=== PATIENT | male | born 1945 | race Caucasian/White ===

== ENCOUNTER 2016-09-29 10:54 | Emergency (ER) | payer MEDICARE, OTHER ==
[~2016-09-29 10:54] MED LIST: /TAMS4CA OR; ACET65TA OR; ALPR0.25 PO; AMBI10TA OR; ASPI1TAB PO; COLA100C2 OR; HYDR-3713 PO; IBUPOTC PO; KLOR1TAB73 PO; LACT10SO8 OR; LASI40TA OR; LASI40TA PO; LIPI10TA PO; LOPR50TA OR; MAGN500T5 PO; MULTIVIT PO; PERC5TAB8 OR; POTA20TA2 OR; PROC; PROP80CA OR; RAMI1.25 PO; SERT25TA PO; TAMS0.4C2 PO; XANA0.25 OR; XOPE1.252 IN; ZOLO50TA OR; proctosol TOP
[2016-09-29] MEDS ORDERED: [UNRECOGNIZED DRUG - OTHER] (11:08)
[2016-09-29] MEDS ORDERED: ASPI1TAB PO (11:08)
[2016-09-29] MEDS ORDERED: FERR325T PO (11:18)
[2016-09-29] MEDS ORDERED: NEUR300C PO (11:18)
[2016-09-29] MEDS ORDERED: FOLI1TAB2 PO (11:18)
[2016-09-29] MEDS ORDERED: LEVO25TA5 PO (11:18)
[2016-09-29] MEDS ORDERED: TYLE325C PO (11:18)
[2016-09-29] MEDS ORDERED: VITA500C24 PO (11:18)
[2016-09-29] MEDS ORDERED: K-TA10TA2 PO (11:18)
[2016-09-29] MEDS ORDERED: REQU3TAB PO (11:18)
[2016-09-29] MEDS ORDERED: DAILTAB51 PO (11:18)
[2016-09-29] MEDS ORDERED: SPIR25TA2 PO (11:18)
[2016-09-29] MEDS ORDERED: IPRASOL4 IN (11:30)
[2016-09-29] MEDS ORDERED: PHENYLEPHRINE 1% NASAL DROP 30 ML ONE (12:30)
[2016-09-29] MEDS ORDERED: LIDOCAINE 4% TOPICAL SOLN 50 ML BTL TOP ONE (12:30)
[2016-09-29] MEDS ORDERED: GABAPENTIN 300 MG CAP PO ONE (15:00)
[2016-09-29] MEDS ORDERED: IPRATROPIUM 0.5MG/ALBUTEROL 2.5MG INH SOL UD 3ML (DUONEB)(J7620) NEB ONE (15:00)
[2016-09-29 15:17] VITALS: BP 121/58
== END 2016-09-29 16:59 | disposition home or self-care (01) ==
LOC: EDBD 10:54 → M ED 12:56
DX: R04.0 Epistaxis (principal); I10 Essential (primary) hypertension; I51.9 Heart disease, unspecified; Z79.899 Other long term (current) drug therapy; Z88.6 Allergy status to analgesic agent

== ENCOUNTER 2016-09-30 11:43 | Emergency (ER) | payer MEDICARE, OTHER ==
[~2016-09-30] VITALS: Ht 175.3 cm; Wt 81.2 kg
[~2016-09-30 11:43] MED LIST changes: +DAILTAB51 PO; +FERR325T PO; +FOLI1TAB2 PO; +IPRASOL4 IN; +K-TA10TA2 PO; +LEVO25TA5 PO; +NEUR300C PO; +REQU3TAB PO; +SPIR25TA2 PO; +TYLE325C PO; +VITA500C24 PO; +[UNRECOGNIZED DRUG - OTHER]
[2016-09-30 14:49] LABS: MEAN CORPUSCULAR HEMOGLOBIN 30.3 pg (27.0-33.0); MEAN CORPUSCULAR HGB CONC 31.9 g/dl (32.0-36.5); MEAN CORPUSCULAR VOLUME 94.8 fl (80.0-96.0); RED CELL DISTRIBUTION WIDTH 14.6 % (11.5-14.5); WHITE BLOOD COUNT 5.7 K/mm3 (4.0-10.0)
[2016-09-30] MEDS ORDERED: GABAPENTIN 300 MG CAP PO ONE (15:00)
[2016-09-30 15:52] VITALS: BP 121/56
== END 2016-09-30 15:54 | disposition home or self-care (01) ==
LOC: M ED 13:58
DX: R04.0 Epistaxis (principal); D64.9 Anemia, unspecified; I25.10 Atherosclerotic heart disease of native coronary artery without angina pectoris; G25.81 Restless legs syndrome; Z95.5 Presence of coronary angioplasty implant and graft; Z79.82 Long term (current) use of aspirin; Z79.899 Other long term (current) drug therapy; Z88.8 Allergy status to other drugs, medicaments and biological substances

== ENCOUNTER 2016-10-07 09:41 | Inpatient (IN) | payer MEDICARE, OTHER ==
[~2016-10-07] VITALS: Ht 175.3 cm; Wt 88.1 kg
[2016-10-07 10:34] LABS: BASO % 0.2 % (0.0-1.0); EOS # 0.2 K/mm3 (0.0-0.50); LARGE UNSTAINED CELL # 0.1 K/mm3 (0.0-0.4); LARGE UNSTAINED CELL % 1.3 % (0.0-4.0); LYMPH # 0.5 K/mm3 (1.5-4.5); LYMPH % 5.6 % (24.0-44.0); MEAN CORPUSCULAR HEMOGLOBIN 29.6 pg (27.0-33.0); MEAN CORPUSCULAR VOLUME 95.6 fl (80.0-96.0); MONO # 0.6 K/mm3 (0.0-0.8); MONO % 7.8 % (0.0-5.0); NEUTROPHILS # 6.3 K/mm3 (1.8-7.7); NEUTROPHILS % 83.1 % (36.0-66.0); PLATELET COUNT, AUTOMATED 240 k/mm3 (150-450); RED CELL DISTRIBUTION WIDTH 14.8 % (11.5-14.5); WHITE BLOOD COUNT 7.6 K/mm3 (4.0-10.0)
[2016-10-07 10:51] LABS: CREATININE FOR GFR 1.31 MG/DL (0.70-1.30); GLOMERULAR FILTRATION RATE 57.1 (>42); POTASSIUM SERUM 4.2 MEQ/L (3.5-5.1)
--- NOTE | 2016-10-07 11:26 | REP ---
CHEST, PORTABLE: AP portable view of the chest is performed. Most recent exam for comparison 04/30/2015. Diffuse right pleural thickening is unchanged. There appear to be stable interstitial opacities in the right lung base. Small metallic clips are seen in the right lung base. Left lung demonstrates some retrocardiac opacity likely representing an area of atelectasis or infiltrate. There also appears to be a small left pleural effusion. Heart is mildly enlarged. Mediastinal silhouette is unchanged. Left pacemaker is again noted. There are multiple sternal wires present. IMPRESSION: Chronic pleural and parenchymal opacities right lung. Mild left basilar atelectasis/infiltrate and small left effusion. Cardiomegaly. Mild vascular congestion. Signed by Preet Donaldson MD 10/07/2016 04:59 P
[2016-10-07] MEDS ORDERED: FLOM5CAP PO (11:37)
[2016-10-07] MEDS ORDERED: MICO2CRE33 TOP (11:39)
[2016-10-07] MEDS ORDERED: GABA300C3 PO (11:39)
[2016-10-07] MEDS ORDERED: IPRASOL4 INH (11:39)
[2016-10-07] MEDS ORDERED: NU-M1TAB PO (11:42)
[2016-10-07] MEDS ORDERED: FURO20TA2 PO (11:42)
[2016-10-07] MEDS ORDERED: POTA20TA PO (11:42)
[2016-10-07] MEDS ORDERED: VITMTA PO (11:42)
[2016-10-07 11:51] LABS: ALBUMIN 3.3 GM/DL (3.2-5.2)
[2016-10-07 11:57] LABS: ALBUMIN/GLOBULIN RATIO 0.77 (1.00-1.93); BILIRUBIN,DIRECT 0.1 MG/DL (0.0-0.2); BILIRUBIN,TOTAL 0.3 MG/DL (0.2-1.0); THYROXINE (T4) 9.4 UG/DL (4.5-12.0); TOTAL PROTEIN 7.6 GM/DL (6.4-8.2)
[2016-10-07 11:57] LABS: INR 1.21
--- NOTE | 2016-10-07 12:28 | REP ---
Bilateral lower extremity Duplex Doppler venous ultrasound: Real time compression and duplex Doppler interrogation of the bilateral lower extremity deep venous system is performed. Bilaterally, the common femoral, superficial femoral and popliteal veins are fully compressible with transducer pressure and demonstrate normal spontaneous and phasic flow, without evidence of deep venous thrombosis. A right inguinal fluid collection measures 8.0 x 3.8 x 8.4 cm, superior and medial to the right common femoral artery and vein. Mild scattered internal echoes are seen. This may represent a seroma or old hematoma. Abscess is unlikely. Impression: No evidence of deep venous thrombosis of the bilateral lower extremity femoral popliteal venous system. A right inguinal fluid collection measures 8.0 x 3.8 x 8.4 cm, superior and medial to the right common femoral artery and vein. Mild scattered internal echoes are seen. This may represent a seroma or old hematoma. Abscess is unlikely. Signed by Preet Donaldson MD 10/07/2016 12:19 P
[2016-10-07] MEDS ORDERED: IMIPENEM/CILASTATIN 500 MG in D5W MINI-BAG PLUS 100 ML IV ONE (12:30)
--- NOTE | 2016-10-07 14:02 | HPEPDOC ---
Medical History and Physical Date of Admission 10/07/16 History and Physical ATTENDING: Dr. Dr Horowitz PCP: Dr Gillis Business Trainer Dr Foster CC: SOB HPI: 71yoM with a past medical history significant for MV repair and tricuspid repair at [facility] d/c 09/08/16 complicated by C diff, persistent SOB postoperatively complicated by decompensated CHF. Pt weight has decreased from 210-183 and pt states his edema has dramatically improved. Pt states he has had SOB/ MEDRANO, orthopnea and PND since d/c, he was given nebulizer treatments as per PCP for persistent SOB and has been on O2 at home 2LNC. Pt states SOB worsened Mon with chills, yellow/green sputum, and fatigue. Denies any fevers, YUSUF, CP, palpitations, abdominal pain, N/V/D or changes in bowel or bladder habits. Upon presentation to the hospital the patient was found to have HCAP, thus the hospitalist team was consulted. PMHx: VHD CHF/CMP TTE 05/14 EF 60% Pacemaker S/P MVR/Tricuspid Repair [facility] d/c 09/08/16 C diff postoperatively 09/16 epistaxis s/p cauterization, Dr Rodriguez 10/14 H/O Stage 4 Lung Ca s/p Chemo/Radiation 1998 depression anxiety Fe deficiency anemia hypothyroid RLS BPH PSHX: Tonsillectomy as child umbilical hernia pacemaker implant Rt knee arthroplasty Rt knee replacement pericardial window 2000 thoracentesis (pericardial effusion) pacemaker implant MVR/Tricuspid repair [facility] d/ 09/08/16 SOCHX: Resides in: [place] Marital Status: Kids: none Employment: retired [employer] Tobacco use: denies ETOH: 1 per week Illicit Drugs: Denies Recent travel: denies Advanced directives: denies FAMHX: Mother: Colon CA Father: Bladder Ca Siblings: 2 sisters, Breast Ca Children: none Unexpected deaths due to medical reasons: None. ROS: As noted in HPI, otherwise 11pt ROS of systems reviewed and remarkable only for large lump right groin since surgery. Some tenderness. no redness. PE: GEN: 71yoM, appears stated age. Thin, pale appearing. No acute distress. Alert and oriented x 3. Pleasant, interactive. HEENT: Normocephalic, atraumatic. Pupils are equal, round, and reactive to light. Extraocular movements are intact. No nystagmus appreciated. Sclera are nonicteric. Conjunctiva without injection. Nose midline. Nasal turbinates without bogginess. EACs both patent BL. TMs both visualized and dukes with good cone of light, no bulging or erythema. No facial asymmetry. Moist mucous membranes. Dentition fair. Pharynx pink and moist, no cobblestoning. Neck supple , trachea midline. No lymphadenopathy or thyromegaly appreciated. CHEST: Regular rate and rhythm, +S1, +S2 LUNGS: Decreased BS B/L with scattered wheeze and rhonchi, rales at bases R>L. Patient is speaking in full sentences. No accessory muscle use. ABD: Round, soft, non-tender, non-distended. +Bowel sounds throughout. No rebound or guarding. No costovertebral angle tenderness. EXT: Pulses 2+ bilaterally dorsalis pedis and radial. trace to 1 mm lower extremity edema appreciated at ankle and distal pretibial area. There is a 4- 5cm diameter nodule under what appears to be a surgical vascular acces site Rt groin, mild TTP. No erythema, drainage. No pulsation. SKIN: Marty, dry, warm. Capillary refill <2sec. No rashes. NEURO: Alert and oriented x 3. Cranial nerves III-XII are intact. No focal deficits appreciated. CXR: Chronic pleural and parenchymal opacities right lung. Mild left basilar atelectasis/infiltrate and small left effusion. Cardiomegaly. Mild vascular congestion EKG: Ventricular paced LE u/S No evidence of deep venous thrombosis of the bilateral lower extremity femoral popliteal venous system. A right inguinal fluid collection measures 8.0 x 3.8 x 8.4 cm, superior and medial to the right common femoral artery and vein. Mild scattered internal echoes are seen. This may represent a seroma or old hematoma. Abscess is unlikely BLOOD CULTURES: x 2 pending Respiratory panel pending LA 0.8 A&P: 71yoM with a past medical history significant for MV repair and tricuspid repair at [facility] d/c 09/08/16 complicated by C diff, persistent SOB postoperatively complicated by decompensated CHF. Pt weight has decreased from 210-183 and pt states his edema has dramatically improved. Pt states he has had SOB/ MEDRANO, orthopnea and PND since d/c, he was given nebulizer treatments as per PCP for persistent SOB and has been on O2 at home 2LNC. Pt states SOB worsened Mon with chills, yellow/green sputum, and fatigue. The patient will be admitted to PCU for at least [address] Horowitz's service. Pt is discussed with Dr Laughlin. HCAP. O2/Nebs, IV Primaxin. Check MRSA screen. Sputum Cx/BCx 2 pending. Respiratory panel pending. Recent MV repair/Tricuspid repair. Follows with Dr Foster. H/O C diff postoperatively. Hematoma Rt Groin. Per u/s appears to be a seroma vs hematoma. Monitor. CMP/CHF. Fluid status appears compensated. Cont outpt regimen of po Lasix 40mg AM/20mg PM, Aldactone 25mg daily, KCL 20meg BID. SCr baseline 1.1-1.2. 1.31 currently. Monitor labs. I/O/ daily wt. Pacemaker. PCU/TM. Anxiety/depression. Cont oupt meds. Anemia. Continue Folate/Fe supplement. Update Fe studies/B12/folate. Hgb 8.9 on ED visit 09/30. Monitor. RLS. Cont outpt regimen Requip/Gabapentin. BPH. Flomax. Epistaxis. Recent cauterization procedure as per Dr Rodriguez ENT. Hypothyroid. Continue supplement. DVT prophylaxis. SCD/TEDS The patient is a DNR per pt- Request copy. Vital Signs 96.7 60 111/61 22 96% Laboratory Data Labs 24H Laboratory Tests 2 10/07/16 10:17: B-Type Natriuretic Peptide 405H, Prothromb Time International Ratio 1.21, Prothrombin Time 15.4H 10/07/16 10:18: Aspartate Amino Transf (AST/SGOT) 21, Alanine Aminotransferase (ALT/SGPT) 20, Alkaline Phosphatase 78, Total Bilirubin 0.3, Direct Bilirubin 0.1, Albumin 3.3 , Albumin/Globulin Ratio 0.77L, Anion Gap 8, White Blood Count 7.6, Red Blood Count 3.06L, Hemoglobin 9.1L, Hematocrit 29.3L, Mean Corpuscular Volume 95.6, Mean Corpuscular Hemoglobin 29.6, Mean Corpuscular Hemoglobin Concent 31.0L, Red Cell Distribution Width 14.8H, Platelet Count 240, Neutrophils (%) (Auto) 83.1H, Lymphocytes (%) (Auto) 5.6L, Monocytes (%) (Auto) 7.8H, Eosinophils (%) ( Auto) 2.0, Basophils (%) (Auto) 0.2, Neutrophils # (Auto) 6.3, Lymphocytes # ( Auto) 0.5L, Monocytes # (Auto) 0.6, Eosinophils # (Auto) 0.2, Basophils # (Auto ) 0.0, Calcium Level 9.0, Creatine Kinase MB 2.5, Creatine Kinase MB Relative Index 3.78, Free Thyroxine Index 3.7, Glomerular Filtration Rate 57.1, Large Unclassified Cells # 0.1, Large Unclassified Cells % 1.3, Thyroid Stimulating Hormone (TSH) 5.620H, Thyroxine (T4) 9.4, Total Creatine Kinase 66, Total Protein 7.6, Triiodothyronine (T3) Uptake 39, Troponin I 0.03 10/07/16 12:37: Lactic Acid (Sepsis) 0.8 CBC/BMP Laboratory Tests 10/07/16 10:18 Red Blood Count 3.06 L, Mean Corpuscular Volume 95.6, Mean Corpuscular Hemoglobin 29.6, Mean Corpuscular Hemoglobin Concent 31.0 L, Red Cell Distribution Width 14.8 H, Neutrophils (%) (Auto) 83.1 H, Lymphocytes (%) (Auto ) 5.6 L, Monocytes (%) (Auto) 7.8 H, Eosinophils (%) (Auto) 2.0, Basophils (%) ( Auto) 0.2, Neutrophils # (Auto) 6.3, Lymphocytes # (Auto) 0.5 L, Monocytes # ( Auto) 0.6, Eosinophils # (Auto) 0.2, Basophils # (Auto) 0.0 Microbiology Microbiology 10/07/16 Blood Culture, Received Pending 10/07/16 Blood Culture, Received Pending 10/07/16 Respiratory Virus Panel (PCR) (OSMAR), Received Pending Home Medications Scheduled (Nu-Mag 71.5-119 mg) 1 Tab Tab 1 TAB PO DAILY Ascorbic Acid (Vitamin C) 500 Mg Cap 500 MG PO DAILY Ferrous Sulfate (Ferrous Sulfate) 325 Mg Tab 325 MG PO BID Folic Acid (Folic Acid) 1 Mg Tab 1 MG PO DAILY Furosemide (Lasix) 40 Mg Tab 40 MG PO QAM Furosemide (Furosemide) 20 Mg Tab 20 MG PO DAILY TAKES IN THE AFTERNOON Gabapentin (Gabapentin) 300 Mg Cap 300 MG PO TID Levothyroxine Sodium (Synthroid) 25 Mcg Tab 25 MCG PO DAILY Miconazole Nitrate (Miconazole) 2 % Cre 1 DOSE TOP BID APPLIES TO GROIN AREA Multivitamins *[facility] STOCKED* (Thera M Plus *[facility] STOCKED*) 1 Tab Tab 1 TAB PO BID Potassium Chloride (Klor-Con M20) 20 Meq Tabcr 20 MEQ PO BID Ropinirole Hydrochloride (Requip) 3 Mg Tab 3 MG PO QHS Sertraline Hcl (Sertraline HCl) 25 Mg Tab 25 MG PO DAILY Spironolactone (Spironolactone) 25 Mg Tab 25 MG PO DAILY Tamsulosin Hydrochloride (Flomax) 0.4 Mg Cap 1 CAP PO DAILY Scheduled PRN Albuterol/Ipratropium (Ipratropium Tasley/Albut 0.5-2.5 (3) mg/3Ml) 1 Jah Jah 1 JAH INH QID PRN PRN SHORTNESS OF BREATH Alprazolam (Alprazolam) 0.25 Mg Tab 0.25 MG PO PRN ANXIETY Allergies Coded Allergies: NSAIDs (Verified Adverse Reaction, Intermediate, acute kidney injury, 05/14) Lesia Alexis Oct 07, 2016 14:02
[2016-10-07] MEDS: FUROSEMIDE 20 MG TAB PO SCH (17:22)
[2016-10-07] MEDS: GABAPENTIN 300 MG CAP PO SCH ×2 (17:25→20:26)
[2016-10-07 18:45] VITALS: BP 116/65
[2016-10-07 20:00] VITALS: BP 110/61
[2016-10-07] MEDS: IPRATROPIUM 0.5MG/ALBUTEROL 2.5MG INH SOL UD 3ML (DUONEB)(J7620) NEB SCH ×2 (20:00→23:44)
[2016-10-07] MEDS: FERROUS SULFATE 325MG TAB PO SCH (20:26)
[2016-10-07] MEDS: TAMSULOSIN 0.4 MG CAP PO SCH (20:27)
[2016-10-07] MEDS: POTASSIUM CHLORIDE 10 MEQ SR TABLET PO SCH (20:27)
[2016-10-07] MEDS: MULTIVITAMINS/MINERALS THERAP 1 TAB PO SCH (20:27)
[2016-10-07] MEDS: ACETAMINOPHEN TAB 650MG DOSE (2X325MG) PO PRN (20:29)
[2016-10-07] MEDS: IMIPENEM/CILASTATIN 500 MG in D5W MINI-BAG PLUS 100 ML IV SCH ×2 (20:29→23:52)
[2016-10-07] MEDS ORDERED: rOPINIRole 1MG TAB PO SCH (21:00)
[2016-10-07] MEDS: ONDANSETRON 4MG/2ML VIAL (J2405) IV PRN (23:51)
[2016-10-08] VITALS: BP 132/69; PULSE 59
[2016-10-08 04:00] VITALS: BP 127/69; PULSE 60
[2016-10-08 05:14] LABS: BASO % 0.3 % (0.0-1.0); EOS # 0.1 K/mm3 (0.0-0.50); EOS % 1.5 % (0.0-3.0); LARGE UNSTAINED CELL # 0.2 K/mm3 (0.0-0.4); LARGE UNSTAINED CELL % 2.2 % (0.0-4.0); LYMPH # 0.4 K/mm3 (1.5-4.5); LYMPH % 6.2 % (24.0-44.0); MEAN CORPUSCULAR HEMOGLOBIN 29.7 pg (27.0-33.0); MEAN CORPUSCULAR VOLUME 95.6 fl (80.0-96.0); MONO # 0.6 K/mm3 (0.0-0.8); MONO % 8.9 % (0.0-5.0); NEUTROPHILS # 5.6 K/mm3 (1.8-7.7); NEUTROPHILS % 80.9 % (36.0-66.0); PLATELET COUNT, AUTOMATED 226 k/mm3 (150-450); RED CELL DISTRIBUTION WIDTH 14.8 % (11.5-14.5)
[2016-10-08] MEDS: LEVOTHYROXINE 0.025 MG TAB (25 MCG) PO SCH (05:30)
[2016-10-08] MEDS: IMIPENEM/CILASTATIN 500 MG in D5W MINI-BAG PLUS 100 ML IV SCH ×4 (05:30→23:08)
[2016-10-08] MEDS: ACETAMINOPHEN TAB 650MG DOSE (2X325MG) PO PRN ×3 (05:31→23:08)
[2016-10-08 05:46] LABS: ALBUMIN 2.9 GM/DL (3.2-5.2); ALBUMIN/GLOBULIN RATIO 0.69 (1.00-1.93); ALKALINE PHOSPHATASE 78 U/L (45-117); ALT/SGPT 17 U/L (12-78); ANION GAP 9 MEQ/L (8-16); AST/SGOT 21 U/L (15-37); BILIRUBIN,TOTAL 0.4 MG/DL (0.2-1.0); BLOOD UREA NITROGEN 21 MG/DL (7-18); CALCIUM LEVEL 8.1 MG/DL (8.8-10.2); CARBON DIOXIDE LEVEL 27 MEQ/L (21-32); CHLORIDE LEVEL 101 MEQ/L (98-107); CREATININE FOR GFR 1.21 MG/DL (0.70-1.30); FERRITIN 150 NG/ML (26-388); GLOMERULAR FILTRATION RATE > 60.0 (>42); GLUCOSE, FASTING 93 MG/DL (83-110); PERCENT SATURATION 16.4 % (19.7-37.4); POTASSIUM SERUM 4.2 MEQ/L (3.5-5.1); SODIUM LEVEL 137 MEQ/L (136-145); TOTAL IRON BINDING CAPACITY 281 UG/DL (250-450); TOTAL PROTEIN 7.1 GM/DL (6.4-8.2)
[2016-10-08] MEDS: IPRATROPIUM 0.5MG/ALBUTEROL 2.5MG INH SOL UD 3ML (DUONEB)(J7620) NEB SCH ×3 (07:06→19:15)
[2016-10-08 08:00] VITALS: BP 125/66
--- NOTE | 2016-10-08 09:00 | ECGEPIP ---
Stationary ECG Study [facility] - ED Test Date: 2016-10-07 Pat Name: KELLEY TRIANA Department: Room: - Gender: M Hone Operator: ct : 1945 Requested By: Ivy Dugan Order Number: [id number] Reading MD: Ivy Dugan Measurements Intervals [place] Rate: 60 P: NC: 0 QRS: 248 QRSD: 138 T: 93 QT: 446 QTc: 446 Interpretive Statements ELECTRONIC VENTRICULAR PACEMAKER ABNORMAL RHYTHM ECG DECREASED RATE 04/30/15 Electronically Signed On 10-08-2016 9:00:20 EST by Ivy Dugan
[2016-10-08] MEDS: MULTIVITAMINS/MINERALS THERAP 1 TAB PO SCH ×2 (09:20→20:13)
[2016-10-08] MEDS: SERTRALINE HCL 25 MG TABLET PO SCH (09:21)
[2016-10-08] MEDS: ASCORBIC ACID 500 MG TAB PO SCH (09:21)
[2016-10-08] MEDS: FUROSEMIDE 40 MG TAB PO SCH (09:21)
[2016-10-08] MEDS: FOLIC ACID 1 MG TAB PO SCH (09:21)
[2016-10-08] MEDS: POTASSIUM CHLORIDE 10 MEQ SR TABLET PO SCH ×2 (09:21→20:13)
[2016-10-08] MEDS: SPIRONOLACTONE 25 MG TAB PO SCH (09:21)
[2016-10-08] MEDS: FERROUS SULFATE 325MG TAB PO SCH ×2 (09:21→20:12)
[2016-10-08 12:00] VITALS: BP 145/52
[2016-10-08] MEDS ORDERED: BISACODYL 5 MG TAB PO PRN (12:30)
[2016-10-08] MEDS ORDERED: FLEET ENEMA PR PRN (12:30)
[2016-10-08] MEDS ORDERED: MOM 30ML SUSPENSION UDC PO PRN (12:30)
[2016-10-08] MEDS: SENNA 8.6 MG TAB (SENOKOT) PO PRN ×2 (12:58→20:12)
--- NOTE | 2016-10-08 14:00 | IPNPDOC ---
Subjective Date Seen The patient was seen on 10/08/16. Subjective Chief Complaint/HPI The patient is a 71-year-old male admitted with a reason for visit of Pneumonia. General: Denies: Chills, Night Sweats Constitutional: Denies: Chills, Fever Eyes: Denies: Pain, Vision change ENT: Denies: Ear Pain, Head Aches Skin: Denies: Lesions, Rash Pulmonary: Reports: Cough, Dyspnea Cardiovascular: Denies: Chest Pain, Palpitations Gastrointestinal: Denies: Nausea, Vomiting Genitourinary: Denies: Dysuria, Frequency Hematologic: Denies: Bleeding Excessively, Bruising Objective Physical Examination General Exam: Positive: Alert, Cooperative, No Acute Distress ENT Exam: Positive: Atraumatic, Mucous membr. moist/pink Neck Exam: Negative: JVD Chest Exam: Positive: Diminished (Decreased breath sounds diffusely, more decreased R > L), Normal air movement Heart Exam: Positive: Normal S1, Normal S2, Rate Normal Abdomen Exam: Positive: Soft, Negative: Tenderness Extremity Exam: Negative: Swelling, Tenderness Assessment /Plan Plan/VTE VTE Prophylaxis Ordered?: Yes Plan Acute on Chronic Hypoxic Respiratory Failure 2/2 [id number] PNA. CXR noted with parenchymal opacities in the right lung, atelectasis vs infiltrate in the left lung base Blood cultures unrevealing thus far Sputum Culture pending, MRSA Screen We will continue on Primaxin for Empiric Coverage. Check MRSA screen Cont Nebs We will continue to monitor the patient's respiratory status History of Systolic CHF with Valvular Disease, s/p recent MV/Tricuspid repair at [facility]. Follows with Dr Foster. Patient appears volume compensated at this time. Cont Lasix 40mg AM/20mg PM, Aldactone 25mg daily, KCL 20meg BID. Monitor I/O's Daily weights We will place an order to obtain records of recent hospitalization at [facility] Follows with Dr. Foster as an outpatient Hematoma of the Right Groin following Cardiac Cath at [facility] during last admission. U/S of the extremity noted--> Seroma vs Old Hematoma, less likely an abscess Dr. Phillip of Sx contacted in the ER-->Has recommended observation for now We will continue to monitor the site Chronic Kidney Disease Serum Cr at baseline (1.1-1.2) Recent Hospital stay complicated by C diff postoperatively Denies any diarrhea at this time History of Pacemaker Anxiety/depression Cont Zoloft Anemia Continue Folate/Fe supplement Restless Leg Syndrome Cont Requip/Gabapentin. BPH Cont Flomax Epistaxis s/p recent cauterization procedure by Dr Rodriguez of ENT. Hypothyroid Continue Levothyroxine DVT Prophylaxis Cont TEDs/SCDs given RLE Hematoma VS, I&O, 24H, Fishbone Vital Signs/I&O Vital Signs Date Time Temp Pulse Resp B/P Pulse Ox O2 Delivery O2 Flow Rate FiO2 10/08/16 12:30 Nasal Cannula 2.0 10/08/16 08:00 96.8 60 22 125/66 94 I&O- Last 24 Hours up to 6 AM 10/08/16 05:59 Intake Total 420 ml Output Total 150 ml Balance 270 ml Laboratory Data 24H LABS Laboratory Tests 2 10/08/16 04:52: Blood Urea Nitrogen 21H, Creatinine 1.21, Sodium Level 137, Potassium Level 4.2 , Chloride Level 101, Carbon Dioxide Level 27, Calcium Level 8.1L, Aspartate Amino Transf (AST/SGOT) 21, Alanine Aminotransferase (ALT/SGPT) 17, Alkaline Phosphatase 78, Total Bilirubin 0.4, Total Protein 7.1, Albumin 2.9L, Albumin/ Globulin Ratio 0.69L, Anion Gap 9, White Blood Count 7.0, Red Blood Count 3.03L , Hemoglobin 9.0L, Hematocrit 28.9L, Mean Corpuscular Volume 95.6, Mean Corpuscular Hemoglobin 29.7, Mean Corpuscular Hemoglobin Concent 31.0L, Red Cell Distribution Width 14.8H, Platelet Count 226, Neutrophils (%) (Auto) 80.9H , Lymphocytes (%) (Auto) 6.2L, Monocytes (%) (Auto) 8.9H, Eosinophils (%) (Auto ) 1.5, Basophils (%) (Auto) 0.3, Neutrophils # (Auto) 5.6, Lymphocytes # (Auto) 0.4L, Monocytes # (Auto) 0.6, Eosinophils # (Auto) 0.1, Basophils # (Auto) 0.0, Ferritin 150, Glomerular Filtration Rate > 60.0, Iron Level 46L, Large Unclassified Cells # 0.2, Large Unclassified Cells % 2.2, Total Iron Binding Capacity 281, Transferrin % Saturation 16.4L CBC/BMP Laboratory Tests 10/08/16 04:52 Calcium Level 8.1 L, Aspartate Amino Transf (AST/SGOT) 21, Alanine Aminotransferase (ALT/SGPT) 17, Alkaline Phosphatase 78, Total Bilirubin 0.4, Total Protein 7.1, Albumin 2.9 L, Red Blood Count 3.03 L, Mean Corpuscular Volume 95.6, Mean Corpuscular Hemoglobin 29.7, Mean Corpuscular Hemoglobin Concent 31.0 L, Red Cell Distribution Width 14.8 H, Neutrophils (%) (Auto) 80.9 H, Lymphocytes (%) (Auto) 6.2 L, Monocytes (%) (Auto) 8.9 H, Eosinophils (%) ( Auto) 1.5, Basophils (%) (Auto) 0.3, Neutrophils # (Auto) 5.6, Lymphocytes # ( Auto) 0.4 L, Monocytes # (Auto) 0.6, Eosinophils # (Auto) 0.1, Basophils # (Auto ) 0.0 Microbiology Microbiology 10/07/16 Blood Culture - Preliminary, Resulted No growth after 24 hours . All specim... 10/07/16 Blood Culture - Preliminary, Resulted No growth after 24 hours . All specim... 10/07/16 Respiratory Virus Panel (PCR) (OSMAR) - Final, Complete DANIEL NUNEZ MD Oct 08, 2016 14:00
[2016-10-08] MEDS: GABAPENTIN 300 MG CAP PO SCH ×3 (15:35→23:08)
[2016-10-08] MEDS: TAMSULOSIN 0.4 MG CAP PO SCH (15:35)
[2016-10-08 16:00] VITALS: BP 137/64
[2016-10-08] MEDS: FUROSEMIDE 20 MG TAB PO SCH (17:18)
[2016-10-08 20:00] VITALS: BP 128/69
[2016-10-08] MEDS: rOPINIRole 1MG TAB PO SCH (23:08)
[2016-10-09] VITALS: BP 138/66
[2016-10-09] MEDS: IPRATROPIUM 0.5MG/ALBUTEROL 2.5MG INH SOL UD 3ML (DUONEB)(J7620) NEB SCH ×4 (01:25→19:48)
[2016-10-09 04:00] VITALS: BP 120/57
[2016-10-09 05:49] LABS: ALBUMIN/GLOBULIN RATIO 0.67 (1.00-1.93); BILIRUBIN,TOTAL 0.4 MG/DL (0.2-1.0); CALCIUM LEVEL 8.4 MG/DL (8.8-10.2); CREATININE FOR GFR 1.33 MG/DL (0.70-1.30); GLOMERULAR FILTRATION RATE 56.1 (>42); POTASSIUM SERUM 3.8 MEQ/L (3.5-5.1); TOTAL PROTEIN 7.5 GM/DL (6.4-8.2)
[2016-10-09 05:57] LABS: BASO % 0.3 % (0.0-1.0); EOS # 0.2 K/mm3 (0.0-0.50); EOS % 1.9 % (0.0-3.0); LARGE UNSTAINED CELL # 0.1 K/mm3 (0.0-0.4); LARGE UNSTAINED CELL % 1.6 % (0.0-4.0); LYMPH # 0.7 K/mm3 (1.5-4.5); LYMPH % 6.3 % (24.0-44.0); MEAN CORPUSCULAR HEMOGLOBIN 30.4 pg (27.0-33.0); MONO # 0.8 K/mm3 (0.0-0.8); MONO % 9.3 % (0.0-5.0); NEUTROPHILS # 6.8 K/mm3 (1.8-7.7); NEUTROPHILS % 80.6 % (36.0-66.0); PLATELET COUNT, AUTOMATED 224 k/mm3 (150-450); RED CELL DISTRIBUTION WIDTH 14.9 % (11.5-14.5); WHITE BLOOD COUNT 8.4 K/mm3 (4.0-10.0)
[2016-10-09] MEDS: LEVOTHYROXINE 0.025 MG TAB (25 MCG) PO SCH (06:36)
[2016-10-09] MEDS: IMIPENEM/CILASTATIN 500 MG in D5W MINI-BAG PLUS 100 ML IV SCH ×4 (06:36→23:04)
[2016-10-09] MEDS: ACETAMINOPHEN TAB 650MG DOSE (2X325MG) PO PRN ×2 (06:42→20:35)
[2016-10-09 08:00] VITALS: BP 114/58
[2016-10-09] MEDS: FERROUS SULFATE 325MG TAB PO SCH ×2 (09:38→20:32)
[2016-10-09] MEDS: FUROSEMIDE 40 MG TAB PO SCH (09:38)
[2016-10-09] MEDS: SPIRONOLACTONE 25 MG TAB PO SCH (09:38)
[2016-10-09] MEDS: FOLIC ACID 1 MG TAB PO SCH (09:38)
[2016-10-09] MEDS: ASCORBIC ACID 500 MG TAB PO SCH (09:38)
[2016-10-09] MEDS: POTASSIUM CHLORIDE 10 MEQ SR TABLET PO SCH ×2 (09:38→20:32)
[2016-10-09] MEDS: SERTRALINE HCL 25 MG TABLET PO SCH (09:38)
[2016-10-09] MEDS: MULTIVITAMINS/MINERALS THERAP 1 TAB PO SCH ×2 (09:38→20:32)
--- NOTE | 2016-10-09 11:53 | IPNPDOC ---
Subjective Date Seen The patient was seen on 10/09/16. Subjective Chief Complaint/HPI The patient is a 71-year-old male admitted with a reason for visit of Pneumonia. General: Denies: Chills, Night Sweats Constitutional: Denies: Chills, Fever Eyes: Denies: Pain, Vision change ENT: Denies: Ear Pain, Head Aches Skin: Denies: Lesions, Rash Pulmonary: Reports: Cough, Dyspnea Cardiovascular: Denies: Chest Pain, Palpitations Gastrointestinal: Denies: Nausea, Vomiting Genitourinary: Denies: Dysuria, Frequency Hematologic: Denies: Bleeding Excessively, Bruising Objective Physical Examination General Exam: Positive: Alert, Cooperative, No Acute Distress ENT Exam: Positive: Atraumatic, Mucous membr. moist/pink Neck Exam: Negative: JVD Chest Exam: Positive: Diminished (Decreased breath sounds diffusely, more decreased R > L), Normal air movement Heart Exam: Positive: Normal S1, Normal S2, Rate Normal Abdomen Exam: Positive: Soft, Negative: Tenderness Extremity Exam: Negative: Swelling, Tenderness Assessment /Plan Plan/VTE VTE Prophylaxis Ordered?: Yes Plan Acute on Chronic Hypoxic Respiratory Failure 2/2 [id number] PNA. CXR noted with parenchymal opacities in the right lung, atelectasis vs infiltrate in the left lung base Blood cultures unrevealing thus far Sputum Culture pending, MRSA Screen We will continue on Primaxin for Empiric Coverage. Check MRSA screen Cont Nebs We will continue to monitor the patient's respiratory status History of Systolic CHF with Valvular Disease, s/p recent MV/Tricuspid repair at [facility]. Follows with Dr Foster. Patient appears volume compensated at this time. Cont Lasix 40mg AM/20mg PM, Aldactone 25mg daily, KCL 20meg BID. Monitor I/O's Daily weights We will place an order to obtain records of recent hospitalization at [facility] Follows with Dr. Foster as an outpatient Hematoma of the Right Groin following Cardiac Cath at [facility] during last admission. U/S of the extremity noted--> Seroma vs Old Hematoma, less likely an abscess Dr. Phillip of Sx contacted in the ER-->Has recommended observation for now We will continue to monitor the site Chronic Kidney Disease Serum Cr at baseline (1.1-1.2) Recent Hospital stay complicated by C diff postoperatively Denies any diarrhea at this time History of Pacemaker Anxiety/depression Cont Zoloft Anemia Continue Folate/Fe supplement Restless Leg Syndrome Cont Requip/Gabapentin. BPH Cont Flomax Epistaxis s/p recent cauterization procedure by Dr Rodriguez of ENT. Hypothyroid Continue Levothyroxine DVT Prophylaxis Cont TEDs/SCDs given RLE Hematoma VS, I&O, 24H, Fishbone Vital Signs/I&O Vital Signs Date Time Temp Pulse Resp B/P Pulse Ox O2 Delivery O2 Flow Rate FiO2 10/09/16 08:00 96.6 60 20 114/58 96 Nasal Cannula 2.0 I&O- Last 24 Hours up to 6 AM 10/09/16 06:00 Intake Total 1520 ml Output Total 1025 ml Balance 495 ml Laboratory Data 24H LABS Laboratory Tests 2 10/09/16 04:45: Blood Urea Nitrogen 21H, Creatinine 1.33H, Sodium Level 138, Potassium Level 3.8 , Chloride Level 102, Carbon Dioxide Level 27, Calcium Level 8.4L, Aspartate Amino Transf (AST/SGOT) 22, Alanine Aminotransferase (ALT/SGPT) 20, Alkaline Phosphatase 75, Total Bilirubin 0.4, Total Protein 7.5, Albumin 3.0L, Albumin/ Globulin Ratio 0.67L, Anion Gap 9, White Blood Count 8.4, Red Blood Count 3.12L , Hemoglobin 9.5L, Hematocrit 30.5L, Mean Corpuscular Volume 98.0H, Mean Corpuscular Hemoglobin 30.4, Mean Corpuscular Hemoglobin Concent 31.0L, Red Cell Distribution Width 14.9H, Platelet Count 224, Neutrophils (%) (Auto) 80.6H , Lymphocytes (%) (Auto) 6.3L, Monocytes (%) (Auto) 9.3H, Eosinophils (%) (Auto ) 1.9, Basophils (%) (Auto) 0.3, Neutrophils # (Auto) 6.8, Lymphocytes # (Auto) 0.7L, Monocytes # (Auto) 0.8, Eosinophils # (Auto) 0.2, Basophils # (Auto) 0.0, Glomerular Filtration Rate 56.1, Large Unclassified Cells # 0.1, Large Unclassified Cells % 1.6 CBC/BMP Laboratory Tests 10/09/16 04:45 Calcium Level 8.4 L, Aspartate Amino Transf (AST/SGOT) 22, Alanine Aminotransferase (ALT/SGPT) 20, Alkaline Phosphatase 75, Total Bilirubin 0.4, Total Protein 7.5, Albumin 3.0 L, Red Blood Count 3.12 L, Mean Corpuscular Volume 98.0 H, Mean Corpuscular Hemoglobin 30.4, Mean Corpuscular Hemoglobin Concent 31.0 L, Red Cell Distribution Width 14.9 H, Neutrophils (%) (Auto) 80.6 H, Lymphocytes (%) (Auto) 6.3 L, Monocytes (%) (Auto) 9.3 H, Eosinophils (%) ( Auto) 1.9, Basophils (%) (Auto) 0.3, Neutrophils # (Auto) 6.8, Lymphocytes # ( Auto) 0.7 L, Monocytes # (Auto) 0.8, Eosinophils # (Auto) 0.2, Basophils # (Auto ) 0.0 Microbiology Microbiology 10/07/16 Blood Culture - Preliminary, Resulted No Growth after 48 hours. All Specime... 10/07/16 Blood Culture - Preliminary, Resulted No Growth after 48 hours. All Specime... 10/07/16 Respiratory Virus Panel (PCR) (OSMAR) - Final, Complete DANIEL NUNEZ MD Oct 09, 2016 11:53
[2016-10-09 12:00] VITALS: BP 126/61
[2016-10-09] MEDS: guaiFENesin ER 600 MG TAB PO SCH ×2 (12:09→20:32)
[2016-10-09] MEDS: GABAPENTIN 300 MG CAP PO SCH ×3 (14:14→23:05)
[2016-10-09] MEDS: TAMSULOSIN 0.4 MG CAP PO SCH (14:14)
[2016-10-09 16:00] VITALS: BP 133/64
[2016-10-09] MEDS: FUROSEMIDE 20 MG TAB PO SCH (17:34)
[2016-10-09 20:00] VITALS: BP 113/60
[2016-10-09] MEDS: rOPINIRole 1MG TAB PO SCH (23:05)
[2016-10-10] VITALS: BP 119/68
[2016-10-10] MEDS: IPRATROPIUM 0.5MG/ALBUTEROL 2.5MG INH SOL UD 3ML (DUONEB)(J7620) NEB SCH ×4 (01:18→20:03)
[2016-10-10] MEDS ORDERED: SLF 3 ML SYR IV PRN (03:45)
[2016-10-10 04:00] VITALS: BP 110/56
[2016-10-10] MEDS: LEVOTHYROXINE 0.025 MG TAB (25 MCG) PO SCH (05:29)
[2016-10-10] MEDS: IMIPENEM/CILASTATIN 500 MG in D5W MINI-BAG PLUS 100 ML IV SCH (05:29)
[2016-10-10] MEDS: SLF 3 ML SYR IV SCH ×3 (05:30→20:44)
[2016-10-10 05:41] LABS: BASO % 0.2 % (0.0-1.0); EOS # 0.2 K/mm3 (0.0-0.50); EOS % 2.8 % (0.0-3.0); LARGE UNSTAINED CELL # 0.1 K/mm3 (0.0-0.4); LARGE UNSTAINED CELL % 1.2 % (0.0-4.0); LYMPH # 0.5 K/mm3 (1.5-4.5); LYMPH % 6.1 % (24.0-44.0); MEAN CORPUSCULAR HGB CONC 31.2 g/dl (32.0-36.5); MEAN CORPUSCULAR VOLUME 96.2 fl (80.0-96.0); MONO # 0.5 K/mm3 (0.0-0.8); MONO % 7.7 % (0.0-5.0); NEUTROPHILS # 5.8 K/mm3 (1.8-7.7); NEUTROPHILS % 82.1 % (36.0-66.0); PLATELET COUNT, AUTOMATED 231 k/mm3 (150-450); RED CELL DISTRIBUTION WIDTH 15.4 % (11.5-14.5)
[2016-10-10 05:51] LABS: ALBUMIN 2.9 GM/DL (3.2-5.2); ALBUMIN/GLOBULIN RATIO 0.66 (1.00-1.93); BILIRUBIN,TOTAL 0.5 MG/DL (0.2-1.0); CALCIUM LEVEL 8.5 MG/DL (8.8-10.2); CREATININE FOR GFR 1.33 MG/DL (0.70-1.30); GLOMERULAR FILTRATION RATE 56.1 (>42); POTASSIUM SERUM 3.8 MEQ/L (3.5-5.1); TOTAL PROTEIN 7.3 GM/DL (6.4-8.2)
[2016-10-10 08:00] VITALS: BP 119/62
[2016-10-10] MEDS: ACETAMINOPHEN TAB 650MG DOSE (2X325MG) PO PRN ×2 (08:35→21:53)
[2016-10-10] MEDS: FUROSEMIDE 40 MG TAB PO SCH (08:36)
[2016-10-10] MEDS: guaiFENesin ER 600 MG TAB PO SCH ×2 (08:36→20:44)
[2016-10-10] MEDS: POTASSIUM CHLORIDE 10 MEQ SR TABLET PO SCH ×2 (08:36→20:43)
[2016-10-10] MEDS: MULTIVITAMINS/MINERALS THERAP 1 TAB PO SCH ×2 (08:37→20:44)
[2016-10-10] MEDS: ASCORBIC ACID 500 MG TAB PO SCH (08:37)
[2016-10-10] MEDS: FOLIC ACID 1 MG TAB PO SCH (08:37)
[2016-10-10] MEDS: FERROUS SULFATE 325MG TAB PO SCH ×2 (08:37→20:44)
[2016-10-10] MEDS: SPIRONOLACTONE 25 MG TAB PO SCH (08:37)
[2016-10-10] MEDS: PIPERACILLIN/TAZOBACTAM SOD 3.375 GM in D5W MINI-BAG PLUS 50 ML IV SCH ×3 (08:38→20:43)
--- NOTE | 2016-10-10 08:40 | PHACANCOPD ---
PHARMACY VANCOMYCIN DOSING Pt Demographics Demographics Patient Age:71 , Weight:82.500 , Gender: male Adjusted Body Weight Date: 10/10/16, Adjusted Body Weight: [82.5] Kg Events Past 24 Hours Events Past 24 Hours: NO: Change in CrCl, Dialysis, Diuretic Therapy, Elevation in WBC, Fever, Other, Pending Diagnostics, Pending Procedures Vancomycin Vancomycin indication: HCAP Vancomycin Target Ranges: 15-20 mcg/ml Vancomycin Load Y/N: Yes Load Dose Date Time Vancomycin Load Dose: 2G Date: 10/10/16 Time: 09 Vancomycin Dose Date: 10/10/16. Current Vancomycin Dose: [1G Q24H] Intermittent Dosing?: No Labs Labs Item Value Date Time Creatinine 1.21 MG/DL 10/08/16 045 Creatinine 1.33 MG/DL H 10/09/16 0445 Creatinine 1.33 MG/DL H 10/10/16 0450 Item Value Date Time White Blood Count 7.0 K/mm3 10/08/16 0452 White Blood Count 8.4 K/mm3 10/09/16 0445 White Blood Count 7.0 K/mm3 10/10/16 0450 Vital Signs Label Value Date Time Patient Temperature 96.9 degrees F 10/09/16 1600 Temperature Source Tympanic 10/09/16 1600 Patient Temperature 97.4 degrees F 10/09/16 2000 Temperature Source Tympanic 10/09/16 2000 Patient Temperature 97.3 degrees F 10/10/16 0000 Temperature Source Tympanic 10/10/16 0000 Patient Temperature 96.4 degrees F 10/10/16 0400 Temperature Source Tympanic 10/10/16 0400 Micro Microbiology 10/07/16 Blood Culture - Preliminary, Resulted No Growth after 48 hours. All Specime... 10/07/16 Blood Culture - Preliminary, Resulted No Growth after 48 hours. All Specime... 10/07/16 Respiratory Virus Panel (PCR) (OSMAR) - Final, Complete Creatinine Clearance Date:10/10/16. Creatinine Clearance: [49.5ML/MIN]. Assessment and Plan Maintaining Current Dose?: Yes Reason for dose change: No Dose Change Pharmacist Note Pharmacist Note Date: 10/10/16. Pharmacist note: PT is a 71 y/o male being treated for hcap goal trough 15-20mcg/ml. Pt does not have a history of treatment with vancomycin at [facility]. To achieve goal a 2g loading dose was gave at 0900. Maintenance will consist of 1g q24h starting 10/11 at 09. We will continue to monitor and adjust dose as needed. CHRISTOPHER JALLOH PHARMACY Oct 10, 2016 08:40
[2016-10-10] MEDS: SERTRALINE HCL 25 MG TABLET PO SCH (09:00)
[2016-10-10] MEDS: VANCOMYCIN HCL 1,000 MG, VIAL MATE ADAPTER 1 EACH in D5W 250 ML IV SCH (09:55)
[2016-10-10] MEDS ORDERED: VANCOMYCIN HCL 1,000 MG, VIAL MATE ADAPTER 1 EACH in D5W 250 ML IV ONE (10:00)
[2016-10-10 10:49] LABS: VITAMIN B12 LEVEL 440 PG/ML (247-911)
[2016-10-10 10:50] LABS: FOLATE > 24.0 NG/ML (>5.4)
[2016-10-10 11:40] VITALS: BP 126/52
--- NOTE | 2016-10-10 11:51 | IPNPDOC ---
Subjective Date Seen The patient was seen on 10/10/16. Subjective Chief Complaint/HPI The patient is a 71-year-old male admitted with a reason for visit of Pneumonia. General: Denies: Chills, Night Sweats Constitutional: Denies: Chills, Fever Eyes: Denies: Pain, Vision change ENT: Denies: Ear Pain, Head Aches Skin: Denies: Lesions, Rash Pulmonary: Reports: Cough, Dyspnea Cardiovascular: Denies: Chest Pain, Palpitations Gastrointestinal: Denies: Nausea, Vomiting Genitourinary: Denies: Dysuria, Frequency Hematologic: Denies: Bleeding Excessively, Bruising Musculoskeletal: Denies: Back Pain, Neck Pain Objective Physical Examination General Exam: Positive: Alert, Cooperative, No Acute Distress ENT Exam: Positive: Atraumatic, Mucous membr. moist/pink Neck Exam: Negative: JVD Chest Exam: Positive: Diminished (Decreased breath sounds diffusely, more decreased R > L), Normal air movement Heart Exam: Positive: Normal S1, Normal S2, Rate Normal Abdomen Exam: Positive: Soft, Negative: Tenderness Extremity Exam: Negative: Swelling, Tenderness Assessment /Plan Plan/VTE VTE Prophylaxis Ordered?: Yes Plan Acute on Chronic Hypoxic Respiratory Failure 2/2 [id number]-Oglsayvncg PNA. CXR noted with parenchymal opacities in the right lung, atelectasis vs infiltrate in the left lung base Blood cultures unrevealing thus far Sputum Culture pending, MRSA Screen Vanco/Zosyn for Empiric Coverage Cont Nebs We will continue to monitor the patient's respiratory status-->continues to improve daily We will have PT continue to work with him as well, and monitor for desaturations History of Systolic CHF with Valvular Disease, s/p recent MV/Tricuspid repair at [facility]. Follows with Dr Foster. Patient appears volume compensated at this time. Cont Lasix 40mg AM/20mg PM, Aldactone 25mg daily, KCL 20meg BID. Monitor I/O's Daily weights We will place an order to obtain records of recent hospitalization at [facility] Follows with Dr. Foster as an outpatient Hematoma of the Right Groin following Cardiac Cath at [facility] during last admission. U/S of the extremity noted--> Seroma vs Old Hematoma, less likely an abscess Dr. Phillip of S contacted in the ER-->Has recommended observation for now We will continue to monitor the site Chronic Kidney Disease Serum Cr at baseline (1.1-1.3) Recent Hospital stay complicated by C diff postoperatively Denies any diarrhea at this time History of Pacemaker Anxiety/depression Cont Zoloft Anemia Continue Folate/Fe supplement Restless Leg Syndrome Cont Requip/Gabapentin. BPH Cont Flomax Epistaxis s/p recent cauterization procedure by Dr Rodriguez of ENT. Hypothyroid Continue Levothyroxine DVT Prophylaxis Cont TEDs/SCDs given RLE Hematoma VS, I&O, 24H, Fishbone Vital Signs/I&O Vital Signs Date Time Temp Pulse Resp B/P Pulse Ox O2 Delivery O2 Flow Rate FiO2 10/10/16 11:40 98.0 65 20 126/52 97 Nasal Cannula 2.0 I&O- Last 24 Hours up to 6 AM 10/10/16 06:00 Intake Total 1880 ml Output Total 1400 ml Balance 480 ml Laboratory Data 24H LABS Laboratory Tests 2 10/10/16 04:50: Blood Urea Nitrogen 21H, Creatinine 1.33H, Sodium Level 139, Potassium Level 3.8 , Chloride Level 100, Carbon Dioxide Level 29, Calcium Level 8.5L, Aspartate Amino Transf (AST/SGOT) 25, Alanine Aminotransferase (ALT/SGPT) 24, Alkaline Phosphatase 76, Total Bilirubin 0.5, Total Protein 7.3, Albumin 2.9L, Albumin/ Globulin Ratio 0.66L, Anion Gap 10, White Blood Count 7.0, Red Blood Count 3.07L , Hemoglobin 9.2L, Hematocrit 29.6L, Mean Corpuscular Volume 96.2H, Mean Corpuscular Hemoglobin 30.0, Mean Corpuscular Hemoglobin Concent 31.2L, Red Cell Distribution Width 15.4H, Platelet Count 231, Neutrophils (%) (Auto) 82.1H , Lymphocytes (%) (Auto) 6.1L, Monocytes (%) (Auto) 7.7H, Eosinophils (%) (Auto ) 2.8, Basophils (%) (Auto) 0.2, Neutrophils # (Auto) 5.8, Lymphocytes # (Auto) 0.5L, Monocytes # (Auto) 0.5, Eosinophils # (Auto) 0.2, Basophils # (Auto) 0.0, Glomerular Filtration Rate 56.1, Large Unclassified Cells # 0.1, Large Unclassified Cells % 1.2 CBC/BMP Laboratory Tests 10/10/16 04:50 Calcium Level 8.5 L, Aspartate Amino Transf (AST/SGOT) 25, Alanine Aminotransferase (ALT/SGPT) 24, Alkaline Phosphatase 76, Total Bilirubin 0.5, Total Protein 7.3, Albumin 2.9 L, Red Blood Count 3.07 L, Mean Corpuscular Volume 96.2 H, Mean Corpuscular Hemoglobin 30.0, Mean Corpuscular Hemoglobin Concent 31.2 L, Red Cell Distribution Width 15.4 H, Neutrophils (%) (Auto) 82.1 H, Lymphocytes (%) (Auto) 6.1 L, Monocytes (%) (Auto) 7.7 H, Eosinophils (%) ( Auto) 2.8, Basophils (%) (Auto) 0.2, Neutrophils # (Auto) 5.8, Lymphocytes # ( Auto) 0.5 L, Monocytes # (Auto) 0.5, Eosinophils # (Auto) 0.2, Basophils # (Auto ) 0.0 Microbiology Microbiology 10/07/16 Blood Culture - Preliminary, Resulted No Growth after 72 hours. All specime... 10/07/16 Blood Culture - Preliminary, Resulted No Growth after 72 hours. All specime... 10/07/16 Respiratory Virus Panel (PCR) (OSMAR) - Final, Complete DANIEL NUNEZ MD Oct 10, 2016 11:51
[2016-10-10] MEDS: TAMSULOSIN 0.4 MG CAP PO SCH (14:25)
[2016-10-10] MEDS: GABAPENTIN 300 MG CAP PO SCH ×3 (14:25→21:53)
[2016-10-10 16:00] VITALS: BP 127/65
[2016-10-10] MEDS: FUROSEMIDE 20 MG TAB PO SCH (17:19)
[2016-10-10] MEDS: rOPINIRole 1MG TAB PO SCH (21:53)
[2016-10-10 22:00] VITALS: BP 131/61
[2016-10-11] VITALS (7 sets, daily range): BP systolic 115–150; BP diastolic 58–69; O2SAT 93–94
[2016-10-11] MEDS: IPRATROPIUM 0.5MG/ALBUTEROL 2.5MG INH SOL UD 3ML (DUONEB)(J7620) NEB SCH ×4 (02:00→20:38)
[2016-10-11] MEDS: PIPERACILLIN/TAZOBACTAM SOD 3.375 GM in D5W MINI-BAG PLUS 50 ML IV SCH ×4 (02:11→20:05)
[2016-10-11] MEDS: LEVOTHYROXINE 0.025 MG TAB (25 MCG) PO SCH (05:38)
[2016-10-11] MEDS: SLF 3 ML SYR IV SCH ×3 (05:38→22:00)
[2016-10-11 07:29] LABS: BASO % 0.4 % (0.0-1.0); EOS # 0.2 K/mm3 (0.0-0.50); EOS % 3.7 % (0.0-3.0); LARGE UNSTAINED CELL # 0.2 K/mm3 (0.0-0.4); LARGE UNSTAINED CELL % 2.4 % (0.0-4.0); LYMPH # 0.5 K/mm3 (1.5-4.5); LYMPH % 7.6 % (24.0-44.0); MEAN CORPUSCULAR HEMOGLOBIN 29.4 pg (27.0-33.0); MEAN CORPUSCULAR HGB CONC 30.5 g/dl (32.0-36.5); MEAN CORPUSCULAR VOLUME 96.4 fl (80.0-96.0); MONO # 0.5 K/mm3 (0.0-0.8); MONO % 7.4 % (0.0-5.0); NEUTROPHILS # 5.2 K/mm3 (1.8-7.7); NEUTROPHILS % 78.6 % (36.0-66.0); PLATELET COUNT, AUTOMATED 234 k/mm3 (150-450); WHITE BLOOD COUNT 6.6 K/mm3 (4.0-10.0)
[2016-10-11 07:38] LABS: ALBUMIN 3.1 GM/DL (3.2-5.2); ALBUMIN/GLOBULIN RATIO 0.72 (1.00-1.93); BILIRUBIN,TOTAL 0.6 MG/DL (0.2-1.0); CALCIUM LEVEL 8.6 MG/DL (8.8-10.2); CREATININE FOR GFR 1.41 MG/DL (0.70-1.30); GLOMERULAR FILTRATION RATE 52.5 (>42); POTASSIUM SERUM 3.8 MEQ/L (3.5-5.1); TOTAL PROTEIN 7.4 GM/DL (6.4-8.2)
[2016-10-11] MEDS: POTASSIUM CHLORIDE 10 MEQ SR TABLET PO SCH ×2 (09:18→22:00)
[2016-10-11] MEDS: guaiFENesin ER 600 MG TAB PO SCH ×2 (09:18→22:01)
[2016-10-11] MEDS: SPIRONOLACTONE 25 MG TAB PO SCH (09:18)
[2016-10-11] MEDS: SERTRALINE HCL 25 MG TABLET PO SCH (09:19)
[2016-10-11] MEDS: FUROSEMIDE 40 MG TAB PO SCH (09:19)
[2016-10-11] MEDS: MULTIVITAMINS/MINERALS THERAP 1 TAB PO SCH ×2 (09:19→22:00)
[2016-10-11] MEDS: ASCORBIC ACID 500 MG TAB PO SCH (09:19)
[2016-10-11] MEDS: FERROUS SULFATE 325MG TAB PO SCH ×2 (09:19→22:01)
[2016-10-11] MEDS: FOLIC ACID 1 MG TAB PO SCH (09:19)
[2016-10-11] MEDS: VANCOMYCIN HCL 1,000 MG, VIAL MATE ADAPTER 1 EACH in D5W 250 ML IV SCH (11:09)
--- NOTE | 2016-10-11 11:10 | REP ---
REASON FOR EXAM: Dyspnea. COMPARISON: Multiple, latest 10/07/2016 a portable exam. Cardiomediastinal silhouette is unchanged when the technical differences between the examinations are taken into consideration. Pacemaker device stable. Note is again made of previous median sternotomy. New streaky opacities are seen in the left lung base which either represent a physiologic change from the prior exam or an imaging change from the prior portable exam. There is persistent left sided costophrenic angle and cardiophrenic angle blunting. There is no change in the right lung field. There are chronic changes status quo. The heart is borderline in size. There is no change in the osseous structures. There is abnormal thickening of the major fissure. IMPRESSION: Findings involving the left lower lobe as described above. Possible left lower lobe pneumonia/atelectasis with suspected pleural effusion. Other chronic lung field changes and findings as described above. Signed by Oli Salgado DO 10/11/2016 11:19 A
[2016-10-11] MEDS: TAMSULOSIN 0.4 MG CAP PO SCH (13:39)
[2016-10-11] MEDS: GABAPENTIN 300 MG CAP PO SCH ×3 (13:39→22:01)
[2016-10-11] MEDS: FUROSEMIDE 20 MG TAB PO SCH (16:30)
[2016-10-11] MEDS: ACETAMINOPHEN TAB 650MG DOSE (2X325MG) PO PRN (16:31)
--- NOTE | 2016-10-11 16:49 | IPN ---
DATE: 10/11/2016 Mr. Brewer is somewhat short of breath this morning. He is not producing sputum, he feels as though he should. He did have some epistaxis overnight on the left side which is the side that was not cauterized previously. Temperature 98.3, pulse 64, respiratory rate 16, blood pressure 130/58, 91% on 2 liters. Intake and output notable for a positive fluid balance of +20, no bowel movements noted yesterday. Weight is 87.2 kg with a body mass index of 26.9. He is awake, appropriately interactive, sitting at bedside. Breathing is symmetrical, rested. He does not appear tachypneic. There is upper airway sounds noted throughout. No accessory muscle use. Heart is distant sounding, normal S1, S2. Abdomen is soft, doughy, nontender. White cell count 6.6, hemoglobin 9.5, BUN 20, creatinine 1.4. My assessment is as follows: This is a 71-year-old with hospital-associated pneumonia. Plan will be as follows: 1. Respiratory/infectious disease. The patient is continued on Zosyn and vancomycin. We are still awaiting obtaining a sputum culture sample. The patient has mal clearance of secretions, is given an Acapella device. He has used an Acapella type device before with some good effect. Chest xray suggests developing effusion. There is no elevation in white cell count. Will continue with current care. 2. Patient has history of systolic congestive heart failure with valvular disease. There is evidence of increasing fluid on his chest xray. May benefit from a followup CT scan. 3. Patient has hematoma of the right groin which is examined. There is no evidence of bruit, there is no erythema, there is no warmth. 4. Patient has chronic kidney disease. Serum creatinine is somewhat worse than baseline. 5. Patient has history of recent Clostridium (C) difficile. 6. Patient has had recurrent epistaxis. Will recommend humidifying his oxygen. He may need followup with otolaryngology (ENT) should the epistaxis resume. 7. Patient has mechanical deep venous thrombosis (DVT) prophylaxis.
--- NOTE | 2016-10-11 16:58 | REP ---
CT study of the chest without contrast: History: Shortness of breath. The patient relates a history of stage IV lung carcinoma. Prior open heart surgery and pericardial window. Comparison chest CT study is from April 30, 2015. Findings: There is chronic collapse with multiple air bronchograms in the right upper lobe. There are similar less pronounced changes in the right middle lobe and right lower lobe. These predominately paramedian changes are compatible with postradiation change. There is some pleuroparenchymal fibrosis more peripherally in the right middle lobe distribution. This pleural thickening is associated with a tiny amount of pleural fluid. The pleural fluid component has decreased. There is some pleural calcification along with the thickening. This is a little more prominent. More superiorly in the chest in the right middle lobe distribution is a linear area of new parenchymal opacity associated with some surgical clips which may be postoperative change. There are some stable epicardial lymph nodes anteriorly in the right base. There is a small area of new parenchymal infiltrate in the right lower lobe lateral to the chronic atelectatic change. This could be a small inflammatory infiltrate. The right lung is otherwise unchanged from the comparison study. On the left, today's study shows a small to moderate left pleural effusion, which is increased from the April 30, 2015 prior study. There is a stable aortopulmonary window region normal-sized lymph node. No mass lesion is seen. There is a small cyst in the posterior aspect of the right lobe of the liver, which is unchanged from April 30, 2015 prior study. Another small cyst is seen in the left lobe. This is better seen today but probably unchanged as well. A 2.4 cm left lobe cyst is again seen unchanged. No adrenal lesion is visualized. Impression: Small to moderate left pleural effusion, increased in size from the 2014 prior study. Extensive postradiation changes on the right. Status post aortic and mitral valve replacement and median sternotomy with pacemaker. There is a new linear parenchymal opacity in the right middle lobe distribution adjacent to some surgical clips, which is an interval change from the prior CT. This may be related to recent cardiac valve surgery. There is also a new patchy infiltrate in the right lower lobe lateral to the chronic fibrosis and atelectasis, which was not present in 2015. This could be an inflammatory infiltrate. Signed by Guererro Foreman MD 10/11/2016 05:00 P
[2016-10-11] MEDS: FUROSEMIDE 40 MG/4 ML VIAL (J1940) IV SCH (17:22)
[2016-10-11] MEDS: NITROGLYCERIN 2% OINT 1 GM *U/D* PKT TOP SCH (18:07)
[2016-10-11] MEDS: rOPINIRole 1MG TAB PO SCH (22:00)
[2016-10-12] MEDS: FUROSEMIDE 40 MG/4 ML VIAL (J1940) IV SCH ×5 (01:00→23:51)
[2016-10-12] MEDS: NITROGLYCERIN 2% OINT 1 GM *U/D* PKT TOP SCH ×5 (01:00→23:53)
[2016-10-12] MEDS: PIPERACILLIN/TAZOBACTAM SOD 3.375 GM in D5W MINI-BAG PLUS 50 ML IV SCH ×4 (01:34→19:42)
[2016-10-12] MEDS: IPRATROPIUM 0.5MG/ALBUTEROL 2.5MG INH SOL UD 3ML (DUONEB)(J7620) NEB SCH ×4 (04:03→21:40)
[2016-10-12] MEDS: LEVOTHYROXINE 0.025 MG TAB (25 MCG) PO SCH (05:31)
[2016-10-12] MEDS: ACETAMINOPHEN TAB 650MG DOSE (2X325MG) PO PRN ×2 (05:31→21:28)
[2016-10-12] MEDS: SLF 3 ML SYR IV SCH ×3 (05:32→21:27)
[2016-10-12] MEDS: ONDANSETRON 4MG/2ML VIAL (J2405) IV PRN (05:43)
[2016-10-12 06:00] VITALS: BP 115/58
[2016-10-12 07:47] LABS: BASO % 0.3 % (0.0-1.0); EOS # 0.2 K/mm3 (0.0-0.50); LARGE UNSTAINED CELL # 0.2 K/mm3 (0.0-0.4); LARGE UNSTAINED CELL % 2.2 % (0.0-4.0); LYMPH # 0.6 K/mm3 (1.5-4.5); LYMPH % 7.3 % (24.0-44.0); MEAN CORPUSCULAR HGB CONC 31.5 g/dl (32.0-36.5); MEAN CORPUSCULAR VOLUME 95.5 fl (80.0-96.0); MONO # 0.5 K/mm3 (0.0-0.8); MONO % 7.9 % (0.0-5.0); NEUTROPHILS # 5.4 K/mm3 (1.8-7.7); NEUTROPHILS % 79.2 % (36.0-66.0); PLATELET COUNT, AUTOMATED 224 k/mm3 (150-450); RED CELL DISTRIBUTION WIDTH 15.1 % (11.5-14.5); WHITE BLOOD COUNT 6.9 K/mm3 (4.0-10.0)
[2016-10-12 08:26] LABS: ALBUMIN 2.9 GM/DL (3.2-5.2); ALBUMIN/GLOBULIN RATIO 0.78 (1.00-1.93); BILIRUBIN,TOTAL 0.6 MG/DL (0.2-1.0); CALCIUM LEVEL 8.1 MG/DL (8.8-10.2); CREATININE FOR GFR 1.42 MG/DL (0.70-1.30); POTASSIUM SERUM 3.5 MEQ/L (3.5-5.1); TOTAL PROTEIN 6.6 GM/DL (6.4-8.2)
--- NOTE | 2016-10-12 08:52 | PHACANCOPD ---
PHARMACY VANCOMYCIN DOSING Pt Demographics Demographics Patient Age:71 , Weight:82.700 , Gender: male Adjusted Body Weight Date: 10/10/16, Adjusted Body Weight: [82.5] Kg Events Past 24 Hours Events Past 24 Hours: NO: Change in CrCl, Dialysis, Diuretic Therapy, Elevation in WBC, Fever, Other, Pending Diagnostics, Pending Procedures Vancomycin Vancomycin indication: HCAP Vancomycin Target Ranges: 15-20 mcg/ml Vancomycin Load Y/N: Yes Load Dose Date Time Vancomycin Load Dose: 2G Date: 10/10/16 Time: 09 Vancomycin Dose Date: 10/12/16. Current Vancomycin Dose: [750MG Q12H] Date: 10/10/16. Current Vancomycin Dose: [1G Q24H] Intermittent Dosing?: No Labs Micro Microbiology 10/07/16 Blood Culture - Preliminary, Resulted No Growth after 72 hours. All specime... 10/07/16 Blood Culture - Preliminary, Resulted No Growth after 72 hours. All specime... 10/07/16 Respiratory Virus Panel (PCR) (OSMAR) - Final, Complete Creatinine Clearance Date:10/10/16. Creatinine Clearance: [49.5ML/MIN]. Assessment and Plan Maintaining Current Dose?: No Reason for dose change: Trough too low Pharmacist Note Pharmacist Note Date: 10/12/16. Pharmacist note:PT trough came back today at 10mcg/ml. The last dose was gave at 11:00 10/11 and trough was collected at 7:30 10/12. Vancomycin half life for this pt was estimated at 16 hours. To boost trough to goal 1g was continued for morning dose @ 9:00. Therapy will changed to 750mg Q12h at 21 tonight. Date: 10/10/16. Pharmacist note: PT is a 71 y/o male being treated for hcap goal trough 15-20mcg/ml. Pt does not have a history of treatment with vancomycin at [facility]. To achieve goal a 2g loading dose was gave at 0900. Maintenance will consist of 1g q24h starting 10/11 at 09. We will continue to monitor and adjust dose as needed. CHRISTOPHER JALLOH PHARMACY Oct 12, 2016 08:52
[2016-10-12] MEDS: POTASSIUM CHLORIDE 10 MEQ SR TABLET PO SCH ×2 (09:31→21:26)
[2016-10-12] MEDS: FOLIC ACID 1 MG TAB PO SCH (09:31)
[2016-10-12] MEDS: ASCORBIC ACID 500 MG TAB PO SCH (09:31)
[2016-10-12] MEDS: FERROUS SULFATE 325MG TAB PO SCH ×2 (09:31→21:26)
[2016-10-12] MEDS: SPIRONOLACTONE 25 MG TAB PO SCH (09:31)
[2016-10-12] MEDS: guaiFENesin ER 600 MG TAB PO SCH ×2 (09:32→21:26)
[2016-10-12] MEDS: SERTRALINE HCL 25 MG TABLET PO SCH (09:32)
[2016-10-12] MEDS: MULTIVITAMINS/MINERALS THERAP 1 TAB PO SCH ×2 (09:32→21:26)
[2016-10-12] MEDS: VANCOMYCIN HCL 1,000 MG, VIAL MATE ADAPTER 1 EACH in D5W 250 ML IV SCH (12:00)
--- NOTE | 2016-10-12 12:00 | REP ---
CHEST X-RAY: Two views. HISTORY: Post thoracentesis left-sided. Comparison study October 11, 2016. FINDINGS: Post thoracotomy changes are noted on the right with fibrotic pleuroparenchymal markings unchanged. A multilead pacemaker is seen in the right heart via the left side and the patient is status post aortic and mitral valve replacements. The left pleural effusion is no longer radiographically visible. There is no evidence of pneumothorax. Heart is somewhat enlarged unchanged. IMPRESSION: Left pleural effusion improved post thoracentesis. No pneumothorax or other complication identified. Signed by Guerrero Foreman MD 10/12/2016 06:19 P
[2016-10-12 12:07] LABS: LDH, BODY FLUID 123 U/L (NOT ESTABLISHED); TOTAL PROTEIN, BODY FLUID 3.3 G/DL (NOT ESTABLISHED)
[2016-10-12 12:11] LABS: RBC PLEURAL FLUID 19 (<10mm3 cells/uL); TNC PLEURAL FLUID 838 cells/uL (0-20)
[2016-10-12 12:12] LABS: BF DIFF IF INDICATED? YES (NO)
[2016-10-12 12:46] LABS: CC BF DIFF EXAM CYTOCENTRIFUGE
[2016-10-12 14:00] VITALS: BP 124/56
[2016-10-12] MEDS: GABAPENTIN 300 MG CAP PO SCH ×3 (15:24→23:51)
[2016-10-12] MEDS: TAMSULOSIN 0.4 MG CAP PO SCH (15:25)
--- NOTE | 2016-10-12 15:39 | REP ---
ULTRASOUND GUIDED LEFT THORACENTESIS: The procedure was performed under the direct supervision of Dr. Foreman. The risks and benefits of the procedure were explained to the patient and informed consent was obtained. The left pleural effusion was localized using ultrasound guidance. The skin was prepped and draped in a sterile fashion. 1% lidocaine was used as a local anesthetic. An #8-Thai wvzij-stti-bapi catheter was inserted using trocar technique. 1085 mL of low viscosity red-colored fluid was withdrawn and sent to the lab. The patient tolerated the procedure well and there were no immediate complications. Reviewed by NAPOLEON Young 10/12/2016 04:28 PEdited and Signed by Guerrero Foreman MD 10/12/2016 06:13 P
--- NOTE | 2016-10-12 21:18 | IPN ---
DATE: 10/12/2016 Mr. Brewer is feeling better this morning. He is much less short of breath. He was able to sleep some last night, sleep was somewhat disturbed by his diuresis. Temperature 99.3, pulse 63, respiratory rate 18, blood pressure 115/58, 98% on 2.5 liters. Intake and output notable for a negative fluid balance of -850 thus far today. Weight was not recorded. He is awake, appropriately interactive, pleasantly conversant. Breathing is symmetrical, decreased bilaterally, I:E ratio is 1:3, no wheezes noted on exam. White cell count 6.9, hemoglobin 8.8, and platelets 224. Sodium 140, potassium 3.5, chloride 99, bicarbonate 31, BUN 17, creatinine 1.42, which appears to have stabilized. Vancomycin level is 10. My assessment is as follows: This is a 71-year-old with hospital-associated pneumonia. Plan is as follows: 1. Respiratory/infectious disease. The patient is continued on Zosyn and vancomycin. He has not yet given a sputum culture. Acapella device is being used. Yesterday he had increasing shortness of breath which I believe was related to generally positive fluid status. He also has a developed effusion on the left which will be drained today. We will also pursue diuresis as ordered. 2. Patient has systolic congestive heart failure with valvular disease. A 2D echocardiogram has been ordered in followup and will pursue continued net negative fluid. 3. Patient has a hematoma in the right groin which is chronic. 4. Patient has chronic kidney disease. Serum creatinine is somewhat above baseline but appears to have plateaued. Continue with diuresis as ordered. 5. Patient has history of Clostridium (C) difficile. 6. Patient's epistaxis has resolved. We have humidified his oxygen. 7. Patient has deep vein thrombosis (DVT) prophylaxis.
[2016-10-12] MEDS: VANCOMYCIN HCL 750 MG, VIAL MATE ADAPTER 1 EACH in D5W 250 ML IV SCH (21:27)
[2016-10-12 21:41] VITALS: O2SAT 98
[2016-10-12 22:00] VITALS: BP 124/60
--- NOTE | 2016-10-12 23:19 | ECHO ---
DATE OF PROCEDURE: 10/12/2016 AGE: 71 GENDER: Male HEIGHT: 69 inches WEIGHT: 183 pounds BODY SURFACE AREA: 1.99 m2 PATIENT LOCATION: Inpatient, [address] [place] [address], room 5146 REFERRING PHYSICIAN: Jose Solano MD INDICATION: Heart failure (unspecified). 2-D MEASUREMENTS: RV: 4.2 cm LV: 4.6 cm Septum 1.0 cm Posterior wall: 1.0 cm Aortic root: 3.3 cm LA: 4.2 cm LVEF: 55% DOPPLER MEASUREMENTS: AV: 1.1 m/s LVOT: 0.64 m/s LVOT diameter: 2.1 mmHg MV-E: 140, A: 44, EA ratio: 3.1 Early mitral deceleration time: 204 ms E prime: 7.6, A prime: 4, E/E prime ratio: 18 PV: 0.7 m/s Pulmonary artery acceleration time: 70 ms RVSP: 48 mmHg IVC: 2.3 cm COMMENTS: Consistent atrial and ventricular paced rhythm with right bundle branch block configuration in keeping with biventricular stimulation. Mildly dilated left atrium, but normal left ventricular size. Mildly dilated right atrium and right ventricle. IVC size was also mildly increased. Normal LV wall thickness. On real-time imaging from the parasternal and apical projections there appeared to be a region of septal akinesis or slightly paradoxical motion, but other root move normally. Echodense mitral annuloplasty ring with slightly thickened mitral leaflets, but adequate leaflet excursion and no posterior systolic buckling. Three equal size aortic cusps with marginally thickened cusp edges, but adequate cusp separation. There was also echogenic tricuspid annuloplasty ring with normal appearing leaflets with adequate leaflet excursion and no posterior systolic buckling. Pacing leads could be visualized traversing right heart structures. No more than a minuscule posterior pericardial effusion. Color flow Doppler study taken from the parasternal and apical projections showed no apparent mitral or aortic insufficiency with mild tricuspid insufficiency. Guided continuous wave Doppler of his aortic valve showed a normal peak systolic velocity against LV outflow tract obstruction. Pulsed and continuous wave Doppler of his LV inflow tract taken from the apical four-chamber projection showed normal diastolic filling velocities against mitral stenosis. However, there was a pseudonormalized pulse wave pattern with more prominent early diastolic passive filling. There was a prolonged early mitral deceleration time and abnormal tissue Doppler of his mitral annulus. His current estimated mean left atrial pressure was at least mildly increased at 20 mmHg. Pulsed and continuous wave Doppler of his pulmonary trunk showed a normal peak systolic velocity against RV outflow tract obstruction. His pulmonary artery acceleration time was significantly abbreviated consistent with an elevated pulmonary vascular resistance. Guided continuous wave Doppler of his tricuspid valve allowed our estimation of his right ventricular systolic pressure (moderately increased). His inferior vena cava was mildly dilated with markedly reduced respiratory collapse consistent with an elevated central venous pressure. CONCLUSIONS: Normal left ventricular size and wall thickness with localized septal wall motion abnormality despite biventricular pacing. Global left ventricular systolic function appeared to be intact. Mildly dilated left atrium with Doppler evidence of impairment of LV diastolic function and elevated mean left atrial pressure. Mildly dilated right heart chambers with Doppler evidence of moderate pulmonary hypertension. Mildly dilated inferior vena cava with reduced respiratory collapse consistent with an elevated central venous pressure. The post mitral and tricuspid valvuloplasties without valvular obstruction and only mild tricuspid insufficiency.
[2016-10-12] MEDS: rOPINIRole 1MG TAB PO SCH (23:51)
[2016-10-13] MEDS: IPRATROPIUM 0.5MG/ALBUTEROL 2.5MG INH SOL UD 3ML (DUONEB)(J7620) NEB SCH ×4 (02:04→20:22)
[2016-10-13] MEDS: PIPERACILLIN/TAZOBACTAM SOD 3.375 GM in D5W MINI-BAG PLUS 50 ML IV SCH ×4 (02:20→20:12)
[2016-10-13 06:00] VITALS: BP 120/60
[2016-10-13] MEDS: FUROSEMIDE 40 MG/4 ML VIAL (J1940) IV SCH ×2 (06:00→17:35)
[2016-10-13] MEDS: SLF 3 ML SYR IV SCH ×3 (06:00→22:00)
[2016-10-13] MEDS: LEVOTHYROXINE 0.025 MG TAB (25 MCG) PO SCH (06:00)
[2016-10-13 06:01] VITALS: BP 124/60
[2016-10-13] MEDS: NITROGLYCERIN 2% OINT 1 GM *U/D* PKT TOP SCH (06:01)
[2016-10-13 07:18] LABS: BASO % 0.2 % (0.0-1.0); EOS # 0.2 K/mm3 (0.0-0.50); EOS % 3.2 % (0.0-3.0); LARGE UNSTAINED CELL # 0.2 K/mm3 (0.0-0.4); LARGE UNSTAINED CELL % 2.3 % (0.0-4.0); LYMPH # 0.5 K/mm3 (1.5-4.5); LYMPH % 7.3 % (24.0-44.0); MEAN CORPUSCULAR HEMOGLOBIN 29.1 pg (27.0-33.0); MONO # 0.5 K/mm3 (0.0-0.8); MONO % 7.6 % (0.0-5.0); NEUTROPHILS # 5.2 K/mm3 (1.8-7.7); NEUTROPHILS % 79.5 % (36.0-66.0); PLATELET COUNT, AUTOMATED 208 k/mm3 (150-450); RED CELL DISTRIBUTION WIDTH 15.1 % (11.5-14.5); WHITE BLOOD COUNT 6.5 K/mm3 (4.0-10.0)
[2016-10-13 07:40] LABS: ALBUMIN 2.8 GM/DL (3.2-5.2); ALBUMIN/GLOBULIN RATIO 0.65 (1.00-1.93); BILIRUBIN,TOTAL 0.5 MG/DL (0.2-1.0); CALCIUM LEVEL 8.4 MG/DL (8.8-10.2); CREATININE FOR GFR 1.64 MG/DL (0.70-1.30); GLOMERULAR FILTRATION RATE 44.1 (>42); POTASSIUM SERUM 2.9 MEQ/L (3.5-5.1); TOTAL PROTEIN 7.1 GM/DL (6.4-8.2)
[2016-10-13] MEDS ORDERED: POTASSIUM CHLORIDE 10 MEQ SR TABLET PO ONE (08:30)
[2016-10-13] MEDS: FOLIC ACID 1 MG TAB PO SCH (09:29)
[2016-10-13] MEDS: SERTRALINE HCL 25 MG TABLET PO SCH (09:30)
[2016-10-13] MEDS: POTASSIUM CHLORIDE 10 MEQ SR TABLET PO SCH ×2 (09:30→21:18)
[2016-10-13] MEDS: guaiFENesin ER 600 MG TAB PO SCH ×2 (09:30→21:18)
[2016-10-13] MEDS: FERROUS SULFATE 325MG TAB PO SCH ×2 (09:30→21:18)
[2016-10-13] MEDS: MULTIVITAMINS/MINERALS THERAP 1 TAB PO SCH ×2 (09:30→21:18)
[2016-10-13] MEDS: ASCORBIC ACID 500 MG TAB PO SCH (09:30)
[2016-10-13] MEDS: VANCOMYCIN HCL 750 MG, VIAL MATE ADAPTER 1 EACH in D5W 250 ML IV SCH ×2 (09:31→22:30)
[2016-10-13] MEDS: SPIRONOLACTONE 25 MG TAB PO SCH (09:31)
[2016-10-13 13:44] LABS: MAGNESIUM LEVEL 1.8 MG/DL (1.8-2.4); POTASSIUM SERUM 3.6 MEQ/L (3.5-5.1)
[2016-10-13 14:00] VITALS: BP 122/63
[2016-10-13] MEDS: GABAPENTIN 300 MG CAP PO SCH ×3 (14:40→23:04)
[2016-10-13] MEDS: TAMSULOSIN 0.4 MG CAP PO SCH (14:40)
[2016-10-13] MEDS: ACETAMINOPHEN TAB 650MG DOSE (2X325MG) PO PRN (18:58)
--- NOTE | 2016-10-13 19:24 | IPN ---
DATE: 10/13/2016 Mr. Brewer is still short of breath. He says that he feels much better than he did two days ago. He did tolerate his thoracentesis yesterday, after which he felt much better. Temperature 98.6, pulse 60, respiratory rate 18, blood pressure 120/60, 97% on 2 liters. Input and output notable for negative fluid balance of -430. He is awake. Breathing is symmetrical. Coarse upper airway sounds, somewhat diminished throughout. Speaking in complete sentences. No accessory muscle use. Heart is in a regular rate and rhythm. Not tachycardic. Abdomen is soft, doughy, nontender. Hypoactive bowel sounds. White cell count is 6.5, hemoglobin 9.2, and platelets of 208. Potassium is 2.9, it has been replenished. Creatinine is 1.64. Pathology on the fluid from yesterday shows no evidence of malignant cells. Total white cells were 838 with a large percentage of monocytes and lymphocytes. Glucose was 115. ASSESSMENT: This is a 71-year-old with hospital-associated pneumonia. PLAN: 1. Respiratory. The patient is improving. Continue with Zosyn and vancomycin. Still unable to get a sputum culture. He is using Acapella device. Thoracentesis has resulted in improved respiratory status as the effusion was adequately drained on the left yesterday. Continue with diuresis. He does have developing acute renal failure, but we will continue with diuresis for now. He has hypokalemia, which will repleted. We will also check a magnesium level in this setting. 2. The patient has known systolic congestive heart failure (CHF) with valvular disease. 2-D echocardiogram showed some evidence of fluid overload, but no valvular issues were noted. 3. 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 4. The patient has chronic kidney disease with developing acute renal failure. We will continue to pursue diuresis with decreased frequency of Lasix. 5. The patient has a history of Clostridium (C) difficile. 6. The patient had epistaxis during his stay, which has resolved. 7. The patient has appropriate deep vein thrombosis (DVT) prophylaxis.
[2016-10-13 20:13] VITALS: O2SAT 99
[2016-10-13 22:00] VITALS: BP 124/59
[2016-10-13] MEDS: rOPINIRole 1MG TAB PO SCH (23:05)
[2016-10-14 00:55] VITALS: O2SAT 96
[2016-10-14] MEDS: IPRATROPIUM 0.5MG/ALBUTEROL 2.5MG INH SOL UD 3ML (DUONEB)(J7620) NEB SCH ×4 (01:02→20:24)
[2016-10-14] MEDS: PIPERACILLIN/TAZOBACTAM SOD 3.375 GM in D5W MINI-BAG PLUS 50 ML IV SCH ×4 (02:15→20:12)
[2016-10-14 06:00] VITALS: BP 118/62
[2016-10-14] MEDS: LEVOTHYROXINE 0.025 MG TAB (25 MCG) PO SCH (06:15)
[2016-10-14] MEDS: SLF 3 ML SYR IV SCH ×3 (06:15→21:31)
[2016-10-14 07:17] LABS: BASO % 0.3 % (0.0-1.0); EOS # 0.3 K/mm3 (0.0-0.50); EOS % 4.6 % (0.0-3.0); LARGE UNSTAINED CELL # 0.1 K/mm3 (0.0-0.4); LARGE UNSTAINED CELL % 1.7 % (0.0-4.0); LYMPH # 0.5 K/mm3 (1.5-4.5); LYMPH % 8.1 % (24.0-44.0); MEAN CORPUSCULAR HEMOGLOBIN 29.1 pg (27.0-33.0); MEAN CORPUSCULAR HGB CONC 30.6 g/dl (32.0-36.5); MEAN CORPUSCULAR VOLUME 95.3 fl (80.0-96.0); MONO # 0.5 K/mm3 (0.0-0.8); NEUTROPHILS # 5.2 K/mm3 (1.8-7.7); NEUTROPHILS % 77.2 % (36.0-66.0); PLATELET COUNT, AUTOMATED 207 k/mm3 (150-450); RED CELL DISTRIBUTION WIDTH 14.8 % (11.5-14.5); WHITE BLOOD COUNT 6.7 K/mm3 (4.0-10.0)
[2016-10-14 07:44] LABS: ALBUMIN 2.8 GM/DL (3.2-5.2); ALBUMIN/GLOBULIN RATIO 0.68 (1.00-1.93); BILIRUBIN,TOTAL 0.6 MG/DL (0.2-1.0); CALCIUM LEVEL 8.5 MG/DL (8.8-10.2); CREATININE FOR GFR 1.51 MG/DL (0.70-1.30); GLOMERULAR FILTRATION RATE 48.5 (>42); POTASSIUM SERUM 3.4 MEQ/L (3.5-5.1); TOTAL PROTEIN 6.9 GM/DL (6.4-8.2)
[2016-10-14] MEDS: POTASSIUM CHLORIDE 10 MEQ SR TABLET PO SCH ×2 (08:42→21:31)
[2016-10-14] MEDS: ASCORBIC ACID 500 MG TAB PO SCH (08:43)
[2016-10-14] MEDS: MULTIVITAMINS/MINERALS THERAP 1 TAB PO SCH ×2 (08:43→21:31)
[2016-10-14] MEDS: guaiFENesin ER 600 MG TAB PO SCH ×2 (08:43→21:31)
[2016-10-14] MEDS: SPIRONOLACTONE 25 MG TAB PO SCH (08:43)
[2016-10-14] MEDS: FOLIC ACID 1 MG TAB PO SCH (08:43)
[2016-10-14] MEDS: SERTRALINE HCL 25 MG TABLET PO SCH (08:43)
[2016-10-14] MEDS: FERROUS SULFATE 325MG TAB PO SCH ×2 (08:43→21:31)
[2016-10-14] MEDS: FUROSEMIDE 40 MG/4 ML VIAL (J1940) IV SCH (09:00)
[2016-10-14] MEDS: VANCOMYCIN HCL 750 MG, VIAL MATE ADAPTER 1 EACH in D5W 250 ML IV SCH ×2 (09:45→21:32)
[2016-10-14] MEDS ORDERED: POTASSIUM CHLORIDE 10 MEQ SR TABLET PO ONE (11:45)
[2016-10-14] MEDS: TAMSULOSIN 0.4 MG CAP PO SCH (13:18)
[2016-10-14] MEDS: GABAPENTIN 300 MG CAP PO SCH ×3 (13:18→23:23)
[2016-10-14 14:00] VITALS: BP 121/64
[2016-10-14 22:00] VITALS: BP 134/63
[2016-10-14] MEDS: rOPINIRole 1MG TAB PO SCH (23:23)
[2016-10-15] MEDS: IPRATROPIUM 0.5MG/ALBUTEROL 2.5MG INH SOL UD 3ML (DUONEB)(J7620) NEB SCH ×4 (01:21→19:51)
[2016-10-15] MEDS: PIPERACILLIN/TAZOBACTAM SOD 3.375 GM in D5W MINI-BAG PLUS 50 ML IV SCH ×4 (01:40→20:53)
--- NOTE | 2016-10-15 03:51 | IPN ---
DATE: 10/14/2016 Mr. Brewer is feeling much better today. He is much less short of breath. He does feel quite thirsty. He has been tolerating a diet. Temperature 98.6, pulse 62, respiratory rate 18, blood pressure 118/62, 97% on two liters. Input and output notable for a positive fluid balance of 345. Weight is 83.2 kg with a body mass index of 27.1. He is awake, appropriately interactive. Breathing is symmetrical. IE ratio is 1:3, somewhat diminished in the bases, but clearly improved from previous exams. Heart is distant sounding, normal S1, S2. Radial pulse is 2+. Capillary refill is less than two seconds. Abdomen is soft, nontender. White cell count is 6.7, hemoglobin 9.1. Sodium is 1337, potassium 3.4, BUN 17, creatinine 1.5. ASSESSMENT: This is a 71-year-old with hospital-associated pneumonia. PLAN: 1. Respiratory. The patient continues to improve. He is on broad-spectrum antibiotics, continue to complete a course until 10/17 at this rate. He has not yet produced sputum and I do not believe that he will. 2. The patient has known systolic congestive heart failure with valvular disease. He has had right-sided pleural effusion, which has been drained and is much improved. I believe at this point we have reached the limits of Lasix. We withhold Lasix and restart oral tomorrow. 3. 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 4. The patient has chronic kidney disease with acute renal failure likely related to his diuresis; this is actually slightly improved from yesterday. 5. The patient has a history of Clostridium (C) difficile. 6. The patient has had epistaxis during his stay, which has resolved. 7. The patient has appropriate deep vein thrombosis (DVT) prophylaxis.
[2016-10-15 06:00] VITALS: BP 131/66
[2016-10-15] MEDS: SLF 3 ML SYR IV SCH ×3 (06:13→22:00)
[2016-10-15] MEDS: LEVOTHYROXINE 0.025 MG TAB (25 MCG) PO SCH (06:13)
[2016-10-15 08:00] LABS: BASO % 0.2 % (0.0-1.0); EOS % 3.7 % (0.0-3.0); LARGE UNSTAINED CELL % 1.6 % (0.0-4.0); LYMPH # 0.5 K/mm3 (1.5-4.5); LYMPH % 5.2 % (24.0-44.0); MEAN CORPUSCULAR HEMOGLOBIN 29.6 pg (27.0-33.0); MEAN CORPUSCULAR VOLUME 95.6 fl (80.0-96.0); MONO % 6.5 % (0.0-5.0); NEUTROPHILS # 7.1 K/mm3 (1.8-7.7); NEUTROPHILS % 82.7 % (36.0-66.0); PLATELET COUNT, AUTOMATED 218 k/mm3 (150-450); WHITE BLOOD COUNT 8.6 K/mm3 (4.0-10.0)
[2016-10-15] MEDS ORDERED: SODIUM CHLORIDE HYPERTONIC 3% 15ML NEB SOL INH PRN (08:00)
[2016-10-15 08:01] LABS: EOS # 0.3 K/mm3 (0.0-0.50); LARGE UNSTAINED CELL # 0.1 K/mm3 (0.0-0.4); MONO # 0.6 K/mm3 (0.0-0.8)
[2016-10-15 08:04] LABS: CALCIUM LEVEL 8.2 MG/DL (8.8-10.2); CREATININE FOR GFR 1.33 MG/DL (0.70-1.30); GLOMERULAR FILTRATION RATE 56.1 (>42); POTASSIUM SERUM 4.1 MEQ/L (3.5-5.1)
--- NOTE | 2016-10-15 08:51 | REP ---
Chest x-ray: Two views. History: Shortness of breath. Comparison chest x-ray October 12, 2016. Findings: The patient is status post aortic and mitral valve replacement via median sternotomy. A multi lead pacemaker is seen in the right heart as before via the left side. There is blunting of the pleural angles bilaterally today indicating small bilateral effusions. This is a new finding on the left. There is some fibrotic pleuroparenchymal stranding on the right and there are clips in the right chest post thoracotomy. The aorta is somewhat tortuous. Heart size is unchanged. No new infiltrate is seen. Impression: Post thoracotomy and cardiac valve replacement changes with pacemaker in place. New blunting left lateral pleural angle. Otherwise unchanged. Signed by Guerrero Foreman MD 10/15/2016 09:38 A
[2016-10-15] MEDS: POTASSIUM CHLORIDE 10 MEQ SR TABLET PO SCH ×2 (09:19→20:53)
[2016-10-15] MEDS: MULTIVITAMINS/MINERALS THERAP 1 TAB PO SCH ×2 (09:19→20:53)
[2016-10-15] MEDS: ASCORBIC ACID 500 MG TAB PO SCH (09:19)
[2016-10-15] MEDS: guaiFENesin ER 600 MG TAB PO SCH ×2 (09:19→20:52)
[2016-10-15] MEDS: FOLIC ACID 1 MG TAB PO SCH (09:19)
[2016-10-15] MEDS: SPIRONOLACTONE 25 MG TAB PO SCH (09:19)
[2016-10-15] MEDS: FERROUS SULFATE 325MG TAB PO SCH ×2 (09:19→20:52)
[2016-10-15] MEDS: SERTRALINE HCL 25 MG TABLET PO SCH (09:19)
[2016-10-15] MEDS: VANCOMYCIN HCL 750 MG, VIAL MATE ADAPTER 1 EACH in D5W 250 ML IV SCH ×2 (11:04→20:53)
[2016-10-15] MEDS: ONDANSETRON 4MG/2ML VIAL (J2405) IV PRN (11:04)
[2016-10-15] MEDS: IPRATROPIUM 0.5MG/ALBUTEROL 2.5MG INH SOL UD 3ML (DUONEB)(J7620) NEB PRN (11:23)
[2016-10-15] MEDS ORDERED: FUROSEMIDE 40 MG/4 ML VIAL (J1940) IV ONE (13:00)
[2016-10-15] MEDS: GABAPENTIN 300 MG CAP PO SCH ×2 (13:19→20:52)
[2016-10-15] MEDS: TAMSULOSIN 0.4 MG CAP PO SCH (13:19)
[2016-10-15 14:00] VITALS: BP 104/53
[2016-10-15 22:00] VITALS: BP 121/58
[2016-10-16] MEDS: IPRATROPIUM 0.5MG/ALBUTEROL 2.5MG INH SOL UD 3ML (DUONEB)(J7620) NEB SCH ×4 (00:48→20:59)
[2016-10-16] MEDS: GABAPENTIN 300 MG CAP PO SCH ×4 (00:51→22:09)
[2016-10-16] MEDS: rOPINIRole 1MG TAB PO SCH ×2 (00:51→22:09)
[2016-10-16] MEDS: PIPERACILLIN/TAZOBACTAM SOD 3.375 GM in D5W MINI-BAG PLUS 50 ML IV SCH (02:11)
[2016-10-16] MEDS: LEVOTHYROXINE 0.025 MG TAB (25 MCG) PO SCH (05:56)
[2016-10-16] MEDS: SLF 3 ML SYR IV SCH ×3 (05:56→22:09)
[2016-10-16 06:00] VITALS: BP 123/60
[2016-10-16 07:02] LABS: MEAN CORPUSCULAR HEMOGLOBIN 29.5 pg (27.0-33.0); MEAN CORPUSCULAR HGB CONC 31.2 g/dl (32.0-36.5); MEAN CORPUSCULAR VOLUME 94.7 fl (80.0-96.0); RED CELL DISTRIBUTION WIDTH 14.9 % (11.5-14.5); WHITE BLOOD COUNT 6.9 K/mm3 (4.0-10.0)
[2016-10-16 07:21] LABS: CALCIUM LEVEL 8.7 MG/DL (8.8-10.2); CREATININE FOR GFR 1.32 MG/DL (0.70-1.30); GLOMERULAR FILTRATION RATE 56.6 (>42); POTASSIUM SERUM 3.9 MEQ/L (3.5-5.1)
[2016-10-16] MEDS ORDERED: FUROSEMIDE 40 MG/4 ML VIAL (J1940) IV ONE (08:00)
[2016-10-16] MEDS: SERTRALINE HCL 25 MG TABLET PO SCH (08:55)
[2016-10-16] MEDS: FERROUS SULFATE 325MG TAB PO SCH ×2 (08:55→20:03)
[2016-10-16] MEDS: SPIRONOLACTONE 25 MG TAB PO SCH (08:55)
[2016-10-16] MEDS: MULTIVITAMINS/MINERALS THERAP 1 TAB PO SCH ×2 (08:55→20:03)
[2016-10-16] MEDS: FOLIC ACID 1 MG TAB PO SCH (08:55)
[2016-10-16] MEDS: POTASSIUM CHLORIDE 10 MEQ SR TABLET PO SCH ×2 (08:55→20:03)
[2016-10-16] MEDS: guaiFENesin ER 600 MG TAB PO SCH ×2 (08:55→20:03)
[2016-10-16] MEDS: ASCORBIC ACID 500 MG TAB PO SCH (08:56)
[2016-10-16 09:00] VITALS: O2SAT 100
[2016-10-16 14:00] VITALS: BP 142/64
[2016-10-16] MEDS: TAMSULOSIN 0.4 MG CAP PO SCH (14:27)
[2016-10-16] MEDS: ACETAMINOPHEN TAB 650MG DOSE (2X325MG) PO PRN (14:31)
[2016-10-16 21:00] VITALS: O2SAT 98
[2016-10-16 21:13] VITALS: O2SAT 100
--- NOTE | 2016-10-16 21:22 | IPN ---
DATE: 10/15/2016 Mr. Brewer is short of breath this morning. He has had difficulty coughing. He has been having difficulty bringing up sputum. Did not receive any as needed medications overnight. Temperature 99.4, pulse 63, respiratory rate 22, blood pressure 131/66, 94% on 2 liters. Input and output notable for a positive fluid balance 685. Two bowel movements yesterday. He walked around the floor in a loop yesterday with physical therapy, did not do stairs. Heart is distant sounding. Abdomen is soft, doughy, nontender. White cell count is not yet available. Creatine is not yet available. My assessment is as follows: This 71-year-old with hospital acquired pneumonia. Plan is as follows: 1. Respiratory. The patient continues to have malclearance of secretions. He has decreased aeration on the right. There were some crackles. Continue the broad-spectrum antibiotics. Has yet to provide a sputum sample. Will provide hypertonic saline. Repeat a chest x-ray today and reassess later this morning. 2. The patient has known systolic congestive heart failure with valvular disease. He has been diuresed. We held the Lasix as of yesterday and continued to follow his fluid status. He would appear to be euvolemic at this point. 3. 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 4. The patient has chronic kidney disease with acute renal failure, likely related to his diuresis. Await labs today. 5. The patient has a history of Clostridium difficile. 6. The patient has epistaxis during his stay, which has resolved. 7. The patient has appropriate deep vein thrombosis (DVT) prophylaxis.
[2016-10-16 22:00] VITALS: BP 112/57
--- NOTE | 2016-10-17 00:20 | IPN ---
DATE: 10/16/2016 Mr. Brewer slept much better last night. He is still somewhat short of breath especially with activity, but is feeling better at rest. No chest pain. Not producing any significant amount of sputum. Temperature 99.2, pulse 60, respiratory rate 22, blood pressure 123/60, 90% on two liters nasal cannula. Intake and output notable for a positive fluid balance of 910, bowel movement yesterday one. He is awake, appropriately interactive, pleasantly conversant. Coarse upper airway sounds throughout. Speaking in complete sentences. Decreased aeration. Heart is distant sounding, normal S1, S2. Abdomen is soft, doughy, hypoactive bowel sounds. White cell count 6.9, hemoglobin 9.4, platelets of 189. BUN 21, creatinine 1.32. ASSESSMENT: This is a 71-year-old with healthcare-associated pneumonia. PLAN: 1. Respiratory. The patient has had a variable course. I believe he has improved from yesterday to today. At this point for his healthcare-associated pneumonia, we are discontinuing his broad-spectrum antibiotics. I believe his respiratory function will now benefit from the decreased volume and salt load from the medications. I will continue to attempt to diurese him on a daily basis. We will give him one dose of IV Lasix today as I believe his main issue at this point is decompensated systolic congestive heart failure, which again is improving. 2. Chronic hematoma in his right groin. 3. Chronic kidney disease. Renal failure which was previously noted seems to be stabilized at his current level. 4. History of Clostridium difficile (C. Diff) without excessive stooling. 5. Epistaxis during his stay, which has resolved. 6. Deep vein thrombosis (DVT) prophylaxis is appropriate.
[2016-10-17] MEDS: IPRATROPIUM 0.5MG/ALBUTEROL 2.5MG INH SOL UD 3ML (DUONEB)(J7620) NEB SCH ×4 (02:00→19:48)
[2016-10-17] MEDS: SLF 3 ML SYR IV SCH ×3 (05:02→22:01)
[2016-10-17] MEDS: LEVOTHYROXINE 0.025 MG TAB (25 MCG) PO SCH (05:02)
[2016-10-17 06:00] VITALS: BP 137/66
[2016-10-17 06:58] LABS: MEAN CORPUSCULAR HEMOGLOBIN 29.5 pg (27.0-33.0); MEAN CORPUSCULAR HGB CONC 30.4 g/dl (32.0-36.5); MEAN CORPUSCULAR VOLUME 96.9 fl (80.0-96.0); RED CELL DISTRIBUTION WIDTH 14.7 % (11.5-14.5); WHITE BLOOD COUNT 6.5 K/mm3 (4.0-10.0)
[2016-10-17 07:12] LABS: ANION GAP 6 MEQ/L (8-16); BLOOD UREA NITROGEN 24 MG/DL (7-18); CALCIUM LEVEL 9.1 MG/DL (8.8-10.2); CARBON DIOXIDE LEVEL 32 MEQ/L (21-32); CHLORIDE LEVEL 101 MEQ/L (98-107); CREATININE FOR GFR 1.21 MG/DL (0.70-1.30); GLOMERULAR FILTRATION RATE > 60.0 (>42); GLUCOSE, FASTING 99 MG/DL (83-110); POTASSIUM SERUM 4.1 MEQ/L (3.5-5.1); SODIUM LEVEL 139 MEQ/L (136-145)
[2016-10-17] MEDS: FOLIC ACID 1 MG TAB PO SCH (08:50)
[2016-10-17] MEDS: guaiFENesin ER 600 MG TAB PO SCH ×2 (08:50→20:22)
[2016-10-17] MEDS: SERTRALINE HCL 25 MG TABLET PO SCH (08:50)
[2016-10-17] MEDS: MULTIVITAMINS/MINERALS THERAP 1 TAB PO SCH ×2 (08:50→20:22)
[2016-10-17] MEDS: POTASSIUM CHLORIDE 10 MEQ SR TABLET PO SCH ×2 (08:50→20:22)
[2016-10-17] MEDS: SPIRONOLACTONE 25 MG TAB PO SCH (08:50)
[2016-10-17] MEDS: ASCORBIC ACID 500 MG TAB PO SCH (08:51)
[2016-10-17] MEDS: FERROUS SULFATE 325MG TAB PO SCH ×2 (08:51→20:22)
[2016-10-17] MEDS ORDERED: FUROSEMIDE 100 MG/10 ML VIAL (J1940) IV ONE (10:15)
--- NOTE | 2016-10-17 10:23 | IPN ---
DATE: 10/17/2016 Mr. Brewer was coughing quite a bit last night. Obviously feels better than he did a few days ago, but still is not back to baseline. He is tolerating diet. He has been out of bed. He did not walk in the hallway yesterday. Temperature 99.6, pulse 60, respiratory rate 22, blood pressure 137/66, 96% on 2 liters. Intake and output notable for a positive fluid balance of 890. Weight is 85 kg. He is awake, appropriately interactive, sitting up at bedside. Mucous membranes are moist. Neck is supple. No obvious elevation in jugular venous pulse (JVP). Breathing is symmetrical, diminished more on the right than the left. Some wheeze more notable in the right than the left, but minimally so. Heart is in a regular rate and rhythm. Abdomen is soft, not particularly protuberant. Active bowel sounds. White cell count 6.5, hemoglobin 9.6. BUN 24, creatinine 1.21. My assessment is as follows: 71-year-old with healthcare-associated pneumonia. Plan is as follows: 1. Respiratory. Patient has had a variable course during his stay, has been waxing and waning. I believe at this point a good portion of his respiratory rate distress is related to fluid status possibly, during his recent visit to [facility]. I have asked for physical therapy and occupational therapy to see him, and I think he may be a candidate for physical medicine and rehabilitation depending on his course. We will give him another dose of Lasix today. 2. Patient has chronic hematoma in his right groin. 3. Patient has chronic kidney disease. Renal failure has improved, which may represent positive fluid status. 4. Patient has a history of Clostridium (C) difficile. Currently, he does not have excessive stooling. 5. Patient had epistaxis during his stay, which has resolved. 6. Patient has appropriate deep vein thrombosis (DVT) prophylaxis. 7. Patient is status post mitral valve and tricuspid valve repair at [facility]. He was discharged there 09/08/2016. He did have epistaxis and cauterization of his right nostril by Dr. Rodriguez in September of 2016.
[2016-10-17 10:50] VITALS: O2SAT 96
--- NOTE | 2016-10-17 11:04 | REP ---
CHEST, TWO VIEWS: HISTORY: Hypoxia. COMPARISON: 10/15/2016. The patient is status post right thoracotomy. There is loss of volume in the right hemithorax. Scarring is present. Small bilateral pleural effusions are present, unchanged compared to the previous study. The heart is upper limits of normal in size. The pulmonary vasculature is normal in appearance. The bony structure is intact. The patient is status post aortic and mitral valve replacement. A cardiac pacemaker is present. IMPRESSION: 1. Right lower lobe scarring. 2. Small bilateral pleural effusions, unchanged compared to the previous study. Signed by Ayden Moss MD 10/17/2016 12:01 P
[2016-10-17 14:00] VITALS: BP 135/66
[2016-10-17] MEDS: TAMSULOSIN 0.4 MG CAP PO SCH (15:43)
[2016-10-17] MEDS: GABAPENTIN 300 MG CAP PO SCH ×3 (15:43→22:01)
[2016-10-17 19:49] VITALS: O2SAT 97
[2016-10-17] MEDS: ACETAMINOPHEN TAB 650MG DOSE (2X325MG) PO PRN (20:23)
[2016-10-17 22:00] VITALS: BP 107/55
[2016-10-17] MEDS: rOPINIRole 1MG TAB PO SCH (22:01)
[2016-10-18 01:31] VITALS: O2SAT 96
[2016-10-18] MEDS: IPRATROPIUM 0.5MG/ALBUTEROL 2.5MG INH SOL UD 3ML (DUONEB)(J7620) NEB SCH ×4 (01:31→19:31)
[2016-10-18] MEDS: SLF 3 ML SYR IV SCH ×3 (05:39→22:00)
[2016-10-18] MEDS: LEVOTHYROXINE 0.025 MG TAB (25 MCG) PO SCH (05:39)
[2016-10-18] MEDS: ACETAMINOPHEN TAB 650MG DOSE (2X325MG) PO PRN ×2 (05:42→20:42)
[2016-10-18 06:00] VITALS: BP 126/64
[2016-10-18 07:07] LABS: MEAN CORPUSCULAR HEMOGLOBIN 29.8 pg (27.0-33.0); MEAN CORPUSCULAR HGB CONC 31.3 g/dl (32.0-36.5); MEAN CORPUSCULAR VOLUME 95.2 fl (80.0-96.0); RED CELL DISTRIBUTION WIDTH 14.6 % (11.5-14.5); WHITE BLOOD COUNT 5.2 K/mm3 (4.0-10.0)
[2016-10-18 07:18] LABS: ANION GAP 6 MEQ/L (8-16); BLOOD UREA NITROGEN 23 MG/DL (7-18); CALCIUM LEVEL 8.6 MG/DL (8.8-10.2); CARBON DIOXIDE LEVEL 32 MEQ/L (21-32); CHLORIDE LEVEL 101 MEQ/L (98-107); CREATININE FOR GFR 1.14 MG/DL (0.70-1.30); GLOMERULAR FILTRATION RATE > 60.0 (>42); GLUCOSE, FASTING 96 MG/DL (83-110); SODIUM LEVEL 139 MEQ/L (136-145)
[2016-10-18] MEDS: POTASSIUM CHLORIDE 10 MEQ SR TABLET PO SCH ×2 (09:34→20:35)
[2016-10-18] MEDS: FOLIC ACID 1 MG TAB PO SCH (09:34)
[2016-10-18] MEDS: SPIRONOLACTONE 25 MG TAB PO SCH (09:35)
[2016-10-18] MEDS: guaiFENesin ER 600 MG TAB PO SCH ×2 (09:35→20:36)
[2016-10-18] MEDS: FERROUS SULFATE 325MG TAB PO SCH ×2 (09:35→20:36)
[2016-10-18] MEDS: SERTRALINE HCL 25 MG TABLET PO SCH (09:35)
[2016-10-18] MEDS: MULTIVITAMINS/MINERALS THERAP 1 TAB PO SCH ×2 (09:35→20:35)
[2016-10-18] MEDS: ASCORBIC ACID 500 MG TAB PO SCH (09:35)
--- NOTE | 2016-10-18 11:35 | IPNPDOC ---
Subjective Date Seen The patient was seen on 10/18/16. Subjective Chief Complaint/HPI The patient is a 71-year-old male admitted with a reason for visit of Pneumonia. General: Denies: Chills, Fatigue, Malaise, Night Sweats, Normal Appetite, Other Symptoms, ROS Unobtainable Constitutional: Denies: Chills, Fatigue, Fever, Lethargy, Malaise, Night Sweats , Other, Weakness, Weight Loss Eyes: Denies: Conjunctivae inflammation, Eyelid inflammation, Other, Pain, Redness, Vision change ENT: Denies: Dysphagia, Ear Pain, Epistaxis, Head Aches, Other Symptoms, Post Nasal Drip, Sinus Congestion, Sore Throat Skin: Denies: Breakdown, Bruising, Dry, Itching, Jaundice, Lesions, Nail Changes, Other, Rash Pulmonary: Reports: Cough, Dyspnea, Denies: Other Symptoms, Pleuritic Chest Pain Cardiovascular: Denies: Chest Pain, Edema, Lt Headedness, Orthopnea, Other Symptoms, Palpitations, Paroxysmal Noc. Dyspnea Gastrointestinal: Denies: Abdominal Pain, Constipation, Diarrhea, Hematochezia , Melena, Nausea, Other Symptoms, Vomiting Objective Physical Examination General Exam: Positive: Alert, Cooperative, No Acute Distress Eye Exam: Positive: Conjunctiva & lids normal, EOMI, PERRLA, Negative: Sclera icteric ENT Exam: Positive: Atraumatic, Mucous membr. 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 (4) BPH (benign prostatic hyperplasia) Status: Chronic Discussed With: Patient Problem Specific Plan: Monitor Clinically (5) Anxiety and depression Status: Chronic Problem Text: xanax prn (6) CHF (congestive heart failure) Status: Chronic Response to Treatment: Compensated Discussed With: Patient Problem Specific Plan: Monitor Clinically Problem Text: Continue lasix. (7) Valvular disease Status: Chronic Problem Text: s/p recent mitral and tricuspid repair at [facility] (8) Epistaxis Status: Resolved Discussed With: Patient Problem Specific Plan: Monitor Clinically (9) Pneumonia Status: Resolved Discussed With: Patient Problem Specific Plan: Monitor Clinically (10) Anemia Status: Chronic Discussed With: Patient Problem Specific Plan: Monitor Clinically, Repeat Labs Problem Text: iron deficiency anemia Plan/VTE VTE Prophylaxis Ordered?: Yes VS, I&O, 24H, Fishbone Vital Signs/I&O Vital Signs Date Time Temp Pulse Resp B/P Pulse Ox O2 Delivery O2 Flow Rate FiO2 10/18/16 06:00 99.6 62 20 126/64 93 Room Air 10/18/16 01:31 2.0 I&O- Last 24 Hours up to 6 AM 10/18/16 06:00 Intake Total 1380 ml Output Total 1275 ml Balance 105 ml Laboratory Data 24H LABS Laboratory Tests 2 10/18/16 06:40: Microbiology Microbiology 10/12/16 Acid Fast Stain, Received Pending 10/12/16 Mycobacterial Culture, Received Pending 10/12/16 Fungal Smear, Received Pending 10/12/16 Fungal Culture, Received Pending 10/12/16 Gram Stain - Final, Complete 10/12/16 Anaerobic Culture - Final, Complete 10/12/16 Body Fluid Culture - Final, Complete DONNELL BECKER MD Oct 18, 2016 07:04
[2016-10-18 14:00] VITALS: BP 140/67
[2016-10-18] MEDS: TAMSULOSIN 0.4 MG CAP PO SCH (14:20)
[2016-10-18] MEDS: GABAPENTIN 300 MG CAP PO SCH ×3 (14:20→22:59)
[2016-10-18 19:22] VITALS: O2SAT 95
[2016-10-18 22:00] VITALS: BP 139/63
[2016-10-18] MEDS: rOPINIRole 1MG TAB PO SCH (22:59)
[2016-10-19] MEDS: IPRATROPIUM 0.5MG/ALBUTEROL 2.5MG INH SOL UD 3ML (DUONEB)(J7620) NEB SCH ×4 (02:00→20:50)
[2016-10-19] MEDS: LEVOTHYROXINE 0.025 MG TAB (25 MCG) PO SCH (05:20)
[2016-10-19] MEDS: SLF 3 ML SYR IV SCH ×3 (05:20→21:42)
[2016-10-19 05:51] VITALS: O2SAT 96
[2016-10-19 06:00] VITALS: BP 122/62
--- NOTE | 2016-10-19 07:48 | IPNPDOC ---
Subjective Date Seen The patient was seen on 10/19/16. Subjective Chief Complaint/HPI The patient is a 71-year-old male admitted with a reason for visit of Pneumonia. General: Denies: Chills, Fatigue, Malaise, Night Sweats, Normal Appetite, Other Symptoms, ROS Unobtainable Constitutional: Denies: Chills, Fatigue, Fever, Lethargy, Malaise, Night Sweats , Other, Weakness, Weight Loss Eyes: Denies: Conjunctivae inflammation, Eyelid inflammation, Other, Pain, Redness, Vision change ENT: Denies: Dysphagia, Ear Pain, Epistaxis, Head Aches, Other Symptoms, Post Nasal Drip, Sinus Congestion, Sore Throat Skin: Denies: Breakdown, Bruising, Dry, Itching, Jaundice, Lesions, Nail Changes, Other, Rash Pulmonary: Reports: Cough, Dyspnea, Denies: Other Symptoms, Pleuritic Chest Pain Cardiovascular: Denies: Chest Pain, Edema, Lt Headedness, Orthopnea, Other Symptoms, Palpitations, Paroxysmal Noc. Dyspnea Gastrointestinal: Denies: Abdominal Pain, Constipation, Diarrhea, Hematochezia , Melena, Nausea, Other Symptoms, Vomiting Genitourinary: Denies: Dysuria, Frequency, Hematuria, Incontinence, Other Symptoms, Retention Objective Physical Examination General Exam: Positive: Alert, Cooperative, No Acute Distress Eye Exam: Positive: Conjunctiva & lids normal, EOMI, PERRLA, Negative: Sclera icteric ENT Exam: Positive: Atraumatic, Mucous membr. moist/pink Neck Exam: Negative: JVD Chest Exam: Positive: Normal air movement, Rhonchi Heart Exam: Positive: Normal S1, Normal S2, Rate Normal, Regular Rhythm Abdomen Exam: Positive: Normal bowel sounds, Soft, Negative: Tenderness Extremity Exam: Positive: Edema (trace peripheral edema), Negative: Swelling, Tenderness Psych Exam: Positive: Oriented x 3 Assessment /Plan Problems (1) Pleural effusion Status: Acute Response to Treatment: Improving Problem Text: s/p thoracentesis today is stating he feels more short of breath with productive cough. 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 (4) BPH (benign prostatic hyperplasia) Status: Chronic Discussed With: Patient Problem Specific Plan: Monitor Clinically (5) Anxiety and depression Status: Chronic Problem Text: xanax prn (6) CHF (congestive heart failure) Status: Chronic Response to Treatment: Compensated Discussed With: Patient Problem Specific Plan: Monitor Clinically Problem Text: Continue lasix. (7) Valvular disease Status: Chronic Problem Text: s/p recent mitral and tricuspid repair at [facility] (8) Epistaxis Status: Resolved Discussed With: Patient Problem Specific Plan: Monitor Clinically (9) Pneumonia Status: Resolved Discussed With: Patient Problem Specific Plan: Monitor Clinically (10) Anemia Status: Chronic Discussed With: Patient Problem Specific Plan: Monitor Clinically, Repeat Labs Problem Text: iron deficiency anemia Plan/VTE VTE Prophylaxis Ordered?: Yes Plan Diet: Continue Current Activity: Continue Current Therapy: PT, OT Respiratory: Wean Oxygen Diagnostics: Repeat Labs in AM, Xrays, CT VS, I&O, 24H, Fishbone Vital Signs/I&O Vital Signs Date Time Temp Pulse Resp B/P Pulse Ox O2 Delivery O2 Flow Rate FiO2 10/19/16 06:00 99.4 60 18 122/62 99 Room Air 10/19/16 05:51 2.0 I&O- Last 24 Hours up to 6 AM 10/19/16 06:00 Intake Total 1220 ml Output Total 600 ml Balance 620 ml Laboratory Data 24H LABS Laboratory Tests 2 10/19/16 07:32: Microbiology Microbiology 10/12/16 Acid Fast Stain, Received Pending 10/12/16 Mycobacterial Culture, Received Pending 10/12/16 Fungal Smear, Received Pending 10/12/16 Fungal Culture, Received Pending 10/12/16 Gram Stain - Final, Complete 10/12/16 Anaerobic Culture - Final, Complete 10/12/16 Body Fluid Culture - Final, Complete 10/18/16 Gram Stain, Received Pending 10/18/16 Sputum Culture, Received Pending DONNELL BECKER MD Oct 19, 2016 07:48
[2016-10-19 07:59] LABS: MEAN CORPUSCULAR HEMOGLOBIN 29.2 pg (27.0-33.0); MEAN CORPUSCULAR VOLUME 97.4 fl (80.0-96.0); RED CELL DISTRIBUTION WIDTH 14.8 % (11.5-14.5); WHITE BLOOD COUNT 6.6 K/mm3 (4.0-10.0)
[2016-10-19 08:11] LABS: ANION GAP 7 MEQ/L (8-16); BLOOD UREA NITROGEN 24 MG/DL (7-18); CALCIUM LEVEL 9.3 MG/DL (8.8-10.2); CARBON DIOXIDE LEVEL 29 MEQ/L (21-32); CHLORIDE LEVEL 102 MEQ/L (98-107); CREATININE FOR GFR 1.14 MG/DL (0.70-1.30); GLOMERULAR FILTRATION RATE > 60.0 (>42); GLUCOSE, FASTING 118 MG/DL (83-110); POTASSIUM SERUM 4.1 MEQ/L (3.5-5.1); SODIUM LEVEL 138 MEQ/L (136-145)
[2016-10-19] MEDS: ASCORBIC ACID 500 MG TAB PO SCH (09:44)
[2016-10-19] MEDS: POTASSIUM CHLORIDE 10 MEQ SR TABLET PO SCH ×2 (09:44→20:08)
[2016-10-19] MEDS: SPIRONOLACTONE 25 MG TAB PO SCH (09:44)
[2016-10-19] MEDS: guaiFENesin ER 600 MG TAB PO SCH ×2 (09:44→20:09)
[2016-10-19] MEDS: FERROUS SULFATE 325MG TAB PO SCH ×2 (09:44→20:08)
[2016-10-19] MEDS: FOLIC ACID 1 MG TAB PO SCH (09:45)
[2016-10-19] MEDS: SERTRALINE HCL 25 MG TABLET PO SCH (09:45)
[2016-10-19] MEDS: MULTIVITAMINS/MINERALS THERAP 1 TAB PO SCH ×2 (09:45→20:09)
[2016-10-19] MEDS: ACETAMINOPHEN TAB 650MG DOSE (2X325MG) PO PRN ×2 (09:46→20:09)
[2016-10-19 10:00] VITALS: BP 115/56
[2016-10-19 14:00] VITALS: BP 119/64
[2016-10-19] MEDS: TAMSULOSIN 0.4 MG CAP PO SCH (15:05)
[2016-10-19] MEDS: GABAPENTIN 300 MG CAP PO SCH ×3 (15:05→23:22)
[2016-10-19] MEDS ORDERED: FUROSEMIDE 40 MG/4 ML VIAL (J1940) IV ONE (18:15)
[2016-10-19 22:00] VITALS: BP 110/51
[2016-10-19] MEDS: rOPINIRole 1MG TAB PO SCH (23:22)
[2016-10-20] MEDS: IPRATROPIUM 0.5MG/ALBUTEROL 2.5MG INH SOL UD 3ML (DUONEB)(J7620) NEB SCH ×4 (01:14→19:37)
[2016-10-20] MEDS: SLF 3 ML SYR IV SCH ×3 (05:59→21:32)
[2016-10-20] MEDS: LEVOTHYROXINE 0.025 MG TAB (25 MCG) PO SCH (05:59)
[2016-10-20 06:00] VITALS: BP 122/62
--- NOTE | 2016-10-20 07:29 | IPNPDOC ---
Subjective Date Seen The patient was seen on 10/20/16. Subjective Chief Complaint/HPI The patient is a 71-year-old male admitted with a reason for visit of Pneumonia. General: Denies: Chills, Fatigue, Malaise, Night Sweats, Normal Appetite, Other Symptoms, ROS Unobtainable Constitutional: Denies: Chills, Fatigue, Fever, Lethargy, Malaise, Night Sweats , Other, Weakness, Weight Loss Eyes: Denies: Conjunctivae inflammation, Eyelid inflammation, Other, Pain, Redness, Vision change ENT: Denies: Dysphagia, Ear Pain, Epistaxis, Head Aches, Other Symptoms, Post Nasal Drip, Sinus Congestion, Sore Throat Skin: Denies: Breakdown, Bruising, Dry, Itching, Jaundice, Lesions, Nail Changes, Other, Rash Pulmonary: Reports: Cough, Dyspnea, Denies: Other Symptoms, Pleuritic Chest Pain Cardiovascular: Denies: Chest Pain, Edema, Lt Headedness, Orthopnea, Other Symptoms, Palpitations, Paroxysmal Noc. Dyspnea Gastrointestinal: Denies: Abdominal Pain, Constipation, Diarrhea, Hematochezia , Melena, Nausea, Other Symptoms, Vomiting Objective Physical Examination General Exam: Positive: Alert, Cooperative, No Acute Distress Eye Exam: Positive: Conjunctiva & lids normal, EOMI, PERRLA, Negative: Sclera icteric ENT Exam: Positive: Atraumatic, Mucous membr. moist/pink Neck Exam: Negative: JVD Chest Exam: Positive: Normal air movement Heart Exam: Positive: Normal S1, Normal S2, Rate Normal, Regular Rhythm Abdomen Exam: Positive: Normal bowel sounds, Soft, Negative: Tenderness Extremity Exam: Positive: Edema (trace peripheral edema), Negative: Swelling, Tenderness Psych Exam: Positive: Oriented x 3 Assessment /Plan Problems (1) Pleural effusion Status: Acute Response to Treatment: Improving Problem Text: s/p thoracentesis today is feeling better but noted significant MEDRANO will continue with diuresis, labs pending chest PT (2) Lung cancer Status: Chronic Problem Text: 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 (4) BPH (benign prostatic hyperplasia) Status: Chronic Discussed With: Patient Problem Specific Plan: Monitor Clinically (5) Anxiety and depression Status: Chronic Problem Text: xanax prn (6) CHF (congestive heart failure) Status: Chronic Response to Treatment: Compensated Discussed With: Patient Problem Specific Plan: Monitor Clinically Problem Text: Continue lasix. (7) Valvular disease Status: Chronic Problem Text: s/p recent mitral and tricuspid repair at [facility] (8) Epistaxis Status: Resolved Discussed With: Patient Problem Specific Plan: Monitor Clinically (9) Pneumonia Status: Resolved Discussed With: Patient Problem Specific Plan: Monitor Clinically (10) Anemia Status: Chronic Discussed With: Patient Problem Specific Plan: Monitor Clinically, Repeat Labs Problem Text: iron deficiency anemia Plan/VTE VTE Prophylaxis Ordered?: Yes Plan Diet: Continue Current Activity: Continue Current Therapy: PT, OT Respiratory: Wean Oxygen Diagnostics: Repeat Labs in AM Anticipated Discharge: Home, Home With Services VS, I&O, 24H, [facility] Vital Signs/I&O Vital Signs Date Time Temp Pulse Resp B/P Pulse Ox O2 Delivery O2 Flow Rate FiO2 10/20/16 06:00 99.6 60 18 122/62 96 Room Air 10/20/16 01:15 2.0 I&O- Last 24 Hours up to 6 AM 10/20/16 06:00 Intake Total 480 ml Output Total 100 ml Balance 380 ml Laboratory Data 24H LABS Laboratory Tests 2 10/19/16 07:32: Anion Gap 7L, Blood Urea Nitrogen 24H, Creatinine 1.14, Sodium Level 138, Potassium Level 4.1, Chloride Level 102, Carbon Dioxide Level 29, Calcium Level 9.3, Glomerular Filtration Rate > 60.0 10/19/16 18:07: B-Type Natriuretic Peptide 480H CBC/BMP Laboratory Tests 10/19/16 07:32 Calcium Level 9.3, Red Blood Count 3.30 L, Mean Corpuscular Volume 97.4 H, Mean Corpuscular Hemoglobin 29.2, Mean Corpuscular Hemoglobin Concent 30.0 L, Red Cell Distribution Width 14.8 H Microbiology Microbiology 10/12/16 Acid Fast Stain, Received Pending 10/12/16 Mycobacterial Culture, Received Pending 10/12/16 Fungal Smear, Received Pending 10/12/16 Fungal Culture, Received Pending 10/12/16 Gram Stain - Final, Complete 10/12/16 Anaerobic Culture - Final, Complete 10/12/16 Body Fluid Culture - Final, Complete 10/18/16 Gram Stain - Final, Resulted 10/18/16 Sputum Culture - Preliminary, Resulted Yeast Like Organism LALDIN,DONNELL S. MD Oct 20, 2016 07:29
[2016-10-20 08:00] VITALS: O2SAT 94
[2016-10-20 08:04] LABS: MEAN CORPUSCULAR HEMOGLOBIN 29.3 pg (27.0-33.0); MEAN CORPUSCULAR HGB CONC 30.8 g/dl (32.0-36.5); MEAN CORPUSCULAR VOLUME 95.1 fl (80.0-96.0); RED CELL DISTRIBUTION WIDTH 14.8 % (11.5-14.5)
[2016-10-20 08:15] LABS: ANION GAP 7 MEQ/L (8-16); BLOOD UREA NITROGEN 22 MG/DL (7-18); CARBON DIOXIDE LEVEL 29 MEQ/L (21-32); CHLORIDE LEVEL 103 MEQ/L (98-107); CREATININE FOR GFR 1.13 MG/DL (0.70-1.30); GLOMERULAR FILTRATION RATE > 60.0 (>42); GLUCOSE, FASTING 95 MG/DL (83-110); SODIUM LEVEL 139 MEQ/L (136-145)
[2016-10-20] MEDS: POTASSIUM CHLORIDE 10 MEQ SR TABLET PO SCH ×2 (08:36→21:32)
[2016-10-20] MEDS: MULTIVITAMINS/MINERALS THERAP 1 TAB PO SCH ×2 (08:37→21:32)
[2016-10-20] MEDS: FOLIC ACID 1 MG TAB PO SCH (08:37)
[2016-10-20] MEDS: SERTRALINE HCL 25 MG TABLET PO SCH (08:37)
[2016-10-20] MEDS: FUROSEMIDE 40 MG TAB PO SCH (08:37)
[2016-10-20] MEDS: guaiFENesin ER 600 MG TAB PO SCH ×2 (08:37→21:32)
[2016-10-20] MEDS: ASCORBIC ACID 500 MG TAB PO SCH (08:37)
[2016-10-20] MEDS: FERROUS SULFATE 325MG TAB PO SCH ×2 (08:37→21:32)
[2016-10-20] MEDS: FLUCONAZOLE 100 MG TAB PO SCH (08:37)
[2016-10-20] MEDS: SPIRONOLACTONE 25 MG TAB PO SCH (08:37)
[2016-10-20] MEDS: IPRATROPIUM 0.5MG/ALBUTEROL 2.5MG INH SOL UD 3ML (DUONEB)(J7620) NEB PRN (11:18)
[2016-10-20] MEDS: ACETAMINOPHEN TAB 650MG DOSE (2X325MG) PO PRN ×3 (14:10→23:14)
[2016-10-20] MEDS: TAMSULOSIN 0.4 MG CAP PO SCH (14:11)
[2016-10-20] MEDS: GABAPENTIN 300 MG CAP PO SCH ×3 (14:11→23:14)
[2016-10-20] MEDS ORDERED: FUROSEMIDE 20 MG TAB PO SCH (21:00)
[2016-10-20 22:00] VITALS: BP 144/64
[2016-10-20] MEDS: rOPINIRole 1MG TAB PO SCH (23:13)
[2016-10-21 06:00] VITALS: BP 122/63
[2016-10-21] MEDS: ACETAMINOPHEN TAB 650MG DOSE (2X325MG) PO PRN (06:26)
[2016-10-21] MEDS: LEVOTHYROXINE 0.025 MG TAB (25 MCG) PO SCH (06:26)
[2016-10-21] MEDS: SLF 3 ML SYR IV SCH (06:26)
[2016-10-21 07:03] LABS: MEAN CORPUSCULAR HEMOGLOBIN 29.4 pg (27.0-33.0); MEAN CORPUSCULAR HGB CONC 30.7 g/dl (32.0-36.5); MEAN CORPUSCULAR VOLUME 95.6 fl (80.0-96.0); RED CELL DISTRIBUTION WIDTH 14.8 % (11.5-14.5); WHITE BLOOD COUNT 5.7 K/mm3 (4.0-10.0)
[2016-10-21 07:17] LABS: ANION GAP 6 MEQ/L (8-16); BLOOD UREA NITROGEN 20 MG/DL (7-18); CALCIUM LEVEL 8.8 MG/DL (8.8-10.2); CARBON DIOXIDE LEVEL 29 MEQ/L (21-32); CHLORIDE LEVEL 105 MEQ/L (98-107); CREATININE FOR GFR 1.08 MG/DL (0.70-1.30); GLOMERULAR FILTRATION RATE > 60.0 (>42); GLUCOSE, FASTING 87 MG/DL (83-110); POTASSIUM SERUM 4.1 MEQ/L (3.5-5.1); SODIUM LEVEL 140 MEQ/L (136-145)
[2016-10-21] MEDS: IPRATROPIUM 0.5MG/ALBUTEROL 2.5MG INH SOL UD 3ML (DUONEB)(J7620) NEB SCH ×2 (07:45→08:00)
[2016-10-21] MEDS ORDERED: FLUC10TA PO (08:01)
[2016-10-21] MEDS ORDERED: MUCI600T34 PO (08:01)
[2016-10-21] MEDS ORDERED: LASI40TA PO (08:01)
[2016-10-21] MEDS: FOLIC ACID 1 MG TAB PO SCH (08:22)
[2016-10-21] MEDS: FLUCONAZOLE 100 MG TAB PO SCH (08:22)
[2016-10-21] MEDS: SERTRALINE HCL 25 MG TABLET PO SCH (08:22)
[2016-10-21] MEDS: SPIRONOLACTONE 25 MG TAB PO SCH (08:22)
[2016-10-21] MEDS: MULTIVITAMINS/MINERALS THERAP 1 TAB PO SCH (08:22)
[2016-10-21] MEDS: FUROSEMIDE 40 MG TAB PO SCH (08:23)
[2016-10-21] MEDS: ASCORBIC ACID 500 MG TAB PO SCH (08:23)
[2016-10-21] MEDS: FERROUS SULFATE 325MG TAB PO SCH (08:23)
[2016-10-21] MEDS: guaiFENesin ER 600 MG TAB PO SCH (08:23)
[2016-10-21] MEDS: POTASSIUM CHLORIDE 10 MEQ SR TABLET PO SCH (08:24)
--- NOTE | 2016-10-21 14:15 | DS.PDOC ---
Discharge Summary General Date of Admission Oct 07, 2016 at 14:52 Date of Discharge Oct 21, 2016 at 11:50 Primary Care Physician: Jr Gillis Collins Specialist/Consultants Involve: Jose Kasper DO, [facility] Specialist/Consultants Involve Dr. Phillip Discharge Summary PROCEDURES PERFORMED DURING STAY: Therapeutic thoracentesis DISCHARGE DIAGNOSES: 1. Pleural effusion s/p thoracentesis 2. NSCLCA IV s/p chemo/RT 3. Hypothyroidism 4. BPH 5. Anxiety/depression 6. CHF - diastolic dysfunction 7. Valvulopathy - mitral/tricuspid repair 8. Pneumonia 9. Anemia CHIEF COMPLAINT: Shortness of breath - HCAP/pleural effusion HISTORY OF PRESENT ILLNESS: 71 year old male for worsening shortness of breath, cough, fatigue and chills for several days. Recent medical history significant for MV and Tricuspid repair at [facility] 09/08/16 hospital stay complicated with decompensated CHF and CDiff colitis. Discharged with 2L supplemental oxygen , was not requiring oxygen prior to hospital stay. Also noted to have large right groin hematoma/seroma. HOSPITAL COURSE: Patient with above complaints, found to have pleural effusion and pneumonia. Pulmonology consulted, thoracentesis performed. Respiratory status slowly improved. Completed adequate course of antibiotics (Vanco, Zosyn) for pneumonia. Respiratory panel negative. Sputum cultures positive for heavy yeast. Returned essentially to baseline respiratory status requiring intermittent use of supplemental oxygen. Right groin fluid collection improved, imaging did not indicate abscess. Hospital stay was complicated with mild fluid overload which responded well to parenteral diuresis. DISCHARGE MEDICATIONS: Please see below. ALLERGIES: Please see below. PHYSICAL EXAMINATION ON DISCHARGE: VITAL SIGNS: Please see below. GENERAL: NAD HEENT: NC/AT, EOMI, PERRL NECK: supple CARDIOVASCULAR EXAMINATION: +S1S2, RRR RESPIRATORY EXAMINATION: CTA B/L ABDOMINAL EXAMINATION: soft, NT, +BS EXTREMITIES: no edema PSYCHIATRIC EXAMINATION: AAOx3 LABORATORY DATA: Please see below. IMAGING: CT CHEST Impression: Small to moderate left pleural effusion, increased in size from the 2015 prior study. Extensive postradiation changes on the right. Status post aortic and mitral valve replacement and median sternotomy with pacemaker. There is a new linear parenchymal opacity in the right middle lobe distribution adjacent to some surgical clips, which is an interval change from the prior CT. This may be related to recent cardiac valve surgery. There is also a new patchy infiltrate in the right lower lobe lateral to the chronic fibrosis and atelectasis, which was not present in 2015. This could be an inflammatory infiltrate. ACTIVITY: [As tolerated]. DIET: regular diet, 2L daily fluid restriction DISCHARGE PLAN: Discharge home. DISPOSITION: 01 Home, Self-Care. DISCHARGE INSTRUCTIONS: 1. Follow up PCP in 3-5 days. DISCHARGE CONDITION: Stable. TIME SPENT ON DISCHARGE: Greater than 30 minutes. Vital Signs/I&Os Vital Signs Date Time Temp Pulse Resp B/P Pulse Ox O2 Delivery O2 Flow Rate FiO2 10/21/16 08:02 Nasal Cannula 2.0 10/21/16 06:00 97.9 60 18 122/63 96 I&O- Last 24 Hours up to 6 AM 10/21/16 06:00 Intake Total 1360 ml Output Total 800 ml Balance 560 ml Laboratory Data Labs 24H Laboratory Tests 2 10/21/16 06:40: Anion Gap 6L, Blood Urea Nitrogen 20H, Creatinine 1.08, Sodium Level 140, Potassium Level 4.1, Chloride Level 105, Carbon Dioxide Level 29, Calcium Level 8.8, Glomerular Filtration Rate > 60.0 CBC/BMP Laboratory Tests 10/21/16 06:40 Calcium Level 8.8, Red Blood Count 3.21 L, Mean Corpuscular Volume 95.6, Mean Corpuscular Hemoglobin 29.4, Mean Corpuscular Hemoglobin Concent 30.7 L, Red Cell Distribution Width 14.8 H Microbiology Microbiology 10/12/16 Acid Fast Stain, Received Pending 10/12/16 Mycobacterial Culture, Received Pending 10/12/16 Fungal Smear, Received Pending 10/12/16 Fungal Culture, Received Pending 10/12/16 Gram Stain - Final, Complete 10/12/16 Anaerobic Culture - Final, Complete 10/12/16 Body Fluid Culture - Final, Complete 10/18/16 Gram Stain - Final, Complete 10/18/16 Sputum Culture - Final, Complete Yeast Like Organism Discharge Medications Scheduled (Nu-Mag 71.5-119 mg) 1 Tab Tab 1 TAB PO DAILY (Reported) Ascorbic Acid (Vitamin C) 500 Mg Cap 500 MG PO DAILY (Reported) Ferrous Sulfate (Ferrous Sulfate) 325 Mg Tab 325 MG PO BID (Reported) Fluconazole (Diflucan) 100 Mg Tab 100 MG PO DAILY Folic Acid (Folic Acid) 1 Mg Tab 1 MG PO DAILY (Reported) Furosemide (Lasix) 40 Mg Tab 40 MG PO BID Gabapentin (Gabapentin) 300 Mg Cap 300 MG PO TID (Reported) Guaifenesin (Mucinex) 600 Mg Tab 600 MG PO BID Levothyroxine Sodium (Synthroid) 25 Mcg Tab 25 MCG PO DAILY (Reported) Miconazole Nitrate (Miconazole) 2 % Cre 1 DOSE TOP BID (Reported) APPLIES TO GROIN AREA Multivitamins *[facility] STOCKED* (Thera M Plus *[facility] STOCKED*) 1 Tab Tab 1 TAB PO BID (Reported) Potassium Chloride (Klor-Con M20) 20 Meq Tabcr 20 MEQ PO BID (Reported) Ropinirole Hydrochloride (Requip) 3 Mg Tab 3 MG PO QHS (Reported) Sertraline Hcl (Sertraline HCl) 25 Mg Tab 25 MG PO DAILY (Reported) Spironolactone (Spironolactone) 25 Mg Tab 25 MG PO DAILY (Reported) Tamsulosin Hydrochloride (Flomax) 0.4 Mg Cap 1 CAP PO DAILY (Reported) Scheduled PRN Albuterol/Ipratropium (Ipratropium [place]/Albut 0.5-2.5 (3) mg/3Ml) 1 Jah Jah 1 JAH INH QID PRN PRN SHORTNESS OF BREATH (Reported) Alprazolam (Alprazolam) 0.25 Mg Tab 0.25 MG PO PRN ANXIETY (Reported) Allergies Coded Allergies: NSAIDs (Verified Adverse Reaction, Intermediate, acute kidney injury, 05/14) DONNELL BECKER MD Oct 21, 2016 14:15
== END 2016-10-21 11:50 | disposition home or self-care (01) | DRG 193 ==
LOC: EDBD 09:41 → M ED 10:49 → M ED INP 14:52 → M PCU 18:45 → M MS5PR 10-10 20:11
PROVIDERS: ADMIT Internal Medicine; ATTEND Internal Medicine
PROC: 0W9B3ZZ Drainage of Left Pleural Cavity, Percutaneous Approach (ICD-10-PCS; principal; 2016-10-12)
DX: J18.9 Pneumonia, unspecified organism (principal); J96.21 Acute and chronic respiratory failure with hypoxia; I50.23 Acute on chronic systolic (congestive) heart failure; J91.8 Pleural effusion in other conditions classified elsewhere; N17.9 Acute kidney failure, unspecified; E03.9 Hypothyroidism, unspecified; N40.0 Benign prostatic hyperplasia without lower urinary tract symptoms; D50.9 Iron deficiency anemia, unspecified; F41.9 Anxiety disorder, unspecified; F32.9 Major depressive disorder, single episode, unspecified; Z95.0 Presence of cardiac pacemaker; J84.10 Pulmonary fibrosis, unspecified; Z79.899 Other long term (current) drug therapy; Z88.8 Allergy status to other drugs, medicaments and biological substances; N18.9 Chronic kidney disease, unspecified; E87.6 Hypokalemia; R04.0 Epistaxis; Z85.118 Personal history of other malignant neoplasm of bronchus and lung

== ENCOUNTER → 2016-10-25 | Outpatient (REF) | payer MEDICARE, OTHER ==
[~2016-10-25] MED LIST changes: +FLOM5CAP PO; +FLUC10TA PO; +FURO20TA2 PO; +GABA300C3 PO; +IPRASOL4 INH; +MICO2CRE33 TOP; +MUCI600T34 PO; +NU-M1TAB PO; +POTA20TA PO; +VITMTA PO
== END ==
LOC: M LAB REF 13:58
PROVIDERS: ATTEND Internal Medicine
DX: R19.7 Diarrhea, unspecified (principal)

== ENCOUNTER → 2016-10-25 | Outpatient (REF) | payer MEDICARE, OTHER | LOC: M LAB REF 14:30 | PROVIDERS: ATTEND Surgery | DX: C44.622 Squamous cell carcinoma of skin of right upper limb, including shoulder (principal) ==

== ENCOUNTER → 2016-12-16 | Outpatient (REF) | payer MEDICARE, OTHER ==
[~2016-12-16] MED LIST changes: +GABA-282 PO; -GABA300C3 PO; +VANC250C2 PO
== END ==
LOC: M LAB REF 13:20
PROVIDERS: ATTEND Nurse Practitioner Adult Health
DX: R19.7 Diarrhea, unspecified (principal); D64.9 Anemia, unspecified

== ENCOUNTER → 2016-12-16 | Outpatient (REF) | payer MEDICARE, OTHER ==
[2016-12-16 19:44] LABS: PERCENT SATURATION 11.6 % (19.7-37.4)
== END ==
LOC: M LAB REF 17:29
PROVIDERS: ATTEND Nurse Practitioner Adult Health
DX: D64.9 Anemia, unspecified (principal)

== ENCOUNTER → 2016-12-28 | Outpatient (RCR) | payer MEDICARE, OTHER | LOC: M CR 12-14 12:15 | PROVIDERS: ATTEND Internal Medicine Cardiovascular Disease | DX: Z51.89 Encounter for other specified aftercare (principal); I34.0 Nonrheumatic mitral (valve) insufficiency; I36.0 Nonrheumatic tricuspid (valve) stenosis ==

== ENCOUNTER → 2017-01-04 | Day surgery (SDC) | payer MEDICARE, OTHER ==
[~2017-01-04] VITALS: Ht 175.3 cm; Wt 80.3 kg
[~2017-01-04] MED LIST changes: +LIDOCAINE 2% INJ 100 MG/5 ML SDV (FOR ANES.) As Ordered ONE; +LIDOCAINE W/EPINEPHRINE 1% 20ML VIAL As Ordered ONE; +LR 1,000 ML IV ONE; +LR 1,000 ML IV SCH; +MIDAZOLAM INJ 2 MG/2 ML VIAL (J2250) As Ordered ONE; +PHENYLephrine HCL 500 MCG/5 ML (100MCG/ML) SYRINGE (J2370) As Ordered ONE; +PROPOFOL 200 MG/20 ML VIAL As Ordered ONE; +ePHEDrine SULFATE 25 MG/5 ML(5MG/ML) SYRINGE As Ordered ONE; +fentaNYL 100 MCG/2 ML INJECTION (J3010) As Ordered ONE
[2017-01-04 11:55] VITALS: BP 115/58
--- NOTE | 2017-01-04 20:54 | RO ---
DATE OF PROCEDURE: 01/04/2017 PREOPERATIVE DIAGNOSIS: Right groin mass. POSTOPERATIVE DIAGNOSIS: Right groin cyst. OPERATIVE PROCEDURE: Excisional biopsy of right groin mass measuring [id number] SURGEON: Preet Phillip MD SLITTING AND SHIPPING SUPERVISOR: None. ANESTHESIA: IV sedation with 10 mL of 1% lidocaine with epi local. COMPLICATIONS: None. INDICATIONS FOR PROCEDURE: The patient is a 71-year-old male who has had multiple recent surgeries including a cardiac catheter of the right groin, synthetic cardiac catheterization. He has had a large mass in the right groin that is very soft, he had an ultrasound done which showed that it was not a pseudoaneurysm, but it was fluid-filled and loculated. Due to the size of this, recommendation to proceed with excision. Risks and benefits of the procedure not limited but including bleeding, infection, damage to surrounding structures, need for further surgery were discussed in detail with the patient and informed consent was obtained and the procedure was planned. DESCRIPTION OF PROCEDURE: The patient was brought back to operating room three. After sufficient sedation, the right groin was sterilely prepped and draped with chlorhexidine. Next, local was injected in skin and subcutaneous tissues overlying this mass along the line of his previous incision site. Next, a #15 blade scalpel was used to make a 6 cm incision. Using Metzenbaum scissors, this mass was carefully dissected free circumferentially all way down to its base. Towards the base, there were a few metal clips that were encountered. The mass was adhered to the femoral artery and vein. It was carefully dissected free from those structures using sharp dissection. This area that has clips on it I assume was lymphatics. They had clips on his previous surgery. I encircled these and tied them off with a #3-0 Vicryl suture where they were connected to the cyst itself and then dissected them free from the cyst. The cyst was then removed intact and the subcutaneous tissues were reapproximated with interrupted #3-0 Vicryl sutures followed by interrupted #4-0 nylon sutures to approximate the skin edges. The wound was then cleaned and dried, 4 x 4 and tape were applied thus ending the procedure. AMARILIS
== END | disposition home or self-care (01) ==
LOC: M SDC 08:17
PROVIDERS: ATTEND Surgery
DX: L72.3 Sebaceous cyst (principal); I25.10 Atherosclerotic heart disease of native coronary artery without angina pectoris; I10 Essential (primary) hypertension; I50.9 Heart failure, unspecified; Z95.0 Presence of cardiac pacemaker; I25.2 Old myocardial infarction; E03.9 Hypothyroidism, unspecified; N40.0 Benign prostatic hyperplasia without lower urinary tract symptoms; Z87.891 Personal history of nicotine dependence; Z92.3 Personal history of irradiation; Z92.21 Personal history of antineoplastic chemotherapy; Z85.118 Personal history of other malignant neoplasm of bronchus and lung
CPT/HCPCS: 11406; 88304; J0690; J2250; J2370; J3010

== ENCOUNTER → 2017-01-27 | Outpatient (RCR) | payer MEDICARE, OTHER ==
[~2017-01-27] MED LIST changes: +FERR1TAB8 PO; -FERR325T PO; -FOLI1TAB2 PO; +FOLI1TAB4 PO; -LIDOCAINE 2% INJ 100 MG/5 ML SDV (FOR ANES.) As Ordered ONE; -LIDOCAINE W/EPINEPHRINE 1% 20ML VIAL As Ordered ONE; -LR 1,000 ML IV ONE; -LR 1,000 ML IV SCH; -MIDAZOLAM INJ 2 MG/2 ML VIAL (J2250) As Ordered ONE; -MUCI600T34 PO; +MUCI600T37 PO; -PHENYLephrine HCL 500 MCG/5 ML (100MCG/ML) SYRINGE (J2370) As Ordered ONE; -PROPOFOL 200 MG/20 ML VIAL As Ordered ONE; -ePHEDrine SULFATE 25 MG/5 ML(5MG/ML) SYRINGE As Ordered ONE; -fentaNYL 100 MCG/2 ML INJECTION (J3010) As Ordered ONE
== END ==
LOC: M CR 12-29 08:57
PROVIDERS: ATTEND Internal Medicine Cardiovascular Disease
DX: Z51.89 Encounter for other specified aftercare (principal); I36.0 Nonrheumatic tricuspid (valve) stenosis

== ENCOUNTER → 2017-02-27 | Outpatient (RCR) | payer MEDICARE, OTHER | LOC: M CR 01-30 08:51 | PROVIDERS: ATTEND Internal Medicine Cardiovascular Disease | DX: Z51.89 Encounter for other specified aftercare (principal); Z98.890 Other specified postprocedural states ==

== ENCOUNTER → 2017-03-02 | Outpatient (REF) | payer MEDICARE, OTHER ==
[2017-03-02 14:21] LABS: PERCENT SATURATION 18.7 % (19.7-50.0)
== END ==
LOC: M LAB REF 13:19
PROVIDERS: ATTEND Nurse Practitioner Adult Health
DX: D50.9 Iron deficiency anemia, unspecified (principal)

== ENCOUNTER 2017-03-03 09:52 | Outpatient (RCR) | payer MEDICARE, OTHER | END 2017-03-30 | LOC: M CR 09:52 | PROVIDERS: ATTEND Internal Medicine Cardiovascular Disease | DX: Z51.89 Encounter for other specified aftercare (principal); I36.0 Nonrheumatic tricuspid (valve) stenosis ==

== ENCOUNTER 2017-03-13 11:05 | Outpatient (RCR) | payer SELFPAY | END 2017-03-30 | LOC: M CR 11:05 | PROVIDERS: ATTEND Internal Medicine Cardiovascular Disease | DX: Z51.89 Encounter for other specified aftercare (principal); I36.0 Nonrheumatic tricuspid (valve) stenosis ==

== ENCOUNTER → 2017-04-20 | Outpatient (REF) | payer MEDICARE, OTHER ==
[2017-04-20 13:58] LABS: PERCENT SATURATION 19.3 % (19.7-50.0)
== END ==
LOC: M LAB REF 12:34
PROVIDERS: ATTEND Internal Medicine
DX: D50.9 Iron deficiency anemia, unspecified (principal)

== ENCOUNTER → 2017-05-10 | Outpatient (CLI) | payer MEDICARE, OTHER ==
--- NOTE | 2017-05-16 23:08 | SLEEPCENT ---
DATE OF PROCEDURE: 05/10/2017 ORDERED BY: Margarette Solis Nocturnal polysomnography was performed due to concern for the obstructive sleep apnea syndrome in this patient with a history of cardiac dysrhythmia. 8 hours and 1 minute of data were reviewed. There were 301 minutes of sleep identified. Sleep latency was prolonged at 88 minutes. Rapid eye movement (REM) latency was quite prolonged at 213 minutes. Sleep architecture showed fragmentation and poor progression. There were two REM periods appreciated. Overall sleep efficiency was 63.3%. The EKG showed what appeared to be a paced rhythm with some ectopic beats, average heart rate 60 beats per minute. Rate ranged 58 to 76. EEG showed coarsening in background changes. No focal events were identified. There were 69 respiratory events identified of 10 seconds in duration or greater for an apnea-hypopnea index of 13.8. The events were primarily obstructive, not exclusive to sleep stage nor body posture. Arousals from respiratory events occurred 13.6 times per hour. Oxygen desaturations were seen into the low 80s. Remaining measures of sleep physiology were essentially normal. IMPRESSION: Obstructive sleep apnea syndrome (G47.33). Apnea-hypopnea index 13.8. RECOMMENDATION: The patient should be encouraged to return to sleep disorder center for pressure therapy. In the interim, alcohol and sedative avoidance should be practiced and caution exercised during the operation of motor vehicles. Copy To: Dr. Christian
== END ==
LOC: M SLEEP 05-02 19:29
PROVIDERS: ATTEND Nurse Practitioner Adult Health
DX: G47.30 Sleep apnea, unspecified (principal)

== ENCOUNTER → 2017-07-04 | Outpatient (REF) | payer MEDICARE, OTHER ==
[2017-07-04 15:01] LABS: PERCENT SATURATION 21.9 % (19.7-50.0)
== END ==
LOC: M LAB REF 13:41
PROVIDERS: ATTEND Internal Medicine
DX: D64.9 Anemia, unspecified (principal)

== ENCOUNTER 2017-07-17 10:42 | Inpatient (IN) | payer MEDICARE, OTHER ==
[2017-07-17 11:18] LABS: BASO % 0.4 % (0.0-1.0); EOS # 0.1 10^3/uL (0.0-0.50); HEMATOCRIT 31.6 % (42.0-52.0); HEMOGLOBIN 10.4 g/dl (14.0-18.0); IMMATURE GRANULOCYTE % 0.5 % (0-0); LYMPH # 0.6 10^3/uL (1.5-4.5); LYMPH % 7.4 % (24.0-44.0); MEAN CORPUSCULAR HEMOGLOBIN 31.1 pg (27.0-33.0); MEAN CORPUSCULAR HGB CONC 32.9 g/dl (32.0-36.5); MEAN CORPUSCULAR VOLUME 94.6 fl (80.0-96.0); MONO % 12.3 % (0.0-5.0); NEUTROPHILS # 6.5 10^3/uL (1.8-7.7); NEUTROPHILS % 78.4 % (36.0-66.0); PLATELET COUNT, AUTOMATED 181 10^3/uL (150-450); RED BLOOD COUNT 3.34 10^6/uL (4.30-6.10); RED CELL DISTRIBUTION WIDTH 14.2 % (11.5-14.5); WHITE BLOOD COUNT 8.2 10^3/uL (4.0-10.0)
[2017-07-17] MEDS: NS 1,000 ML IV ×4 (11:19→15:30)
[2017-07-17 11:29] LABS: INR 1.27; PROTHROMBIN TIME 16.1 SECONDS (12.4-14.5)
[2017-07-17] MEDS: MOXIFLOXACIN HCL 400 MG in APPROPRIATE DILUENT 1 EA IV (11:30)
[2017-07-17 11:46] LABS: ABG BASE EXCESS -7.3 (-2.0-2.0); ABG HCO3 18.9 MEQ/L (22.0-26.0); ABG O2 SATURATION 98.4 % (95.0-99.0); ABG PARTIAL PRESSURE CO2 40.9 mmHg (35.0-45.0); ABG PARTIAL PRESSURE O2 123.6 mmHg (75.0-100.0); ABG STANDARD HCO3 18.5 MEQ/L (22.0-26.0); ABG TOTAL CO2 20.2 MEQ/L (23.0-31.0); ABG pH (ARTERIAL) 7.283 UNITS (7.350-7.450)
[2017-07-17 11:53] LABS: ALBUMIN 3.3 GM/DL (3.2-5.2); ALBUMIN/GLOBULIN RATIO 0.77 (1.00-1.93); ALKALINE PHOSPHATASE 53 U/L (45-117); ALT/SGPT 34 U/L (12-78); ANION GAP 9 MEQ/L (8-16); AST/SGOT 34 U/L (7-37); BILIRUBIN,DIRECT 0.2 MG/DL (0.0-0.2); BILIRUBIN,TOTAL 0.5 MG/DL (0.2-1.0); BLOOD UREA NITROGEN 98 MG/DL (7-18); CALCIUM LEVEL 8.5 MG/DL (8.8-10.2); CARBON DIOXIDE LEVEL 24 MEQ/L (21-32); CHLORIDE LEVEL 101 MEQ/L (98-107); CPK CREATINE PHOSPHOKINASE 470 U/L (39-308); CREATININE FOR GFR 3.87 MG/DL (0.70-1.30); GLOMERULAR FILTRATION RATE 16.3 (>42); GLUCOSE, FASTING 97 MG/DL (83-110); POTASSIUM SERUM 4.5 MEQ/L (3.5-5.1); SODIUM LEVEL 134 MEQ/L (136-145); TOTAL PROTEIN 7.6 GM/DL (6.4-8.2); TROPONIN I 0.04 NG/ML (< 0.10)
[2017-07-17 11:53] LABS: LACTIC ACID SEPSIS PROTOCOL 1.7 MMOL/L (0.4-2.0)
[2017-07-17 12:00] LABS: CK-MB VALUE MASS 12.1 NG/ML (0.0-3.6); MB/CK RELATIVE INDEX 2.57 (< OR =4); NT-PRO BNP 4673 PG/ML (<125)
[2017-07-17] MEDS: NS 500 ML IV (12:37)
[2017-07-17 13:01] LABS: LIPASE 360 U/L (73-393)
[2017-07-17 13:44] LABS: APPEARANCE, URINE CLEAR (CLEAR); BACTERIA, URINE AUTO NEGATIVE (NEGATIVE); BILIRUBIN, URINE AUTO NEGATIVE (NEGATIVE); BLOOD, URINE BLOOD NEGATIVE (NEGATIVE); COLOR, URINE YELLOW (YELLOW); GLUCOSE, URINE (UA) AUTO NEGATIVE (NEGATIVE); KETONE, URINE AUTO NEGATIVE (NEGATIVE); LEUKOCYTE ESTERASE, URINE AUTO NEGATIVE (NEGATIVE); NITRITE, URINE AUTO NEGATIVE (NEGATIVE); PROTEIN, URINE AUTO 1+ mg/dL (NEGATIVE); RBC, URINE AUTO 3 /HPF (0-3); SPECIFIC GRAVITY URINE AUTO 1.011 (1.002-1.035); SQUAMOUS EPITHELIAL CELL UR AU 0 /HPF (0-6); UROBILINOGEN, URINE AUTO 0.2 mg/dL (0.0-2.0); WBC, URINE AUTO 1 /HPF (0-3)
[2017-07-17 13:45] LABS: OSMOLALITY URINE 385 MOSM/KG (500-800)
[2017-07-17 14:03] LABS: SODIUM,RANDOM URINE 25 MEQ/L
[2017-07-17] MEDS ORDERED: GABAPENTIN 300 MG CAP PO (17:00)
[2017-07-17] MEDS: GABAPENTIN 300 MG CAP PO ×2 (18:22→20:05)
[2017-07-17 18:31] LABS: ANION GAP 9 MEQ/L (8-16); BLOOD UREA NITROGEN 99 MG/DL (7-18); CALCIUM LEVEL 7.2 MG/DL (8.8-10.2); CARBON DIOXIDE LEVEL 21 MEQ/L (21-32); CHLORIDE LEVEL 108 MEQ/L (98-107); CPK CREATINE PHOSPHOKINASE 428 U/L (39-308); CREATININE FOR GFR 3.54 MG/DL (0.70-1.30); GLOMERULAR FILTRATION RATE 18.1 (>42); GLUCOSE, FASTING 86 MG/DL (83-110); SODIUM LEVEL 138 MEQ/L (136-145); TROPONIN I 0.04 NG/ML (< 0.10)
[2017-07-17 18:32] LABS: MB/CK RELATIVE INDEX 2.57 (< OR =4)
[2017-07-17 18:33] LABS: POTASSIUM SERUM 5.6 MEQ/L (3.5-5.1)
[2017-07-17 19:21] LABS: KETONE, URINE AUTO RFX NEGATIVE (NEGATIVE); LEUKOCYTE ESTERASE UR AUTO RFX NEGATIVE (NEGATIVE); NITRITE, URINE AUTO RFX NEGATIVE (NEGATIVE); RBC, URINE AUTO RFX 4 /HPF (0-3); SPECIFIC GRAVITY UR AUTO RFX 1.012 (1.002-1.035); SQUAM EPITHELIAL CELL UR AURFX 0 /HPF (0-6); WBC, URINE AUTO RFX 2 /HPF (0-3)
[2017-07-17] MEDS: MULTIVITAMINS/MINERALS THERAP 1 TAB PO (20:04)
[2017-07-17] MEDS: FERROUS SULFATE 325MG TAB PO (20:05)
[2017-07-17] MEDS: rOPINIRole 1MG TAB PO (20:05)
[2017-07-17] MEDS: NYSTATIN 500,000 U/5 ML SUSP UDC SS ×2 (20:05→21:00)
[2017-07-17] MEDS: IPRATROPIUM 0.5MG/ALBUTEROL 2.5MG INH SOL UD 3ML (DUONEB)(J7620) INH (20:26)
[2017-07-17] MEDS: POTASSIUM CHLORIDE 10 MEQ SR TABLET PO (21:00)
[2017-07-18] MEDS: NS 500 ML IV (00:12)
[2017-07-18] MEDS: BENZONATATE 100 MG CAP PO (00:54)
[2017-07-18] MEDS: diphenhydrAMINE 25 MG CAP PO (00:54)
[2017-07-18 00:55] LABS: CPK CREATINE PHOSPHOKINASE 507 U/L (39-308); TROPONIN I 0.04 NG/ML (< 0.10)
[2017-07-18] MEDS: NS 1,000 ML IV (00:55)
[2017-07-18 00:56] LABS: CK-MB VALUE MASS 10.5 NG/ML (0.0-3.6); MB/CK RELATIVE INDEX 2.07 (< OR =4)
[2017-07-18] MEDS ORDERED: IPRATROPIUM 0.5MG/ALBUTEROL 2.5MG INH SOL UD 3ML (DUONEB)(J7620) NEB (02:30)
[2017-07-18 05:25] LABS: HEMATOCRIT 28.2 % (42.0-52.0); HEMOGLOBIN 9.2 g/dl (14.0-18.0); MEAN CORPUSCULAR HGB CONC 32.6 g/dl (32.0-36.5); MEAN CORPUSCULAR VOLUME 94.9 fl (80.0-96.0); PLATELET COUNT, AUTOMATED 165 10^3/uL (150-450); RED BLOOD COUNT 2.97 10^6/uL (4.30-6.10); RED CELL DISTRIBUTION WIDTH 14.3 % (11.5-14.5); WHITE BLOOD COUNT 7.2 10^3/uL (4.0-10.0)
[2017-07-18 05:51] LABS: ANION GAP 11 MEQ/L (8-16); BLOOD UREA NITROGEN 101 MG/DL (7-18); CALCIUM LEVEL 6.9 MG/DL (8.8-10.2); CARBON DIOXIDE LEVEL 18 MEQ/L (21-32); CHLORIDE LEVEL 107 MEQ/L (98-107); CREATININE FOR GFR 4.04 MG/DL (0.70-1.30); GLOMERULAR FILTRATION RATE 15.5 (>42); GLUCOSE, FASTING 85 MG/DL (83-110); SODIUM LEVEL 136 MEQ/L (136-145)
[2017-07-18 05:52] LABS: POTASSIUM SERUM 5.7 MEQ/L (3.5-5.1)
[2017-07-18] MEDS: LEVOTHYROXINE 25MCG TABLET (0.025MG) PO (06:21)
[2017-07-18] MEDS ORDERED: SPIRONOLACTONE 25 MG TAB PO (09:00)
[2017-07-18] MEDS: SODIUM CHLORIDE 0.9% 1000 ML IV (09:18)
[2017-07-18] MEDS: SOD POLYSTYRENE SULFONATE SUSP 15 GM/60 ML UD PO (09:18)
[2017-07-18] MEDS: FERROUS SULFATE 325MG TAB PO ×2 (09:18→21:01)
[2017-07-18] MEDS: NYSTATIN 500,000 U/5 ML SUSP UDC SS ×2 (09:18→21:01)
[2017-07-18] MEDS: ASCORBIC ACID 500 MG TAB PO (09:19)
[2017-07-18] MEDS: SERTRALINE HCL 25 MG TABLET PO (09:19)
[2017-07-18] MEDS: MULTIVITAMINS/MINERALS THERAP 1 TAB PO ×2 (09:19→21:01)
[2017-07-18 10:48] LABS: LACTIC ACID SEPSIS PROTOCOL 0.6 MMOL/L (0.4-2.0)
[2017-07-18 11:08] LABS: RBC, URINE TNTC /hpf (0-3)
[2017-07-18 11:09] LABS: AMORPHOUS SEDIMENT, URINE MOD AMOUNT (NEGATIVE); BACTERIA, URINE MOD AMOUNT; HYALINE CAST, URINE NONE SEEN /lpf (0-1); MICROSCOPIC EXAM PERFORMED
[2017-07-18 11:25] LABS: ABG BASE EXCESS -10.6 (-2.0-2.0); ABG HCO3 15.5 MEQ/L (22.0-26.0); ABG O2 SATURATION 97.5 % (95.0-99.0); ABG PARTIAL PRESSURE CO2 35.1 mmHg (35.0-45.0); ABG PARTIAL PRESSURE O2 104.1 mmHg (75.0-100.0); ABG STANDARD HCO3 15.9 MEQ/L (22.0-26.0); ABG TOTAL CO2 16.5 MEQ/L (23.0-31.0); ABG pH (ARTERIAL) 7.262 UNITS (7.350-7.450)
[2017-07-18] MEDS: SODIUM BICARBONATE 8.4% INJ 50 ML SYRINGE IV (11:56)
[2017-07-18] MEDS: TAMSULOSIN 0.4 MG CAP PO (11:56)
[2017-07-18] MEDS: GABAPENTIN 300 MG CAP PO ×2 (11:57→17:13)
[2017-07-18 12:11] LABS: SQUAMOUS EPITHELIAL CELL URINE NONE SEEN /hpf (SMALL AMT)
[2017-07-18] MEDS: FUROSEMIDE 100 MG/10 ML VIAL (J1940) IV (12:38)
[2017-07-18 13:00] LABS: BACTERIA, URINE SMALL AMOUNT; RBC, URINE 40-50 /hpf (0-3); SQUAMOUS EPITHELIAL CELL URINE NONE SEEN /hpf (SMALL AMT)
[2017-07-18 13:01] LABS: HYALINE CAST, URINE NONE SEEN /lpf (0-1); MICROSCOPIC EXAM PERFORMED
[2017-07-18] MEDS: DEXTROSE 50% 50 ML SYRINGE IV ×2 (14:13→17:13)
[2017-07-18] MEDS: HumuLIN R (REGULAR) INSULIN (NovoLIN R) **100U/ML** PER UNIT IV (14:15)
[2017-07-18] MEDS ORDERED: NOREPINEPHRINE BITARTRATE 8 MG in D5W 500 ML IV ×2 (14:37→15:00)
[2017-07-18] MEDS: NOREPINEPHRINE BITARTRATE 8 MG in D5W 500 ML IV ×2 (15:00→15:14)
[2017-07-18 15:58] LABS: CENTRAL VEN O2 SATURATION 93.1 %
[2017-07-18 16:25] LABS: ANION GAP 9 MEQ/L (8-16); BLOOD UREA NITROGEN 105 MG/DL (7-18); CALCIUM LEVEL 7.2 MG/DL (8.8-10.2); CARBON DIOXIDE LEVEL 22 MEQ/L (21-32); CHLORIDE LEVEL 107 MEQ/L (98-107); GLOMERULAR FILTRATION RATE 15.7 (>42); GLUCOSE, FASTING 43 MG/DL (83-110); POTASSIUM SERUM 4.8 MEQ/L (3.5-5.1); SODIUM LEVEL 138 MEQ/L (136-145)
[2017-07-18] MEDS: rOPINIRole 1MG TAB PO (21:01)
[2017-07-18 22:34] LABS: ANION GAP 8 MEQ/L (8-16); BLOOD UREA NITROGEN 101 MG/DL (7-18); CALCIUM LEVEL 7.4 MG/DL (8.8-10.2); CARBON DIOXIDE LEVEL 23 MEQ/L (21-32); CHLORIDE LEVEL 105 MEQ/L (98-107); CREATININE FOR GFR 3.69 MG/DL (0.70-1.30); GLOMERULAR FILTRATION RATE 17.2 (>42); GLUCOSE, FASTING 147 MG/DL (83-110); POTASSIUM SERUM 4.5 MEQ/L (3.5-5.1); SODIUM LEVEL 136 MEQ/L (136-145)
[2017-07-19] MEDS: NOREPINEPHRINE BITARTRATE 8 MG in D5W 500 ML IV (04:20)
[2017-07-19 05:23] LABS: HEMATOCRIT 28.3 % (42.0-52.0); HEMOGLOBIN 9.5 g/dl (14.0-18.0); MEAN CORPUSCULAR HEMOGLOBIN 30.5 pg (27.0-33.0); MEAN CORPUSCULAR HGB CONC 33.6 g/dl (32.0-36.5); PLATELET COUNT, AUTOMATED 178 10^3/uL (150-450); RED BLOOD COUNT 3.11 10^6/uL (4.30-6.10); RED CELL DISTRIBUTION WIDTH 14.1 % (11.5-14.5); WHITE BLOOD COUNT 8.6 10^3/uL (4.0-10.0)
[2017-07-19] MEDS: LEVOTHYROXINE 25MCG TABLET (0.025MG) PO (05:40)
[2017-07-19 05:43] LABS: ANION GAP 10 MEQ/L (8-16); BLOOD UREA NITROGEN 98 MG/DL (7-18); CALCIUM LEVEL 7.3 MG/DL (8.8-10.2); CARBON DIOXIDE LEVEL 20 MEQ/L (21-32); CHLORIDE LEVEL 107 MEQ/L (98-107); CREATININE FOR GFR 3.36 MG/DL (0.70-1.30); GLOMERULAR FILTRATION RATE 19.2 (>42); GLUCOSE, FASTING 121 MG/DL (83-110); POTASSIUM SERUM 4.4 MEQ/L (3.5-5.1); SODIUM LEVEL 137 MEQ/L (136-145)
[2017-07-19] MEDS: IPRATROPIUM 0.5MG/ALBUTEROL 2.5MG INH SOL UD 3ML (DUONEB)(J7620) NEB ×5 (08:00→23:55)
[2017-07-19] MEDS: NYSTATIN 500,000 U/5 ML SUSP UDC SS ×2 (08:55→20:02)
[2017-07-19] MEDS: FERROUS SULFATE 325MG TAB PO ×2 (08:55→20:02)
[2017-07-19] MEDS: ASCORBIC ACID 500 MG TAB PO (08:55)
[2017-07-19] MEDS: SERTRALINE HCL 25 MG TABLET PO (08:55)
[2017-07-19] MEDS: MULTIVITAMINS/MINERALS THERAP 1 TAB PO ×2 (08:55→20:01)
[2017-07-19 09:44] LABS: ABG BASE EXCESS -6.4 (-2.0-2.0); ABG HCO3 18.8 MEQ/L (22.0-26.0); ABG O2 SATURATION 95.5 % (95.0-99.0); ABG PARTIAL PRESSURE CO2 35.8 mmHg (35.0-45.0); ABG PARTIAL PRESSURE O2 80.4 mmHg (75.0-100.0); ABG STANDARD HCO3 19.2 MEQ/L (22.0-26.0); ABG TOTAL CO2 19.8 MEQ/L (23.0-31.0); ABG pH (ARTERIAL) 7.337 UNITS (7.350-7.450)
[2017-07-19] MEDS: GABAPENTIN 300 MG CAP PO ×3 (11:56→20:01)
[2017-07-19] MEDS: TAMSULOSIN 0.4 MG CAP PO (11:56)
[2017-07-19 12:19] LABS: LDH LACTATE DEHYDROGENASE 217 U/L (87-241)
[2017-07-19] MEDS: MOXIFLOXACIN HCL 400 MG in APPROPRIATE DILUENT 1 EA IV (12:36)
[2017-07-19] MEDS: FLUCONAZOLE 100 MG in APPROPRIATE DILUENT 1 EA IV (13:39)
[2017-07-19] MEDS: rOPINIRole 1MG TAB PO (20:01)
[2017-07-20] MEDS: LEVOTHYROXINE 25MCG TABLET (0.025MG) PO (05:22)
[2017-07-20 05:32] LABS: HEMATOCRIT 28.7 % (42.0-52.0); HEMOGLOBIN 9.6 g/dl (14.0-18.0); MEAN CORPUSCULAR HEMOGLOBIN 31.1 pg (27.0-33.0); MEAN CORPUSCULAR HGB CONC 33.4 g/dl (32.0-36.5); MEAN CORPUSCULAR VOLUME 92.9 fl (80.0-96.0); PLATELET COUNT, AUTOMATED 172 10^3/uL (150-450); RED BLOOD COUNT 3.09 10^6/uL (4.30-6.10); WHITE BLOOD COUNT 8.3 10^3/uL (4.0-10.0)
[2017-07-20 05:54] LABS: ANION GAP 9 MEQ/L (8-16); BLOOD UREA NITROGEN 79 MG/DL (7-18); CALCIUM LEVEL 7.4 MG/DL (8.8-10.2); CARBON DIOXIDE LEVEL 24 MEQ/L (21-32); CHLORIDE LEVEL 109 MEQ/L (98-107); CREATININE FOR GFR 2.58 MG/DL (0.70-1.30); GLUCOSE, FASTING 154 MG/DL (83-110); POTASSIUM SERUM 4.1 MEQ/L (3.5-5.1); SODIUM LEVEL 142 MEQ/L (136-145)
[2017-07-20] MEDS: NOREPINEPHRINE BITARTRATE 8 MG in D5W 500 ML IV (07:39)
[2017-07-20] MEDS: SERTRALINE HCL 25 MG TABLET PO (08:05)
[2017-07-20] MEDS: FERROUS SULFATE 325MG TAB PO ×2 (08:05→21:20)
[2017-07-20] MEDS: MULTIVITAMINS/MINERALS THERAP 1 TAB PO ×2 (08:05→21:20)
[2017-07-20] MEDS: NYSTATIN 500,000 U/5 ML SUSP UDC SS ×2 (08:05→21:21)
[2017-07-20] MEDS: ASCORBIC ACID 500 MG TAB PO (08:05)
[2017-07-20] MEDS: IPRATROPIUM 0.5MG/ALBUTEROL 2.5MG INH SOL UD 3ML (DUONEB)(J7620) NEB ×5 (08:12→22:01)
[2017-07-20] MEDS: TAMSULOSIN 0.4 MG CAP PO (12:08)
[2017-07-20] MEDS: MOXIFLOXACIN HCL 400 MG in APPROPRIATE DILUENT 1 EA IV (12:08)
[2017-07-20] MEDS: GABAPENTIN 300 MG CAP PO ×3 (12:08→21:21)
[2017-07-20] MEDS: FLUCONAZOLE 100 MG in APPROPRIATE DILUENT 1 EA IV (14:08)
[2017-07-20] MEDS: ACETAMINOPHEN TAB 650MG DOSE (2X325MG) PO (16:02)
[2017-07-20] MEDS: rOPINIRole 1MG TAB PO (21:20)
[2017-07-20] MEDS: traMADol 50 MG TAB PO (21:22)
[2017-07-21 05:25] LABS: HEMATOCRIT 29.6 % (42.0-52.0); HEMOGLOBIN 9.9 g/dl (14.0-18.0); MEAN CORPUSCULAR HEMOGLOBIN 30.6 pg (27.0-33.0); MEAN CORPUSCULAR HGB CONC 33.4 g/dl (32.0-36.5); MEAN CORPUSCULAR VOLUME 91.4 fl (80.0-96.0); PLATELET COUNT, AUTOMATED 205 10^3/uL (150-450); RED BLOOD COUNT 3.24 10^6/uL (4.30-6.10); RED CELL DISTRIBUTION WIDTH 14.2 % (11.5-14.5); WHITE BLOOD COUNT 9.6 10^3/uL (4.0-10.0)
[2017-07-21 05:38] LABS: ALBUMIN 2.9 GM/DL (3.2-5.2); ANION GAP 8 MEQ/L (8-16); BLOOD UREA NITROGEN 57 MG/DL (7-18); CALCIUM LEVEL 7.8 MG/DL (8.8-10.2); CARBON DIOXIDE LEVEL 25 MEQ/L (21-32); CHLORIDE LEVEL 108 MEQ/L (98-107); CREATININE FOR GFR 2.08 MG/DL (0.70-1.30); GLOMERULAR FILTRATION RATE 33.4 (>42); GLUCOSE, FASTING 124 MG/DL (83-110); PHOSPHORUS LEVEL 3.4 MG/DL (2.5-4.9); POTASSIUM SERUM 4.2 MEQ/L (3.5-5.1); SODIUM LEVEL 141 MEQ/L (136-145)
[2017-07-21] MEDS: LEVOTHYROXINE 25MCG TABLET (0.025MG) PO (06:10)
[2017-07-21] MEDS: IPRATROPIUM 0.5MG/ALBUTEROL 2.5MG INH SOL UD 3ML (DUONEB)(J7620) NEB ×4 (07:17→20:31)
[2017-07-21] MEDS: NOREPINEPHRINE BITARTRATE 8 MG in D5W 500 ML IV (08:00)
[2017-07-21] MEDS: FERROUS SULFATE 325MG TAB PO ×2 (08:04→21:17)
[2017-07-21] MEDS: SERTRALINE HCL 25 MG TABLET PO (08:04)
[2017-07-21] MEDS: NYSTATIN 500,000 U/5 ML SUSP UDC SS ×2 (08:04→21:18)
[2017-07-21] MEDS: ASCORBIC ACID 500 MG TAB PO (08:04)
[2017-07-21] MEDS: MULTIVITAMINS/MINERALS THERAP 1 TAB PO ×2 (08:04→21:18)
[2017-07-21] MEDS: TAMSULOSIN 0.4 MG CAP PO (12:04)
[2017-07-21] MEDS: guaiFENesin ER 600 MG TAB PO ×2 (12:04→21:18)
[2017-07-21] MEDS: GABAPENTIN 300 MG CAP PO ×3 (12:04→22:31)
[2017-07-21] MEDS: FLUCONAZOLE 100 MG in APPROPRIATE DILUENT 1 EA IV (13:30)
[2017-07-21] MEDS: traMADol 50 MG TAB PO ×2 (13:35→21:20)
[2017-07-21] MEDS: rOPINIRole 1MG TAB PO (21:18)
[2017-07-22] MEDS: ACETAMINOPHEN TAB 650MG DOSE (2X325MG) PO ×2 (00:14→16:32)
[2017-07-22] MEDS: LEVOTHYROXINE 25MCG TABLET (0.025MG) PO (05:42)
[2017-07-22 05:56] LABS: HEMATOCRIT 27.2 % (42.0-52.0); MEAN CORPUSCULAR HEMOGLOBIN 30.4 pg (27.0-33.0); MEAN CORPUSCULAR HGB CONC 33.1 g/dl (32.0-36.5); MEAN CORPUSCULAR VOLUME 91.9 fl (80.0-96.0); PLATELET COUNT, AUTOMATED 198 10^3/uL (150-450); RED BLOOD COUNT 2.96 10^6/uL (4.30-6.10); RED CELL DISTRIBUTION WIDTH 14.4 % (11.5-14.5); WHITE BLOOD COUNT 8.2 10^3/uL (4.0-10.0)
[2017-07-22 06:12] LABS: ALBUMIN 2.6 GM/DL (3.2-5.2); ANION GAP 6 MEQ/L (8-16); BLOOD UREA NITROGEN 48 MG/DL (7-18); CALCIUM LEVEL 7.8 MG/DL (8.8-10.2); CARBON DIOXIDE LEVEL 26 MEQ/L (21-32); CHLORIDE LEVEL 109 MEQ/L (98-107); CREATININE FOR GFR 1.84 MG/DL (0.70-1.30); GLOMERULAR FILTRATION RATE 38.5 (>42); GLUCOSE, FASTING 118 MG/DL (83-110); PHOSPHORUS LEVEL 3.2 MG/DL (2.5-4.9); POTASSIUM SERUM 4.3 MEQ/L (3.5-5.1); SODIUM LEVEL 141 MEQ/L (136-145)
[2017-07-22] MEDS: IPRATROPIUM 0.5MG/ALBUTEROL 2.5MG INH SOL UD 3ML (DUONEB)(J7620) NEB ×5 (07:30→22:37)
[2017-07-22] MEDS: FERROUS SULFATE 325MG TAB PO ×2 (08:41→20:40)
[2017-07-22] MEDS: ASCORBIC ACID 500 MG TAB PO (08:41)
[2017-07-22] MEDS: MULTIVITAMINS/MINERALS THERAP 1 TAB PO ×2 (08:41→20:40)
[2017-07-22] MEDS: guaiFENesin ER 600 MG TAB PO ×2 (08:41→20:40)
[2017-07-22] MEDS: SERTRALINE HCL 25 MG TABLET PO (08:41)
[2017-07-22] MEDS: NYSTATIN 500,000 U/5 ML SUSP UDC SS ×2 (08:41→20:39)
[2017-07-22] MEDS: TAMSULOSIN 0.4 MG CAP PO (11:55)
[2017-07-22] MEDS: GABAPENTIN 300 MG CAP PO ×3 (11:55→20:39)
[2017-07-22] MEDS: APIXABAN 5 MG TAB (ELIQUIS) PO ×2 (14:37→20:40)
[2017-07-22] MEDS: traMADol 50 MG TAB PO (20:40)
[2017-07-22] MEDS: rOPINIRole 1MG TAB PO (20:40)
[2017-07-23] MEDS: ACETAMINOPHEN TAB 650MG DOSE (2X325MG) PO ×2 (04:24→18:19)
[2017-07-23] MEDS: LEVOTHYROXINE 25MCG TABLET (0.025MG) PO (05:29)
[2017-07-23 05:50] LABS: HEMATOCRIT 28.5 % (42.0-52.0); HEMOGLOBIN 9.3 g/dl (14.0-18.0); MEAN CORPUSCULAR HEMOGLOBIN 30.4 pg (27.0-33.0); MEAN CORPUSCULAR HGB CONC 32.6 g/dl (32.0-36.5); MEAN CORPUSCULAR VOLUME 93.1 fl (80.0-96.0); PLATELET COUNT, AUTOMATED 206 10^3/uL (150-450); RED BLOOD COUNT 3.06 10^6/uL (4.30-6.10); RED CELL DISTRIBUTION WIDTH 14.4 % (11.5-14.5); WHITE BLOOD COUNT 7.9 10^3/uL (4.0-10.0)
[2017-07-23 06:08] LABS: ALBUMIN 2.8 GM/DL (3.2-5.2); ANION GAP 7 MEQ/L (8-16); BLOOD UREA NITROGEN 44 MG/DL (7-18); CALCIUM LEVEL 7.8 MG/DL (8.8-10.2); CARBON DIOXIDE LEVEL 25 MEQ/L (21-32); CHLORIDE LEVEL 109 MEQ/L (98-107); CREATININE FOR GFR 1.74 MG/DL (0.70-1.30); GLUCOSE, FASTING 100 MG/DL (83-110); PHOSPHORUS LEVEL 3.6 MG/DL (2.5-4.9); POTASSIUM SERUM 4.4 MEQ/L (3.5-5.1); SODIUM LEVEL 141 MEQ/L (136-145)
[2017-07-23] MEDS: NYSTATIN 500,000 U/5 ML SUSP UDC SS ×2 (08:59→20:25)
[2017-07-23] MEDS: MULTIVITAMINS/MINERALS THERAP 1 TAB PO ×2 (08:59→20:25)
[2017-07-23] MEDS: SERTRALINE HCL 25 MG TABLET PO (08:59)
[2017-07-23] MEDS: FERROUS SULFATE 325MG TAB PO ×2 (08:59→20:26)
[2017-07-23] MEDS: guaiFENesin ER 600 MG TAB PO ×2 (08:59→20:26)
[2017-07-23] MEDS: ASCORBIC ACID 500 MG TAB PO (08:59)
[2017-07-23] MEDS: APIXABAN 5 MG TAB (ELIQUIS) PO ×2 (08:59→20:26)
[2017-07-23] MEDS: IPRATROPIUM 0.5MG/ALBUTEROL 2.5MG INH SOL UD 3ML (DUONEB)(J7620) NEB ×4 (09:48→20:07)
[2017-07-23] MEDS: GABAPENTIN 300 MG CAP PO ×3 (12:04→20:26)
[2017-07-23] MEDS: TAMSULOSIN 0.4 MG CAP PO (12:04)
[2017-07-23 18:03] LABS: IRON (FE) 19 UG/DL (65-175); PERCENT SATURATION 10.4 % (19.7-50.0); TOTAL IRON BINDING CAPACITY 183 UG/DL (250-450)
[2017-07-23] MEDS: rOPINIRole 1MG TAB PO (20:26)
[2017-07-23] MEDS: traMADol 50 MG TAB PO (21:47)
[2017-07-24 05:13] LABS: HEMATOCRIT 28.6 % (42.0-52.0); HEMOGLOBIN 9.4 g/dl (14.0-18.0); MEAN CORPUSCULAR HEMOGLOBIN 30.9 pg (27.0-33.0); MEAN CORPUSCULAR HGB CONC 32.9 g/dl (32.0-36.5); MEAN CORPUSCULAR VOLUME 94.1 fl (80.0-96.0); PLATELET COUNT, AUTOMATED 215 10^3/uL (150-450); RED BLOOD COUNT 3.04 10^6/uL (4.30-6.10); RED CELL DISTRIBUTION WIDTH 14.5 % (11.5-14.5); WHITE BLOOD COUNT 8.2 10^3/uL (4.0-10.0)
[2017-07-24 05:28] LABS: ALBUMIN 2.7 GM/DL (3.2-5.2); ANION GAP 5 MEQ/L (8-16); BLOOD UREA NITROGEN 39 MG/DL (7-18); CALCIUM LEVEL 7.7 MG/DL (8.8-10.2); CARBON DIOXIDE LEVEL 27 MEQ/L (21-32); CHLORIDE LEVEL 109 MEQ/L (98-107); CREATININE FOR GFR 1.56 MG/DL (0.70-1.30); GLOMERULAR FILTRATION RATE 46.5 (>42); GLUCOSE, FASTING 99 MG/DL (83-110); PHOSPHORUS LEVEL 3.6 MG/DL (2.5-4.9); POTASSIUM SERUM 4.4 MEQ/L (3.5-5.1); SODIUM LEVEL 141 MEQ/L (136-145)
[2017-07-24] MEDS: LEVOTHYROXINE 25MCG TABLET (0.025MG) PO (06:05)
[2017-07-24] MEDS: IPRATROPIUM 0.5MG/ALBUTEROL 2.5MG INH SOL UD 3ML (DUONEB)(J7620) NEB ×4 (07:41→20:56)
[2017-07-24] MEDS: APIXABAN 5 MG TAB (ELIQUIS) PO ×2 (08:48→20:42)
[2017-07-24] MEDS: guaiFENesin ER 600 MG TAB PO ×2 (08:49→20:42)
[2017-07-24] MEDS: SERTRALINE HCL 25 MG TABLET PO (08:49)
[2017-07-24] MEDS: MULTIVITAMINS/MINERALS THERAP 1 TAB PO ×2 (08:49→20:42)
[2017-07-24] MEDS: NYSTATIN 500,000 U/5 ML SUSP UDC SS ×2 (08:49→20:42)
[2017-07-24] MEDS: ASCORBIC ACID 500 MG TAB PO (08:49)
[2017-07-24] MEDS: FERROUS SULFATE 325MG TAB PO ×2 (08:49→20:42)
[2017-07-24] MEDS: DARBEPOETIN 100 MCG/0.5 ML *NON-DIALYSIS* SYRINGE (J0881) SC (08:50)
[2017-07-24] MEDS: TAMSULOSIN 0.4 MG CAP PO (12:12)
[2017-07-24] MEDS: GABAPENTIN 300 MG CAP PO ×3 (12:12→20:42)
[2017-07-24] MEDS: ACETAMINOPHEN TAB 650MG DOSE (2X325MG) PO (13:33)
[2017-07-24] MEDS: rOPINIRole 1MG TAB PO (20:41)
[2017-07-24] MEDS: traMADol 50 MG TAB PO (22:26)
[2017-07-25] MEDS: LEVOTHYROXINE 25MCG TABLET (0.025MG) PO (05:06)
[2017-07-25 06:14] LABS: HEMATOCRIT 32.1 % (42.0-52.0); HEMOGLOBIN 10.4 g/dl (14.0-18.0); MEAN CORPUSCULAR HEMOGLOBIN 30.7 pg (27.0-33.0); MEAN CORPUSCULAR HGB CONC 32.4 g/dl (32.0-36.5); MEAN CORPUSCULAR VOLUME 94.7 fl (80.0-96.0); PLATELET COUNT, AUTOMATED 251 10^3/uL (150-450); RED BLOOD COUNT 3.39 10^6/uL (4.30-6.10); RED CELL DISTRIBUTION WIDTH 14.4 % (11.5-14.5); WHITE BLOOD COUNT 10.9 10^3/uL (4.0-10.0)
[2017-07-25 06:39] LABS: ANION GAP 6 MEQ/L (8-16); BLOOD UREA NITROGEN 35 MG/DL (7-18); CALCIUM LEVEL 8.2 MG/DL (8.8-10.2); CARBON DIOXIDE LEVEL 26 MEQ/L (21-32); CHLORIDE LEVEL 110 MEQ/L (98-107); CREATININE FOR GFR 1.47 MG/DL (0.70-1.30); GLOMERULAR FILTRATION RATE 49.9 (>42); GLUCOSE, FASTING 101 MG/DL (83-110); POTASSIUM SERUM 4.9 MEQ/L (3.5-5.1); SODIUM LEVEL 142 MEQ/L (136-145)
[2017-07-25] MEDS: IPRATROPIUM 0.5MG/ALBUTEROL 2.5MG INH SOL UD 3ML (DUONEB)(J7620) NEB ×4 (07:16→21:05)
[2017-07-25] MEDS: NYSTATIN 500,000 U/5 ML SUSP UDC SS ×2 (09:30→20:30)
[2017-07-25] MEDS: APIXABAN 5 MG TAB (ELIQUIS) PO ×2 (09:31→20:30)
[2017-07-25] MEDS: MULTIVITAMINS/MINERALS THERAP 1 TAB PO ×2 (09:31→20:30)
[2017-07-25] MEDS: FERROUS SULFATE 325MG TAB PO ×2 (09:31→20:30)
[2017-07-25] MEDS: ASCORBIC ACID 500 MG TAB PO (09:31)
[2017-07-25] MEDS: SERTRALINE HCL 25 MG TABLET PO (09:31)
[2017-07-25] MEDS: guaiFENesin ER 600 MG TAB PO ×2 (09:32→20:53)
[2017-07-25] MEDS: GABAPENTIN 300 MG CAP PO ×3 (12:13→20:30)
[2017-07-25] MEDS: TAMSULOSIN 0.4 MG CAP PO (12:14)
[2017-07-25] MEDS ORDERED: WARFARIN SOD 7.5 MG TAB PO (17:00)
[2017-07-25] MEDS: rOPINIRole 1MG TAB PO (20:30)
[2017-07-25] MEDS: BUDESONIDE 0.5 MG/2 ML INHALATION SUSPENSION INH (21:05)
[2017-07-25] MEDS: FORMOTEROL FUMARATE 20 MCG/2 ML INHALATION SOLUTION (PERFOROMIST) INH (21:05)
[2017-07-25] MEDS: traMADol 50 MG TAB PO (22:32)
[2017-07-25] MEDS: ALPRAZolam 0.25 MG TAB PO (23:55)
[2017-07-26] MEDS: LEVOTHYROXINE 25MCG TABLET (0.025MG) PO (05:46)
[2017-07-26 05:59] LABS: HEMOGLOBIN 9.4 g/dl (14.0-18.0); MEAN CORPUSCULAR HEMOGLOBIN 30.4 pg (27.0-33.0); MEAN CORPUSCULAR HGB CONC 32.4 g/dl (32.0-36.5); MEAN CORPUSCULAR VOLUME 93.9 fl (80.0-96.0); PLATELET COUNT, AUTOMATED 235 10^3/uL (150-450); RED BLOOD COUNT 3.09 10^6/uL (4.30-6.10); RED CELL DISTRIBUTION WIDTH 14.4 % (11.5-14.5); WHITE BLOOD COUNT 10.3 10^3/uL (4.0-10.0)
[2017-07-26 06:12] LABS: INR 2.51; PROTHROMBIN TIME 28.1 SECONDS (12.4-14.5)
[2017-07-26 06:28] LABS: ALBUMIN 2.7 GM/DL (3.2-5.2); ANION GAP 6 MEQ/L (8-16); BLOOD UREA NITROGEN 33 MG/DL (7-18); CALCIUM LEVEL 7.8 MG/DL (8.8-10.2); CARBON DIOXIDE LEVEL 27 MEQ/L (21-32); CHLORIDE LEVEL 109 MEQ/L (98-107); CREATININE FOR GFR 1.38 MG/DL (0.70-1.30); GLOMERULAR FILTRATION RATE 53.6 (>42); GLUCOSE, FASTING 94 MG/DL (83-110); PHOSPHORUS LEVEL 4.3 MG/DL (2.5-4.9); POTASSIUM SERUM 4.4 MEQ/L (3.5-5.1); SODIUM LEVEL 142 MEQ/L (136-145)
[2017-07-26] MEDS: IPRATROPIUM 0.5MG/ALBUTEROL 2.5MG INH SOL UD 3ML (DUONEB)(J7620) NEB ×4 (08:00→20:32)
[2017-07-26] MEDS: BUDESONIDE 0.5 MG/2 ML INHALATION SUSPENSION INH ×2 (08:07→20:32)
[2017-07-26] MEDS: FORMOTEROL FUMARATE 20 MCG/2 ML INHALATION SOLUTION (PERFOROMIST) INH ×2 (08:07→20:32)
[2017-07-26] MEDS: ASCORBIC ACID 500 MG TAB PO (08:27)
[2017-07-26] MEDS: SERTRALINE HCL 25 MG TABLET PO (08:27)
[2017-07-26] MEDS: APIXABAN 5 MG TAB (ELIQUIS) PO ×2 (08:27→21:00)
[2017-07-26] MEDS: FERROUS SULFATE 325MG TAB PO ×2 (08:27→20:58)
[2017-07-26] MEDS: NYSTATIN 500,000 U/5 ML SUSP UDC SS ×2 (08:27→20:59)
[2017-07-26] MEDS: guaiFENesin ER 600 MG TAB PO ×2 (08:27→21:00)
[2017-07-26] MEDS: MULTIVITAMINS/MINERALS THERAP 1 TAB PO ×2 (08:27→20:58)
[2017-07-26] MEDS ORDERED: SODIUM CHLORIDE NASAL 0.65% SPRAY BTL (OCEAN) (09:15)
[2017-07-26] MEDS: TAMSULOSIN 0.4 MG CAP PO (12:19)
[2017-07-26] MEDS: GABAPENTIN 300 MG CAP PO ×3 (12:19→20:58)
[2017-07-26] MEDS: SODIUM CHLORIDE NASAL 0.65% SPRAY BTL (OCEAN) ×2 (12:20→21:01)
[2017-07-26] MEDS: AZELASTINE 137MCG NASAL SPY 30 ML (ASTELIN) ×2 (12:20→21:01)
[2017-07-26] MEDS: ACETAMINOPHEN TAB 650MG DOSE (2X325MG) PO (14:53)
[2017-07-26] MEDS: ALPRAZolam 0.25 MG TAB PO (17:27)
[2017-07-26] MEDS: rOPINIRole 1MG TAB PO (20:58)
[2017-07-26] MEDS: traMADol 50 MG TAB PO (20:59)
[2017-07-27] MEDS: LEVOTHYROXINE 25MCG TABLET (0.025MG) PO (05:54)
[2017-07-27 06:19] LABS: HEMATOCRIT 28.9 % (42.0-52.0); HEMOGLOBIN 9.4 g/dl (14.0-18.0); MEAN CORPUSCULAR HEMOGLOBIN 30.6 pg (27.0-33.0); MEAN CORPUSCULAR HGB CONC 32.5 g/dl (32.0-36.5); MEAN CORPUSCULAR VOLUME 94.1 fl (80.0-96.0); PLATELET COUNT, AUTOMATED 242 10^3/uL (150-450); RED BLOOD COUNT 3.07 10^6/uL (4.30-6.10); RED CELL DISTRIBUTION WIDTH 14.3 % (11.5-14.5); WHITE BLOOD COUNT 9.6 10^3/uL (4.0-10.0)
[2017-07-27 06:49] LABS: ALBUMIN 2.8 GM/DL (3.2-5.2); ANION GAP 7 MEQ/L (8-16); BLOOD UREA NITROGEN 31 MG/DL (7-18); CALCIUM LEVEL 8.1 MG/DL (8.8-10.2); CARBON DIOXIDE LEVEL 26 MEQ/L (21-32); CHLORIDE LEVEL 110 MEQ/L (98-107); CREATININE FOR GFR 1.44 MG/DL (0.70-1.30); GLOMERULAR FILTRATION RATE 51.1 (>42); GLUCOSE, FASTING 84 MG/DL (83-110); PHOSPHORUS LEVEL 4.1 MG/DL (2.5-4.9); POTASSIUM SERUM 4.4 MEQ/L (3.5-5.1); SODIUM LEVEL 143 MEQ/L (136-145)
[2017-07-27] MEDS: IPRATROPIUM 0.5MG/ALBUTEROL 2.5MG INH SOL UD 3ML (DUONEB)(J7620) NEB ×4 (08:00→20:00)
[2017-07-27] MEDS: FORMOTEROL FUMARATE 20 MCG/2 ML INHALATION SOLUTION (PERFOROMIST) INH ×2 (08:10→20:01)
[2017-07-27] MEDS: BUDESONIDE 0.5 MG/2 ML INHALATION SUSPENSION INH ×2 (08:10→20:01)
[2017-07-27] MEDS: AZELASTINE 137MCG NASAL SPY 30 ML (ASTELIN) ×2 (08:21→20:16)
[2017-07-27] MEDS: SODIUM CHLORIDE NASAL 0.65% SPRAY BTL (OCEAN) ×2 (08:22→20:16)
[2017-07-27] MEDS: MULTIVITAMINS/MINERALS THERAP 1 TAB PO ×2 (08:22→20:15)
[2017-07-27] MEDS: ASCORBIC ACID 500 MG TAB PO (08:22)
[2017-07-27] MEDS: SERTRALINE HCL 25 MG TABLET PO (08:22)
[2017-07-27] MEDS: FERROUS SULFATE 325MG TAB PO ×2 (08:23→20:14)
[2017-07-27] MEDS: NYSTATIN 500,000 U/5 ML SUSP UDC SS ×2 (08:23→20:14)
[2017-07-27] MEDS: APIXABAN 5 MG TAB (ELIQUIS) PO ×2 (08:23→20:15)
[2017-07-27] MEDS: guaiFENesin ER 600 MG TAB PO ×2 (08:23→20:15)
[2017-07-27] MEDS: traMADol 50 MG TAB PO ×2 (08:24→22:57)
[2017-07-27] MEDS ORDERED: SODIUM CHLORIDE 0.9% INJ 10 ML SYR IV (11:45)
[2017-07-27] MEDS: SODIUM CHLORIDE 0.9% INJ 10 ML SYR IV ×2 (12:53→20:16)
[2017-07-27] MEDS: TAMSULOSIN 0.4 MG CAP PO (12:53)
[2017-07-27] MEDS: GABAPENTIN 300 MG CAP PO ×3 (12:53→20:15)
[2017-07-27] MEDS: rOPINIRole 1MG TAB PO (20:14)
[2017-07-27] MEDS: ALPRAZolam 0.25 MG TAB PO (20:15)
[2017-07-28] MEDS: LEVOTHYROXINE 25MCG TABLET (0.025MG) PO (05:13)
[2017-07-28] MEDS: SODIUM CHLORIDE 0.9% INJ 10 ML SYR IV ×3 (05:18→21:38)
[2017-07-28 05:30] LABS: HEMATOCRIT 28.2 % (42.0-52.0); HEMOGLOBIN 9.2 g/dl (14.0-18.0); MEAN CORPUSCULAR HEMOGLOBIN 30.5 pg (27.0-33.0); MEAN CORPUSCULAR HGB CONC 32.6 g/dl (32.0-36.5); MEAN CORPUSCULAR VOLUME 93.4 fl (80.0-96.0); PLATELET COUNT, AUTOMATED 235 10^3/uL (150-450); RED BLOOD COUNT 3.02 10^6/uL (4.30-6.10); RED CELL DISTRIBUTION WIDTH 14.3 % (11.5-14.5); WHITE BLOOD COUNT 9.8 10^3/uL (4.0-10.0)
[2017-07-28 06:50] LABS: ALBUMIN 2.7 GM/DL (3.2-5.2); ANION GAP 7 MEQ/L (8-16); BLOOD UREA NITROGEN 30 MG/DL (7-18); CALCIUM LEVEL 7.9 MG/DL (8.8-10.2); CARBON DIOXIDE LEVEL 25 MEQ/L (21-32); CHLORIDE LEVEL 111 MEQ/L (98-107); GLOMERULAR FILTRATION RATE 57.4 (>42); GLUCOSE, FASTING 86 MG/DL (83-110); PHOSPHORUS LEVEL 3.9 MG/DL (2.5-4.9); POTASSIUM SERUM 4.4 MEQ/L (3.5-5.1); SODIUM LEVEL 143 MEQ/L (136-145)
[2017-07-28] MEDS: IPRATROPIUM 0.5MG/ALBUTEROL 2.5MG INH SOL UD 3ML (DUONEB)(J7620) NEB ×4 (07:38→20:00)
[2017-07-28] MEDS: BUDESONIDE 0.5 MG/2 ML INHALATION SUSPENSION INH ×2 (07:38→20:45)
[2017-07-28] MEDS: FORMOTEROL FUMARATE 20 MCG/2 ML INHALATION SOLUTION (PERFOROMIST) INH ×2 (07:38→20:45)
[2017-07-28] MEDS: SODIUM CHLORIDE NASAL 0.65% SPRAY BTL (OCEAN) ×2 (09:00→21:00)
[2017-07-28] MEDS: AZELASTINE 137MCG NASAL SPY 30 ML (ASTELIN) ×2 (09:00→21:00)
[2017-07-28] MEDS: APIXABAN 5 MG TAB (ELIQUIS) PO ×2 (09:28→21:40)
[2017-07-28] MEDS: NYSTATIN 500,000 U/5 ML SUSP UDC SS ×2 (09:28→21:38)
[2017-07-28] MEDS: guaiFENesin ER 600 MG TAB PO ×2 (09:29→21:40)
[2017-07-28] MEDS: ASCORBIC ACID 500 MG TAB PO (09:29)
[2017-07-28] MEDS: FERROUS SULFATE 325MG TAB PO ×2 (09:29→21:40)
[2017-07-28] MEDS: MULTIVITAMINS/MINERALS THERAP 1 TAB PO ×2 (09:29→21:40)
[2017-07-28] MEDS: SERTRALINE HCL 25 MG TABLET PO (09:30)
[2017-07-28] MEDS: FUROSEMIDE 40 MG TAB PO (10:57)
[2017-07-28] MEDS: TAMSULOSIN 0.4 MG CAP PO (13:42)
[2017-07-28] MEDS: GABAPENTIN 300 MG CAP PO ×3 (13:42→21:40)
[2017-07-28] MEDS: traMADol 50 MG TAB PO (16:07)
[2017-07-28] MEDS: ALPRAZolam 0.25 MG TAB PO ×2 (17:24→21:40)
[2017-07-28] MEDS: rOPINIRole 1MG TAB PO (21:40)
[2017-07-28] MEDS: ACETAMINOPHEN TAB 650MG DOSE (2X325MG) PO (21:41)
[2017-07-29] MEDS: SODIUM CHLORIDE 0.9% INJ 10 ML SYR IV ×2 (06:34→13:34)
[2017-07-29] MEDS: LEVOTHYROXINE 25MCG TABLET (0.025MG) PO (06:34)
[2017-07-29 06:55] LABS: HEMATOCRIT 29.2 % (42.0-52.0); HEMOGLOBIN 9.5 g/dl (14.0-18.0); MEAN CORPUSCULAR HEMOGLOBIN 30.7 pg (27.0-33.0); MEAN CORPUSCULAR HGB CONC 32.5 g/dl (32.0-36.5); MEAN CORPUSCULAR VOLUME 94.5 fl (80.0-96.0); PLATELET COUNT, AUTOMATED 245 10^3/uL (150-450); RED BLOOD COUNT 3.09 10^6/uL (4.30-6.10); RED CELL DISTRIBUTION WIDTH 14.5 % (11.5-14.5); WHITE BLOOD COUNT 8.2 10^3/uL (4.0-10.0)
[2017-07-29] MEDS: BUDESONIDE 0.5 MG/2 ML INHALATION SUSPENSION INH ×2 (07:11→20:47)
[2017-07-29] MEDS: FORMOTEROL FUMARATE 20 MCG/2 ML INHALATION SOLUTION (PERFOROMIST) INH ×2 (07:11→20:47)
[2017-07-29] MEDS: IPRATROPIUM 0.5MG/ALBUTEROL 2.5MG INH SOL UD 3ML (DUONEB)(J7620) NEB ×4 (07:11→20:00)
[2017-07-29 07:16] LABS: ALBUMIN 2.8 GM/DL (3.2-5.2); ANION GAP 7 MEQ/L (8-16); BLOOD UREA NITROGEN 31 MG/DL (7-18); CARBON DIOXIDE LEVEL 27 MEQ/L (21-32); CHLORIDE LEVEL 107 MEQ/L (98-107); GLOMERULAR FILTRATION RATE 52.7 (>42); GLUCOSE, FASTING 88 MG/DL (83-110); PHOSPHORUS LEVEL 3.9 MG/DL (2.5-4.9); POTASSIUM SERUM 4.2 MEQ/L (3.5-5.1); SODIUM LEVEL 141 MEQ/L (136-145)
[2017-07-29] MEDS: FERROUS SULFATE 325MG TAB PO ×2 (09:29→21:10)
[2017-07-29] MEDS: NYSTATIN 500,000 U/5 ML SUSP UDC SS ×2 (09:29→21:10)
[2017-07-29] MEDS: ASCORBIC ACID 500 MG TAB PO (09:30)
[2017-07-29] MEDS: guaiFENesin ER 600 MG TAB PO ×2 (09:30→21:11)
[2017-07-29] MEDS: SERTRALINE HCL 25 MG TABLET PO (09:30)
[2017-07-29] MEDS: APIXABAN 5 MG TAB (ELIQUIS) PO ×2 (09:30→21:11)
[2017-07-29] MEDS: FUROSEMIDE 40 MG TAB PO (09:31)
[2017-07-29] MEDS: AZELASTINE 137MCG NASAL SPY 30 ML (ASTELIN) ×2 (09:31→21:00)
[2017-07-29] MEDS: SODIUM CHLORIDE NASAL 0.65% SPRAY BTL (OCEAN) ×2 (09:31→21:00)
[2017-07-29] MEDS: MULTIVITAMINS/MINERALS THERAP 1 TAB PO ×2 (09:34→21:10)
[2017-07-29] MEDS: FUROSEMIDE 40 MG/4 ML VIAL (J1940) IV (11:54)
[2017-07-29] MEDS: TAMSULOSIN 0.4 MG CAP PO (13:34)
[2017-07-29] MEDS: GABAPENTIN 300 MG CAP PO ×3 (13:34→21:10)
[2017-07-29] MEDS: ACETAMINOPHEN TAB 650MG DOSE (2X325MG) PO (18:49)
[2017-07-29] MEDS: rOPINIRole 1MG TAB PO (21:11)
[2017-07-29] MEDS: ALPRAZolam 0.25 MG TAB PO (21:11)
[2017-07-29] MEDS: traMADol 50 MG TAB PO (21:11)
[2017-07-30] MEDS: LEVOTHYROXINE 25MCG TABLET (0.025MG) PO (05:40)
[2017-07-30] MEDS: IPRATROPIUM 0.5MG/ALBUTEROL 2.5MG INH SOL UD 3ML (DUONEB)(J7620) NEB ×4 (07:44→20:00)
[2017-07-30] MEDS: BUDESONIDE 0.5 MG/2 ML INHALATION SUSPENSION INH ×2 (07:44→19:57)
[2017-07-30] MEDS: FORMOTEROL FUMARATE 20 MCG/2 ML INHALATION SOLUTION (PERFOROMIST) INH ×2 (07:44→19:57)
[2017-07-30 07:49] LABS: HEMATOCRIT 29.2 % (42.0-52.0); HEMOGLOBIN 9.5 g/dl (14.0-18.0); MEAN CORPUSCULAR HEMOGLOBIN 30.7 pg (27.0-33.0); MEAN CORPUSCULAR HGB CONC 32.5 g/dl (32.0-36.5); MEAN CORPUSCULAR VOLUME 94.5 fl (80.0-96.0); PLATELET COUNT, AUTOMATED 236 10^3/uL (150-450); RED BLOOD COUNT 3.09 10^6/uL (4.30-6.10); RED CELL DISTRIBUTION WIDTH 14.6 % (11.5-14.5); WHITE BLOOD COUNT 7.7 10^3/uL (4.0-10.0)
[2017-07-30 08:13] LABS: ANION GAP 7 MEQ/L (8-16); BLOOD UREA NITROGEN 31 MG/DL (7-18); CARBON DIOXIDE LEVEL 30 MEQ/L (21-32); CHLORIDE LEVEL 106 MEQ/L (98-107); CREATININE FOR GFR 1.46 MG/DL (0.70-1.30); GLOMERULAR FILTRATION RATE 50.2 (>42); GLUCOSE, FASTING 87 MG/DL (83-110); POTASSIUM SERUM 4.2 MEQ/L (3.5-5.1); SODIUM LEVEL 143 MEQ/L (136-145)
[2017-07-30] MEDS: AZELASTINE 137MCG NASAL SPY 30 ML (ASTELIN) ×2 (09:11→20:40)
[2017-07-30] MEDS: ASCORBIC ACID 500 MG TAB PO (09:11)
[2017-07-30] MEDS: SERTRALINE HCL 25 MG TABLET PO (09:11)
[2017-07-30] MEDS: FERROUS SULFATE 325MG TAB PO ×2 (09:11→20:40)
[2017-07-30] MEDS: MULTIVITAMINS/MINERALS THERAP 1 TAB PO ×2 (09:11→20:40)
[2017-07-30] MEDS: SODIUM CHLORIDE NASAL 0.65% SPRAY BTL (OCEAN) ×2 (09:11→20:40)
[2017-07-30] MEDS: guaiFENesin ER 600 MG TAB PO ×2 (09:12→20:40)
[2017-07-30] MEDS: FUROSEMIDE 40 MG TAB PO (09:13)
[2017-07-30] MEDS: GABAPENTIN 300 MG CAP PO ×3 (12:16→20:39)
[2017-07-30] MEDS: TAMSULOSIN 0.4 MG CAP PO (12:16)
[2017-07-30] MEDS: ALPRAZolam 0.25 MG TAB PO ×2 (12:16→20:39)
[2017-07-30] MEDS: FUROSEMIDE 40 MG/4 ML VIAL (J1940) IV (13:51)
[2017-07-30] MEDS: rOPINIRole 1MG TAB PO (20:38)
[2017-07-30] MEDS: traMADol 50 MG TAB PO (20:40)
[2017-07-31] MEDS: LEVOTHYROXINE 25MCG TABLET (0.025MG) PO (05:58)
[2017-07-31] MEDS: FORMOTEROL FUMARATE 20 MCG/2 ML INHALATION SOLUTION (PERFOROMIST) INH ×2 (06:07→21:49)
[2017-07-31] MEDS: IPRATROPIUM 0.5MG/ALBUTEROL 2.5MG INH SOL UD 3ML (DUONEB)(J7620) NEB ×4 (06:07→21:50)
[2017-07-31] MEDS: BUDESONIDE 0.5 MG/2 ML INHALATION SUSPENSION INH ×2 (06:07→21:49)
[2017-07-31] MEDS: ASCORBIC ACID 500 MG TAB PO (08:32)
[2017-07-31] MEDS: FUROSEMIDE 40 MG TAB PO (08:32)
[2017-07-31] MEDS: guaiFENesin ER 600 MG TAB PO ×2 (08:32→20:09)
[2017-07-31] MEDS: SERTRALINE HCL 25 MG TABLET PO (08:32)
[2017-07-31] MEDS: FERROUS SULFATE 325MG TAB PO ×2 (08:32→20:09)
[2017-07-31] MEDS: MULTIVITAMINS/MINERALS THERAP 1 TAB PO ×2 (08:32→20:09)
[2017-07-31] MEDS: SODIUM CHLORIDE NASAL 0.65% SPRAY BTL (OCEAN) ×2 (08:33→20:10)
[2017-07-31] MEDS: AZELASTINE 137MCG NASAL SPY 30 ML (ASTELIN) ×2 (08:33→20:10)
[2017-07-31 08:43] LABS: MEAN CORPUSCULAR HEMOGLOBIN 30.3 pg (27.0-33.0); MEAN CORPUSCULAR HGB CONC 32.3 g/dl (32.0-36.5); MEAN CORPUSCULAR VOLUME 93.9 fl (80.0-96.0); PLATELET COUNT, AUTOMATED 257 10^3/uL (150-450); RED CELL DISTRIBUTION WIDTH 14.4 % (11.5-14.5); WHITE BLOOD COUNT 8.1 10^3/uL (4.0-10.0)
[2017-07-31] MEDS ORDERED: APIXABAN 5 MG TAB (ELIQUIS) PO (09:00)
[2017-07-31 09:04] LABS: ANION GAP 5 MEQ/L (8-16); BLOOD UREA NITROGEN 26 MG/DL (7-18); CALCIUM LEVEL 8.5 MG/DL (8.8-10.2); CARBON DIOXIDE LEVEL 33 MEQ/L (21-32); CHLORIDE LEVEL 102 MEQ/L (98-107); CREATININE FOR GFR 1.46 MG/DL (0.70-1.30); GLOMERULAR FILTRATION RATE 50.2 (>42); GLUCOSE, FASTING 91 MG/DL (83-110); POTASSIUM SERUM 3.6 MEQ/L (3.5-5.1); SODIUM LEVEL 140 MEQ/L (136-145)
[2017-07-31] MEDS: TAMSULOSIN 0.4 MG CAP PO (12:11)
[2017-07-31] MEDS: GABAPENTIN 300 MG CAP PO ×3 (12:11→20:09)
[2017-07-31] MEDS: ACETAMINOPHEN TAB 650MG DOSE (2X325MG) PO (12:12)
[2017-07-31] MEDS: DARBEPOETIN 100 MCG/0.5 ML *NON-DIALYSIS* SYRINGE (J0881) SC (12:12)
[2017-07-31 15:28] LABS: PH BODY FLUID 7.757 UNITS (NOT ESTABLISHED); SOURCE, BODY FLUID pH PLEURAL
[2017-07-31 15:37] LABS: BF MONONUCLEAR CELL % 78.7 % (0-0); BF POLYMORPHONUCLEAR CELL % 21.3 % (0-0); RBC BODY FLUID 26 10^3/uL (<2); WBC BODY FLUID 328 /uL (0-10)
[2017-07-31 15:39] LABS: APPEARANCE, BODY FLUID HAZY (CLEAR); BF DIFF IF INDICATED? YES (NO); PLEURAL FL COLOR RED (COLORLESS); SOURCE, BODY FLUID PLEURAL
[2017-07-31 15:42] LABS: AMYLASE, BODY FLUID 15 U/L (NOT ESTABLISHED); CHOLESTEROL, BODY FLUID < 50 MG/DL (NOT ESTABLISHED); LDH, BODY FLUID 87 U/L (NOT ESTABLISHED); SOURCE, BODY FLUID ALBUMIN PLEURAL; SOURCE, BODY FLUID AMYLASE PLEURAL; SOURCE, BODY FLUID CHOL PLEURAL; SOURCE, BODY FLUID GLUCOSE PLEURAL; SOURCE, BODY FLUID LDH PLEURAL; SOURCE, BODY FLUID TOT PROTEIN PLEURAL; SOURCE, BODY FLUID TRIG PLEURAL; TRIGLYCERIDE, BODY FLUID 37 MG/DL (NOT ESTABLISHED)
[2017-07-31] MEDS: APIXABAN 5 MG TAB (ELIQUIS) PO ×2 (16:10→20:09)
[2017-07-31] MEDS: ALPRAZolam 0.25 MG TAB PO ×2 (16:10→23:38)
[2017-07-31 16:43] LABS: LDH LACTATE DEHYDROGENASE 219 U/L (87-241)
[2017-07-31] MEDS: traMADol 50 MG TAB PO (20:09)
[2017-07-31] MEDS: rOPINIRole 1MG TAB PO (20:10)
[2017-08-01] MEDS: LEVOTHYROXINE 25MCG TABLET (0.025MG) PO (05:41)
[2017-08-01] MEDS: ALPRAZolam 0.25 MG TAB PO ×2 (05:41→15:27)
[2017-08-01 07:17] LABS: HEMATOCRIT 27.4 % (42.0-52.0); HEMOGLOBIN 8.9 g/dl (14.0-18.0); MEAN CORPUSCULAR HEMOGLOBIN 30.2 pg (27.0-33.0); MEAN CORPUSCULAR HGB CONC 32.5 g/dl (32.0-36.5); MEAN CORPUSCULAR VOLUME 92.9 fl (80.0-96.0); PLATELET COUNT, AUTOMATED 219 10^3/uL (150-450); RED BLOOD COUNT 2.95 10^6/uL (4.30-6.10); RED CELL DISTRIBUTION WIDTH 14.5 % (11.5-14.5); WHITE BLOOD COUNT 5.8 10^3/uL (4.0-10.0)
[2017-08-01 07:34] LABS: ANION GAP 6 MEQ/L (8-16); BLOOD UREA NITROGEN 25 MG/DL (7-18); CALCIUM LEVEL 7.9 MG/DL (8.8-10.2); CARBON DIOXIDE LEVEL 33 MEQ/L (21-32); CHLORIDE LEVEL 103 MEQ/L (98-107); CREATININE FOR GFR 1.32 MG/DL (0.70-1.30); GLOMERULAR FILTRATION RATE 56.4 (>42); GLUCOSE, FASTING 76 MG/DL (83-110); POTASSIUM SERUM 3.6 MEQ/L (3.5-5.1); SODIUM LEVEL 142 MEQ/L (136-145)
[2017-08-01] MEDS: BUDESONIDE 0.5 MG/2 ML INHALATION SUSPENSION INH ×2 (08:00→20:37)
[2017-08-01] MEDS: FORMOTEROL FUMARATE 20 MCG/2 ML INHALATION SOLUTION (PERFOROMIST) INH ×2 (08:00→20:37)
[2017-08-01] MEDS: IPRATROPIUM 0.5MG/ALBUTEROL 2.5MG INH SOL UD 3ML (DUONEB)(J7620) NEB ×4 (08:00→20:00)
[2017-08-01] MEDS: SERTRALINE HCL 25 MG TABLET PO (08:33)
[2017-08-01] MEDS: ASCORBIC ACID 500 MG TAB PO (08:33)
[2017-08-01] MEDS: guaiFENesin ER 600 MG TAB PO ×2 (08:33→21:28)
[2017-08-01] MEDS: MULTIVITAMINS/MINERALS THERAP 1 TAB PO ×2 (08:33→21:29)
[2017-08-01] MEDS: TORSEMIDE 20 MG TAB PO (08:33)
[2017-08-01] MEDS: FERROUS SULFATE 325MG TAB PO ×2 (08:33→21:29)
[2017-08-01] MEDS: AZELASTINE 137MCG NASAL SPY 30 ML (ASTELIN) ×2 (08:34→21:30)
[2017-08-01] MEDS: APIXABAN 5 MG TAB (ELIQUIS) PO ×2 (08:34→21:29)
[2017-08-01] MEDS: SODIUM CHLORIDE NASAL 0.65% SPRAY BTL (OCEAN) ×2 (08:34→21:30)
[2017-08-01 10:23] LABS: ALBUMIN 2.5 GM/DL (3.2-5.2); ALBUMIN/GLOBULIN RATIO 0.81 (1.00-1.93); ALKALINE PHOSPHATASE 72 U/L (45-117); ALT/SGPT 35 U/L (12-78); AST/SGOT 27 U/L (7-37); BILIRUBIN,DIRECT 0.3 MG/DL (0.0-0.2); BILIRUBIN,TOTAL 0.7 MG/DL (0.2-1.0); TOTAL PROTEIN 5.6 GM/DL (6.4-8.2)
[2017-08-01] MEDS: TAMSULOSIN 0.4 MG CAP PO (12:11)
[2017-08-01] MEDS: NYSTATIN 500,000 U/5 ML SUSP UDC SS ×5 (12:11→21:35)
[2017-08-01] MEDS: GABAPENTIN 300 MG CAP PO ×3 (12:11→21:28)
[2017-08-01] MEDS: aMILoride 5 MG TAB PO (13:53)
[2017-08-01] MEDS: AZITHROMYCIN 250 MG TAB PO (13:53)
[2017-08-01] MEDS: traMADol 50 MG TAB PO ×2 (13:57→21:29)
[2017-08-01] MEDS: rOPINIRole 1MG TAB PO (21:28)
[2017-08-02] MEDS: LEVOTHYROXINE 25MCG TABLET (0.025MG) PO (05:47)
[2017-08-02 06:56] LABS: HEMATOCRIT 26.8 % (42.0-52.0); HEMOGLOBIN 8.8 g/dl (14.0-18.0); MEAN CORPUSCULAR HEMOGLOBIN 30.3 pg (27.0-33.0); MEAN CORPUSCULAR HGB CONC 32.8 g/dl (32.0-36.5); MEAN CORPUSCULAR VOLUME 92.4 fl (80.0-96.0); PLATELET COUNT, AUTOMATED 199 10^3/uL (150-450); RED CELL DISTRIBUTION WIDTH 14.3 % (11.5-14.5); WHITE BLOOD COUNT 4.9 10^3/uL (4.0-10.0)
[2017-08-02] MEDS: FORMOTEROL FUMARATE 20 MCG/2 ML INHALATION SOLUTION (PERFOROMIST) INH ×2 (07:10→21:19)
[2017-08-02] MEDS: BUDESONIDE 0.5 MG/2 ML INHALATION SUSPENSION INH ×2 (07:10→21:19)
[2017-08-02 07:20] LABS: ANION GAP 8 MEQ/L (8-16); BLOOD UREA NITROGEN 28 MG/DL (7-18); CALCIUM LEVEL 7.9 MG/DL (8.8-10.2); CARBON DIOXIDE LEVEL 30 MEQ/L (21-32); CHLORIDE LEVEL 102 MEQ/L (98-107); CREATININE FOR GFR 1.54 MG/DL (0.70-1.30); GLOMERULAR FILTRATION RATE 47.2 (>42); GLUCOSE, FASTING 85 MG/DL (83-110); POTASSIUM SERUM 3.4 MEQ/L (3.5-5.1); SODIUM LEVEL 140 MEQ/L (136-145)
[2017-08-02] MEDS: IPRATROPIUM 0.5MG/ALBUTEROL 2.5MG INH SOL UD 3ML (DUONEB)(J7620) NEB ×4 (08:00→20:00)
[2017-08-02] MEDS: NYSTATIN 500,000 U/5 ML SUSP UDC SS ×4 (09:31→20:33)
[2017-08-02] MEDS: APIXABAN 5 MG TAB (ELIQUIS) PO ×2 (09:32→20:34)
[2017-08-02] MEDS: FERROUS SULFATE 325MG TAB PO ×2 (09:32→20:34)
[2017-08-02] MEDS: MULTIVITAMINS/MINERALS THERAP 1 TAB PO ×2 (09:32→20:34)
[2017-08-02] MEDS: TORSEMIDE 20 MG TAB PO (09:32)
[2017-08-02] MEDS: AZITHROMYCIN 250 MG TAB PO (09:32)
[2017-08-02] MEDS: SERTRALINE HCL 25 MG TABLET PO (09:32)
[2017-08-02] MEDS: guaiFENesin ER 600 MG TAB PO ×2 (09:33→20:35)
[2017-08-02] MEDS: POTASSIUM CHLORIDE 10 MEQ SR TABLET PO (09:33)
[2017-08-02] MEDS: aMILoride 5 MG TAB PO (09:33)
[2017-08-02] MEDS: ASCORBIC ACID 500 MG TAB PO (09:33)
[2017-08-02] MEDS: AZELASTINE 137MCG NASAL SPY 30 ML (ASTELIN) ×2 (09:34→20:47)
[2017-08-02] MEDS: SODIUM CHLORIDE NASAL 0.65% SPRAY BTL (OCEAN) ×2 (09:34→20:47)
[2017-08-02] MEDS: GABAPENTIN 300 MG CAP PO ×3 (13:12→20:34)
[2017-08-02] MEDS: TAMSULOSIN 0.4 MG CAP PO (13:12)
[2017-08-02] MEDS: traMADol 50 MG TAB PO (17:49)
[2017-08-02] MEDS: ALPRAZolam 0.25 MG TAB PO (20:34)
[2017-08-02] MEDS: rOPINIRole 1MG TAB PO (20:35)
[2017-08-03] MEDS: LEVOTHYROXINE 25MCG TABLET (0.025MG) PO (05:44)
[2017-08-03 07:41] LABS: HEMATOCRIT 26.6 % (42.0-52.0); HEMOGLOBIN 8.7 g/dl (14.0-18.0); MEAN CORPUSCULAR HEMOGLOBIN 30.2 pg (27.0-33.0); MEAN CORPUSCULAR HGB CONC 32.7 g/dl (32.0-36.5); MEAN CORPUSCULAR VOLUME 92.4 fl (80.0-96.0); PLATELET COUNT, AUTOMATED 212 10^3/uL (150-450); RED BLOOD COUNT 2.88 10^6/uL (4.30-6.10); RED CELL DISTRIBUTION WIDTH 14.4 % (11.5-14.5); WHITE BLOOD COUNT 4.3 10^3/uL (4.0-10.0)
[2017-08-03] MEDS: IPRATROPIUM 0.5MG/ALBUTEROL 2.5MG INH SOL UD 3ML (DUONEB)(J7620) NEB ×4 (08:00→20:00)
[2017-08-03 08:02] LABS: ANION GAP 6 MEQ/L (8-16); BLOOD UREA NITROGEN 30 MG/DL (7-18); CALCIUM LEVEL 8.3 MG/DL (8.8-10.2); CARBON DIOXIDE LEVEL 34 MEQ/L (21-32); CHLORIDE LEVEL 100 MEQ/L (98-107); CREATININE FOR GFR 1.53 MG/DL (0.70-1.30); GLOMERULAR FILTRATION RATE 47.6 (>42); GLUCOSE, FASTING 79 MG/DL (83-110); POTASSIUM SERUM 3.5 MEQ/L (3.5-5.1); SODIUM LEVEL 140 MEQ/L (136-145)
[2017-08-03] MEDS: BUDESONIDE 0.5 MG/2 ML INHALATION SUSPENSION INH ×2 (08:15→20:46)
[2017-08-03] MEDS: FORMOTEROL FUMARATE 20 MCG/2 ML INHALATION SOLUTION (PERFOROMIST) INH ×2 (08:15→20:46)
[2017-08-03 08:52] LABS: MAGNESIUM LEVEL 1.8 MG/DL (1.8-2.4)
[2017-08-03] MEDS: ASCORBIC ACID 500 MG TAB PO (09:17)
[2017-08-03] MEDS: AZITHROMYCIN 250 MG TAB PO (09:17)
[2017-08-03] MEDS: aMILoride 5 MG TAB PO (09:17)
[2017-08-03] MEDS: NYSTATIN 500,000 U/5 ML SUSP UDC SS ×4 (09:17→20:18)
[2017-08-03] MEDS: APIXABAN 5 MG TAB (ELIQUIS) PO ×2 (09:18→20:18)
[2017-08-03] MEDS: FERROUS SULFATE 325MG TAB PO ×2 (09:18→20:18)
[2017-08-03] MEDS: guaiFENesin ER 600 MG TAB PO ×2 (09:18→20:18)
[2017-08-03] MEDS: SERTRALINE HCL 25 MG TABLET PO (09:18)
[2017-08-03] MEDS: TORSEMIDE 20 MG TAB PO (09:18)
[2017-08-03] MEDS: MULTIVITAMINS/MINERALS THERAP 1 TAB PO ×2 (09:18→20:18)
[2017-08-03] MEDS: ALPRAZolam 0.25 MG TAB PO ×3 (09:20→21:08)
[2017-08-03] MEDS: SODIUM CHLORIDE NASAL 0.65% SPRAY BTL (OCEAN) ×2 (09:21→20:19)
[2017-08-03] MEDS: AZELASTINE 137MCG NASAL SPY 30 ML (ASTELIN) ×2 (09:21→20:18)
[2017-08-03] MEDS: GABAPENTIN 300 MG CAP PO ×3 (12:30→20:18)
[2017-08-03] MEDS: TAMSULOSIN 0.4 MG CAP PO (12:30)
[2017-08-03] MEDS: traMADol 50 MG TAB PO ×2 (13:36→20:19)
[2017-08-03] MEDS: rOPINIRole 1MG TAB PO (20:18)
[2017-08-03] MEDS: tiZANidine 4 MG TAB PO (21:08)
[2017-08-04] MEDS: LEVOTHYROXINE 25MCG TABLET (0.025MG) PO (06:26)
[2017-08-04 07:11] LABS: HEMATOCRIT 28.1 % (42.0-52.0); HEMOGLOBIN 9.1 g/dl (14.0-18.0); MEAN CORPUSCULAR HEMOGLOBIN 29.8 pg (27.0-33.0); MEAN CORPUSCULAR HGB CONC 32.4 g/dl (32.0-36.5); MEAN CORPUSCULAR VOLUME 92.1 fl (80.0-96.0); PLATELET COUNT, AUTOMATED 234 10^3/uL (150-450); RED BLOOD COUNT 3.05 10^6/uL (4.30-6.10); RED CELL DISTRIBUTION WIDTH 14.6 % (11.5-14.5); WHITE BLOOD COUNT 4.5 10^3/uL (4.0-10.0)
[2017-08-04 07:38] LABS: ANION GAP 6 MEQ/L (8-16); BLOOD UREA NITROGEN 32 MG/DL (7-18); CARBON DIOXIDE LEVEL 35 MEQ/L (21-32); CHLORIDE LEVEL 99 MEQ/L (98-107); CREATININE FOR GFR 1.61 MG/DL (0.70-1.30); GLOMERULAR FILTRATION RATE 44.9 (>42); GLUCOSE, FASTING 88 MG/DL (83-110); POTASSIUM SERUM 3.7 MEQ/L (3.5-5.1); SODIUM LEVEL 140 MEQ/L (136-145)
[2017-08-04] MEDS: IPRATROPIUM 0.5MG/ALBUTEROL 2.5MG INH SOL UD 3ML (DUONEB)(J7620) NEB ×4 (08:00→20:00)
[2017-08-04] MEDS: APIXABAN 5 MG TAB (ELIQUIS) PO ×2 (08:33→19:55)
[2017-08-04] MEDS: SERTRALINE HCL 25 MG TABLET PO (08:33)
[2017-08-04] MEDS: FERROUS SULFATE 325MG TAB PO ×2 (08:33→19:55)
[2017-08-04] MEDS: AZITHROMYCIN 250 MG TAB PO (08:33)
[2017-08-04] MEDS: NYSTATIN 500,000 U/5 ML SUSP UDC SS ×4 (08:33→19:55)
[2017-08-04] MEDS: ASCORBIC ACID 500 MG TAB PO (08:33)
[2017-08-04] MEDS: TORSEMIDE 20 MG TAB PO (08:33)
[2017-08-04] MEDS: aMILoride 5 MG TAB PO (08:34)
[2017-08-04] MEDS: MULTIVITAMINS/MINERALS THERAP 1 TAB PO ×2 (08:34→19:55)
[2017-08-04] MEDS: guaiFENesin ER 600 MG TAB PO ×2 (08:34→19:55)
[2017-08-04] MEDS: AZELASTINE 137MCG NASAL SPY 30 ML (ASTELIN) ×2 (08:35→19:56)
[2017-08-04] MEDS: SODIUM CHLORIDE NASAL 0.65% SPRAY BTL (OCEAN) ×2 (08:35→19:56)
[2017-08-04] MEDS: BUDESONIDE 0.5 MG/2 ML INHALATION SUSPENSION INH ×2 (08:55→20:53)
[2017-08-04] MEDS: FORMOTEROL FUMARATE 20 MCG/2 ML INHALATION SOLUTION (PERFOROMIST) INH ×2 (08:55→20:53)
[2017-08-04] MEDS ORDERED: TORSEMIDE 10 MG TABLET PO (09:00)
[2017-08-04] MEDS: POLYVINYL ALCOHOL OPHTH SOLN 15 ML(LIQUITEARS) OU ×2 (11:24→16:30)
[2017-08-04] MEDS: TAMSULOSIN 0.4 MG CAP PO (12:25)
[2017-08-04] MEDS: GABAPENTIN 300 MG CAP PO ×3 (12:25→21:00)
[2017-08-04] MEDS: ALPRAZolam 0.25 MG TAB PO ×2 (13:53→22:57)
[2017-08-04] MEDS: traMADol 50 MG TAB PO (16:30)
[2017-08-04] MEDS: tiZANidine 4 MG TAB PO (19:55)
[2017-08-04] MEDS: rOPINIRole 1MG TAB PO (21:00)
[2017-08-05] MEDS: traMADol 50 MG TAB PO ×2 (01:37→20:50)
[2017-08-05] MEDS: LEVOTHYROXINE 25MCG TABLET (0.025MG) PO (05:46)
[2017-08-05 06:41] LABS: HEMATOCRIT 29.2 % (42.0-52.0); HEMOGLOBIN 9.5 g/dl (14.0-18.0); MEAN CORPUSCULAR HEMOGLOBIN 29.5 pg (27.0-33.0); MEAN CORPUSCULAR HGB CONC 32.5 g/dl (32.0-36.5); MEAN CORPUSCULAR VOLUME 90.7 fl (80.0-96.0); PLATELET COUNT, AUTOMATED 225 10^3/uL (150-450); RED BLOOD COUNT 3.22 10^6/uL (4.30-6.10); RED CELL DISTRIBUTION WIDTH 14.5 % (11.5-14.5)
[2017-08-05 07:03] LABS: ANION GAP 6 MEQ/L (8-16); BLOOD UREA NITROGEN 33 MG/DL (7-18); CALCIUM LEVEL 8.5 MG/DL (8.8-10.2); CARBON DIOXIDE LEVEL 34 MEQ/L (21-32); CHLORIDE LEVEL 97 MEQ/L (98-107); CREATININE FOR GFR 1.72 MG/DL (0.70-1.30); GLOMERULAR FILTRATION RATE 41.6 (>42); GLUCOSE, FASTING 76 MG/DL (83-110); POTASSIUM SERUM 3.6 MEQ/L (3.5-5.1); SODIUM LEVEL 137 MEQ/L (136-145)
[2017-08-05] MEDS: IPRATROPIUM 0.5MG/ALBUTEROL 2.5MG INH SOL UD 3ML (DUONEB)(J7620) NEB ×3 (08:00→20:00)
[2017-08-05] MEDS: APIXABAN 5 MG TAB (ELIQUIS) PO ×2 (09:33→20:48)
[2017-08-05] MEDS: AZITHROMYCIN 250 MG TAB PO (09:33)
[2017-08-05] MEDS: aMILoride 5 MG TAB PO (09:33)
[2017-08-05] MEDS: NYSTATIN 500,000 U/5 ML SUSP UDC SS ×4 (09:33→20:50)
[2017-08-05] MEDS: MULTIVITAMINS/MINERALS THERAP 1 TAB PO ×2 (09:33→20:48)
[2017-08-05] MEDS: ASCORBIC ACID 500 MG TAB PO (09:33)
[2017-08-05] MEDS: FERROUS SULFATE 325MG TAB PO ×2 (09:33→20:50)
[2017-08-05] MEDS: guaiFENesin ER 600 MG TAB PO ×2 (09:34→20:49)
[2017-08-05] MEDS: SERTRALINE HCL 25 MG TABLET PO (09:34)
[2017-08-05] MEDS: TORSEMIDE 10 MG TABLET PO (09:34)
[2017-08-05] MEDS: SODIUM CHLORIDE NASAL 0.65% SPRAY BTL (OCEAN) ×2 (09:35→20:52)
[2017-08-05] MEDS: AZELASTINE 137MCG NASAL SPY 30 ML (ASTELIN) ×2 (09:36→20:51)
[2017-08-05] MEDS: POLYVINYL ALCOHOL OPHTH SOLN 15 ML(LIQUITEARS) OU ×2 (09:39→17:44)
[2017-08-05] MEDS: BUDESONIDE 0.5 MG/2 ML INHALATION SUSPENSION INH ×2 (09:41→20:19)
[2017-08-05] MEDS: FORMOTEROL FUMARATE 20 MCG/2 ML INHALATION SOLUTION (PERFOROMIST) INH ×2 (09:41→20:19)
[2017-08-05] MEDS: GABAPENTIN 300 MG CAP PO ×2 (13:05→17:44)
[2017-08-05] MEDS: TAMSULOSIN 0.4 MG CAP PO (13:05)
[2017-08-05] MEDS: ALPRAZolam 0.25 MG TAB PO (13:11)
[2017-08-05] MEDS: ACETAMINOPHEN TAB 650MG DOSE (2X325MG) PO (14:33)
[2017-08-05] MEDS: tiZANidine 4 MG TAB PO (23:04)
[2017-08-06] MEDS: traMADol 50 MG TAB PO ×3 (01:18→14:13)
[2017-08-06] MEDS: LEVOTHYROXINE 25MCG TABLET (0.025MG) PO (05:28)
[2017-08-06 06:34] LABS: HEMATOCRIT 27.8 % (42.0-52.0); HEMOGLOBIN 9.1 g/dl (14.0-18.0); MEAN CORPUSCULAR HEMOGLOBIN 29.7 pg (27.0-33.0); MEAN CORPUSCULAR HGB CONC 32.7 g/dl (32.0-36.5); MEAN CORPUSCULAR VOLUME 90.8 fl (80.0-96.0); PLATELET COUNT, AUTOMATED 210 10^3/uL (150-450); RED BLOOD COUNT 3.06 10^6/uL (4.30-6.10); RED CELL DISTRIBUTION WIDTH 14.6 % (11.5-14.5); WHITE BLOOD COUNT 4.9 10^3/uL (4.0-10.0)
[2017-08-06 06:48] LABS: ANION GAP 6 MEQ/L (8-16); BLOOD UREA NITROGEN 34 MG/DL (7-18); CALCIUM LEVEL 8.2 MG/DL (8.8-10.2); CARBON DIOXIDE LEVEL 33 MEQ/L (21-32); CHLORIDE LEVEL 98 MEQ/L (98-107); CREATININE FOR GFR 1.68 MG/DL (0.70-1.30); GLOMERULAR FILTRATION RATE 42.7 (>42); GLUCOSE, FASTING 76 MG/DL (83-110); POTASSIUM SERUM 3.6 MEQ/L (3.5-5.1); SODIUM LEVEL 137 MEQ/L (136-145)
[2017-08-06] MEDS: IPRATROPIUM 0.5MG/ALBUTEROL 2.5MG INH SOL UD 3ML (DUONEB)(J7620) NEB ×4 (08:00→19:55)
[2017-08-06] MEDS: APIXABAN 5 MG TAB (ELIQUIS) PO ×2 (08:31→21:19)
[2017-08-06] MEDS: guaiFENesin ER 600 MG TAB PO ×2 (08:31→21:19)
[2017-08-06] MEDS: AZITHROMYCIN 250 MG TAB PO (08:31)
[2017-08-06] MEDS: NYSTATIN 500,000 U/5 ML SUSP UDC SS ×4 (08:31→21:19)
[2017-08-06] MEDS: SERTRALINE HCL 25 MG TABLET PO (08:32)
[2017-08-06] MEDS: FERROUS SULFATE 325MG TAB PO ×2 (08:32→21:19)
[2017-08-06] MEDS: MULTIVITAMINS/MINERALS THERAP 1 TAB PO ×2 (08:32→21:19)
[2017-08-06] MEDS: aMILoride 5 MG TAB PO (08:32)
[2017-08-06] MEDS: ASCORBIC ACID 500 MG TAB PO (08:34)
[2017-08-06] MEDS: SODIUM CHLORIDE NASAL 0.65% SPRAY BTL (OCEAN) ×2 (08:35→21:21)
[2017-08-06] MEDS: AZELASTINE 137MCG NASAL SPY 30 ML (ASTELIN) ×2 (08:35→21:21)
[2017-08-06] MEDS: TORSEMIDE 10 MG TABLET PO (08:39)
[2017-08-06] MEDS: BUDESONIDE 0.5 MG/2 ML INHALATION SUSPENSION INH ×2 (10:05→19:54)
[2017-08-06] MEDS: FORMOTEROL FUMARATE 20 MCG/2 ML INHALATION SOLUTION (PERFOROMIST) INH ×2 (10:05→19:54)
[2017-08-06] MEDS: GABAPENTIN 300 MG CAP PO ×2 (12:28→17:03)
[2017-08-06] MEDS: ACETAMINOPHEN TAB 650MG DOSE (2X325MG) PO (12:29)
[2017-08-06] MEDS: TAMSULOSIN 0.4 MG CAP PO (12:29)
[2017-08-06] MEDS: ALPRAZolam 0.25 MG TAB PO ×2 (14:13→21:19)
[2017-08-06] MEDS: rOPINIRole 1MG TAB PO ×2 (17:03→21:19)
[2017-08-07 06:13] LABS: HEMATOCRIT 28.8 % (42.0-52.0); HEMOGLOBIN 9.3 g/dl (14.0-18.0); MEAN CORPUSCULAR HEMOGLOBIN 29.4 pg (27.0-33.0); MEAN CORPUSCULAR HGB CONC 32.3 g/dl (32.0-36.5); MEAN CORPUSCULAR VOLUME 91.1 fl (80.0-96.0); PLATELET COUNT, AUTOMATED 229 10^3/uL (150-450); RED BLOOD COUNT 3.16 10^6/uL (4.30-6.10); RED CELL DISTRIBUTION WIDTH 14.6 % (11.5-14.5); WHITE BLOOD COUNT 4.7 10^3/uL (4.0-10.0)
[2017-08-07] MEDS: LEVOTHYROXINE 25MCG TABLET (0.025MG) PO (06:14)
[2017-08-07 06:37] LABS: ANION GAP 6 MEQ/L (8-16); BLOOD UREA NITROGEN 32 MG/DL (7-18); CALCIUM LEVEL 8.2 MG/DL (8.8-10.2); CARBON DIOXIDE LEVEL 33 MEQ/L (21-32); CHLORIDE LEVEL 100 MEQ/L (98-107); CREATININE FOR GFR 1.62 MG/DL (0.70-1.30); GLOMERULAR FILTRATION RATE 44.6 (>42); GLUCOSE, FASTING 94 MG/DL (83-110); POTASSIUM SERUM 3.7 MEQ/L (3.5-5.1); SODIUM LEVEL 139 MEQ/L (136-145)
[2017-08-07] MEDS: FORMOTEROL FUMARATE 20 MCG/2 ML INHALATION SOLUTION (PERFOROMIST) INH (08:00)
[2017-08-07] MEDS: BUDESONIDE 0.5 MG/2 ML INHALATION SUSPENSION INH (08:00)
[2017-08-07] MEDS: IPRATROPIUM 0.5MG/ALBUTEROL 2.5MG INH SOL UD 3ML (DUONEB)(J7620) NEB ×2 (08:00→10:59)
[2017-08-07] MEDS: guaiFENesin ER 600 MG TAB PO (09:08)
[2017-08-07] MEDS: ALPRAZolam 0.25 MG TAB PO (09:08)
[2017-08-07] MEDS: TORSEMIDE 10 MG TABLET PO (09:08)
[2017-08-07] MEDS: NYSTATIN 500,000 U/5 ML SUSP UDC SS ×2 (09:09→12:38)
[2017-08-07] MEDS: APIXABAN 5 MG TAB (ELIQUIS) PO (09:09)
[2017-08-07] MEDS: ASCORBIC ACID 500 MG TAB PO (09:09)
[2017-08-07] MEDS: SERTRALINE HCL 25 MG TABLET PO (09:09)
[2017-08-07] MEDS: FERROUS SULFATE 325MG TAB PO (09:09)
[2017-08-07] MEDS: MULTIVITAMINS/MINERALS THERAP 1 TAB PO (09:09)
[2017-08-07] MEDS: aMILoride 5 MG TAB PO (09:09)
[2017-08-07] MEDS: traMADol 50 MG TAB PO (09:10)
[2017-08-07] MEDS: SODIUM CHLORIDE NASAL 0.65% SPRAY BTL (OCEAN) (09:11)
[2017-08-07] MEDS: AZELASTINE 137MCG NASAL SPY 30 ML (ASTELIN) (09:11)
[2017-08-07] MEDS ORDERED: ONDANSETRON 4MG/2ML VIAL (J2405) IV (10:15)
[2017-08-07] MEDS: DARBEPOETIN 100 MCG/0.5 ML *NON-DIALYSIS* SYRINGE (J0881) SC (10:46)
[2017-08-07] MEDS: CALCIUM CARBONATE 500 MG CHEW U/D PO (10:47)
[2017-08-07] MEDS: FAMOTIDINE 20 MG TAB PO (12:37)
[2017-08-07] MEDS: TAMSULOSIN 0.4 MG CAP PO (12:38)
[2017-08-07] MEDS: GABAPENTIN 300 MG CAP PO (12:38)
== END 2017-08-07 13:30 | disposition home or self-care (01) | DRG 291 ==
LOC: M ICU 07-18 11:29 → M PCU 07-24 00:23 → M MS4PR 07-27 23:34 → M MS5PR 08-04 03:36 → M ED 10:42 → M ED INP 13:13 → M PCU 18:41
PROC: 02HV33Z Insertion of Infusion Device into Superior Vena Cava, Percutaneous Approach (ICD-10-PCS; principal; 2017-07-18)
PROC: 0W9B3ZZ Drainage of Left Pleural Cavity, Percutaneous Approach (ICD-10-PCS; 2017-07-31)
DX: I50.31 Acute diastolic (congestive) heart failure (principal); R57.0 Cardiogenic shock; J96.21 Acute and chronic respiratory failure with hypoxia; J18.9 Pneumonia, unspecified organism; E87.2 Acidosis; N17.9 Acute kidney failure, unspecified; J90 Pleural effusion, not elsewhere classified; J70.1 Chronic and other pulmonary manifestations due to radiation; J70.0 Acute pulmonary manifestations due to radiation; B37.0 Candidal stomatitis; I74.2 Embolism and thrombosis of arteries of the upper extremities; F41.9 Anxiety disorder, unspecified; F32.9 Major depressive disorder, single episode, unspecified; D50.9 Iron deficiency anemia, unspecified; E03.9 Hypothyroidism, unspecified; N40.0 Benign prostatic hyperplasia without lower urinary tract symptoms; G25.81 Restless legs syndrome; I27.20 Pulmonary hypertension, unspecified; Z79.899 Other long term (current) drug therapy; Z88.6 Allergy status to analgesic agent; Z95.0 Presence of cardiac pacemaker; Z96.651 Presence of right artificial knee joint; Z87.891 Personal history of nicotine dependence; E87.5 Hyperkalemia; N18.9 Chronic kidney disease, unspecified; Z85.118 Personal history of other malignant neoplasm of bronchus and lung; E87.6 Hypokalemia; D63.1 Anemia in chronic kidney disease

== ENCOUNTER → 2017-12-08 | Outpatient (CLI) | payer MEDICARE, OTHER ==
[2017-12-08 13:15] LABS: ANION GAP 6 MEQ/L (8-16); BLOOD UREA NITROGEN 30 MG/DL (7-18); CALCIUM LEVEL 8.7 MG/DL (8.8-10.2); CARBON DIOXIDE LEVEL 27 MEQ/L (21-32); CHLORIDE LEVEL 107 MEQ/L (98-107); CREATININE FOR GFR 1.61 MG/DL (0.70-1.30); GLOMERULAR FILTRATION RATE 44.9 (>42); GLUCOSE, FASTING 111 MG/DL (70-100); NT-PRO BNP 1398 PG/ML (<125); POTASSIUM SERUM 4.1 MEQ/L (3.5-5.1); SODIUM LEVEL 140 MEQ/L (136-145)
== END ==
LOC: M LAB 11:45
DX: R06.02 Shortness of breath (principal); J91.8 Pleural effusion in other conditions classified elsewhere; Z95.0 Presence of cardiac pacemaker; Z98.890 Other specified postprocedural states
CPT/HCPCS: 71046

== ENCOUNTER → 2018-01-05 | Outpatient (REF) | payer MEDICARE, OTHER ==
[2018-01-05 17:42] LABS: TOTAL PROTEIN 7.7 GM/DL (6.4-8.2)
[2018-01-05 18:04] LABS: FOLATE 14.1 NG/ML; VITAMIN B12 LEVEL 598 PG/ML
[2018-01-09 10:12] LABS: ALBUMIN 4.23 GM/DL (3.29-5.55); ALBUMIN % 54.9 % (55.8-66.1); ALPHA-1-GLOBULIN % 4.4 % (2.9-4.9); ALPHA-1-GLOBULINS 0.34 GM/DL (0.17-0.41); ALPHA-2-GLOBULINS 0.79 GM/DL (0.42-0.99); ALPHA-2-GLOBULINS % 10.3 % (7.1-11.8); BETA-1-GLOBULINS 0.43 GM/DL (0.28-0.60)
[2018-01-09 10:13] LABS: BETA-1-GLOBULINS % 5.6 % (4.7-7.2); BETA-2-GLOBULINS 0.39 GM/DL (0.19-0.55); BETA-2-GLOBULINS % 5.1 % (3.2-6.5); GAMMA GLOBULIN % 19.7 % (11.1-18.8); GAMMA GLOBULINS 1.52 GM/DL (0.65-1.58)
== END ==
LOC: M LAB REF 16:35
DX: G62.9 Polyneuropathy, unspecified (principal)
CPT/HCPCS: 82746

== ENCOUNTER 2018-02-19 12:31 | Outpatient (RCR) | payer SELFPAY | END 2018-02-27 | LOC: M CR 12:31 | DX: Z95.0 Presence of cardiac pacemaker (principal) ==

== ENCOUNTER → 2018-06-25 | Outpatient (CLI) | payer MEDICARE, OTHER ==
[~2018-06-25] MED LIST changes: -/TAMS4CA OR; -ACET65TA OR; -ALPR0.25 PO; -AMBI10TA OR; -ASPI1TAB PO; -COLA100C2 OR; -DAILTAB51 PO; -FERR1TAB8 PO; -FLOM5CAP PO; -FLUC10TA PO; -FOLI1TAB4 PO; -FURO20TA2 PO; -GABA-282 PO; -HYDR-3713 PO; -IBUPOTC PO; -IPRASOL4 IN; -IPRASOL4 INH; +ISOVUE-M 300 61% 15ML VIAL (Q9967) As Ordered; -K-TA10TA2 PO; -KLOR1TAB73 PO; -LACT10SO8 OR; -LASI40TA OR; -LASI40TA PO; -LEVO25TA5 PO; -LIPI10TA PO; -LOPR50TA OR; -MAGN500T5 PO; -MICO2CRE33 TOP; -MUCI600T37 PO; -MULTIVIT PO; -NEUR300C PO; -NU-M1TAB PO; -PERC5TAB8 OR; -POTA20TA PO; -POTA20TA2 OR; -PROC; -PROP80CA OR; -RAMI1.25 PO; -REQU3TAB PO; -SERT25TA PO; -SPIR25TA2 PO; -TAMS0.4C2 PO; -TYLE325C PO; -VANC250C2 PO; -VITA500C24 PO; -VITMTA PO; -XANA0.25 OR; -XOPE1.252 IN; -ZOLO50TA OR; -[UNRECOGNIZED DRUG - OTHER]; -proctosol TOP
== END ==
LOC: M RADPRO 07:38
DX: M47.819 Spondylosis without myelopathy or radiculopathy, site unspecified (principal); Z88.8 Allergy status to other drugs, medicaments and biological substances; Z79.899 Other long term (current) drug therapy; Z79.890 Hormone replacement therapy
CPT/HCPCS: 62302

== ENCOUNTER → 2018-07-16 | Outpatient (CLI) | payer MEDICARE, OTHER ==
[~2018-07-16] MED LIST changes: +/TAMS4CA OR; +ACET65TA OR; +ALBU83IN INH; +ALPR0.25 PO; +AMBI10TA OR; +AMIL5TAB4 PO; +ASPI1TAB PO; +CEFD1CAP8 PO; +CLON0.5T8 PO; +COLA100C2 OR; +DAILTAB51 PO; +DARB10SYRN SC; +ELIQ5TAB PO; +ERGO500014 PO; +FERR1TAB8 PO; +FLOM0.4C39 PO; +FLOR250C PO; +FLUC10TA PO; +FOLI1TAB5 PO; +FURO20TA2 PO; +FURO40TA2 PO; +GABA-843 PO; +HYDR-3713 PO; +IBUPOTC PO; +IPRA0.00 IN; +IPRA0.00 INH; +IPRA2IN INH; -ISOVUE-M 300 61% 15ML VIAL (Q9967) As Ordered; +K-TA10TA2 PO; +KLOR1TAB73 PO; +KLOR20TA42 PO; +LACT10SO8 OR; +LASI40TA OR; +LASI40TA PO; +LEVO25TA5 PO; +LIPI10TA PO; +LOPR50TA OR; +LOSA25TA33 PO; +MAGN500T5 PO; +MICO2CRE33 TOP; +MUCI600T37 PO; +MULTIVIT PO; +NEUR300C PO; +NU-M1TAB PO; +PERC5TAB8 OR; +POTA20TA2 OR; +PROC; +PROP80CA OR; +RAMI1CAP21 PO; +REFR0.5D8 OU; +REQU3TAB PO; +ROPI1TAB PO; +SERT25TA PO; +SPIR-10 PO; +TAMS0.4C2 PO; +TIZA2CAP PO; +TORS10TA3 PO; +TRAM50TA2 PO; +TUSS1SUS2 PO; +TYLE325C PO; +VANC250C2 PO; +VITA500C24 PO; +VITMTA PO; +XANA0.25 OR; +XOPE1.252 IN; +ZOLO50TA OR; +[UNRECOGNIZED DRUG - OTHER]; +proctosol TOP
--- NOTE | 2018-07-16 15:24 | REP ---
Chest two views HISTORY: COPD Comparison: 12/08/2017 There is loss of volume in the right hemithorax There is elevation of the right hemidiaphragm and right minor fissure. Parenchymal density is present in the right suprahilar area consistent with atelectasis or scar. The left lung is clear. The heart is normal in size. The pulmonary vasculature is normal in appearance. The bony structure is intact. Heart valves and a pacemaker are present. IMPRESSION: Right suprahilar atelectasis or scar. Electronically Signed by Ayden Moss MD 07/16/2018 03:15 P
== END ==
LOC: M RAD 13:54
PROVIDERS: ATTEND Nurse Practitioner Family
DX: J44.1 Chronic obstructive pulmonary disease with (acute) exacerbation (principal)

== ENCOUNTER 2018-07-23 09:43 | Inpatient (IN) | payer MEDICARE, OTHER ==
[~2018-07-23] VITALS: Ht 177.8 cm; Wt 77.5 kg
[~2018-07-23 09:43] MED LIST changes: -ALBU83IN INH; -CLON0.5T8 PO; +FOLI1TAB11 PO; -FOLI1TAB5 PO; -IPRA2IN INH; -LASI40TA PO; +LASI40TA9 PO; +LOSA25TA14 PO; -LOSA25TA33 PO; -REFR0.5D8 OU
[2018-07-23] MEDS ORDERED: ALBU83IN INH (09:53)
[2018-07-23] MEDS ORDERED: CEFD1CAP8 PO (09:53)
--- NOTE | 2018-07-23 10:30 | REP ---
Clinical: Cough and dyspnea. Comparison: 07/16/2018. Findings: Pleuroparenchymal changes involving the right hemithorax along with diffuse chronic appearing interstitial changes and elevation of the right hemidiaphragm are essentially stable. Subtle superimposed basilar atelectasis cannot be excluded. No pneumothorax. Skeletal structures stable. Mediastinum and cardiac silhouette stable. Impression: Chronic pleuroparenchymal changes similar to prior examinations. Superimposed basilar and retrocardiac infiltrate/atelectasis cannot be excluded. Electronically Signed by Panda Arnold MD 07/23/2018 10:22 A
[2018-07-23 10:34] LABS: EOS # 0.4 10^3/uL (0.0-0.50); EOS % 3.4 % (0.0-3.0); HEMATOCRIT 22.3 % (42.0-52.0); LYMPH # 0.8 10^3/uL (1.5-4.5); LYMPH % 7.1 % (24.0-44.0); MEAN CORPUSCULAR HEMOGLOBIN 29.1 pg (27.0-33.0); MEAN CORPUSCULAR HGB CONC 30.5 g/dl (32.0-36.5); MEAN CORPUSCULAR VOLUME 95.3 fl (80.0-96.0); MONO # 1.1 10^3/uL (0.0-0.8); MONO % 9.9 % (0.0-5.0); NEUTROPHILS # 8.4 10^3/uL (1.8-7.7); NEUTROPHILS % 78.8 % (36.0-66.0); PLATELET COUNT, AUTOMATED 262 10^3/uL (150-450); RED BLOOD COUNT 2.34 10^6/uL (4.30-6.10); WHITE BLOOD COUNT 10.7 10^3/uL (4.0-10.0)
[2018-07-23] MEDS ORDERED: TORS10TA3 PO (10:38)
[2018-07-23] MEDS ORDERED: CLON0.5T8 PO (10:38)
[2018-07-23] MEDS ORDERED: REFR0.5D8 OU (10:38)
[2018-07-23] MEDS ORDERED: IPRA2IN INH (10:38)
[2018-07-23 10:42] LABS: HEMOGLOBIN 6.8 g/dl (13.5-17.5)
[2018-07-23 10:46] LABS: INR 1.12; PROTHROMBIN TIME 14.6 SECONDS (12.1-14.4); VENOUS HCO3 26.4 MEQ/L (23.0-27.0); VENOUS O2 SATURATION 69.4 % (60.0-80.0); VENOUS PARTIAL PRESSURE CO2 45.9 mmHg (38.0-50.0); VENOUS PARTIAL PRESSURE O2 38.1 mmHg (30.0-50.0); VENOUS PH 7.377 UNITS (7.330-7.430); VENOUS TOTAL CO2 27.8 MEQ/L (24.0-28.0)
[2018-07-23] MEDS ORDERED: PANTOPRAZOLE 40MG INJ (PROTONIX) (C9113) IV ONE (11:00)
[2018-07-23 11:15] LABS: ALBUMIN 3.4 GM/DL (3.2-5.2); BILIRUBIN,DIRECT 0.2 MG/DL (0.0-0.2); BILIRUBIN,TOTAL 0.7 MG/DL (0.2-1.0); CALCIUM LEVEL 8.5 MG/DL (8.8-10.2); CREATININE FOR GFR 1.76 MG/DL (0.70-1.30); GLOMERULAR FILTRATION RATE 40.4 (>42); MB/CK RELATIVE INDEX 5.29 (< OR =4); POTASSIUM SERUM 4.7 MEQ/L (3.5-5.1); THYROID STIMULATING HORMONE 3.23 uIU/ML (0.358-3.740); TOTAL PROTEIN 6.6 GM/DL (6.4-8.2); TROPONIN I 0.06 NG/ML (< 0.10)
[2018-07-23] MEDS ORDERED: IPRATROPIUM 0.5MG/ALBUTEROL 2.5MG INH SOL UD 3ML (DUONEB)(J7620) NEB PRN (13:00)
[2018-07-23] MEDS ORDERED: ACETAMINOPHEN TAB 650MG DOSE (2X325MG) PO PRN (13:00)
[2018-07-23] MEDS ORDERED: traMADol 50 MG TAB PO PRN (13:00)
[2018-07-23] MEDS ORDERED: ONDANSETRON 4MG/2ML VIAL (J2405) IV PRN (13:00)
[2018-07-23] MEDS ORDERED: FUROSEMIDE 40 MG/4 ML VIAL (J1940) IV ONE (14:00)
[2018-07-23] MEDS: IPRATROPIUM 0.5MG/ALBUTEROL 2.5MG INH SOL UD 3ML (DUONEB)(J7620) NEB SCH ×2 (15:23→20:10)
[2018-07-23 16:10] VITALS: BP 145/69
[2018-07-23] MEDS: SUCRALFATE SUSP 1GM/10ML UD PO SCH (16:37)
[2018-07-23] MEDS: SERTRALINE HCL 25 MG TABLET PO SCH (16:37)
[2018-07-23] MEDS: GABAPENTIN 300 MG CAP PO SCH ×2 (16:37→21:04)
[2018-07-23] MEDS: FERROUS SULFATE 325MG TAB PO SCH (16:37)
[2018-07-23] MEDS: TAMSULOSIN 0.4 MG CAP PO SCH (16:37)
[2018-07-23] MEDS: SENOKOT S TAB PO SCH ×2 (16:37→21:04)
[2018-07-23 17:28] LABS: MB/CK RELATIVE INDEX 5.76 (< OR =4); TROPONIN I 0.06 NG/ML (< 0.10)
--- NOTE | 2018-07-23 18:28 | HPE ---
DATE OF ADMISSION: 07/23/2018 PRIMARY CARE PROVIDER: Dr. Luis Gillis GENERAL SURGEON: Dr. Luis Alfredo Terry CHIEF COMPLAINT: Shortness of breath. HISTORY OF PRESENT ILLNESS: This is a 73-year-old male patient with underlying medical history of congestive heart failure (CHF) with diastolic congestive heart failure, pacemaker placement 2012, atrial and tricuspid valve repair in 2017 with also Clostridium (C) difficile in the past, stage IV lung cancer, in remission for the past 5 years, status post chemoradiation, depression, anxiety, iron deficiency anemia, hypothyroidism, restless leg syndrome, BPH. Patient presented with 2 weeks of progressive worsening shortness of breath, dyspnea on exertion. Denies any lower extremity edema. Denies any chest pain. Patient at baseline has dark stool due to iron supplementation. Last bowel movement was a day ago. Found to be anemic with hemoglobin of 6.8 in the emergency room. Fecal occult positive, dark stool Baseline hemoglobin above 9. Subsequently, emergency department (ED) provider has requested hospitalization for further workup. Dr. Terry from surgery has been consulted. Patient denies any lightheadedness, chest pain, pressure, or discomfort. ALLERGIES: NONSTEROIDAL ANTI-INFLAMMATORY DRUGS (NSAIDs). PAST MEDICAL HISTORY: See above. PAST SURGICAL HISTORY: 1. Tonsillectomy as a child. 2. Umbilical hernia. 3. Pacemaker in 2012. 4. Right knee arthroscopy. 5. Right total knee replacement. 6. Pericardial window, year 2000. 7. Thoracentesis for pleural effusion and talc pleurodesis. 8. Mitral valve and tricuspid valve repair in 2017. 9. Bilateral cataract surgery. SOCIAL HISTORY: Quit smoking in 1983. Drinks alcohol on rare occasions, maybe once ever 2-3 weeks. Lives at home with . No recreational drug use. FAMILY HISTORY: Mother had colon cancer. Father has bladder cancer. Sister has breast cancer. REVIEW OF SYSTEMS: Reported shortness of breath, dyspnea on exertion. All other review of systems is negative. HOME MEDICATIONS: - albuterol inhaler four times a day as needed - Xanax 0.25 mg by mouth four times a day as needed - artificial tears every 2 hours as needed - cefdinir 600 mg by mouth twice a day - clonazepam 0.5 mg by mouth at bedtime - vitamin D 50,000 units by mouth weekly - ferrous sulfate 325 mg by mouth daily - gabapentin 300 mg by mouth three times a day - ipratropium four times a day as needed mixed with albuterol - levothyroxine 25 mcg by mouth daily - Requip 1 mg by mouth at bedtime - Zoloft 25 mg by mouth daily - Flomax 0.4 mg by mouth daily - torsemide 30 mg by mouth daily - tramadol 50 mg by mouth twice a day as needed VITAL SIGNS: Temperature 99.3, pulse 61, respirations 18, blood pressure 135/67, pulse oximetry 100% on 2 liters nasal cannula. GENERAL: Patient alert, comfortable in no acute distress. HEENT: Normocephalic, atraumatic. PULMONARY: Bilaterally clear. CARDIAC: Regular, S1, S2. ABDOMEN: Soft and nontender. Positive bowel sounds. EXTREMITIES: No clubbing, cyanosis, or edema. EKG shows atrial paced. LABORATORY DATA: WBC 10.7, hemoglobin and hematocrit 6.8/22.3, platelets 262. Chemistry: Sodium 137, potassium 4.7, chloride 104, bicarbonate 26, BUN 43, creatinine 1.76. Cardiac enzymes negative times one. Lactic acid 1.4. ASSESSMENT AND PLAN: This is a 73-year-old male patient with underlying medical history of congestive heart failure with diastolic dysfunction, history pacemaker placement, tricuspid and mitral valve repair, Clostridium (C) difficile, stage IV lung cancer, in remission, depression and anxiety, iron deficiency anemia, hypothyroidism, restless legs, and chronic kidney disease (CKD), admitted with symptomatic anemia secondary to gastrointestinal (GI) bleed. 1. Symptomatic anemia secondary to GI bleed. Transfuse 1 unit packed red blood cells (PRBCs), serial hemoglobin and hematocrit. Transfuse as needed. Fecal occult positive. Consulted general surgery, Dr. Terry. Patient is not on any anticoagulation or antiplatelets. Clear liquid diet. Protonix twice a day. Carafate as recommended by Dr. Terry. Consider esophagogastroduodenoscopy (EGD)/colonoscopy as per general surgery. Will monitor patient's hemoglobin and hematocrit. Will give Lasix after transfusion to avoid fluid overload. 2. History of congestive heart failure with preserved ejection fraction, holding torsemide. Give Lasix after transfusion. Strict intake and output, daily weight. Will monitor. Restart diuretics once patient's hemoglobin and hematocrit stabilize. 3. Anxiety and depression. Continue current medication. 4. History of C. difficile. Will monitor closely. Will put the patient on probiotics. 5. History of stage IV lung cancer, in remission. Outpatient followup. 6. Iron deficiency anemia. Patient is getting transfused. Continue iron supplementation. 7. Hypothyroidism. Continue home medication. 8. Restless legs. Continue home medication. 9. History of chronic obstructive pulmonary disease (COPD). Continue home medication. Currently not having any wheeze. 10. Chronic kidney disease (CKD), currently at baseline. 11. Deep vein thrombosis (DVT) prophylaxis. Thromboembolic deterrents (TEDs) and sequentials. DISPOSITION: Pending further surgery recommendations, clinical improvement. Will monitor hemoglobin and hematocrit.
[2018-07-23 20:00] VITALS: BP 142/73
[2018-07-23] MEDS ORDERED: rOPINIRole 1MG TAB PO SCH (21:00)
[2018-07-23] MEDS: LACTOBACILLUS ACIDOPHILUS CAP (BACID) PO SCH (21:04)
[2018-07-23] MEDS: clonazePAM 0.5 MG TAB PO SCH (21:04)
[2018-07-23] MEDS: PANTOPRAZOLE 40MG INJ (PROTONIX) (C9113) IV SCH (21:04)
[2018-07-23 21:16] LABS: HEMATOCRIT 24.7 % (42.0-52.0); HEMOGLOBIN 7.7 g/dl (13.5-17.5)
[2018-07-23 23:59] VITALS: BP 102/62
[2018-07-24] MEDS: ALPRAZolam 0.25 MG TAB PO PRN ×2 (01:42→10:54)
[2018-07-24] MEDS: IPRATROPIUM 0.5MG/ALBUTEROL 2.5MG INH SOL UD 3ML (DUONEB)(J7620) NEB SCH ×4 (02:00→20:18)
[2018-07-24 03:30] LABS: HEMATOCRIT 23.3 % (42.0-52.0); HEMOGLOBIN 7.3 g/dl (13.5-17.5); MEAN CORPUSCULAR HEMOGLOBIN 28.6 pg (27.0-33.0); MEAN CORPUSCULAR HGB CONC 31.3 g/dl (32.0-36.5); MEAN CORPUSCULAR VOLUME 91.4 fl (80.0-96.0); PLATELET COUNT, AUTOMATED 226 10^3/uL (150-450); RED BLOOD COUNT 2.55 10^6/uL (4.30-6.10)
[2018-07-24 03:48] LABS: INR 1.18; PROTHROMBIN TIME 15.2 SECONDS (12.1-14.4)
[2018-07-24 03:56] LABS: CALCIUM LEVEL 7.6 MG/DL (8.8-10.2); CREATININE FOR GFR 1.71 MG/DL (0.70-1.30); GLOMERULAR FILTRATION RATE 41.8 (>42); MAGNESIUM LEVEL 2.1 MG/DL (1.8-2.4); POTASSIUM SERUM 3.4 MEQ/L (3.5-5.1)
[2018-07-24 04:45] VITALS: BP 105/65
[2018-07-24] MEDS: LEVOTHYROXINE 25MCG TABLET (0.025MG) PO SCH (05:26)
--- NOTE | 2018-07-24 05:44 | ECGEPIP ---
Stationary ECG Study [facility] - ED Test Date: 2018-07-23 Pat Name: KELLEY TRIANA Department: Room: - Gender: M Clinical Informatics Specialist: : 1945 Requested By: Ivy Dugan Order Number: [id number] Reading MD: Dre Kee Measurements Intervals [place] Rate: 60 P: -49 TX: 134 QRS: 267 QRSD: 145 T: 84 QT: 495 QTc: 495 Interpretive Statements ELECTRONIC ATRIAL PACEMAKER ELECTRONIC VENTRICULAR PACEMAKER SIMILAR TO 08/07/17 Electronically Signed On 07-24-2018 5:43:49 EST by Dre Kee
[2018-07-24 08:00] VITALS: BP 105/57
[2018-07-24 08:03] LABS: HEMATOCRIT 21.7 % (42.0-52.0)
[2018-07-24] MEDS: SENOKOT S TAB PO SCH ×2 (08:26→20:31)
[2018-07-24] MEDS: FERROUS SULFATE 325MG TAB PO SCH (08:26)
[2018-07-24] MEDS: PANTOPRAZOLE 40MG INJ (PROTONIX) (C9113) IV SCH ×2 (08:26→20:30)
[2018-07-24] MEDS: SERTRALINE HCL 25 MG TABLET PO SCH (08:26)
[2018-07-24] MEDS: LACTOBACILLUS ACIDOPHILUS CAP (BACID) PO SCH ×3 (08:26→20:30)
[2018-07-24] MEDS: GABAPENTIN 300 MG CAP PO SCH ×3 (08:26→20:31)
[2018-07-24] MEDS: SUCRALFATE SUSP 1GM/10ML UD PO SCH ×3 (08:26→16:28)
[2018-07-24 08:41] LABS: HEMOGLOBIN 6.8 g/dl (13.5-17.5)
[2018-07-24] MEDS ORDERED: VITAMIN D 50,000 UNITS CAPSULE (ERGOCALCIFEROL 1.25MG) PO SCH (09:00)
--- NOTE | 2018-07-24 10:42 | CR ---
DATE OF CONSULTATION: 07/23/2018 REASON FOR CONSULTATION: Gastrointestinal (GI) bleed. BRIEF HISTORY OF PRESENT ILLNESS: The patient is a 73-year-old male who presents with some progressive shortness of breath and essentially presents to the emergency room with significant shortness of breath, congestive heart failure history and some bowel issues, etc. and presents with a hematocrit substantially lower than it was earlier this year with a hemoglobin of 6.8. However, he states that he has had chronic anemia for a prolonged ongoing time. However, this is much more severe than normal. He does have some black stools, but feels as though this is most likely related to the iron that he normally takes. He presents now for chronic obstructive pulmonary disease (COPD) exacerbation. PAST MEDICAL HISTORY: Significant for: History of congestive heart failure. Pacemaker placement. Tricuspid valve repair. History of C. difficile infections. History of stage IV lung cancer, in remission past 5 years. History of chemoradiation to his chest. History of depression and anxiety. Iron deficiency anemia. Hypothyroidism. Restless leg syndrome. Benign prostatic hypertrophy (BPH). Right total knee replacement. Pericardial window. Thoracentesis. Umbilical hernia repair. Tonsillectomy. Mitral valve repair. Bilateral cataract surgery. MEDICATIONS: Include: - albuterol - Xanax - artificial tears - cefdinir - clonazepam - vitamin D - iron - gabapentin - bovine Synthroid - Requip - Zoloft - Flomax - torsemide - tramadol PHYSICAL EXAMINATION: Reveals a 73-year-old male who looks stated age. HEENT is unremarkable. Neck: Supple without adenopathy. Lungs are diminished bilaterally at the bases with a few crackles appreciated, a few wheezes appreciated. Heart is regular. Abdomen is soft, nondistended, nontender. Patient states ever since his chest surgery on the right-hand side that he has had some discomfort in the right upper quadrant, right lateral abdomen but this is not unchanged for him. Does not complain of any epigastric pain, although his states that he seems to be much more nauseated and having some gastritis type symptoms recently. IMPRESSION/PLAN: The patient has most likely some gastritis as his etiology for his GI bleeding and I agree with aggressive treatment with proton pump inhibitors, Carafate. At this point, it does not seem like he is actively having a significant GI bleed and I anticipate this should probably resolve the issue with just medication treatment alone. However, if he has some ongoing bleeding or hematocrit drop, then I would recommend starting him on some octreotide and I anticipate that if he is still here having a unstable hematocrit we could proceed with upper and lower endoscopy on ; however, Dr. Muhammad will be covering tomorrow. From the standpoint of urgent or emergent intervention, it does not seem to be necessary at this time and specifically in this individual with respiratory complaints, sedation should be avoided until he is much more stable. Will see how he is doing in the next 24-48 hours and anticipate initially will continue with a non interventional type of presence from a surgical standpoint.
[2018-07-24] MEDS ORDERED: FUROSEMIDE 40 MG/4 ML VIAL (J1940) IV ONE (12:00)
[2018-07-24] MEDS: TAMSULOSIN 0.4 MG CAP PO SCH (12:31)
[2018-07-24] MEDS: rOPINIRole 1MG TAB PO SCH ×2 (12:31→20:31)
[2018-07-24 13:40] LABS: HEMATOCRIT 26.6 % (42.0-52.0); HEMOGLOBIN 8.5 g/dl (13.5-17.5)
[2018-07-24 16:00] VITALS: BP 122/58
[2018-07-24 20:00] VITALS: BP 114/56
[2018-07-24 20:11] LABS: HEMATOCRIT 27.6 % (42.0-52.0); HEMOGLOBIN 8.9 g/dl (13.5-17.5)
[2018-07-24] MEDS: clonazePAM 0.5 MG TAB PO SCH (20:30)
[2018-07-24 23:18] LABS: CREATININE FOR GFR 1.6 MG/DL (0.70-1.30); GLOMERULAR FILTRATION RATE 45.1 (>42); POTASSIUM SERUM 3.4 MEQ/L (3.5-5.1)
[2018-07-25] VITALS: BP 130/60
[2018-07-25] MEDS: IPRATROPIUM 0.5MG/ALBUTEROL 2.5MG INH SOL UD 3ML (DUONEB)(J7620) NEB SCH ×3 (02:00→20:00)
[2018-07-25 02:13] LABS: HEMATOCRIT 26.2 % (42.0-52.0); HEMOGLOBIN 8.4 g/dl (13.5-17.5)
[2018-07-25 04:00] VITALS: BP 107/54
[2018-07-25] MEDS: LEVOTHYROXINE 25MCG TABLET (0.025MG) PO SCH (05:39)
[2018-07-25 08:00] VITALS: BP 124/61
[2018-07-25 08:05] LABS: HEMATOCRIT 25.8 % (42.0-52.0); HEMOGLOBIN 8.3 g/dl (13.5-17.5); MEAN CORPUSCULAR HEMOGLOBIN 28.6 pg (27.0-33.0); MEAN CORPUSCULAR HGB CONC 32.2 g/dl (32.0-36.5); PLATELET COUNT, AUTOMATED 194 10^3/uL (150-450); WHITE BLOOD COUNT 6.6 10^3/uL (4.0-10.0)
[2018-07-25 08:24] LABS: CALCIUM LEVEL 7.1 MG/DL (8.8-10.2); CREATININE FOR GFR 1.45 MG/DL (0.70-1.30); GLOMERULAR FILTRATION RATE 50.5 (>42); POTASSIUM SERUM 3.3 MEQ/L (3.5-5.1)
[2018-07-25] MEDS ORDERED: POTASSIUM CHLORIDE 10 MEQ SR TABLET PO SCH (09:00)
[2018-07-25] MEDS: LACTOBACILLUS ACIDOPHILUS CAP (BACID) PO SCH ×3 (09:10→20:17)
[2018-07-25] MEDS: PANTOPRAZOLE 40MG INJ (PROTONIX) (C9113) IV SCH ×2 (09:10→20:16)
[2018-07-25] MEDS: SENOKOT S TAB PO SCH ×2 (09:10→20:17)
[2018-07-25] MEDS: GABAPENTIN 300 MG CAP PO SCH ×3 (09:10→20:16)
[2018-07-25] MEDS: SUCRALFATE SUSP 1GM/10ML UD PO SCH ×3 (09:10→17:36)
[2018-07-25] MEDS: SERTRALINE HCL 25 MG TABLET PO SCH (09:11)
[2018-07-25] MEDS: ALPRAZolam 0.25 MG TAB PO PRN (09:18)
--- NOTE | 2018-07-25 10:39 | IPN ---
DATE: 07/24/2018 PRIMARY CARE PROVIDER: Dr. Luis Gillis Mr. Brewer was seen while rounding for the hospitalist. The patient was admitted with anemia, heme positive stool. Complicated past medical history including diastolic congestive heart failure, C. difficile colitis, stage IV lung cancer in remission, status post chemo and radiation therapy, chronic anxiety and depression, restless leg syndrome, hypothyroidism, iron deficiency anemia and benign prostatic hypertrophy (BPH). His water well driller is Dr. Clayton Reese and the patient thought his last colonoscopy was about three year ago, but it looks as though it actually took place 11/2012. That was unremarkable. He has not had upper endoscopy that I can see. Denies abdominal pain, fever or chills. Stool has been black, it has not been frankly bloody. PHYSICAL EXAMINATION: 105/57, pulse 61, respiratory rate 17, 99% oxygen saturation. GENERAL APPEARANCE: He is resting comfortably, visiting with his . He looks pale. No jugular venous distention (JVD). Heart regular rhythm with 2/6 systolic ejection murmur. Abdomen soft, nontender, no masses. No peripheral edema. LABS: Hemoglobin 6.8, it was 7.7 last night. Sodium 137, potassium 3.4, BUN 30, creatinine 1.7, glucose 73. No iron studies have been done. Of note he had an SPEP 12/2017 that suggested polyclonal gammopathy, no monoclonal gammopathy. B12 and folate were normal then. IMPRESSION: 1. Anemia, probably from GI blood loss. He has been seen in consultation by Dr. Terry. Patient needs upper and lower endoscopy. Continue IV Protonix, by mouth Carafate. 2. Restless leg syndrome. He is asking to have his Requip increased to 3 mg at night, which is his home dose but also wants 1 mg at 1:00 p.m., so I will put that order in. Continue gabapentin 300 mg three times a day. 3. Chronic anxiety. Continue alprazolam 0.25 mg four times a day as needed, sertraline 25 mg daily. Need to keep an open mind about stopping the sertraline as it is associated with GI blood loss even at a low dose and it might have to be discontinued. 4. Diastolic congestive heart failure. I have ordered some IV Lasix between units of blood. 5. Hypothyroidism. Continue current dose of levothyroxine. 6. History of C. difficile colitis. He uses a probiotic at home. This is currently being held. Cautious use of antibiotic advised.
[2018-07-25] MEDS: TAMSULOSIN 0.4 MG CAP PO SCH (13:40)
[2018-07-25] MEDS: rOPINIRole 1MG TAB PO SCH ×2 (13:40→20:17)
--- NOTE | 2018-07-25 13:57 | IPN ---
DATE: 07/25/2018 Arpit is seen in progressive care unit (PCU). He is seen without benefit of his notes from yesterday, which I have not been transcribed yet. To the best of my memory, he was admitted with anemia presumed chronic gastrointestinal (GI) blood loss. Patient transfused 2 units yesterday. He has had no visible blood loss, epistaxis, hematuria or rectal bleeding. PHYSICAL EXAM: Vital signs: Stable. Blood pressure (BP) 124/61. He is alert and conversant, in no distress. He wears oxygen 2 liters nasal cannula at home. Lungs: Decreased breath sounds. A few wheezes at bases. Heart: Regular rate and rhythm. Abdomen: Soft, nontender. No peripheral edema. LABS: Hemoglobin is 8.3. Iron studies showed iron deficiency, reticulocyte hemoglobin equivalent low at 20. Ferritin low normal. IMPRESSION: 1. Anemia secondary to chronic gastrointestinal blood loss. He is maintaining his hemoglobin. Rest of the plan was outlined in yesterday's vacuum pan operator, which unfortunately is not available yet at 10 a.m. His discharge will be held up until I can get that back to see what other plan we had made for him. We will get a complete blood count (CBC) tomorrow. He sees Dr. Reese for gastroenterology apparently in the past. He has had trouble with "fluid on his lungs" when he had endoscopy. We do not plan inpatient endoscopy. This could be a discussion he can have with Dr. Gillis, his primary provider and Dr. Reese as an outpatient.
[2018-07-25 14:00] LABS: HEMATOCRIT 29.2 % (42.0-52.0); HEMOGLOBIN 9.4 g/dl (13.5-17.5)
[2018-07-25 16:00] VITALS: BP_SYST 127; BP_SYST 130; BP_DIAS 58; BP_DIAS 67
--- NOTE | 2018-07-25 18:20 | IPN ---
DATE: 07/25/2018 The patient overall still has not had any complaints of GI distress, bowel movements, etc or blood per rectum. He still has his shortness breath issues. He states that are relatively at baseline. When I look at his hematocrit he has had some transfusions and they have been relatively stable. He states he does not see any GI bleeding or blood per rectum, melanotic stools, etc. His abdomen is soft, nontender, nondistended. No guarding, no rebound, no peritoneal signs are appreciated. IMPRESSION AND PLAN The patient probably had some gastritis that is probably stable at this point. His respiratory symptoms are relatively stable for him. However, he is not a great operative candidate for sedation. I anticipate his most likely etiology is some gastritis, gastroduodenitis is most likely the etiology and treating him with the proton pump inhibitors as well as the Carafate seems to be making an adequate difference. I would recommend proceeding with endoscopy as an outpatient if he stabilizes / improves his respiratory status and becomes a better operative candidate for sedation. He states that he did not tolerate sedation previously alone and it caused some significant problems. Thus, at this point given that history if there is some urgent need for more investigative tests, I would recommend proceeding with an upper GI to evaluate his stomach / duodenum area. Otherwise, I would be glad to see him as an outpatient should he be discharged in the next few days.
[2018-07-25 20:00] VITALS: BP 119/65
[2018-07-25 20:11] LABS: HEMATOCRIT 27.4 % (42.0-52.0); HEMOGLOBIN 8.7 g/dl (13.5-17.5)
[2018-07-25] MEDS: clonazePAM 0.5 MG TAB PO SCH (20:17)
[2018-09-10] MEDS ORDERED: AMIL5TAB4 PO (13:50)
[2018-09-10] MEDS ORDERED: PANT40TA3 PO (13:50)
[2018-09-10] MEDS ORDERED: KLOR10TA76 PO (13:50)
[2018-09-10] MEDS ORDERED: MULT1TAB11 PO (13:50)
[2018-09-10] MEDS ORDERED: VITA500T PO (13:50)
--- NOTE | 2018-09-14 10:03 | DSES ---
DATE OF ADMISSION: 07/23/2018 DATE OF DISCHARGE: 07/25/2018 DATE OF DICTATION: 09/14/2018 PRINCIPAL DIAGNOSIS: Anemia secondary to chronic gastrointestinal blood loss from presumed gastritis. HISTORY: Arpit Brewer was admitted to the hospitalist attending. Primary care provider is Dr. Luis Gillis. Mr. Brewer was admitted to the hospitalist service for heme positive stool and anemia. Details of history and physical from admission. HOSPITAL COURSE: The patient was admitted to a medical bed. Serial CBC was drawn and they were stable. He was seen on consult by Dr. Terry, who felt upper and lower endoscopies were in order. The patient wanted to do this as an outpatient. His hemoglobin and hematocrit remained stable following 3 units of packed red blood cells. On the day of discharge, his hemoglobin was 8.7, which had been fairly stable from earlier in the day, so he was discharged to follow as an outpatient. DISPOSITION: The patient was discharged on 07/25/2018. MEDICATIONS: - Protonix 40 mg twice a day - Carafate 1 gram before food and nightly He was going to maintain the same medications that he was taking prior to admission. He is to followup with Dr. Terry as an outpatient for endoscopy.
== END 2018-07-25 21:54 | disposition left against medical advice (07) | DRG 378 ==
LOC: M ED 09:43 → M ED INP 12:57 → M PCU 16:12
PROVIDERS: ADMIT Hospitalist; ATTEND Hospitalist
PROC: 30233N1 Transfusion of Nonautologous Red Blood Cells into Peripheral Vein, Percutaneous Approach (ICD-10-PCS; principal; 2018-07-23)
DX: K29.71 Gastritis, unspecified, with bleeding (principal); I50.32 Chronic diastolic (congestive) heart failure; D50.0 Iron deficiency anemia secondary to blood loss (chronic); Z95.0 Presence of cardiac pacemaker; Z85.118 Personal history of other malignant neoplasm of bronchus and lung; Z88.8 Allergy status to other drugs, medicaments and biological substances; Z96.651 Presence of right artificial knee joint; Z87.891 Personal history of nicotine dependence; Z79.899 Other long term (current) drug therapy; F32.9 Major depressive disorder, single episode, unspecified; F41.9 Anxiety disorder, unspecified; E03.9 Hypothyroidism, unspecified; G25.81 Restless legs syndrome; J44.9 Chronic obstructive pulmonary disease, unspecified; N18.9 Chronic kidney disease, unspecified; N40.0 Benign prostatic hyperplasia without lower urinary tract symptoms

== ENCOUNTER 2018-09-17 08:16 | Day surgery (SDC) | payer MEDICARE, OTHER ==
[~2018-09-17] VITALS: Ht 175.3 cm; Wt 76.2 kg
[~2018-09-17 08:16] MED LIST changes: +ALBU83IN INH; +CLON0.5T8 PO; +IPRA2IN INH; +KLOR10TA76 PO; +MULT1TAB11 PO; +PANT40TA3 PO; +REFR0.5D8 OU; +VITA500T PO
[2018-09-17] MEDS ORDERED: LIDOCAINE 2% INJ 100 MG/5 ML SDV (FOR ANES.) As Ordered ONE (08:47)
[2018-09-17] MEDS ORDERED: PROPOFOL 200 MG/20 ML VIAL As Ordered ONE (08:47)
[2018-09-17] MEDS ORDERED: fentaNYL 100 MCG/2 ML INJECTION (J3010) As Ordered ONE (09:35)
[2018-09-17] MEDS ORDERED: NS 1,000 ML IV ONE (10:00)
--- NOTE | 2018-09-17 10:12 | ROOR ---
Patient Name: Arpit Brewer Procedure Date: 09/17/2018 9:55 AM Date of : 1945 Age: 73 Room: [facility] Gender: Male Note Status: Finalized Procedure: Upper Endoscopy + Biopsies Indications: Iron deficiency anemia Providers: Clayton Reese MD Referring MD: JUAN OLVERA JR, MD Requesting Provider: Medicines: Monitored Anesthesia Care Complications: No immediate complications. Procedure: Pre-Anesthesia Assessment: - The heart rate, respiratory rate, oxygen saturations, blood pressure, adequacy of pulmonary ventilation, and response to care were monitored throughout the procedure. The Endoscope was introduced through the mouth, and advanced to the second part of duodenum. The upper GI endoscopy was accomplished without difficulty. The patient tolerated the procedure well. Findings: The Z-line was irregular and was found 35 cm from the incisors. Multiple biopsies were obtained with cold forceps for evaluation to rule out Abebe's Esophagus randomly at the gastroesophageal junction. A small hiatal hernia was present. Localized mild inflammation characterized by congestion (edema), erythema, friability and granularity was found on the greater curvature of the stomach. Biopsies were taken with a cold forceps for Helicobacter pylori testing. The exam of the duodenum was otherwise normal. Biopsies for histology were taken with a cold forceps in the first portion of the duodenum for evaluation of celiac disease. The exam was otherwise without abnormality. Impression: - Z-line irregular, 35 cm from the incisors. - Small hiatal hernia. - Mucosal changes suspicious for gastritis. Biopsied. - The examination was otherwise normal. - Multiple biopsies were obtained at the gastroesophageal junction. - Biopsies were taken with a cold forceps for evaluation of celiac disease. - The examination was otherwise normal. Recommendation: - Patient has a contact number available for emergencies. The signs and symptoms of potential delayed complications were discussed with the patient. Return to normal activities tomorrow. Written discharge instructions were provided to the patient. - High fiber diet. - Discharge patient to home. - Continue present medications. - Await pathology results. - Telephone GI clinic for pathology results in 1 week. - Return to referring physician. - The findings and recommendations were discussed with the patient's family. Clayton Reese MD Clayton Reese MD 09/17/2018 10:11:58 AM This report has been signed electronically. Number of Addenda: 0 Note Initiated On: 09/17/2018 9:55 AM Estimated Blood Loss: Estimated blood loss: none.
[2018-09-17] MEDS ORDERED: PHENYLephrine HCL 500 MCG/5 ML (100MCG/ML) SYRINGE (J2370) As Ordered ONE (10:13)
--- NOTE | 2018-09-17 10:34 | ROOR ---
Patient Name: Arpit Brewer Procedure Date: 09/17/2018 9:55 AM Date of : 1945 Age: 73 Room: [facility] Gender: Male Note Status: Finalized Procedure: Total Colonoscopy to Cecum + Biopsy Polypectomy Indications: Iron deficiency anemia Providers: Clayton Reese MD Referring MD: JUAN OLVERA JR, MD Requesting Provider: Medicines: Monitored Anesthesia Care Complications: No immediate complications. Procedure: Pre-Anesthesia Assessment: - The heart rate, respiratory rate, oxygen saturations, blood pressure, adequacy of pulmonary ventilation, and response to care were monitored throughout the procedure. The Colonoscope was introduced through the anus and advanced to the cecum, identified by appendiceal orifice and ileocecal valve. The colonoscopy was performed without difficulty. The patient tolerated the procedure well. The quality of the bowel preparation was excellent. Findings: The perianal and digital rectal examinations were normal. Non-bleeding internal hemorrhoids were found during retroflexion. The hemorrhoids were small and Grade I (internal hemorrhoids that do not prolapse). Scattered small-mouthed diverticula were found in the recto-sigmoid colon, sigmoid colon and descending colon. A small polyp was found in the cecum. The polyp was sessile. The polyp was removed with a jumbo cold forceps. Resection and retrieval were complete. One small angioectasia without bleeding was found in the cecum. The exam was otherwise without abnormality on direct and retroflexion views. Impression: - Non-bleeding internal hemorrhoids. - Diverticulosis in the recto-sigmoid colon, in the sigmoid colon and in the descending colon. - One small polyp in the cecum, removed with a jumbo cold forceps. Resected and retrieved. - One non-bleeding colonic angioectasia. - The examination was otherwise normal on direct and retroflexion views. - The exam was otherwise normal to the cecum. Recommendation: - Patient has a contact number available for emergencies. The signs and symptoms of potential delayed complications were discussed with the patient. Return to normal activities tomorrow. Written discharge instructions were provided to the patient. - High fiber diet. - Discharge patient to home. - Continue present medications. - Await pathology results. - Telephone GI clinic for pathology results in 1 week. - Return to referring physician. - The findings and recommendations were discussed with the patient's family. Clayton Reese MD Clayton Reese MD 09/17/2018 10:33:19 AM This report has been signed electronically. Number of Addenda: 0 Note Initiated On: 09/17/2018 9:55 AM Estimated Blood Loss: Estimated blood loss: none.
[2018-09-17 11:09] VITALS: BP 102/58
== END 2018-09-17 11:15 | disposition home or self-care (01) ==
LOC: M OPP 08:16
PROVIDERS: ATTEND Internal Medicine Gastroenterology
DX: K64.0 First degree hemorrhoids (principal); D12.0 Benign neoplasm of cecum; K55.20 Angiodysplasia of colon without hemorrhage; D50.9 Iron deficiency anemia, unspecified; K57.30 Diverticulosis of large intestine without perforation or abscess without bleeding; K22.8 Other specified diseases of esophagus; K44.9 Diaphragmatic hernia without obstruction or gangrene; K31.89 Other diseases of stomach and duodenum; I50.30 Unspecified diastolic (congestive) heart failure; I48.91 Unspecified atrial fibrillation; I11.0 Hypertensive heart disease with heart failure; I25.2 Old myocardial infarction; Z79.899 Other long term (current) drug therapy; Z88.8 Allergy status to other drugs, medicaments and biological substances; Z87.891 Personal history of nicotine dependence; Z95.0 Presence of cardiac pacemaker; Z95.4 Presence of other heart-valve replacement; Z80.0 Family history of malignant neoplasm of digestive organs; Z85.118 Personal history of other malignant neoplasm of bronchus and lung
CPT/HCPCS: 43239; 45380; 88305; J2370; J3010

== ENCOUNTER 2018-12-19 10:00 | Outpatient (RCR) | payer MEDICARE, OTHER, SELFPAY ==
[~2018-12-19 10:00] MED LIST changes: -/TAMS4CA OR; -ASPI1TAB PO; +ASPI81TA26 PO; -ERGO500014 PO; +FLOM0.4C39 OR; -MICO2CRE33 TOP; +MICO2CRE42 TOP; -SERT25TA PO; +SERT25TA85 PO; -VANC250C2 PO; +VANC250C3 PO; +VITA500045 PO
== END 2018-12-28 ==
LOC: M CR 10:00
PROVIDERS: ATTEND Internal Medicine Cardiovascular Disease
DX: Z51.89 Encounter for other specified aftercare (principal)

== ENCOUNTER → 2019-01-03 | Outpatient (REF) | payer MEDICARE, OTHER ==
[2019-01-03 11:10] LABS: HEMATOCRIT 40.7 % (42.0-52.0); MEAN CORPUSCULAR HEMOGLOBIN 27.5 pg (27.0-33.0); MEAN CORPUSCULAR HGB CONC 31.9 g/dl (32.0-36.5); PLATELET COUNT, AUTOMATED 146 10^3/uL (150-450); RED BLOOD COUNT 4.73 10^6/uL (4.30-6.10); WHITE BLOOD COUNT 5.6 10^3/uL (4.0-10.0)
[2019-01-03 11:41] LABS: CALCIUM LEVEL 8.3 MG/DL (8.8-10.2); CREATININE FOR GFR 1.62 MG/DL (0.70-1.30); GLOMERULAR FILTRATION RATE 44.4 (>42); POTASSIUM SERUM 3.8 MEQ/L (3.5-5.1)
== END ==
LOC: M LABDRAW1 09:38
PROVIDERS: ATTEND Internal Medicine Cardiovascular Disease
DX: I47.2 Ventricular tachycardia (principal)

== ENCOUNTER → 2019-01-29 | Outpatient (REF) | payer MEDICARE, OTHER ==
[2019-01-29 13:05] LABS: PERCENT SATURATION 24.5 % (19.7-50.0)
== END ==
LOC: M LAB REF 12:49
PROVIDERS: ATTEND Internal Medicine
DX: D64.9 Anemia, unspecified (principal)

== ENCOUNTER → 2019-03-18 | Outpatient (REF) | payer MEDICARE, OTHER ==
[2019-03-18 14:17] LABS: HEMATOCRIT 39.9 % (42.0-52.0); HEMOGLOBIN 13.4 g/dl (13.5-17.5); MEAN CORPUSCULAR HEMOGLOBIN 31.4 pg (27.0-33.0); MEAN CORPUSCULAR HGB CONC 33.6 g/dl (32.0-36.5); MEAN CORPUSCULAR VOLUME 93.4 fl (80.0-96.0); PLATELET COUNT, AUTOMATED 145 10^3/uL (150-450); RED BLOOD COUNT 4.27 10^6/uL (4.30-6.10); WHITE BLOOD COUNT 5.2 10^3/uL (4.0-10.0)
[2019-03-18 14:23] LABS: CALCIUM LEVEL 8.7 MG/DL (8.8-10.2); CREATININE FOR GFR 1.66 MG/DL (0.70-1.30); GLOMERULAR FILTRATION RATE 43.1 (>42); POTASSIUM SERUM 3.9 MEQ/L (3.5-5.1)
== END ==
LOC: M LABDRAW1 12:41
PROVIDERS: ATTEND Internal Medicine Cardiovascular Disease
DX: I48.91 Unspecified atrial fibrillation (principal)

== ENCOUNTER → 2019-05-30 | Outpatient (REF) | payer MEDICARE, OTHER | LOC: M LAB REF 17:22 | PROVIDERS: ATTEND Surgery | DX: C44.629 Squamous cell carcinoma of skin of left upper limb, including shoulder (principal) ==

== ENCOUNTER → 2019-07-09 | Outpatient (REF) | payer MEDICARE, OTHER ==
[~2019-07-09] MED LIST changes: +CLON0.5T2 PO; -CLON0.5T8 PO
[2019-07-09 13:40] LABS: PERCENT SATURATION 14.3 % (19.7-50.0)
== END ==
LOC: M LAB REF 12:37
PROVIDERS: ATTEND Internal Medicine
DX: D64.9 Anemia, unspecified (principal)

== ENCOUNTER 2019-09-11 14:00 | Outpatient (RCR) | payer SELFPAY ==
[~2019-09-11 14:00] MED LIST changes: -ROPI1TAB PO; +ROPI1TAB3 PO
== END 2019-09-28 ==
LOC: M CR 14:00
PROVIDERS: ATTEND Internal Medicine Cardiovascular Disease
DX: Z51.89 Encounter for other specified aftercare (principal)

== ENCOUNTER → 2019-10-02 | Outpatient (REF) | payer MEDICARE, OTHER ==
[2019-10-02 14:28] LABS: EOSINOPHILS 3 % (0-3); LYMPHOCYTES 7 % (16-44); MONOCYTES 2 % (0-5); NEUTROPHILS 88 % (28-66)
[2019-10-02 14:29] LABS: PLATELET ESTIMATE NORMAL (NORMAL)
== END ==
LOC: M LAB REF 13:53
PROVIDERS: ATTEND Nurse Practitioner Adult Health
DX: D72.9 Disorder of white blood cells, unspecified (principal)

== ENCOUNTER → 2019-12-03 | Outpatient (REF) | payer MEDICARE, OTHER ==
[~2019-12-03] MED LIST changes: +VITA-243 PO; -VITA500T PO
[2019-12-03 13:14] LABS: PERCENT SATURATION 19.9 % (19.7-50.0)
[2019-12-03 13:25] LABS: EOSINOPHILS 5 % (0-3); LYMPHOCYTES 14 % (16-44); MONOCYTES 6 % (0-5); NEUTROPHILS 75 % (28-66); PLATELET ESTIMATE NORMAL (NORMAL)
== END ==
LOC: M LAB REF 12:10
PROVIDERS: ATTEND Internal Medicine
DX: D50.9 Iron deficiency anemia, unspecified (principal); J96.11 Chronic respiratory failure with hypoxia; N18.3 Chronic kidney disease, stage 3 (moderate)

== ENCOUNTER → 2019-12-03 | Outpatient (CLI) | payer MEDICARE, OTHER ==
--- NOTE | 2019-12-03 15:07 | REP ---
REASON FOR EXAM: History of congestive heart failure. COMPARISON: Multiple, the latest 10/02/2019. The cardiomediastinal silhouette is unchanged. The dual chamber bipolar pacemaker is unchanged. Note is again made of the previous median sternotomy. The lung dominguez are unchanged. The osseous structures are unchanged. IMPRESSION: No significant change. Electronically Signed by Oli Salgado DO 12/03/2019 04:23 P
== END ==
LOC: M WUC 14:34
PROVIDERS: ATTEND Internal Medicine
DX: I50.9 Heart failure, unspecified (principal); D50.9 Iron deficiency anemia, unspecified; J96.11 Chronic respiratory failure with hypoxia; N18.3 Chronic kidney disease, stage 3 (moderate); Z95.0 Presence of cardiac pacemaker

== ENCOUNTER → 2019-12-12 | Outpatient (REF) | payer MEDICARE, OTHER | LOC: M LAB REF 16:20 | PROVIDERS: ATTEND Internal Medicine | DX: I50.32 Chronic diastolic (congestive) heart failure (principal); I13.0 Hypertensive heart and chronic kidney disease with heart failure and stage 1 through stage 4 chronic kidney disease, or unspecified chronic kidney disease; N18.9 Chronic kidney disease, unspecified ==

== ENCOUNTER → 2020-04-23 | Outpatient (CLI) | payer MEDICARE, OTHER ==
[~2020-04-23] MED LIST changes: +ACET1TAB55 PO; +ALLO100T PO; +BAYE325T12 PO; +PANT40TA29 PO; -PANT40TA3 PO; +PROBCAP14 PO; +VITA50005 PO
[2020-04-23 11:42] LABS: CREATININE FOR GFR 1.79 MG/DL (0.70-1.30)
[2020-04-23 11:43] LABS: CALCIUM LEVEL 8.9 MG/DL (8.8-10.2); GLOMERULAR FILTRATION RATE 39.4 (>42)
== END ==
LOC: M LAB 10:12
PROVIDERS: ATTEND Internal Medicine Cardiovascular Disease
DX: I50.32 Chronic diastolic (congestive) heart failure (principal)

== ENCOUNTER 2020-05-01 03:57 | Inpatient (IN) | payer MEDICARE, OTHER ==
[~2020-05-01] VITALS: Ht 177.8 cm; Wt 97.8 kg
[~2020-05-01 03:57] MED LIST changes: -ACET1TAB55 PO; -ALLO100T PO; -BAYE325T12 PO; -PROBCAP14 PO; -VITA50005 PO
[2020-05-01] MEDS ORDERED: ACETAMINOPHEN 325 MG TAB PO ONE (04:15)
[2020-05-01] MEDS ORDERED: LR 1,000 ML IV ONE (04:30)
[2020-05-01 05:01] LABS: BASO % 0.2 % (0.0-1.0); HEMATOCRIT 36.4 % (42.0-52.0); LYMPH # 0.4 10^3/uL (1.5-5.0); LYMPH % 2.7 % (24.0-44.0); MEAN CORPUSCULAR HEMOGLOBIN 31.3 pg (27.0-33.0); MONO # 1.3 10^3/uL (0.0-0.8); MONO % 9.1 % (0.0-5.0); NEUTROPHILS # 12.6 10^3/uL (1.5-8.5); NEUTROPHILS % 86.8 % (36.0-66.0); PLATELET COUNT, AUTOMATED 104 10^3/uL (150-450); RED BLOOD COUNT 3.83 10^6/uL (4.30-6.10); WHITE BLOOD COUNT 14.6 10^3/uL (4.0-10.0)
[2020-05-01] MEDS ORDERED: cefTRIAXone SOD 2 GM in D5W MINI-BAG PLUS 50 ML IV ONE (05:15)
[2020-05-01 05:29] LABS: ALBUMIN 3.3 GM/DL (3.2-5.2); BILIRUBIN,DIRECT 0.5 MG/DL (0.0-0.2); BILIRUBIN,TOTAL 1.2 MG/DL (0.2-1.0); CALCIUM LEVEL 8.3 MG/DL (8.8-10.2); CK-MB VALUE MASS 2.5 NG/ML (<3.6); CREATININE FOR GFR 2.14 MG/DL (0.70-1.30); GLOMERULAR FILTRATION RATE 32.1 (>42); MB/CK RELATIVE INDEX 0.83 (< OR =4); POTASSIUM SERUM 4.2 MEQ/L (3.5-5.1); TOTAL PROTEIN 6.7 GM/DL (6.4-8.2); TROPONIN I 0.1 NG/ML (< 0.10)
--- NOTE | 2020-05-01 06:20 | REPVR ---
PROCEDURE INFORMATION: Exam: CT Cervical Spine Without Contrast Exam date and time: 05/01/2020 5:09 AM Age: 75 years old Clinical indication: Injury or trauma; Fall; Concussion/head injury TECHNIQUE: Imaging protocol: Computed tomography images of the cervical spine without contrast. Radiation optimization: All CT scans at this facility use at least one of these dose optimization techniques: automated exposure control; mA and/or kV adjustment per patient size (includes targeted exams where dose is matched to clinical indication); or iterative reconstruction. COMPARISON: No relevant prior studies available. FINDINGS: Vertebrae: Prominent anterior subluxation C2 on C3 measuring 0.52 cm. Reversal of cervical lordosis. Narrowing of cervical interspaces. Moderately advanced degenerative hypertrophic formation and diffuse facet arthritis. Significant antral posterior canal narrowing extending from the lower aspect of C3 through C5-C6 with prominent posterior hypertrophic extension at C4-C5. C1-C2: There is likely a significant component of rotational positioning at C1-C2 with offset antral posterior alignment at C1-C2 on the right. Other bones/joints: Multilevel neural foraminal narrowing predominantly secondary to degenerative change including uncinate process hypertrophy. Soft tissues: Unremarkable. Vasculature: In carotid vascular calcification. Lungs: Abnormal pleural based thickening superior right chest and right lung apex. Other findings: Significant obliquity of image acquisition. IMPRESSION: 1. Probable significant rotational positioning at C1-C2 although prominent anterior subluxation C2 on C3 could be degenerative or suggest ligamentous injury. Comparison to prior CT cervical spine is recommended which is not submitted. If submitted an addendum can be forwarded. MRI may be considered for further assessment of ligamentous structures for injury or instability. 2. Advanced degenerative changes cervical spine. 3. Multilevel neural foraminal narrowing secondary to degenerative change. 4. Multilevel spinal canal narrowing most prominent extending from C3 through C5-C6 which is most prominent at C4-C5. 5. Markedly limited assessment of the central spinal canal soft tissues. 6. Abnormal pleural based opacity of the superior right chest and right apex. Further follow-up nonemergent CT of the chest may be useful for further definitive assessment. Electronically signed by: Cathy Dunaway On 05/01/2020 06:20:17 AM
--- NOTE | 2020-05-01 06:24 | REPVR ---
PROCEDURE INFORMATION: Exam: CT Head Without Contrast Exam date and time: 05/01/2020 5:09 AM Age: 75 years old Clinical indication: Injury or trauma; Fall; Concussion / head injury; Consciousness not specified TECHNIQUE: Imaging protocol: Computed tomography of the head without contrast. Radiation optimization: All CT scans at this facility use at least one of these dose optimization techniques: automated exposure control; mA and/or kV adjustment per patient size (includes targeted exams where dose is matched to clinical indication); or iterative reconstruction. COMPARISON: CT Head W/O FOLL BY WITH CONTR 03/01/2016 7:31 AM FINDINGS: Brain: Low attenuating white-matter changes suggesting micro vessel ischemia on a chronic basis. No acute hemorrhage. No midline shift. Cerebral ventricles: No ventriculomegaly. Bones/joints: Unremarkable. No acute fracture. Paranasal sinuses: Visualized sinuses are unremarkable. No fluid levels. Mastoid air cells: Visualized mastoid air cells are well aerated. Soft tissues: Unremarkable. Other findings: Hemispheric volume loss. IMPRESSION: 1. No acute intracranial process. Electronically signed by: Cathy Dunaway On 05/01/2020 06:24:14 AM
--- NOTE | 2020-05-01 07:25 | REPVR ---
PROCEDURE INFORMATION: Exam: XR Chest, 1 View Exam date and time: 05/01/2020 6:34 AM Age: 75 years old Clinical indication: Other: Sepsis/shock TECHNIQUE: Imaging protocol: XR of the chest Views: 1 view. COMPARISON: CR CHEST 2 VIEW 12/03/2019 2:45 PM FINDINGS: Tubes, catheters and devices: Cardiac device projects over the left chest with multiple intracardiac leads. Lungs: Areas of scarring within the right lung with volume loss. Interstitial crowding versus developing pulmonary venous congestion. Atelectasis left lower lung. Pleural space: Pleural thickening or superior right pleural effusion. Heart/Mediastinum: Enlargement of the right remigio persist. Diaphragm: Elevation of right hemidiaphragm. Bones/joints: Postoperative sternotomy. Degenerative change of the spine. IMPRESSION: 1. Volume loss of the right lung with enlargement of the right remigio. 2. Right mid lung linear scarring or fissural thickening. 3. Right pleural effusion. 4. Interstitial crowding or underlying pulmonary venous congestion which is accentuated compared to previous. 5. Atelectasis left lower lung. Electronically signed by: Cathy Dunaway On 05/01/2020 07:24:50 AM
[2020-05-01] MEDS ORDERED: GABA-843 PO (08:29)
[2020-05-01] MEDS ORDERED: BAYE325T12 PO (08:29)
[2020-05-01] MEDS ORDERED: VITMTA PO (08:29)
[2020-05-01] MEDS ORDERED: ALLO100T PO (08:29)
[2020-05-01] MEDS ORDERED: VITA50005 PO (08:29)
[2020-05-01] MEDS ORDERED: PROBCAP14 PO (08:29)
[2020-05-01] MEDS ORDERED: CLON0.5T2 PO (08:29)
[2020-05-01] MEDS ORDERED: MOM 30ML SUSPENSION UDC PO PRN (08:30)
[2020-05-01] MEDS ORDERED: aMILoride 5 MG TAB PO SCH (09:00)
--- NOTE | 2020-05-01 09:22 | ECGEPIP ---
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
[2020-05-01] MEDS: LEVOTHYROXINE 25MCG TABLET (0.025MG) PO SCH (11:55)
[2020-05-01] MEDS: MULTIVITAMINS/MINERALS THERAP 1 TAB PO SCH (11:56)
[2020-05-01] MEDS: TAMSULOSIN 0.4 MG CAP PO SCH (11:56)
[2020-05-01] MEDS: ASPIRIN 81 MG CHEW TABLET PO SCH (11:57)
[2020-05-01] MEDS: SERTRALINE HCL 25 MG TABLET PO SCH (11:59)
[2020-05-01] MEDS: NS 1,000 ML IV SCH (13:11)
[2020-05-01 14:11] VITALS: BP 93/43
--- NOTE | 2020-05-01 17:35 | HPEPDOC ---
[facility] Medical History & Physical Date of Admission May 01, 2020 Date of Service: May 01, 2020 Primary Care Physician: Jr Gillis Collins Attending Physician: BRENDA RUIZ MD History and Physical CHIEF COMPLAINT: Fall. HISTORY OF PRESENT ILLNESS: Mr. Brewer presented to the ED via ambulance this morning around 0100 after falling at home and being unable to get up, even with the help of his . He states that this is the third time he has fallen in the last 3 days. He says that one fall was in the concrete in the garage and the other two falls were on the rugs on his bathroom floor. He says that he does not feel dizzy or weak before the falls and that he doesn't trip over anything he simply is walking and falls down. He remembers falling and denies any loss of consciousness. The past two times he fell he states that his was able to help him up but this time she couldn't get him up. Imaging in the ED showed no acute fractures or brain bleeds. Pt was found to have bacteriuria and received one dose of ceftriaxone in the ED. Pt was admitted for further evaluation of the nature of his falls. PAST MEDICAL HISTORY: 1. HFpEF (55%) 2. CKD stage IIIb 3. Chronic R pleural effusion 4. Stage 4 lung CA with metastasis to lymph nodes s/p chemo and radiation 5. Squamous cell skin CA left hand s/p resection 6. Hypothyroidism 7. BPH 8. Anxiety and depression PAST SURGICAL HISTORY: 1. Pacemaker placement 2012 2. Atrial and tricuspid valve repair 2016 3. R total knee replacement 4. Pericardial window 2000 5. Thoracocentesis for pleural effusion and talc pleurodesis 6. BL cataract surgery 7. 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 REVIEW OF SYSTEMS: CONSTITUTIONAL: Denies fever, cough, nausea, vomiting, diarrhea. HEENT: Denies headache, rhinorrhea, ear pain, sore throat, vision changes. CARDIOVASCULAR: Denies palpitations, chest pain, chest tightness. RESPIRATORY: Denies shortness of breath, dyspnea on exertion, cough. GASTROINTESTINAL: Denies constipation, vomiting, diarrhea. GENITOURINARY: Denies dysuria, urinary frequency. SKIN: Denies new rashes or lesions. Admits to bruises on R forearm. MUSCULOSKELETAL: Denies joint pain, muscle pain, weakness. Admits to weakness after falling, unable to get up by himself. NEUROLOGICAL: Denies loss of sensation in extremities, dizziness, lightheadedness. PSYCHIATRIC: Normal mood and affect. HOME MEDICATIONS: Please see below. PHYSICAL EXAMINATION: VITAL SIGNS: Temperature 100.2, pulse 62, respiratory rate 20, blood pressure 111/55, pulse oximetry 98% on 2L nasal cannula. GENERAL APPEARANCE: Pt is a thin appearing elderly male, lying comfortably in bed, in no acute distress. Appears slightly older than stated age and fatigued but is consistently AAOx3. HEENT: NC, AT, no facial ecchymosis or bleeding, EOMI with slight horizontal nystagmus, mild scleral icterus, no pharyngeal erythema, mucous membranes mildly dry. CARDIOVASCULAR: ventricularly paced rhythm, slightly bradycardic at around 60bpm, no murmurs, rubs, or gallops, no JVD appreciated. LUNGS: Saturating 98% on 2L nasal cannula supplemental O2. Diffuse crackles on R side posteriorly with some end expiratory wheezes, diminished breath sounds bilaterally R>L, decreased tidal volume, symmetric chest expansion, no accessory muscle use appreciated. Speaking slowly but in full sentences. ABDOMEN: Soft, non tender, mildly distended, bowel sounds present in all quadrants. Negative hepatojugular reflex. No guarding or rigidity. EXTREMITIES: +5/5 strength in all extremities, no edema, no swelling, feet pale but +2/4 pedal pulses bilaterally. NEUROLOGICAL: CN III-XII grossly in tact, no focal deficits, PERRLA, speech is slow but not dysarthric, AAOx3, responding appropriately to questions and demands. PSYCHIATRIC: Normal mood and affect. LABORATORY DATA: See below. IMAGING: -CT cervical spine without contrast, 05/01/2020: Impression: 1. Probable significant rotational positioning at C1-C2 although prominent anterior subluxation C2 on C3 could be degenerative or suggest ligamentous injury. Comparison to prior CT cervical spine is recommended which is not submitted. If submitted an addendum can be forwarded. MRI may be considered for further assessment of ligamentous structures for injury or instability. 2. Advanced degenerative changes cervical spine. 3. Multilevel neural foraminal narrowing secondary to degenerative change. 4. Multilevel spinal canal narrowing most prominent extending from C3 through C5-C6 which is most prominent at C4-C5. 5. Markedly limited assessment of the central spinal canal soft tissues. 6. Abnormal pleural based opacity of the superior right chest and right apex. Further follow-up nonemergent CT of the chest may be useful for further definitive assessment. -CT head without contrast, 05/01/2020: Impression: 1. No acute intracranial process. -Portable CXR, 05/01/2020: Impression: 1. Volume loss of the right lung with enlargement of the right remigio. 2. Right mid lung linear scarring or fissural thickening. 3. Right pleural effusion. 4. Interstitial crowding or underlying pulmonary venous congestion which is accentuated compared to previous. 5. Atelectasis left lower lung. MICROBIOLOGY: Please see below. ASSESSMENT: Mr. Brewer is a 75 yo male with a PMHx of lung CA s/p chemotherapy and radiation, CKD stage IIIb, HFpEF s/p mitral and tricuspid valvuloplasty, chronic R pleural effusion, and has a pacemaker, who presented to the ED after falling at home and not being able to get up even with the help of his (his third fall in 3 days), concerning for deconditioning vs polypharmacy vs UTI. PLAN: #. Recent frequent falls most likely 2/2 polypharmacy -Pt was AAOx3 in ED and does not report missing any medications. He takes 300mg Gabapentin QID, 2.5mg clonazepam QHS, 50mg Tramadol PRN BID, and 0.25 alprazolam PRN. -Gabapentin decreased 300mg QD. Holding clonazepam and alprazolam. -Fall precautions. -Bedrest first 24 hrs. -Will speak with pt more extensively about ultimate goals upon discharge to prev ent falls with help from PT. #. Acute renal failure superimposed on CKD stage IIIb -Upon review of records, baseline Cr is 1.4-1.6. Was just seen at [facility] on 04/23/2020 and had a Cr of 1.79. On this admission his Cr was 2.14. -Likely 2/2 to home medication regimen. -Holding all nephrotoxic medications. -We have held home torsemide #. HFpEF s/p pacemaker with previous tricuspid and bicuspid valvuloplasty -not decompensated on exam today -per medical record, last echo was Jun 2017, which showed mild LVH with "grossly" preserved LV systolic function; very high CVP and at least moderate pulm htn -in the setting of his WENDY, home torsemide held -cont home asa #. Asymptomatic UTI -pos UA with pending UCx -denies dysuria or hematuria -reports intermittent chronic urinary incontinence on review -potentially a contributor to recent falls -hemodynamically stable; wbc 14 -s/p 1 dose of rocephin in ed with 1L LR bolus; NS running at 50cc/hr #. Normocytic anemia -repeat cbc ordered for tomorrow morning -continued home po ferrous sulfate #Leukocytosis -wbc 14 -repeat cbc ordered for tomorrow morning -pt has been hemodynamically stable since admission -s/p one dose of rocephin and 1L of LR given in ed; NS running at 50cc/hr -lactate wnl #. Presumed dx of Hypothyroidism -home levothyroxine continued -TSH level ordered to assess for possible thyroid irregularity contributing to recent falls #. Presumed dx of BPH -continue home tamsulosin #. Deconditioning -will discuss with pt regarding goals upon discharge and needs with PT collaboration #. DVT prophylaxis: SC heparin, TEDs and SCDs Disposition: Pending resolution of wendy and deconditioning needs upon dc Vital Signs Vital Signs Date Time Temp Pulse Resp B/P (MAP) Pulse Ox O2 Delivery O2 Flow Rate FiO2 05/01/20 13:20 96.9 05/01/20 13:06 62 18 101/56 (71) 100 Nasal Cannula 2.0 Laboratory Data Labs 24H Laboratory Tests 2 05/01/20 04:22: Immature Granulocyte % (Auto) 1.2, Neutrophils (%) (Auto) 86.8H, Lymphocytes (%) (Auto) 2.7L, Monocytes (%) (Auto) 9.1H, Eosinophils (%) (Auto) 0.0, Basophils (%) (Auto) 0.2, Neutrophils # (Auto) 12.6H, Lymphocytes # (Auto) 0.4L, Monocytes # (Auto) 1.3H, Eosinophils # (Auto) 0.0, Basophils # (Auto) 0.0, Nucleated Red Blood Cells % (auto) 0.0, Urine Color PAM, Urine Appearance CLOUDYH, Urine pH 5.0, Urine Specific [place] 1.011, Urine Protein NEGATIVE, Urine Glucose (UA) N EGATIVE, Urine Ketones NEGATIVE, Urine Blood 1+H, Urine Nitrite NEGATIVE, Urine Bilirubin NEGATIVE, Urine Urobilinogen 2.0H, Urine Leukocyte Esterase 3+H, Urine WBC (Auto) 163H, Urine RBC (Auto) 7H, Urine Hyaline Casts (Auto) 23, Urine Bacteria (Auto) 3+H, Urine Squamous Epithelial Cells 0, Urine Mucus (Auto) SMALL, Urine Sperm (Auto) , Anion Gap 6L, Glomerular Filtration Rate 32.1L, Lactic Acid Level 1.3, Calcium Level 8.3L, Total Bilirubin 1.2H, Direct Bilirubin 0.5H, Aspartate Amino Transf (AST/SGOT) 28, Alanine Aminotransferase (ALT/SGPT) 28, Alkaline Phosphatase 73, Total Creatine Kinase 301, Creatine Kinase MB 2.5, Creatine Kinase MB Relative Index 0.83, Troponin I 0.10, Total Protein 6.7, Albumin 3.3, Albumin/Globulin Ratio 1.0 CBC/BMP Laboratory Tests 05/01/20 04:22 Microbiology Microbiology 05/01/20 Urine Culture, Received Pending 05/01/20 Respiratory Virus Panel (PCR) (OSMAR) - Final, Complete 05/01/20 Blood Culture, Received Pending 05/01/20 Blood Culture, Received Pending Home Medications Scheduled Allopurinol (Allopurinol) 100 Mg Tablet, 200 MG PO DAILY Amiloride HCl (Amiloride HCl) 5 Mg Tab, 15 MG PO DAILY Ascorbic Acid (Vitamin C) 500 Mg Tab, 500 MG PO QHS Aspirin (Aspirin) 325 Mg Tablet, 162.5 MG PO DAILY Clonazepam (Clonazepam) 0.5 Mg Tab, 1 MG PO QHS Clonazepam (Clonazepam) 0.5 Mg Tablet, 0.5 MG PO DAILY LUNCHTIME Ergocalciferol (Vitamin D2) (Vitamin D2) 50,000 Units Cap, 50,000 UNITS PO QWEEK SUNDAYS Ferrous Sulfate (Ferrous Sulfate) 325 Mg Tab, 650 MG PO QHS Gabapentin (Gabapentin) 300 Mg Cap, 300 MG PO DAILY TAKES AFTER LUNCH Gabapentin (Gabapentin) 300 Mg Capsule, 900 MG PO QHS Lactobacillus Acidophilus (Probiotic) 1 Each Capsule, 1 CAP PO QHS Levothyroxine Sodium (Levothyroxine Sodium) 25 Mcg Tab, 25 MCG PO QAM Magnesium Chloride (Nu-Mag) 1 Tab Tab, 2 TAB PO QHS Multivitamins (Thera M Plus Tablet) 1 Each Tablet, 1 TAB PO DAILY Potassium Chloride (Klor-Con M10) 10 Meq Tabcr, 20 MEQ PO QHS Sertraline Hcl (Sertraline HCl) 25 Mg Tab, 25 MG PO DAILY Tamsulosin HCl (Flomax) 0.4 Mg Cap, 0.4 MG PO DAILY TAKES AT NOON Torsemide (Torsemide) 10 Mg Tab, 20 MG PO BID TAKES AM/1600 Scheduled PRN Alprazolam (Alprazolam) 0.25 Mg Tab, 0.25 MG PO QID PRN for ANXIETY Tramadol HCl (Tramadol HCl) 50 Mg Tab, 50 MG PO BIDP PRN for PAIN Allergies Coded Allergies: NSAIDS (Non-Steroidal Anti-Inflamma (Verified Allergy, Unknown, acute kidney injury, 05/01/20) A-FIB/CHADSVASC A-FIB History Current/History of A-Fib/PAF?: No Current PO Anticoag Therapy: No GME ATTESTATION GME ATTESTATION My faculty preceptor for this patient encounter was physically present during the encounter and was fully available. All aspects of the patient interview, examination, medical decision making process, and medical care plan development were reviewed and approved by the faculty preceptor. The faculty preceptor is aware and concurs with the plan as stated in the body of this note and will attest to such by his/her cosignature. MARY RESENDIZ OMS-3 May 01, 2020 16:12
[2020-05-01] MEDS: FERROUS SULFATE 325MG TAB PO SCH ×3 (20:54→22:46)
[2020-05-01] MEDS: ASCORBIC ACID 500 MG TAB PO SCH ×3 (20:54→22:46)
[2020-05-01] MEDS: HEPARIN SOD (PORCINE) 5000UNITS/ML 1ML VIAL/SYRINGE SQ SCH ×3 (20:54→22:46)
[2020-05-01 22:00] VITALS: BP 129/63
[2020-05-01] MEDS ORDERED: GABAPENTIN 300 MG CAP PO ONE (22:30)
--- NOTE | 2020-05-01 22:35 | IPNPDOC ---
Date Seen The patient was seen on 05/01/20. Progress Note INTERIM PROGRESS NOTE I was called around 2200 by nursing to speak to this patient as he was angry and threatening to leave AMA because pain medications are currently being held by primary team due to concern for polypharmacy vs UTI as etiology for recent falls. I explained working diagnosis with patient and plan to hold Clonazepam, Xanax, Tramadol and Gabapentin for further evaluation with PT/OT to assess his stability. The patient reported he has restless leg syndrome and takes these medications to help him sleep at night. He reported to me he is very uncomfortable in his hospital bed and unable to get to sleep. I explained that the risk of repeated falls from oversedation far outweighs the risk of untreated restless legs syndrome, and that there are safer options for the treatment of this condition. Despite this, the patient insisted to be given these medications while hospitalized. I did decide to give him a one time dose of 300mg Gabapentin in order for him to get some sleep. The patient was agreeable to this plan. VS, I&O, 24H, Fishbone Vital Signs/I&O Vital Signs Date Time Temp Pulse Resp B/P (MAP) Pulse Ox O2 Delivery O2 Flow Rate FiO2 05/01/20 14:11 96.7 72 16 93/43 (60) 93 Nasal Cannula 2.0 I&O- Last 24 Hours up to 6 AM 05/01/20 06:00 Intake Total 1000 ml Balance 1000 ml Laboratory Data 24H LABS Laboratory Tests 2 05/01/20 04:22: Immature Granulocyte % (Auto) 1.2, Neutrophils (%) (Auto) 86.8H, Lymphocytes (%) (Auto) 2.7L, Monocytes (%) (Auto) 9.1H, Eosinophils (%) (Auto) 0.0, Basophils (%) (Auto) 0.2, Neutrophils # (Auto) 12.6H, Lymphocytes # (Auto) 0.4L, Monocytes # (Auto) 1.3H, Eosinophils # (Auto) 0.0, Basophils # (Auto) 0.0, Nucleated Red Blood Cells % (auto) 0.0, Urine Color PAM, Urine Appearance CLOUDYH, Urine pH 5.0, Urine Specific [place] 1.011, Urine Protein NEGATIVE, Urine Glucose (UA) NEGATIVE, Urine Ketones NEGATIVE, Urine Blood 1+H, Urine Nitrite NEGATIVE, Urine Bilirubin NEGATIVE, Urine Urobilinogen 2.0H, Urine Leukocyte Esterase 3+H, Urine WBC (Auto) 163H, Urine RBC (Auto) 7H, Urine Hyaline Casts (Auto) 23, Urine Bacteria (Auto) 3+H, Urine Squamous Epithelial Cells 0, Urine Mucus (Auto) SMALL, Urine Sperm (Auto) , Anion Gap 6L, Glomerular Filtration Rate 32.1L, Lactic Acid Level 1.3, Calcium Level 8.3L, Total Bilirubin 1.2H, Direct Bilirubin 0.5H, Aspartate Amino Transf (AST/SGOT) 28, Alanine Aminotransferase (ALT/SGPT) 28, Alkaline Phosphatase 73, Total Creatine Kinase 301, Creatine Kinase MB 2.5, Creatine Kinase MB Relative Index 0.83, Troponin I 0.10, Total Protein 6.7, Albumin 3.3, Albumin/Globulin Ratio 1.0 CBC/BMP Laboratory Tests 05/01/20 04:22 Microbiology Microbiology 05/01/20 Urine Culture, Received Pending 05/01/20 Respiratory Virus Panel (PCR) (OSMAR) - Final, Complete 05/01/20 Blood Culture, Received Pending 05/01/20 Blood Culture, Received Pending LIMA MONTAÑO MD May 01, 2020 22:35
[2020-05-02] MEDS: ACETAMINOPHEN TAB 650MG DOSE (2X325MG) PO PRN (02:07)
[2020-05-02] MEDS: LEVOTHYROXINE 25MCG TABLET (0.025MG) PO SCH (05:31)
[2020-05-02 06:00] VITALS: BP 111/52
[2020-05-02 06:43] LABS: HEMATOCRIT 33.9 % (42.0-52.0); HEMOGLOBIN 11.2 g/dl (13.5-17.5); MEAN CORPUSCULAR HEMOGLOBIN 31.6 pg (27.0-33.0); MEAN CORPUSCULAR VOLUME 95.8 fl (80.0-96.0); RED BLOOD COUNT 3.54 10^6/uL (4.30-6.10); WHITE BLOOD COUNT 8.8 10^3/uL (4.0-10.0)
[2020-05-02 06:51] LABS: PLATELET COUNT, AUTOMATED 96 10^3/uL (150-450)
[2020-05-02 07:25] LABS: ALBUMIN 2.9 GM/DL (3.2-5.2); BILIRUBIN,TOTAL 0.8 MG/DL (0.2-1.0); CALCIUM LEVEL 8.2 MG/DL (8.8-10.2); CREATININE FOR GFR 1.39 MG/DL (0.70-1.30); GLOMERULAR FILTRATION RATE 52.7 (>42); POTASSIUM SERUM 4.1 MEQ/L (3.5-5.1); THYROID STIMULATING HORMONE 4.72 uIU/ML (0.358-3.740); TOTAL PROTEIN 6.1 GM/DL (6.4-8.2)
[2020-05-02] MEDS: SERTRALINE HCL 25 MG TABLET PO SCH (07:45)
[2020-05-02] MEDS: MULTIVITAMINS/MINERALS THERAP 1 TAB PO SCH (07:45)
[2020-05-02] MEDS: NS 1,000 ML IV SCH (07:45)
[2020-05-02] MEDS: ASPIRIN 81 MG CHEW TABLET PO SCH (07:45)
[2020-05-02] MEDS: TAMSULOSIN 0.4 MG CAP PO SCH (07:45)
[2020-05-02] MEDS: HEPARIN SOD (PORCINE) 5000UNITS/ML 1ML VIAL/SYRINGE SQ SCH ×2 (07:46→20:28)
[2020-05-02] MEDS: cefTRIAXone SOD 1 GM in D5W MINI-BAG PLUS 50 ML IV SCH (09:35)
[2020-05-02] MEDS: TORSEMIDE 20 MG TAB PO SCH ×2 (09:36→17:00)
[2020-05-02] MEDS ORDERED: GABAPENTIN 300 MG CAP PO SCH ×2 (13:00→21:00)
[2020-05-02 14:00] VITALS: BP 110/50
--- NOTE | 2020-05-02 19:41 | IPNPDOC ---
Subjective Date Seen The patient was seen on 05/02/20. Subjective Chief Complaint/HPI Mr. Brewer is a 75 year old male with neuropathy, CKD stage 3, and BPH here with frequent falls. Last night, he was upset about his Gabapentin and Clonazepam completely being held. He had difficulty sleeping because of the burning pain. He has been chronically taking these medications and been following up with nephrology about his renal function. We spoke about as we aged, we do slowly lose the ability to clear metabolites and toxins. He was agreeable to cut back on the Clonazepam from twice a day to once at bed time. Otherwise spoke with orthopedics regarding cervical ligamentous injury. He has a history of neck injury in the past when he lifted something heavier than expected, but had multiple falls before coming in. No neck pain, no arm weakness, no neuropathy in his arms. Spoke with ortho who recommended MRI. Unable to do MRI due to pacemaker. Ortho found old CT from 2007 which looked similar. Okay to d/c bed rest. If starts to have pain, they recommend reconsulting ortho again Constitutional: Denies: Chills, Fever Eyes: Denies: Vision change ENT: Denies: Head Aches Pulmonary: Denies: Dyspnea Gastrointestinal: Denies: Nausea, Abdominal Pain, Diarrhea, Constipation Genitourinary: Denies: Dysuria Musculoskeletal: Denies: Neck Pain Neurological: Reports: Other Symptoms (Neruopathy); Denies: Weakness Objective Physical Examination General Exam: Positive: Alert, Cooperative, No Acute Distress Eye Exam: Positive: EOMI; Negative: Sclera icteric ENT Exam: Positive: Mucous membr. moist/pink Neck Exam: Positive: Other (No neck tenderness) Chest Exam: Positive: Clear to auscultation Heart Exam: Positive: Rate Normal, Regular Rhythm Abdomen Exam: Positive: Normal bowel sounds, Soft; Negative: Tenderness Extremity Exam: Negative: Edema Neuro Exam: Positive: Normal Speech, Cranial Nerves 3-12 NL Psych Exam: Positive: Mental status NL, Mood NL Assessment /Plan Assessment Mr. Brewer is a 75 year old male with neuropathy, CKD stage 3, and BPH here with frequent falls. His gabapentin has controlled his neuropathy and has requested to stay on the gabapentin. He is okay with cutting back on the Clonazepam from twice a day to before bedtime. Holding PRN tramadol and PRN Ativan. His frequent falls may be secondary to polypharmacy vs UTI. Physical therapy working with patient on balance and ambulation Plan/VTE VTE Prophylaxis Ordered?: Yes Plan 1. Acute kidney injury on CKD -Unknown baseline. 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 Torsemide may cause WENDY, but may be required to keep him compensated from a CHF standpoint. He should continue following his inspector bullet slugs to maintain this balance between kidneys and heart/lung 2. Frequent falls -Secondary to polypharmacy vs UTI -Reduced his medications to necessary medication (Gabapentin and evening dose of Clonazepam) -Holding PRN Tramadol and PRN Ativan -Working with physical therapy 3. Pyuria -Possible UTI causing metabolic encephalopathy causing falls -Will treat at this time. Pending culture results 4. Leukocytosis -Unknown etiology -Resolved today -Continue to monitor 5. Normocytic anemia -Continue to monitor 6. Hypothyroidism -Continue levothyroxine 7. BPH -Continue tamsulosin -Will check orthostatic vitals tomorrow morning, can also cause falls 8. Depression/Anxiety -Continue sertraline and qHS clonazepam -Holding PRN Ativan 9. DVT ppx -SCD and TEDs VS, I&O, 24H, Fishbone Vital Signs/I&O Vital Signs Date Time Temp Pulse Resp B/P (MAP) Pulse Ox O2 Delivery O2 Flow Rate FiO2 05/02/20 14:00 98.2 60 18 110/50 (70) 98 Nasal Cannula 2.0 I&O- Last 24 Hours up to 6 AM 05/02/20 06:00 Intake Total 1060 ml Output Total 1100 ml Balance -40 ml Laboratory Data 24H LABS Laboratory Tests 2 05/02/20 06:11: Nucleated Red Blood Cells % (auto) 0.0, Immature Platelet Fraction 5.2, Anion Gap 6L, Glomerular Filtration Rate 52.7, Calcium Level 8.2L, Total Bilirubin 0.8, Aspartate Amino Transf (AST/SGOT) 72H, Alanine Aminotransferase (ALT/SGPT) 56, Alkaline Phosphatase 78, Total Protein 6.1L, Albumin 2.9L, Albumin/Globulin Ratio 0.9, Thyroid Stimulating Hormone (TSH) 4.720H CBC/BMP Laboratory Tests 05/02/20 06:11 Microbiology Microbiology 05/01/20 Urine Culture, Received Pending 05/01/20 Respiratory Virus Panel (PCR) (OSMAR) - Final, Complete 05/01/20 Blood Culture - Preliminary, Resulted No growth after 24 hours . All specim... 05/01/20 Blood Culture - Preliminary, Resulted No growth after 24 hours . All specim... NATALIYA PARRISH DO May 02, 2020 19:41
[2020-05-02] MEDS: FERROUS SULFATE 325MG TAB PO SCH (20:27)
[2020-05-02] MEDS: ASCORBIC ACID 500 MG TAB PO SCH (20:27)
[2020-05-02] MEDS ORDERED: clonazePAM 0.5 MG TAB PO SCH (21:00)
[2020-05-02] MEDS ORDERED: LACTOBACILLUS ACIDOPHILUS CAP (BACID) PO SCH (21:00)
[2020-05-02 22:00] VITALS: BP 119/56
[2020-05-03] MEDS: ACETAMINOPHEN TAB 650MG DOSE (2X325MG) PO PRN (01:34)
[2020-05-03] MEDS: NS 1,000 ML IV SCH (04:15)
[2020-05-03] MEDS: LEVOTHYROXINE 25MCG TABLET (0.025MG) PO SCH (05:45)
[2020-05-03 06:00] VITALS: BP_SYST 118; BP_SYST 119; BP_SYST 123; BP_DIAS 57; BP_DIAS 58; BP_DIAS 59
[2020-05-03 06:12] LABS: HEMATOCRIT 32.3 % (42.0-52.0); HEMOGLOBIN 10.5 g/dl (13.5-17.5); MEAN CORPUSCULAR HEMOGLOBIN 31.1 pg (27.0-33.0); MEAN CORPUSCULAR HGB CONC 32.5 g/dl (32.0-36.5); MEAN CORPUSCULAR VOLUME 95.6 fl (80.0-96.0); PLATELET COUNT, AUTOMATED 101 10^3/uL (150-450); RED BLOOD COUNT 3.38 10^6/uL (4.30-6.10); WHITE BLOOD COUNT 5.8 10^3/uL (4.0-10.0)
[2020-05-03 06:27] LABS: CREATININE FOR GFR 1.49 MG/DL (0.70-1.30); GLOMERULAR FILTRATION RATE 48.7 (>42); POTASSIUM SERUM 3.6 MEQ/L (3.5-5.1)
[2020-05-03] MEDS: ASPIRIN 81 MG CHEW TABLET PO SCH (08:48)
[2020-05-03] MEDS: SERTRALINE HCL 25 MG TABLET PO SCH (08:49)
[2020-05-03] MEDS: TORSEMIDE 20 MG TAB PO SCH (08:49)
[2020-05-03] MEDS: cefTRIAXone SOD 1 GM in D5W MINI-BAG PLUS 50 ML IV SCH (08:49)
[2020-05-03] MEDS: MULTIVITAMINS/MINERALS THERAP 1 TAB PO SCH (08:49)
[2020-05-03] MEDS: TAMSULOSIN 0.4 MG CAP PO SCH (08:49)
[2020-05-03] MEDS: HEPARIN SOD (PORCINE) 5000UNITS/ML 1ML VIAL/SYRINGE SQ SCH (08:50)
[2020-05-03] MEDS ORDERED: VITAMIN D 50,000 UNITS CAPSULE (ERGOCALCIFEROL 1.25MG) PO SCH (09:00)
[2020-05-03] MEDS ORDERED: TORS10TA3 PO (10:19)
[2020-05-03] MEDS ORDERED: ACET1TAB55 PO (10:19)
[2020-05-03] MEDS ORDERED: CEFD1CAP8 PO (10:19)
--- NOTE | 2020-05-03 18:58 | DS.PDOC ---
Discharge Summary General Date of Admission May 01, 2020 at 08:49 Date of Discharge May 03, 2020 Attending Physician: NATALIYA PARRISH DO Discharge Summary PROCEDURES PERFORMED DURING STAY: None. ADMITTING DIAGNOSES: 1. Frequent falls 2. Polypharmacy 3. UTI 4. Acute renal failure on chronic kidney disease stage IIIB 5. Heart failure preserved ejection fraction 6. Pacemaker placement 7. Normocytic anemia 8. Leukocytosis 9. Hypothyroidism 10. BPH DISCHARGE DIAGNOSES: 1. Frequent falls 2. Polypharmacy 3. Klebsiella UTI 4. Acute renal failure on chronic kidney disease stage IIIB 5. Heart failure preserved ejection fraction 6. Pacemaker placement 7. Normocytic anemia 8. Leukocytosis 9. Hypothyroidism 10. BPH 11. Depression/anxiety 12. Neuropathy 13. Insomnia COMPLICATIONS/CHIEF COMPLAINT: FALL. HISTORY OF PRESENT ILLNESS: Mr. Brewer is a 75-year-old male with neuropathy, insomnia, anxiety, and chronic kidney disease who presents to [facility] for frequent falls. He started falling about 3 days ago. One fall was on the concrete in the garage. The other 2 falls were on the rugs in the bathroom floor. He denied any dizziness or weakness before the falls. Denied tripping over objects. The first 2 times he fell, his is able to help him get up. The last time he fell he cannot get up and subsequently the called 911. The patient was brought into the ED. CT head did not demonstrate any ICH. Patient was admitted for frequent falls HOSPITAL COURSE: It was thought that polypharmacy was the cause for his frequent falls. He was on gabapentin 300 mg at lunch and 900 mg at bedtime. He was taking clonazepam 0.5 mg at lunch and at bedtime. He was on Ativan as needed as well as tramadol as needed. In addition, he had acute kidney injury. Amiloride and torsemide was held for the renal function. Gabapentin, clonazepam, Ativan, and tramadol was held due to the falls. Since the gabapentin was held, he had neuropathy at night, and had difficulty sleeping. The next day I saw the patient. We discussed that as we age, our kidneys and liver function decline. He understood. We restarted the gabapentin and bedtime clonazepam. Since his renal function improved, restarted torsemide. Continued to hold amiloride due to low blood pressure. The following day, he felt better. After holding most of his benzos, he realized that he was more awake. He told me that in the past he would take all his medications, and feel sleepy for most of the day. Now that we've held some of his medications, he does not need that naps that frequently. He used to attribute his lethargy to old age. Now, he sees that it may be related to medication and that he does not need as many medications. Otherwise, his urine culture grew Klebsiella which was only resistant to ampicillin. He had about 3 days of ceftriaxone. We'll give him 4 more days of Cefdinir to complete a 7 day course of antibiotics for complicated UTI. He worked with physical therapy. Physical therapy recommended home physical therapy. I did touch base with orthopedic surgery about a CT cervical spine. Orthopedic surgery says similar to prior CT in 2007. Just monitor for now. Today he felt well. He denied any fever or chills, lightheadedness or dizziness, chest pain, dyspnea, abdominal pain, dysuria. He felt ready for home and was subsequently discharged home with home health. DISCHARGE MEDICATIONS: Please see below. ALLERGIES: Please see below. PHYSICAL EXAMINATION ON DISCHARGE: VITAL SIGNS: Please see below. GENERAL: Comfortable, in no apparent distress. HEENT: Head normocephalic/atraumatic, EOMI, sclera clear. NECK: Supple RESPIRATORY: Lungs clear to auscultation bilaterally, no rales, wheeze or rhonchi. CARDIOVASCULAR: Regular rate and rhythm. ABDOMEN: Soft, nontender, no guarding or rebound tenderness. Normal bowel sounds. MUSCLE SKELETAL: Muscle strength 5/5 in all extremities. NEUROLOGICAL: CN 312 grossly intact, no focal deficits noted. PSYCHOLOGICAL: Normal mood and affect LABORATORY DATA: Please see below. IMAGING: CT cervical spine 1. Probable significant rotational positioning at C1-C2 although prominent anterior subluxation C2 on C3 could be degenerative or suggest ligamentous injury. Comparison to prior CT cervical spine is recommended which is not submitted. If submitted an addendum can be forwarded. MRI may be considered for further assessment of ligamentous structures for injury or instability. 2. Advanced degenerative changes cervical spine. 3. Multilevel neural foraminal narrowing secondary to degenerative change. 4. Multilevel spinal canal narrowing most prominent extending from C3 through C5-C6 which is most prominent at C4-C5. 5. Markedly limited assessment of the central spinal canal soft tissues. 6. Abnormal pleural based opacity of the superior right chest and right apex. Further follow-up nonemergent CT of the chest may be useful for further definitive assessment. CT head 1. No acute intracranial process. PROGNOSIS: Stable ACTIVITY: As tolerated. DIET: Regular DISCHARGE PLAN: Home with home services DISPOSITION: Home Health Service. DISCHARGE INSTRUCTIONS: 1. Follow-up with your PCP within one week. 2. Follow-up with your brazer induction within 1 week 3. Discontinue Ativan, tramadol, and noon dose of clonazepam 4. Discontinue Amiloride, measure your blood pressure at home and bring to your PCP 5. Continue taking antibiotic until completion DISCHARGE CONDITION: Stable. Total time spent on discharge planning, discharge summary, and med reconciliation 45 minutes Vital Signs/I&Os Vital Signs Date Time Temp Pulse Resp B/P (MAP) Pulse Ox O2 Delivery O2 Flow Rate FiO2 05/03/20 09:00 2.0 05/03/20 06:00 68 118/58 (78) 63 119/58 (78) 62 123/59 (80) 05/03/20 06:00 98.7 18 96 Nasal Cannula I&O- Last 24 Hours up to 6 AM 05/03/20 06:00 Intake Total 1780 ml Output Total 750 ml Balance 1030 ml Laboratory Data Labs 24H Laboratory Tests 2 05/03/20 05:36: Nucleated Red Blood Cells % (auto) 0.0, Anion Gap 5L, Glomerular Filtration Rate 48.7, Calcium Level 8.0L CBC/BMP Laboratory Tests 05/03/20 05:36 Microbiology Microbiology 05/01/20 Urine Culture - Final, Complete Klebsiella Oxytoca 05/01/20 Respiratory Virus Panel (PCR) (OSMAR) - Final, Complete 05/01/20 Blood Culture - Preliminary, Resulted No Growth after 48 hours. All Specime... 05/01/20 Blood Culture - Preliminary, Resulted No Growth after 48 hours. All Specime... Discharge Medications Scheduled Allopurinol (Allopurinol) 100 Mg Tablet, 200 MG PO DAILY, (Reported) Ascorbic Acid (Vitamin C) 500 Mg Tab, 500 MG PO QHS, (Reported) Aspirin (Aspirin) 325 Mg Tablet, 162.5 MG PO DAILY, (Reported) Cefdinir (Cefdinir) 300 Mg Capsule, 300 MG PO BID Start taking on 05/04/2020 Clonazepam (Clonazepam) 0.5 Mg Tab, 1 MG PO QHS, (Reported) Ergocalciferol (Vitamin D2) (Vitamin D2) 50,000 Units Cap, 50,000 UNITS PO QWEEK, (Reported) SUNDAYS Ferrous Sulfate (Ferrous Sulfate) 325 Mg Tab, 650 MG PO QHS, (Reported) Gabapentin (Gabapentin) 300 Mg Cap, 300 MG PO DAILY, (Reported) TAKES AFTER LUNCH Gabapentin (Gabapentin) 300 Mg Capsule, 900 MG PO QHS, (Reported) Lactobacillus Acidophilus (Probiotic) 1 Each Capsule, 1 CAP PO QHS, (Reported) Levothyroxine Sodium (Levothyroxine Sodium) 25 Mcg Tab, 25 MCG PO QAM, (Reported) Magnesium Chloride (Nu-Mag) 1 Tab Tab, 2 TAB PO QHS, (Reported) Multivitamins (Thera M Plus Tablet) 1 Each Tablet, 1 TAB PO DAILY, (Reported) Potassium Chloride (Klor-Con M10) 10 Meq Tabcr, 20 MEQ PO QHS, (Reported) Sertraline Hcl (Sertraline HCl) 25 Mg Tab, 25 MG PO DAILY, (Reported) Tamsulosin HCl (Flomax) 0.4 Mg Cap, 0.4 MG PO DAILY, (Reported) TAKES AT NOON Torsemide (Torsemide) 10 Mg Tab, 20 MG PO DAILY TAKES AM/1600 Scheduled PRN Acetaminophen (Acetaminophen) 325 Mg Tablet, 650 MG PO Q6HP PRN for PAIN OR FEVER Allergies Coded Allergies: NSAIDS (Non-Steroidal Anti-Inflamma (Verified Allergy, Unknown, acute kidney injury, 05/01/20) NATALIYA PARRISH DO May 03, 2020 18:58
[2020-05-04] MEDS ORDERED: TORSEMIDE 20 MG TAB PO SCH (09:00)
== END 2020-05-03 12:30 | disposition home health service (06) | DRG 92 ==
LOC: M ED 03:57 → M ED INP 08:49 → ENRESERV 12:50 → M MSPAV 14:20
PROVIDERS: ADMIT Internal Medicine; ATTEND Internal Medicine
DX: R29.6 Repeated falls (principal); N39.0 Urinary tract infection, site not specified; N17.9 Acute kidney failure, unspecified; I50.32 Chronic diastolic (congestive) heart failure; N18.32 Chronic kidney disease, stage 3b; E03.9 Hypothyroidism, unspecified; N40.0 Benign prostatic hyperplasia without lower urinary tract symptoms; Z95.0 Presence of cardiac pacemaker; D72.829 Elevated white blood cell count, unspecified; G47.00 Insomnia, unspecified; F41.9 Anxiety disorder, unspecified; F32.9 Major depressive disorder, single episode, unspecified; G62.9 Polyneuropathy, unspecified; D64.9 Anemia, unspecified; B96.1 Klebsiella pneumoniae [K. pneumoniae] as the cause of diseases classified elsewhere; Z79.899 Other long term (current) drug therapy; Z79.82 Long term (current) use of aspirin; Z88.6 Allergy status to analgesic agent; Z85.118 Personal history of other malignant neoplasm of bronchus and lung; Z85.828 Personal history of other malignant neoplasm of skin; Z87.891 Personal history of nicotine dependence

== ENCOUNTER 2020-05-25 08:35 | Emergency (ER) | payer MEDICARE, OTHER ==
[~2020-05-25] VITALS: Ht 177.8 cm; Wt 97.8 kg
[~2020-05-25 08:35] MED LIST changes: +ACET1TAB55 PO; +ALLO100T PO; +BAYE325T12 PO; +PROBCAP14 PO; +VITA50005 PO
[2020-05-25] MEDS ORDERED: ACETAMINOPHEN 500 MG TAB PO ONE (09:00)
[2020-05-25] MEDS ORDERED: methylPREDNISolone 125MG 2ML VIAL IV ONE (09:00)
[2020-05-25] MEDS: COMBIVENT RESPIMAT 100-20MCG INHALER 4GM INH SCH ×3 (09:31→10:20)
[2020-05-25 09:45] LABS: BASO % 0.2 % (0.0-1.0); HEMATOCRIT 38.9 % (42.0-52.0); HEMOGLOBIN 12.3 g/dl (13.5-17.5); LYMPH # 0.2 10^3/uL (1.5-5.0); LYMPH % 3.6 % (24.0-44.0); MEAN CORPUSCULAR HEMOGLOBIN 31.2 pg (27.0-33.0); MEAN CORPUSCULAR HGB CONC 31.6 g/dl (32.0-36.5); MEAN CORPUSCULAR VOLUME 98.7 fl (80.0-96.0); MONO # 0.6 10^3/uL (0.0-0.8); NEUTROPHILS # 5.1 10^3/uL (1.5-8.5); NEUTROPHILS % 85.5 % (36.0-66.0); PLATELET COUNT, AUTOMATED 107 10^3/uL (150-450); RED BLOOD COUNT 3.94 10^6/uL (4.30-6.10); WHITE BLOOD COUNT 5.9 10^3/uL (4.0-10.0)
--- NOTE | 2020-05-25 09:53 | REP ---
INDICATION: dyspnea. COMPARISON: Comparison chest x-ray May 01, 2020.. TECHNIQUE: Two views. FINDINGS: Patient is status post median sternotomy and cardiac valve replacement. A multilead pacemaker is noted in the right heart view of the left side. Monitoring electrodes are present. Right hemidiaphragm is slightly elevated unchanged. There is pleuroparenchymal fibrosis in the right mid lung field unchanged. Some volume loss is noted in the right hemithorax as before. Apical pleural thickening is noted on the right unchanged. Pulmonary vasculature is somewhat congested. Heart is not felt to be enlarged. No acute bony abnormality. IMPRESSION: Prior sternotomy and valve replacement. Stable pleuroparenchymal fibrotic changes on the right. Pulmonary vascular congestion. Pacemaker. <Electronically signed by Nestor Foreman > 05/25/20 0949
[2020-05-25] MEDS ORDERED: AMIL5TAB4 PO (10:23)
[2020-05-25] MEDS ORDERED: ROPI1TAB3 PO (10:23)
[2020-05-25] MEDS ORDERED: ALPR0.25 PO (10:23)
[2020-05-25 10:29] LABS: ALBUMIN 3.2 GM/DL (3.2-5.2); BILIRUBIN,DIRECT 0.5 MG/DL (0.0-0.2); C REACTIVE PROTEIN QUANTITATIV 11.3 MG/DL (0.00-0.30); CALCIUM LEVEL 8.2 MG/DL (8.8-10.2); CK-MB VALUE MASS 4.3 NG/ML (<3.6); CREATININE FOR GFR 2.65 MG/DL (0.70-1.30); GLOMERULAR FILTRATION RATE 25.1 (>42); MB/CK RELATIVE INDEX 2.49 (< OR =4); POTASSIUM SERUM 3.6 MEQ/L (3.5-5.1); THYROID STIMULATING HORMONE 2.5 uIU/ML (0.358-3.740); TOTAL PROTEIN 7.4 GM/DL (6.4-8.2); TROPONIN I 0.78 NG/ML (< 0.10)
[2020-05-25] MEDS ORDERED: HEPARIN DRIP 25,000 UNITS in IV 1 EA IV SCH (10:39)
[2020-05-25] MEDS ORDERED: NITROGLYCERIN 0.4 MG SUBL TABLET SL PRN (10:45)
[2020-05-25] MEDS ORDERED: HEPARIN SOD (PORCINE) 5000UNITS/ML 1ML VIAL/SYRINGE IV ONE (10:45)
[2020-05-25] MEDS ORDERED: MORPHINE 2 MG/ML 1ML VIAL (J2270) IV PRN (10:45)
[2020-05-25] MEDS ORDERED: ASPIRIN 81 MG CHEW TABLET PO ONE (10:45)
[2020-05-25] MEDS ORDERED: HEPARIN 25,000 UNITS/250 ML D5W BAG (100 UNITS/ML) (J1644 PER 1000UNITS) As Ordered ONE (11:04)
[2020-05-25 11:06] LABS: INR 1.44; PROTHROMBIN TIME 17.9 SECONDS (12.5-14.3)
[2020-05-25 11:07] LABS: PARTIAL THROMBOPLASTIN TIME 35.1 SECONDS (24.2-38.5)
[2020-05-25 12:02] VITALS: BP 142/76
--- NOTE | 2020-05-26 09:15 | ECGEPIP ---
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
== END 2020-05-25 12:05 | disposition short-term general hospital (02) ==
LOC: M ED 08:35
DX: I21.4 Non-ST elevation (NSTEMI) myocardial infarction (principal); B34.8 Other viral infections of unspecified site; I50.32 Chronic diastolic (congestive) heart failure; N18.30 Chronic kidney disease, stage 3 unspecified; E03.9 Hypothyroidism, unspecified; Z95.0 Presence of cardiac pacemaker; Z95.4 Presence of other heart-valve replacement; F41.9 Anxiety disorder, unspecified; F33.9 Major depressive disorder, recurrent, unspecified; N40.0 Benign prostatic hyperplasia without lower urinary tract symptoms; Z79.899 Other long term (current) drug therapy; Z79.82 Long term (current) use of aspirin
CPT/HCPCS: 71045; 80048; 80076; 82550; 82553; 83605; 83880; 84145; 84443; 84484; 85025; 85610; 85730; 86140; 87040; 87077; 87186; 87486; 87581; 87633; 87798; 93005; 93041; 94640; 94760; 96365; 96375; 99285; J1644; J2930

== ENCOUNTER → 2020-06-04 | Outpatient (REF) | payer MEDICARE, OTHER ==
[2020-06-04 16:31] LABS: EOSINOPHILS 2 % (0-3); LYMPHOCYTES 5 % (16-44); METAMYELOCYTES 1 % (0-0); MONOCYTES 6 % (0-5); NEUTROPHILS 82 % (28-66); PLATELET ESTIMATE NORMAL (NORMAL)
[2020-06-04 16:32] LABS: ANISOCYTOSIS 1+; HYPOCHROMASIA 1+; POIKILOCYTOSIS 1+
== END ==
LOC: M LAB REF 16:06
PROVIDERS: ATTEND Internal Medicine
DX: D72.9 Disorder of white blood cells, unspecified (principal)

== ENCOUNTER → 2020-07-02 | Outpatient (REF) | payer MEDICARE, OTHER | LOC: M LAB REF 16:37 | PROVIDERS: ATTEND Surgery | DX: D48.5 Neoplasm of uncertain behavior of skin (principal) ==

== ENCOUNTER → 2020-07-29 | Outpatient (CLI) | payer MEDICARE, OTHER ==
--- NOTE | 2020-07-29 12:16 | REP ---
INDICATION: RASH AND NONSPECIFIC SKIN ERUPTION; LABS 1ST XR 2ND COMPARISON: 05/25/2020 TECHNIQUE: PA and lateral. FINDINGS: Pleuroparenchymal changes involving the right hemithorax noted with superimposed right lower lobe infiltrate. Left hemithorax is relatively stable/clear. Mediastinum is stable. Skeletal structures are intact. IMPRESSION: Stable chronic changes with superimposed right lower lobe infiltrate and effusion compatible with pneumonia. <Electronically signed by Panda Arnold > 07/29/20 1216
[2020-07-29 12:21] LABS: BASO % 0.4 % (0.0-1.0); EOS # 0.2 10^3/uL (0.0-0.5); EOS % 3.9 % (0.0-3.0); HEMATOCRIT 38.8 % (42.0-52.0); HEMOGLOBIN 12.5 g/dl (13.5-17.5); LYMPH # 0.6 10^3/uL (1.5-5.0); LYMPH % 13.7 % (24.0-44.0); MEAN CORPUSCULAR HEMOGLOBIN 30.9 pg (27.0-33.0); MEAN CORPUSCULAR HGB CONC 32.2 g/dl (32.0-36.5); MEAN CORPUSCULAR VOLUME 95.8 fl (80.0-96.0); MONO # 0.6 10^3/uL (0.0-0.8); NEUTROPHILS # 3.2 10^3/uL (1.5-8.5); NEUTROPHILS % 69.8 % (36.0-66.0); PLATELET COUNT, AUTOMATED 148 10^3/uL (150-450); RED BLOOD COUNT 4.05 10^6/uL (4.30-6.10); WHITE BLOOD COUNT 4.6 10^3/uL (4.0-10.0)
[2020-07-29 12:42] LABS: ALBUMIN 3.7 GM/DL (3.2-5.2); CALCIUM LEVEL 8.9 MG/DL (8.8-10.2); CREATININE FOR GFR 1.45 MG/DL (0.70-1.30); GLOMERULAR FILTRATION RATE 50.2 (>42); POTASSIUM SERUM 3.5 MEQ/L (3.5-5.1); TOTAL PROTEIN 7.1 GM/DL (6.4-8.2)
== END ==
LOC: M LAB 11:25
PROVIDERS: ATTEND Physician Assistant
DX: R21 Rash and other nonspecific skin eruption (principal); R91.8 Other nonspecific abnormal finding of lung field

== ENCOUNTER → 2020-08-05 | Outpatient (CLI) | payer MEDICARE, OTHER ==
[~2020-08-05] MED LIST changes: +GABA-282 PO; -GABA-843 PO
[2020-08-05 14:55] LABS: FREE T4 1.01 NG/DL (0.76-1.46); THYROID STIMULATING HORMONE 3.76 uIU/ML (0.358-3.740)
== END ==
LOC: M LAB 13:29
PROVIDERS: ATTEND Dermatology
DX: C84.A0 Cutaneous T-cell lymphoma, unspecified, unspecified site (principal); Z79.899 Other long term (current) drug therapy
CPT/HCPCS: 36415; 84439; 84443; 88300; G0463

== ENCOUNTER 2020-08-28 13:00 | Outpatient (RCR) | payer MEDICARE, OTHER | END 2020-08-30 | LOC: M PT 13:00 | PROVIDERS: ATTEND Dermatology | DX: Z51.89 Encounter for other specified aftercare (principal); C84.A0 Cutaneous T-cell lymphoma, unspecified, unspecified site ==

== ENCOUNTER 2020-09-25 12:58 | Outpatient (RCR) | payer MEDICARE, OTHER | END 2020-09-27 | LOC: M PT 12:58 | PROVIDERS: ATTEND Dermatology | DX: C84.A0 Cutaneous T-cell lymphoma, unspecified, unspecified site (principal) ==

== ENCOUNTER → 2020-10-28 | Outpatient (RCR) | payer MEDICARE, OTHER | LOC: M PT 09-28 12:56 | PROVIDERS: ATTEND Dermatology | DX: C84.A0 Cutaneous T-cell lymphoma, unspecified, unspecified site (principal) ==

== ENCOUNTER → 2020-11-18 | Outpatient (CLI) | payer MEDICARE, OTHER ==
[2020-11-18 14:35] LABS: HEMATOCRIT 39.9 % (42.0-52.0); HEMOGLOBIN 12.9 g/dl (13.5-17.5); MEAN CORPUSCULAR HEMOGLOBIN 30.5 pg (27.0-33.0); MEAN CORPUSCULAR HGB CONC 32.3 g/dl (32.0-36.5); MEAN CORPUSCULAR VOLUME 94.3 fl (80.0-96.0); PLATELET COUNT, AUTOMATED 130 10^3/uL (150-450); RED BLOOD COUNT 4.23 10^6/uL (4.30-6.10); WHITE BLOOD COUNT 5.1 10^3/uL (4.0-10.0)
[2020-11-18 15:00] LABS: CALCIUM LEVEL 8.8 MG/DL (8.8-10.2); CREATININE FOR GFR 1.44 MG/DL (0.70-1.30); GLOMERULAR FILTRATION RATE 50.6 (>42); POTASSIUM SERUM 4.2 MEQ/L (3.5-5.1)
== END ==
LOC: M LAB 14:05
PROVIDERS: ATTEND Internal Medicine Cardiovascular Disease
DX: I50.9 Heart failure, unspecified (principal); I47.1 Supraventricular tachycardia; I50.814 Right heart failure due to left heart failure

== ENCOUNTER → 2020-11-27 | Outpatient (RCR) | payer MEDICARE, OTHER | LOC: M PT 10-30 12:57 | PROVIDERS: ATTEND Dermatology | DX: C84.A0 Cutaneous T-cell lymphoma, unspecified, unspecified site (principal) ==

== ENCOUNTER 2020-12-23 12:59 | Outpatient (RCR) | payer MEDICARE, OTHER | END 2020-12-28 | LOC: M PT 12:59 | PROVIDERS: ATTEND Dermatology | DX: C84.A0 Cutaneous T-cell lymphoma, unspecified, unspecified site (principal) ==

== ENCOUNTER 2021-01-25 12:58 | Outpatient (RCR) | payer MEDICARE, OTHER ==
[~2021-01-25 12:58] MED LIST changes: +ERGO500029 PO; -VITA50005 PO
== END 2021-01-27 ==
LOC: M PT 12:58
PROVIDERS: ATTEND Dermatology
DX: C84.A0 Cutaneous T-cell lymphoma, unspecified, unspecified site (principal)

== ENCOUNTER 2021-02-23 10:00 | Outpatient (RCR) | payer MEDICARE, OTHER ==
[~2021-02-23 10:00] MED LIST changes: -CEFD1CAP8 PO; +CEFD300C41 PO; -KLOR10TA76 PO; -KLOR20TA42 PO; +LOSA25TA13 PO; -LOSA25TA14 PO; +POTA-136 PO; +POTA-141 PO
[2021-02-27] MEDS ORDERED: SYNT50TA PO (18:16)
[2021-02-27] MEDS ORDERED: TORS10TA3 PO (18:16)
[2021-02-27] MEDS ORDERED: TRAM50TA2 PO (18:16)
[2021-02-27] MEDS ORDERED: PREDOPD OS (18:16)
[2021-02-27] MEDS ORDERED: POTA1TAB23 PO (18:16)
[2021-02-27] MEDS ORDERED: HYDR-643 PO (18:16)
[2021-02-27] MEDS ORDERED: GENT0.3S29 OS (18:16)
== END 2021-02-27 ==
LOC: M PT 10:00
PROVIDERS: ATTEND Dermatology
DX: R26.89 Other abnormalities of gait and mobility (principal)

== ENCOUNTER 2021-02-27 13:51 | Inpatient (IN) | payer MEDICARE, OTHER ==
[~2021-02-27] VITALS: Ht 175.3 cm; Wt 78.7 kg
[2021-02-27] MEDS: TAMSULOSIN 0.4 MG CAP PO SCH (09:00)
[2021-02-27] MEDS: allopurinoL 100 MG TAB PO SCH (09:00)
[~2021-02-27 13:51] MED LIST changes: +CEFD1CAP8 PO; -CEFD300C41 PO; +KLOR10TA76 PO; +KLOR20TA42 PO; -LOSA25TA13 PO; +LOSA25TA14 PO; -POTA-136 PO; -POTA-141 PO
--- NOTE | 2021-02-27 14:33 | ECGEPIP ---
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
[2021-02-27 14:41] LABS: BASO % 0.2 % (0.0-1.0); EOS % 0.2 % (0.0-3.0); HEMATOCRIT 36.4 % (42.0-52.0); LYMPH # 0.3 10^3/uL (1.5-5.0); LYMPH % 2.3 % (24.0-44.0); MEAN CORPUSCULAR HEMOGLOBIN 30.4 pg (27.0-33.0); MEAN CORPUSCULAR VOLUME 92.2 fl (80.0-96.0); MONO # 0.9 10^3/uL (0.0-0.8); MONO % 7.8 % (2.0-8.0); NEUTROPHILS # 9.9 10^3/uL (1.5-8.5); PLATELET COUNT, AUTOMATED 106 10^3/uL (150-450); RED BLOOD COUNT 3.95 10^6/uL (4.30-6.10); WHITE BLOOD COUNT 11.2 10^3/uL (4.0-10.0)
[2021-02-27 15:07] LABS: ALBUMIN 3.5 GM/DL (3.2-5.2); BILIRUBIN,TOTAL 1.1 MG/DL (0.2-1.0); CALCIUM LEVEL 8.5 MG/DL (8.8-10.2); CREATININE FOR GFR 1.55 MG/DL (0.70-1.30); GLOMERULAR FILTRATION RATE 46.4 (>42); POTASSIUM SERUM 3.5 MEQ/L (3.5-5.1); TOTAL PROTEIN 6.3 GM/DL (6.4-8.2)
[2021-02-27 15:15] LABS: FREE THYROXINE INDEX 3.2 % (1.4-3.8); MAGNESIUM LEVEL 1.7 MG/DL (1.8-2.4); THYROID STIMULATING HORMONE 2.1 uIU/ML (0.358-3.740)
[2021-02-27 15:52] LABS: RSV AMPLIFICATION NEGATIVE (NEGATIVE)
--- NOTE | 2021-02-27 16:08 | REP ---
INDICATION: fever. COMPARISON: PA and lateral chest, 07/29/2020. TECHNIQUE: AP portable chest was performed. FINDINGS: There is cardiomegaly, pulmonary venous hypertension and pulmonary interstitial edema consistent with congestive heart failure. There is a mitral valve prosthesis. Status post CABG surgery. There is a dual lead pacemaker. There is an epicardial pacemaker wire. There is a large partially loculated right pleural effusion. There is compressive atelectasis of the adjacent lung. There is a pacemaker device in the left upper chest wall. Status post median sternotomy. IMPRESSION: 1. Congestive heart failure. 2. Partially loculated right pleural effusion with right basilar atelectasis. 3. Mitral valve prosthesis. 4. Status post CBG surgery and pacemaker placement. <Electronically signed by Andrew Ye > 02/27/21 1185
[2021-02-27 16:46] VITALS: O2SAT 88
--- NOTE | 2021-02-27 17:08 | REP ---
INDICATION: pleural effusion. COMPARISON: CT chest without IV contrast, 07/31/2017. TECHNIQUE: Imaging protocol: Computed tomography of the chest without contrast. Contiguous axial projection images were obtained through the chest. 2D sagittal and coronal reconstructions were performed. Radiation optimization: All CT scans at this facility use at least one of these dose optimization techniques: automated exposure control; mA and/or kV adjustment per patient size (includes targeted exams where dose is matched to clinical indication); or iterative reconstruction. FINDINGS: Lower neck: The thyroid gland is normal. There is no supraclavicular lymphadenopathy. Mediastinum: No abnormal masses or lymphadenopathy. There is increased attenuation of the mediastinal fat, likely postoperative. Heart/thoracic aorta: The heart size is normal. There is no pericardial effusion. There is a mitral valve prosthesis. There is a left atrial appendage clip. There are 2 pacemaker wires. There is an epicardial pacemaker. There is minimal calcific vascular disease of the thoracic aorta and coronary arteries. Upper abdomen: There is stable benign cyst in the right and left hepatic lobes. There is increased attenuation of the peripancreatic and mesenteric fat and mesenteric lymphadenopathy, not significantly changed since the prior exam. May be sequela of pancreatitis, with development of sclerosing mesenteritis. There are no abnormal intra or peripancreatic fluid collections. Thoracic esophagus: There is a small hiatal hernia. Chest wall and axilla: The soft tissues of the chest wall are unremarkable. There is no axillary lymphadenopathy. Status post median sternotomy. There is multilevel degenerative disc disease of the thoracic and upper lumbar spine with associated dextroscoliosis. Lung parenchyma: There is varicose or saccular bronchiectasis involving multiple bronchi extending from the left hilum with peribronchial scarring/consolidation extending into the upper, middle and lower lobes of the right lung. There is significant volume loss of the upper lobe of the right lung with hyperinflation of the middle lobe and the superior segment of the lower lobe. There are no pleural effusions. The left lung appears normal. IMPRESSION: 1. Central bronchiectasis extending into the upper middle and lower lobes of the right lung, with peribronchial scarring, as described. There is less airspace consolidation in the right lung when compared with the prior exam. 2. There has been resolution of the pleural effusions. 3. The left lung is clear. 4. Status post mitral valve prosthesis, left atrial appendage clip, and pacemaker. 5. There is a small hiatal hernia. 6. Multilevel degenerative disc disease of the thoracolumbar spine with dextroscoliosis. <Electronically signed by Andrew Ye > 02/27/21 [id number]
[2021-02-27] MEDS ORDERED: cefTRIAXone SOD 1 GM in D5W MINI-BAG PLUS 50 ML IV ONE (17:20)
[2021-02-27] MEDS ORDERED: AZITHROMYCIN INJ 500 MG, VIAL MATE ADAPTER 1 EACH in NS 250 ML IV ONE (17:20)
[2021-02-27] MEDS ORDERED: POTA1TAB23 PO (18:16)
[2021-02-27] MEDS ORDERED: GENT0.3S29 OS (18:16)
[2021-02-27] MEDS ORDERED: SYNT50TA PO (18:16)
[2021-02-27] MEDS ORDERED: PREDOPD OS (18:16)
[2021-02-27] MEDS ORDERED: TORS10TA3 PO (18:16)
[2021-02-27] MEDS ORDERED: HYDR-643 PO (18:16)
[2021-02-27] MEDS ORDERED: TRAM50TA2 PO (18:16)
[2021-02-27] MEDS ORDERED: HOME MED LIST COMPLETE! XX SCH (18:20)
[2021-02-27] MEDS ORDERED: clonazePAM 0.5 MG TAB PO PRN (18:45)
--- NOTE | 2021-02-27 19:08 | HPEPDOC ---
General Date of Admission 02/27/21 Date of Service: Feb 27, 2021 Chief Complaint The patient is a 76-year-old male admitted with a reason for visit of FALL. History of Present Illness 76-year-old male with past medical history of metastatic non-small cell lung cancer of the right complicated by radiation pneumonitis, recurrent pleural effusions, malignant pericardial effusion and pericardial tamponade requiring pericardial window creation treated by multiple regimens of chemotherapy and radiation therapy from [id number], recurrent right-sided pleural effusion thought to be radiation mediated leading to talc pleurodesis of the right in 2010, paroxysmal atrial fibrillation with tachybradycardia syndrome status post pacemaker placement in 2012, mitral and tricuspid valve repair in 2016, garcia tolic CHF, hypothyroid, hyperuricemia ,CKD stage III, BPH, chronic hypoxic respiratory failure presented to the emergency room on 02/27/2021 for sustaining a mechanical fall at home and then inability to get up from the floor. Patient was down on the floor for about an hour before found him. Patient reported that he was trying to get out of the bed to go to the bathroom and just as he he was trying to stand up his legs gave out and he fell down on his hands and knees he had an abrasion on the left hip and no other injuries. He lay down on his side and tried to pull himself up however he could not and was down on the floor till his came back home and found him there. Patient also complained of some ongoing phlegm production for the past 2 weeks. He reported that he has been having some trouble swallowing for the past 2 weeks. He was feeling that food and medications were getting stuck at the right side of his neck and sometimes food was also regurgitating. While being evaluated in the ED he was found to be febrile at 101.3, chest x-ray showed a right lower lobe loculated effusion So he had a CT chest done which showed Central bronchiectasis extending into the upper middle and lower lobes of the right lung, with peribronchial scarring, as described. There is less airspace consolidation in the right lung when compared with the prior exam, no pleural effusion, Status post mitral valve prosthesis, left atrial appendage clip, and pacemaker, There is a small hiatal hernia. Multilevel degenerative disc disease of the thoracolumbar spine with dextroscoliosis. Patient was admitted for right-sided pneumonia with possible acute flare of bronchiectasis. Home Medications Scheduled Allopurinol (Allopurinol) 100 Mg Tablet, 100 MG PO DAILY, (Reported) Ascorbic Acid (Vitamin C) 500 Mg Tab, 500 MG PO QHS, (Reported) Ergocalciferol (Vitamin D2) (Vitamin D2) 50,000 Units Cap, 50,000 UNITS PO QMONTH, (Reported) Ferrous Sulfate (Ferrous Sulfate) 325 Mg Tab, 325 MG PO BID, (Reported) Gabapentin (Gabapentin) 300 Mg Cap, 300 MG PO BID, (Reported) Hydroxyzine HCl (Hydroxyzine HCl) 10 Mg Tablet, 10 MG PO QHS, (Reported) Levothyroxine Sodium (Synthroid) 50 Mcg Tablet, 50 MCG PO DAILY, (Reported) Magnesium Chloride (Nu-Mag) 1 Tab Tab, 2 TAB PO BID, (Reported) Multivitamins (Thera M Plus Tablet) 1 Each Tablet, 1 TAB PO DAILY, (Reported) Potassium Chloride (Potassium Chloride) 10 Meq Tablet.er, 20 MEQ PO BID, (Reported) Sertraline Hcl (Sertraline HCl) 25 Mg Tab, 25 MG PO BID, (Reported) Tamsulosin HCl (Flomax) 0.4 Mg Cap, 0.4 MG PO DAILY, (Reported) Torsemide (Torsemide) 10 Mg Tablet, 10 MG PO BID, (Reported) QAM AND 1600 Scheduled PRN Clonazepam (Clonazepam) 0.5 Mg Tab, 0.5 MG PO TID PRN for ANXIETY/AGITATION, (Reported) Tramadol HCl (Tramadol HCl) 50 Mg Tablet, 50 MG PO BID PRN for PAIN LEVEL 5-10, (Reported) Allergies Coded Allergies: NSAIDS (Non-Steroidal Anti-Inflamma (Verified Adverse Reaction, I ntermediate, acute kidney injury, 02/27/21) Past Medical History Medical History Metastatic Non small cell lung cancer Aug 1998 s/p chemotherapy and RT (initially though to be stage 111B treated with CT and RT then developed malignant pericardial effusion and treated with further CT) Radiation Pneumonitis in Feb 1999 Malignant Pericardial effusion (NSCLC) with tamponade and bilateral pleural effusions s/p pericardial window creation 1999 Recurrent non malignant right pleural effusion s/p talc pleurodesis in 2010 CHF with preserved EF Chronic respiratory failure with hypoxia on home 02. Mitral and tricuspid valve repair 2016 Postoperative C. difficile August 2016 Cutaneous T cell lymphoma H/o Paroxysmal Atrial fibrillation with tachy- jenaro syndrome s/p pacemaker in 2012. BPH Anxiety and depression Iron deficiency anemia Hypothyroidism Restless leg syndrome DAVID by home sleep study in 2017 CKD stage 3 Surgical History Bilateral inguinal hernia repair 2018 Mitral and tricuspid valve repair Aug 2016 Pacemaker implantation 2013 Talc pleurodesis on the right in 2010 Pericardial window 1999 Multiple thoracocenteses [id number] Right knee replacement Bilateral cataract repair Tonsillectomy as a child Umbilical hernia repair Family History Significant Family History: Cancer (colon cancer in both parents) Social History * Smoker: former Smoker (quit in 1983) A-FIB/CHADSVASC A-FIB History Current/History of A-Fib/PAF?: Yes Current PO Anticoag Therapy: No Review of Systems Constitutional: Reports: Chills, Fever, Weakness; Denies: Night Sweats Eyes: Denies: Pain, Vision change ENT: Denies: Head Aches, Ear Pain, Dysphagia Skin: Denies: Rash, Lesions, Breakdown Pulmonary: Reports: Cough; Denies: Dyspnea Cardiovascular: Denies: Chest Pain, Palpitations, Orthopnea, Paroxysmal Noc. Dyspnea, Lt Headedness Gastrointestinal: Denies: Nausea, Vomiting, Abdominal Pain, Diarrhea Genitourinary: Denies: Dysuria, Frequency, Incontinence, Retention Hematologic: Denies: Bruising, Bleeding Excessively Musculoskeletal: Denies: Neck Pain, Back Pain, Joint Pain, Muscle Pain, Spasms Psych: Reports: Mood Normal; Denies: Depression, Memory Issues Physical Examination General Exam: Positive: Alert, Cooperative, No Acute Distress Eye Exam: Positive: PERRLA, Conjunctiva & lids normal, EOMI; Negative: Sclera icteric ENT Exam: Positive: Atraumatic, Mucous membr. moist/pink, Pharynx Normal Neck Exam: Positive: Supple; Negative: JVD, thyromegaly Chest Exam: Positive: Diminished (On the right), Other (Diffuse crackles on the right) Heart Exam: Positive: Rate Normal, Regular Rhythm, Normal S1, Normal S2; Negative: Murmurs, Rubs Telemetry: Positive: Other Telemetry: (All placed) Abdomen Exam: Positive: Normal bowel sounds, Soft; Negative: Tenderness, Hepatospenomegaly Extremity Exam: Positive: Normal pulses; Negative: Clubbing, Cyanosis, Edema Skin Exam: Positive: Other skin issue (Abrasion at the right hip) Neuro Exam: Positive: Normal Speech, Strength at 5/5 X4 ext, Normal Tone Vital Signs Vital Signs Date Time Temp Pulse Resp B/P (MAP) Pulse Ox O2 Delivery O2 Flow Rate FiO2 02/27/21 16:46 88 Nasal Cannula 02/27/21 16:30 61 108/56 (73) 2.0 02/27/21 14:40 100.9 Laboratory Data Labs 24H Laboratory Tests 2 02/27/21 14:27: Immature Granulocyte % (Auto) 0.5, Neutrophils (%) (Auto) 89.0H, Lymphocytes (%) (Auto) 2.3L, Monocytes (%) (Auto) 7.8, Eosinophils (%) (Auto) 0.2, Basophils (%) (Auto) 0.2, Neutrophils # (Auto) 9.9H, Lymphocytes # (Auto) 0.3L, Monocytes # (Auto) 0.9H, Eosinophils # (Auto) 0.0, Basophils # (Auto) 0.0, Nucleated Red Blood Cells % (auto) 0.0, Anion Gap 3L, Glomerular Filtration Rate 46.4, Calcium Level 8.5L, Magnesium Level 1.7L, Total Bilirubin 1.1H, Aspartate Amino Transf (AST/SGOT) 20, Alanine Aminotransferase (ALT/SGPT) 19, Alkaline Phosphatase 81, Total Protein 6.3L, Albumin 3.5, Albumin/Globulin Ratio 1.3, Thyroid Stimulating Hormone (TSH) 2.100, Free Thyroxine Index 3.2, Thyroxine (T4) 9.0, Triiodothyronine (T3) Uptake 36 02/27/21 15:08: Lactic Acid Level 1.0, Coronavirus (COVID-19)(PCR) NEGATIVE, Influenza Type A (RT-PCR) NEGATIVE, Influenza Type B (RT-PCR) NEGATIVE, Respiratory Syncytial Virus (PCR) NEGATIVE 02/27/21 15:37: Urine Color YELLOW, Urine Appearance CLEAR, Urine pH 5.0, Urine Specific [place] 1.008, Urine Protein NEGATIVE, Urine Glucose (UA) NEGATIVE, Urine Ketones NEGATIVE, Urine Blood NEGATIVE, Urine Nitrite NEGATIVE, Urine Bilirubin NEGATIV E, Urine Urobilinogen 0.2, Urine Leukocyte Esterase NEGATIVE, Urine WBC (Auto) 1, Urine RBC (Auto) 2, Urine Hyaline Casts (Auto) 3, Urine Bacteria (Auto) NEGATIVE, Urine Squamous Epithelial Cells 0, Urine Mucus (Auto) SMALL, Urine Sperm (Auto) CBC/BMP Laboratory Tests 02/27/21 14:27 Microbiology Microbiology 02/27/21 Blood Culture, Received Pending 02/27/21 Blood Culture, Received Pending Assessment/Plan Right-sided pneumonia with bronchiectatic changes Could be aspiration pneumonia versus community-acquired pneumonia We will treat with Zosyn Blood cultures have been sent Will order sputum's cultures Dysphagia Will get a swallow evaluation Chronic respiratory failure with hypoxia Continue home oxygen supplementation Hyperuricemia Continue allopurinol Neuropathy Continue gabapentin Anxiety Continue clonazepam and hydroxyzine BPH Tamsulosin Hypothyroid Synthroid CKD stage 3 creatine at baseline. H/o Afib with tachy jenaro syndrome s/p pacemaker in 2012 Now all paced rhythm in EKG. Not on anticoagulation. H/o Mitral and tricuspid valve repair in 2016 complicated by c.diff in the post operative period. Plan / VTE VTE Prophylaxis Ordered?: Yes HERB WINSTON MD Feb 27, 2021 18:18
[2021-02-27 20:36] VITALS: BP 109/55
[2021-02-27] MEDS: ASCORBIC ACID 500 MG TAB PO SCH (21:35)
[2021-02-27] MEDS: SERTRALINE HCL 25 MG TABLET PO SCH (21:35)
[2021-02-27] MEDS: MAGNESIUM OXIDE 400MG TAB (MAG-OX) PO SCH (21:35)
[2021-02-27] MEDS: PIPERACILLIN/TAZOBACTAM SOD 3.375 GM in D5W MINI-BAG PLUS 50 ML IV SCH (21:35)
[2021-02-27] MEDS: GABAPENTIN 300 MG CAP PO SCH (21:35)
[2021-02-27] MEDS: hydrOXYzine 10 MG TAB PO SCH (21:37)
[2021-02-28] MEDS ORDERED: clonazePAM 0.5 MG TAB PO ONE (01:50)
[2021-02-28] MEDS: PIPERACILLIN/TAZOBACTAM SOD 3.375 GM in D5W MINI-BAG PLUS 50 ML IV SCH ×4 (04:47→21:00)
[2021-02-28 06:53] LABS: BASO % 0.4 % (0.0-1.0); EOS # 0.1 10^3/uL (0.0-0.5); EOS % 1.2 % (0.0-3.0); HEMATOCRIT 34.9 % (42.0-52.0); HEMOGLOBIN 11.2 g/dl (13.5-17.5); LYMPH # 0.8 10^3/uL (1.5-5.0); MEAN CORPUSCULAR HGB CONC 32.1 g/dl (32.0-36.5); MEAN CORPUSCULAR VOLUME 93.6 fl (80.0-96.0); MONO # 0.9 10^3/uL (0.0-0.8); MONO % 12.3 % (2.0-8.0); NEUTROPHILS # 5.2 10^3/uL (1.5-8.5); NEUTROPHILS % 74.5 % (36.0-66.0); PLATELET COUNT, AUTOMATED 112 10^3/uL (150-450); RED BLOOD COUNT 3.73 10^6/uL (4.30-6.10); WHITE BLOOD COUNT 6.9 10^3/uL (4.0-10.0)
[2021-02-28 07:10] LABS: CALCIUM LEVEL 8.3 MG/DL (8.8-10.2); CREATININE FOR GFR 1.38 MG/DL (0.70-1.30); GLOMERULAR FILTRATION RATE 53.1 (>42); POTASSIUM SERUM 3.6 MEQ/L (3.5-5.1)
[2021-02-28] MEDS: LACTOBACILLUS ACIDOPHILUS CAP (BACID) PO SCH ×3 (08:00→17:40)
[2021-02-28] MEDS: MAGNESIUM OXIDE 400MG TAB (MAG-OX) PO SCH ×2 (08:45→20:59)
[2021-02-28] MEDS: LEVOTHYROXINE 50MCG TABLET (0.05MG) PO SCH (08:45)
[2021-02-28] MEDS: TAMSULOSIN 0.4 MG CAP PO SCH (08:45)
[2021-02-28] MEDS: GABAPENTIN 300 MG CAP PO SCH ×2 (08:45→20:59)
[2021-02-28] MEDS: allopurinoL 100 MG TAB PO SCH (08:45)
[2021-02-28] MEDS: SERTRALINE HCL 25 MG TABLET PO SCH ×2 (08:46→20:59)
[2021-02-28] MEDS: ENOXAPARIN 40MG/0.4ML SYRINGE (J1650 PER 10MG) SC SCH (08:46)
--- NOTE | 2021-02-28 11:08 | IPNPDOC ---
Subjective Date Seen The patient was seen on 02/28/21. Subjective Chief Complaint/HPI No complaints this morning. No fever or chills overnight. Denies any cough or phlegm. Was able to have breakfast without any problem. Objective Physical Examination General Exam: Positive: Alert, Cooperative, No Acute Distress Eye Exam: Positive: PERRLA, Conjunctiva & lids normal, EOMI; Negative: Sclera icteric ENT Exam: Positive: Atraumatic, Mucous membr. moist/pink, Pharynx Normal Neck Exam: Positive: Supple; Negative: JVD, thyromegaly Chest Exam: Positive: Diminished (On the right), Other (Diffuse crackles on the right); Negative: Rales, Rhonchi, Wheezing Heart Exam: Positive: Rate Normal, Regular Rhythm, Normal S1, Normal S2; Negative: Murmurs, Rubs Telemetry: Positive: Other Telemetry: (All placed) Abdomen Exam: Positive: Normal bowel sounds, Soft; Negative: Tenderness, Hepatospenomegaly Extremity Exam: Positive: Normal pulses; Negative: Clubbing, Cyanosis, Edema Skin Exam: Positive: Other skin issue (Abrasion at the right hip) Neuro Exam: Positive: Normal Speech, Strength at 5/5 X4 ext, Normal Tone Psych Exam: Positive: Memory Intact, Oriented x 3 Assessment /Plan Assessment Right-sided pneumonia with bronchiectatic changes Could be aspiration pneumonia versus community-acquired pneumonia We will treat with Zosyn Blood cultures have been sent Will order sputum's cultures Dysphagia Will get a swallow evaluation Chronic respiratory failure with hypoxia Continue home oxygen supplementation Hyperuricemia Continue allopurinol Neuropathy Continue gabapentin, tramadol Anxiety Continue clonazepam and hydroxyzine BPH Tamsulosin Hypothyroid Synthroid CKD stage 3 creatine at baseline. 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 Not on anticoagulation. H/o Mitral and tricuspid valve repair in 2017 complicated by c.diff in the post operative period. Plan/VTE VTE Prophylaxis Ordered?: Yes VS, I&O, 24H, Fishbone Vital Signs/I&O Vital Signs Date Time Temp Pulse Resp B/P (MAP) Pulse Ox O2 Delivery O2 Flow Rate FiO2 02/28/21 09:06 4.0 02/28/21 06:00 97.8 62 18 94 Nasal Cannula 02/27/21 20:36 109/55 (73) I&O- Last 24 Hours up to 6 AM 02/28/21 06:00 Intake Total 905 ml Output Total 575 ml Balance 330 ml Laboratory Data 24H LABS Laboratory Tests 2 02/27/21 14:27: Immature Granulocyte % (Auto) 0.5, Neutrophils (%) (Auto) 89.0H, Lymphocytes (%) (Auto) 2.3L, Monocytes (%) (Auto) 7.8, Eosinophils (%) (Auto) 0.2, Basophils (%) (Auto) 0.2, Neutrophils # (Auto) 9.9H, Lymphocytes # (Auto) 0.3L, Monocytes # (Auto) 0.9H, Eosinophils # (Auto) 0.0, Basophils # (Auto) 0.0, Nucleated Red Blood Cells % (auto) 0.0, Anion Gap 3L, Glomerular Filtration Rate 46.4, Calcium Level 8.5L, Magnesium Level 1.7L, Total Bilirubin 1.1H, Aspartate Amino Transf (AST/SGOT) 20, Alanine Aminotransferase (ALT/SGPT) 19, Alkaline Phosphatase 81, Total Protein 6.3L, Albumin 3.5, Albumin/Globulin Ratio 1.3, Thyroid Stimulating Hormone (TSH) 2.100, Free Thyroxine Index 3.2, Thyroxine (T4) 9.0, Triiodothyronine (T3) Uptake 36 02/27/21 15:08: Lactic Acid Level 1.0, Coronavirus (COVID-19)(PCR) NEGATIVE, Influenza Type A (R T-PCR) NEGATIVE, Influenza Type B (RT-PCR) NEGATIVE, Respiratory Syncytial Virus (PCR) NEGATIVE 02/27/21 15:37: Urine Color YELLOW, Urine Appearance CLEAR, Urine pH 5.0, Urine Specific [place] 1.008, Urine Protein NEGATIVE, Urine Glucose (UA) NEGATIVE, Urine Ketones NEGATIVE, Urine Blood NEGATIVE, Urine Nitrite NEGATIVE, Urine Bilirubin NEGATIVE, Urine Urobilinogen 0.2, Urine Leukocyte Esterase NEGATIVE, Urine WBC (Auto) 1, Urine RBC (Auto) 2, Urine Hyaline Casts (Auto) 3, Urine Bacteria (Auto) NEGATIVE, Urine Squamous Epithelial Cells 0, Urine Mucus (Auto) SMALL, Urine Sperm (Auto) 02/28/21 05:29: Immature Granulocyte % (Auto) 0.6, Neutrophils (%) (Auto) 74.5H, Lymphocytes (%) (Auto) 11.0L, Monocytes (%) (Auto) 12.3H, Eosinophils (%) (Auto) 1.2, Basophils (%) (Auto) 0.4, Neutrophils # (Auto) 5.2, Lymphocytes # (Auto) 0.8L, Monocytes # (Auto) 0.9H, Eosinophils # (Auto) 0.1, Basophils # (Auto) 0.0, Nucleated Red Blood Cells % (auto) 0.0, Anion Gap 4L, Glomerular Filtration Rate 53.1, Calcium Level 8.3L CBC/BMP Laboratory Tests 02/27/21 14:27 02/28/21 05:29 Microbiology Microbiology 02/27/21 Blood Culture, Received Pending 02/27/21 Blood Culture, Received Pending HERB WINSTON MD Feb 28, 2021 11:08
[2021-02-28] MEDS: clonazePAM 0.5 MG TAB PO PRN ×2 (12:48→20:59)
[2021-02-28 14:00] VITALS: BP 116/63
[2021-02-28] MEDS: ACETAMINOPHEN TAB 650MG DOSE (2X325MG) PO PRN (16:23)
[2021-02-28] MEDS: ASCORBIC ACID 500 MG TAB PO SCH (20:59)
[2021-02-28] MEDS: hydrOXYzine 10 MG TAB PO SCH (20:59)
[2021-02-28 22:00] VITALS: BP 117/58
[2021-03-01] MEDS: PIPERACILLIN/TAZOBACTAM SOD 3.375 GM in D5W MINI-BAG PLUS 50 ML IV SCH ×4 (03:47→21:49)
[2021-03-01 06:00] VITALS: BP 114/63
[2021-03-01 06:18] LABS: BASO % 0.4 % (0.0-1.0); EOS # 0.2 10^3/uL (0.0-0.5); EOS % 3.9 % (0.0-3.0); HEMATOCRIT 34.3 % (42.0-52.0); LYMPH # 0.5 10^3/uL (1.5-5.0); LYMPH % 10.5 % (24.0-44.0); MEAN CORPUSCULAR HEMOGLOBIN 30.1 pg (27.0-33.0); MEAN CORPUSCULAR HGB CONC 32.1 g/dl (32.0-36.5); MEAN CORPUSCULAR VOLUME 93.7 fl (80.0-96.0); MONO # 0.6 10^3/uL (0.0-0.8); MONO % 13.5 % (2.0-8.0); NEUTROPHILS # 3.3 10^3/uL (1.5-8.5); NEUTROPHILS % 71.3 % (36.0-66.0); PLATELET COUNT, AUTOMATED 110 10^3/uL (150-450); RED BLOOD COUNT 3.66 10^6/uL (4.30-6.10); WHITE BLOOD COUNT 4.6 10^3/uL (4.0-10.0)
[2021-03-01 06:47] LABS: CALCIUM LEVEL 8.3 MG/DL (8.8-10.2); CREATININE FOR GFR 1.43 MG/DL (0.70-1.30); GLOMERULAR FILTRATION RATE 50.9 (>42); POTASSIUM SERUM 3.6 MEQ/L (3.5-5.1)
[2021-03-01] MEDS: LACTOBACILLUS ACIDOPHILUS CAP (BACID) PO SCH ×3 (08:31→18:23)
[2021-03-01] MEDS: TAMSULOSIN 0.4 MG CAP PO SCH (08:31)
[2021-03-01] MEDS: allopurinoL 100 MG TAB PO SCH (08:31)
[2021-03-01] MEDS: LEVOTHYROXINE 50MCG TABLET (0.05MG) PO SCH (08:31)
[2021-03-01] MEDS: ENOXAPARIN 40MG/0.4ML SYRINGE (J1650 PER 10MG) SC SCH (08:31)
[2021-03-01] MEDS: MAGNESIUM OXIDE 400MG TAB (MAG-OX) PO SCH ×2 (08:31→20:31)
[2021-03-01] MEDS: GABAPENTIN 300 MG CAP PO SCH ×2 (08:31→20:31)
[2021-03-01] MEDS: SERTRALINE HCL 25 MG TABLET PO SCH ×2 (08:31→20:32)
--- NOTE | 2021-03-01 13:34 | IPNPDOC ---
Subjective Date Seen The patient was seen on 03/01/21. Subjective Chief Complaint/HPI Feels well this morning, no fever or chills, some coughing rarely but no phlegm production, does have some wheezing bilaterally. Objective Physical Examination General Exam: Positive: Alert, Cooperative, No Acute Distress Eye Exam: Positive: PERRLA, Conjunctiva & lids normal, EOMI; Negative: Sclera icteric ENT Exam: Positive: Atraumatic, Mucous membr. moist/pink, Pharynx Normal Neck Exam: Positive: Supple; Negative: JVD, thyromegaly Chest Exam: Positive: Wheezing, Diminished (On the right), Other (Diffuse crackles on the right); Negative: Rales, Rhonchi Heart Exam: Positive: Rate Normal, Regular Rhythm, Normal S1, Normal S2; Negative: Murmurs, Rubs Telemetry: Positive: Other Telemetry: (All placed) Abdomen Exam: Positive: Normal bowel sounds, Soft; Negative: Tenderness, Hepatospenomegaly Extremity Exam: Positive: Normal pulses; Negative: Clubbing, Cyanosis, Edema Skin Exam: Positive: Other skin issue (Abrasion at the right hip) Neuro Exam: Positive: Normal Speech, Strength at 5/5 X4 ext, Normal Tone Psych Exam: Positive: Memory Intact, Oriented x 3 Assessment /Plan Assessment Right-sided pneumonia with bronchiectatic changes Could be aspiration pneumonia versus community-acquired pneumonia We will treat with Zosyn Blood cultures no growth till date No sputum production Dysphagia swallow evaluation done. Planned for FEES on 03/02/21 Chronic respiratory failure with hypoxia Continue home oxygen supplementation Hyperuricemia Continue allopurinol Neuropathy Continue gabapentin, tramadol Anxiety Continue clonazepam and hydroxyzine BPH Tamsulosin Hypothyroid Synthroid CKD stage 3 creatine at baseline. 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 Not on anticoagulation. H/o Mitral and tricuspid valve repair in 2017 complicated by c.diff in the post operative period. Plan/VTE VTE Prophylaxis Ordered?: Yes VS, I&O, 24H, Fishbone Vital Signs/I&O Vital Signs Date Time Temp Pulse Resp B/P (MAP) Pulse Ox O2 Delivery O2 Flow Rate FiO2 03/01/21 06:00 97.9 60 94 114/63 (80) 99 Nasal Cannula 3.0 I&O- Last 24 Hours up to 6 AM 03/01/21 06:00 Intake Total 1240 ml Output Total 125 ml Balance 1115 ml Laboratory Data 24H LABS Laboratory Tests 2 03/01/21 05:56: Immature Granulocyte % (Auto) 0.4, Neutrophils (%) (Auto) 71.3H, Lymphocytes (%) (Auto) 10.5L, Monocytes (%) (Auto) 13.5H, Eosinophils (%) (Auto) 3.9H, Basophils (%) (Auto) 0.4, Neutrophils # (Auto) 3.3, Lymphocytes # (Auto) 0.5L, Monocytes # (Auto) 0.6, Eosinophils # (Auto) 0.2, Basophils # (Auto) 0.0, Nucleated Red Blood Cells % (auto) 0.0, Anion Gap 4L, Glomerular Filtration Rate 50.9, Calcium Level 8.3L CBC/BMP Laboratory Tests 03/01/21 05:56 Microbiology Microbiology 02/27/21 Blood Culture - Preliminary, Resulted No growth after 24 hours . All specim... 02/27/21 Blood Culture - Preliminary, Resulted No growth after 24 hours . All specim... HERB WINSTON MD Mar 01, 2021 13:33
[2021-03-01 14:00] VITALS: BP 147/73
[2021-03-01] MEDS: ALBUTEROL SULFATE 2.5 MG/0.5 ML INH NEB SOLN NEB SCH ×2 (15:09→23:36)
[2021-03-01] MEDS: clonazePAM 0.5 MG TAB PO PRN ×2 (15:30→22:39)
[2021-03-01] MEDS: ASCORBIC ACID 500 MG TAB PO SCH (20:31)
[2021-03-01] MEDS: hydrOXYzine 10 MG TAB PO SCH (20:31)
[2021-03-01 22:16] VITALS: BP 106/51
[2021-03-01] MEDS: traMADol 50 MG TAB PO PRN (23:51)
[2021-03-02] MEDS: PIPERACILLIN/TAZOBACTAM SOD 3.375 GM in D5W MINI-BAG PLUS 50 ML IV SCH ×4 (04:07→21:28)
[2021-03-02] MEDS: ACETAMINOPHEN TAB 650MG DOSE (2X325MG) PO PRN (04:10)
[2021-03-02 06:15] VITALS: BP 115/63
[2021-03-02 06:42] LABS: BASO % 0.4 % (0.0-1.0); EOS # 0.1 10^3/uL (0.0-0.5); EOS % 1.4 % (0.0-3.0); HEMATOCRIT 34.8 % (42.0-52.0); HEMOGLOBIN 11.4 g/dl (13.5-17.5); LYMPH # 0.6 10^3/uL (1.5-5.0); LYMPH % 11.6 % (24.0-44.0); MEAN CORPUSCULAR HEMOGLOBIN 30.6 pg (27.0-33.0); MEAN CORPUSCULAR HGB CONC 32.8 g/dl (32.0-36.5); MEAN CORPUSCULAR VOLUME 93.5 fl (80.0-96.0); MONO # 0.7 10^3/uL (0.0-0.8); MONO % 12.1 % (2.0-8.0); NEUTROPHILS # 4.1 10^3/uL (1.5-8.5); PLATELET COUNT, AUTOMATED 107 10^3/uL (150-450); RED BLOOD COUNT 3.72 10^6/uL (4.30-6.10); WHITE BLOOD COUNT 5.5 10^3/uL (4.0-10.0)
[2021-03-02] MEDS ORDERED: OXYMETAZOLINE 0.05% NASAL SPRAY (AFRIN) ONE (07:00)
[2021-03-02 07:09] LABS: CALCIUM LEVEL 8.2 MG/DL (8.8-10.2); CREATININE FOR GFR 1.52 MG/DL (0.70-1.30); GLOMERULAR FILTRATION RATE 47.5 (>42); POTASSIUM SERUM 3.3 MEQ/L (3.5-5.1)
[2021-03-02] MEDS: ALBUTEROL SULFATE 2.5 MG/0.5 ML INH NEB SOLN NEB SCH ×3 (07:16→23:19)
[2021-03-02 08:41] LABS: MAGNESIUM LEVEL 2.1 MG/DL (1.8-2.4)
[2021-03-02] MEDS: TAMSULOSIN 0.4 MG CAP PO SCH (09:06)
[2021-03-02] MEDS: MAGNESIUM OXIDE 400MG TAB (MAG-OX) PO SCH ×2 (09:06→20:39)
[2021-03-02] MEDS: SERTRALINE HCL 25 MG TABLET PO SCH ×2 (09:07→20:39)
[2021-03-02] MEDS: GABAPENTIN 300 MG CAP PO SCH ×2 (09:07→20:39)
[2021-03-02] MEDS: LEVOTHYROXINE 50MCG TABLET (0.05MG) PO SCH (09:07)
[2021-03-02] MEDS: allopurinoL 100 MG TAB PO SCH (09:07)
[2021-03-02] MEDS: LACTOBACILLUS ACIDOPHILUS CAP (BACID) PO SCH ×3 (09:07→18:28)
[2021-03-02] MEDS: ENOXAPARIN 40MG/0.4ML SYRINGE (J1650 PER 10MG) SC SCH (09:07)
[2021-03-02] MEDS: clonazePAM 0.5 MG TAB PO PRN ×2 (12:35→21:28)
[2021-03-02] MEDS ORDERED: POTASSIUM CHLORIDE 10 MEQ SR TABLET PO ONE (13:00)
--- NOTE | 2021-03-02 13:02 | IPNPDOC ---
Text Note Date of Service The patient was seen on 03/02/21. NOTE Subjective: Patient seen and examined at bedside. No acute overnight events reported. No new medical complaints this morning. Objective: General: NAD, lying comfortably in bed HEENT: NC/AT, EOMI Lungs: CTA B/L Heart: +S1S2, RRR Abd: soft, NT, +BS Ext: no edema Neuro: no gross focal deficits Psych: AAOx3 A/P: #Right-sided pneumonia with bronchiectatic changes Could be aspiration pneumonia versus community-acquired pneumonia - bedside swallow evaluation shows GERD We will treat with Zosyn Blood cultures no growth till date No sputum production #Dysphagia - study completed - showing GERD #Chronic respiratory failure with hypoxia Continue home oxygen supplementation #Hyperuricemia Continue allopurinol #Neuropathy Continue gabapentin, tramadol #Anxiety Continue clonazepam and hydroxyzine #BPH Tamsulosin #Hypothyroid Synthroid #CKD stage 3 creatine at baseline. #H/o Afib with tachy jenaro syndrome s/p pacemaker in 2012 Now all paced rhythm in EKG. Not on anticoagulation. #H/o Mitral and tricuspid valve repair in 2017 complicated by c.diff in the post operative period. Disposition: pending clinical improvement VS,Fishbone, I+O VS, Fishbone, I+O Laboratory Tests 03/02/21 06:19 Vital Signs Date Time Temp Pulse Resp B/P (MAP) Pulse Ox O2 Delivery O2 Flow Rate FiO2 03/02/21 06:15 98.3 60 17 115/63 (80) 94 Nasal Cannula 3.0 I&O- Last 24 Hours up to 6 AM 03/02/21 06:00 Intake Total 1160 ml Output Total 0 ml Balance 1160 ml DONNELL BECKER MD Mar 02, 2021 13:02
[2021-03-02] MEDS: PANTOPRAZOLE 40MG TAB (PROTONIX) PO SCH (13:42)
[2021-03-02 14:00] VITALS: BP 122/69
[2021-03-02] MEDS: hydrOXYzine 10 MG TAB PO SCH (20:39)
[2021-03-02] MEDS: ASCORBIC ACID 500 MG TAB PO SCH (20:39)
[2021-03-02] MEDS ORDERED: rOPINIRole 0.25 MG TAB(REQUIP) PO SCH (21:00)
[2021-03-02 22:00] VITALS: BP 130/66
[2021-03-03] MEDS: ACETAMINOPHEN TAB 650MG DOSE (2X325MG) PO PRN (01:37)
[2021-03-03] MEDS: PIPERACILLIN/TAZOBACTAM SOD 3.375 GM in D5W MINI-BAG PLUS 50 ML IV SCH ×2 (03:40→09:14)
[2021-03-03 06:02] VITALS: BP 123/62
[2021-03-03 06:51] LABS: BASO % 0.2 % (0.0-1.0); EOS # 0.1 10^3/uL (0.0-0.5); EOS % 2.9 % (0.0-3.0); HEMATOCRIT 35.4 % (42.0-52.0); HEMOGLOBIN 11.4 g/dl (13.5-17.5); LYMPH # 0.4 10^3/uL (1.5-5.0); LYMPH % 10.3 % (24.0-44.0); MEAN CORPUSCULAR HEMOGLOBIN 30.3 pg (27.0-33.0); MEAN CORPUSCULAR HGB CONC 32.2 g/dl (32.0-36.5); MEAN CORPUSCULAR VOLUME 94.1 fl (80.0-96.0); MONO # 0.6 10^3/uL (0.0-0.8); MONO % 14.2 % (2.0-8.0); NEUTROPHILS # 2.9 10^3/uL (1.5-8.5); NEUTROPHILS % 72.2 % (36.0-66.0); PLATELET COUNT, AUTOMATED 96 10^3/uL (150-450); RED BLOOD COUNT 3.76 10^6/uL (4.30-6.10); WHITE BLOOD COUNT 4.1 10^3/uL (4.0-10.0)
[2021-03-03 07:09] LABS: CALCIUM LEVEL 8.1 MG/DL (8.8-10.2); CREATININE FOR GFR 1.45 MG/DL (0.70-1.30); GLOMERULAR FILTRATION RATE 50.1 (>42); POTASSIUM SERUM 3.8 MEQ/L (3.5-5.1)
[2021-03-03] MEDS: ALBUTEROL SULFATE 2.5 MG/0.5 ML INH NEB SOLN NEB SCH (07:29)
[2021-03-03] MEDS: ENOXAPARIN 40MG/0.4ML SYRINGE (J1650 PER 10MG) SC SCH (09:00)
[2021-03-03] MEDS: TAMSULOSIN 0.4 MG CAP PO SCH (09:13)
[2021-03-03] MEDS: LACTOBACILLUS ACIDOPHILUS CAP (BACID) PO SCH (09:13)
[2021-03-03] MEDS: PANTOPRAZOLE 40MG TAB (PROTONIX) PO SCH (09:13)
[2021-03-03] MEDS: SERTRALINE HCL 25 MG TABLET PO SCH (09:13)
[2021-03-03] MEDS: clonazePAM 0.5 MG TAB PO PRN (09:13)
[2021-03-03] MEDS: allopurinoL 100 MG TAB PO SCH (09:13)
[2021-03-03] MEDS: GABAPENTIN 300 MG CAP PO SCH (09:13)
[2021-03-03] MEDS: LEVOTHYROXINE 50MCG TABLET (0.05MG) PO SCH (09:14)
[2021-03-03] MEDS: MAGNESIUM OXIDE 400MG TAB (MAG-OX) PO SCH (09:14)
[2021-03-03] MEDS: traMADol 50 MG TAB PO PRN (09:15)
[2021-03-03] MEDS ORDERED: PANT40TA29 PO (09:56)
--- NOTE | 2021-03-03 13:58 | DS.PDOC ---
Discharge Summary General Date of Admission Feb 27, 2021 at 18:41 Date of Discharge 03/03/21 Discharge Summary PROCEDURES PERFORMED DURING STAY: swallow evaluation DISCHARGE DIAGNOSES: 1. GERD 2. pneumonia with bronchiectactic changes 3. dysphagia 4. chronic hypoxic respiratory failure - baseline 2L 5. Hyperuricemia 6. Neuropathy 7. anxiety 8. BPH 9. Hypothyroid 10. CKD stage 3 11. Afib with tachy jenaro syndrome 12. 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 Mitral and tricuspid valve repair 2016 Postoperative C. difficile August 2016 Cutaneous T cell lymphoma H/o Paroxysmal Atrial fibrillation with tachy- jenaro syndrome s/p pacemaker in 2012. BPH Anxiety and depression Iron deficiency anemia Hypothyroidism Restless leg syndrome DAVID by home sleep study in 2016 CKD stage 3 Surgical History Bilateral inguinal hernia repair 2017 Mitral and tricuspid valve repair Aug 2016 Pacemaker implantation 2013 Talc pleurodesis on the right in 2010 Pericardial window 1999 Multiple thoracocenteses [id number] Right knee replacement Bilateral cataract repair Tonsillectomy as a child Umbilical hernia repair COMPLICATIONS/CHIEF COMPLAINT: Bronchiectasis,Pneumonia. HISTORY OF PRESENT ILLNESS: As per records: 76-year-old male with past medical history of metastatic non-small cell lung cancer of the right complicated by radiation pneumonitis, recurrent pleural effusions, malignant pericardial effusion and pericardial tamponade requiring pericardial window creation treated by multiple regimens of chemotherapy and radiation therapy from [id number], recurrent right-sided pleural effusion thought to be radiation mediated leading to talc pleurodesis of the right in 2010, paroxysmal atrial fibrillation with tachybradycardia syndrome status post pacemaker placement in 2012, mitral and tricuspid valve repair in 2016, diastolic CHF, hypothyroid, hyperuricemia ,CKD stage III, BPH, chronic hypoxic respiratory failure presented to the emergency room on 02/27/2021 for sustaining a mechanical fall at home and then inability to get up from the floor. Patient was down on the floor for about an hour before found him. Patient reported that he was trying to get out of the bed to go to the bathroom and just as he he was trying to stand up his legs gave out and he fell down on his hands and knees he had an abrasion on the left hip and no other injuries. He lay down on his side and tried to pull himself up however he could not and was down on the floor till his came back home and found him there. Patient also complained of some ongoing phlegm production for the past 2 weeks. He reported that he has been having some trouble swallowing for the past 2 weeks. He was feeling that food and medications were getting stuck at the right side of his neck and sometimes food was also regurgitating. While being evaluated in the ED he was found to be febrile at 101.3, chest x-ray showed a right lower lobe loculated effusion So he had a CT chest done which showed Central bronchiectasis extending into the upper middle and lower lobes of the right lung, with peribronchial scarring, as described. There is less airspace consolidation in the right lung when compared with the prior exam, no pleural effusion, Status post mitral valve prosthesis, left atrial appendage clip, and pacemaker, There is a small hiatal hernia. Multilevel degenerative disc disease of the thoracolumbar spine with dextroscoliosis. Patient was admitted for right-sided pneumonia with possible acute flare of bronchiectasis. HOSPITAL COURSE: Patient responded well to treatment with IV antibiotics for his pneumonia. His oxygen requirements returned to his baseline, which is 2 L supplemental oxygen via nasal cannula with regards to his dysphagia. He did undergo swallow evaluation which revealed concerns for gastroesophageal reflux disease and recommendations for outpatient follow-up with ENT. Hospital stay was otherwise unremarkable. Patient was discharged home with outpatient follow-up. DISCHARGE MEDICATIONS: Please see below. ALLERGIES: Please see below. PHYSICAL EXAMINATION ON DISCHARGE: VITAL SIGNS: Please see below. General: NAD, lying comfortably in bed HEENT: NC/AT, EOMI Lungs: CTA B/L Heart: +S1S2, RRR Abd: soft, NT, +BS Ext: no edema Neuro: no gross focal deficits Psych: AAOx3 LABORATORY DATA: Please see below. ACTIVITY: [As tolerated]. DISPOSITION: 01 Home, Self-Care. DISCHARGE INSTRUCTIONS: 1. Follow up PCP in 3-5 days 2. Recommend referral to ENT for further eval DISCHARGE CONDITION: [Stable]. TIME SPENT ON DISCHARGE: 35 minutes. Vital Signs/I&Os Vital Signs Date Time Temp Pulse Resp B/P (MAP) Pulse Ox O2 Delivery O2 Flow Rate FiO2 03/03/21 09:45 18 90 Nasal Cannula 2.0 03/03/21 06:02 98.1 60 123/62 (82) I&O- Last 24 Hours up to 6 AM 03/03/21 06:00 Intake Total 220 ml Output Total 0 ml Balance 220 ml Laboratory Data Labs 24H Laboratory Tests 2 03/03/21 06:16: Immature Granulocyte % (Auto) 0.2, Neutrophils (%) (Auto) 72.2H, Lymphocytes (%) (Auto) 10.3L, Monocytes (%) (Auto) 14.2H, Eosinophils (%) (Auto) 2.9, Basophils (%) (Auto) 0.2, Neutrophils # (Auto) 2.9, Lymphocytes # (Auto) 0.4L, Monocytes # (Auto) 0.6, Eosinophils # (Auto) 0.1, Basophils # (Auto) 0.0, Nucleated Red Blood Cells % (auto) 0.0, Immature Platelet Fraction 7.3, Anion Gap 5L, Glomerular Filtration Rate 50.1, Calcium Level 8.1L CBC/BMP Laboratory Tests 03/03/21 06:16 Microbiology Microbiology 02/27/21 Blood Culture - Preliminary, Resulted No Growth after 72 hours. All specime... 02/27/21 Blood Culture - Preliminary, Resulted No Growth after 72 hours. All specime... Discharge Medications Scheduled Allopurinol (Allopurinol) 100 Mg Tablet, 100 MG PO DAILY, (Reported) Ascorbic Acid (Vitamin C) 500 Mg Tab, 500 MG PO QHS, (Reported) Ergocalciferol (Vitamin D2) (Vitamin D2) 50,000 Units Cap, 50,000 UNITS PO QMONTH, (Reported) Ferrous Sulfate (Ferrous Sulfate) 325 Mg Tab, 325 MG PO BID, (Reported) Gabapentin (Gabapentin) 300 Mg Cap, 300 MG PO BID, (Reported) Hydroxyzine HCl (Hydroxyzine HCl) 10 Mg Tablet, 10 MG PO QHS, (Reported) Levothyroxine Sodium (Synthroid) 50 Mcg Tablet, 50 MCG PO DAILY, (Reported) Magnesium Chloride (Nu-Mag) 1 Tab Tab, 2 TAB PO BID, (Reported) Multivitamins (Thera M Plus Tablet) 1 Each Tablet, 1 TAB PO DAILY, (Reported) Pantoprazole Sodium (Pantoprazole Sodium) 40 Mg Tablet.dr, 40 MG PO DAILY Potassium Chloride (Potassium Chloride) 10 Meq Tablet.er, 20 MEQ PO BID, (Reported) Sertraline Hcl (Sertraline HCl) 25 Mg Tab, 25 MG PO BID, (Reported) Tamsulosin HCl (Flomax) 0.4 Mg Cap, 0.4 MG PO DAILY, (Reported) Torsemide (Torsemide) 10 Mg Tablet, 10 MG PO BID, (Reported) QAM AND 1600 Scheduled PRN Clonazepam (Clonazepam) 0.5 Mg Tab, 0.5 MG PO TID PRN for ANXIETY/AGITATION, (Reported) Tramadol HCl (Tramadol HCl) 50 Mg Tablet, 50 MG PO BID PRN for PAIN LEVEL 5-10, (Reported) Allergies Coded Allergies: NSAIDS (Non-Steroidal Anti-Inflamma (Verified Adverse Reaction, Intermediate, acute kidney injury, 02/27/21) DONNELL BECKER MD Mar 03, 2021 13:58
== END 2021-03-03 12:38 | disposition home or self-care (01) | DRG 194 ==
LOC: EDBD 13:51 → M ED 13:51 → M ED INP 18:41 → ENRESERV 19:47 → M MSPAV 20:37
PROVIDERS: ADMIT Internal Medicine Nephrology; ATTEND Internal Medicine
DX: J18.9 Pneumonia, unspecified organism (principal); J96.11 Chronic respiratory failure with hypoxia; I50.32 Chronic diastolic (congestive) heart failure; R13.10 Dysphagia, unspecified; E79.0 Hyperuricemia without signs of inflammatory arthritis and tophaceous disease; G62.9 Polyneuropathy, unspecified; F41.9 Anxiety disorder, unspecified; N40.0 Benign prostatic hyperplasia without lower urinary tract symptoms; E03.9 Hypothyroidism, unspecified; N18.30 Chronic kidney disease, stage 3 unspecified; Z95.0 Presence of cardiac pacemaker; Z95.828 Presence of other vascular implants and grafts; Z87.891 Personal history of nicotine dependence; Z20.822 Contact with and (suspected) exposure to COVID-19; Z79.899 Other long term (current) drug therapy; Z88.6 Allergy status to analgesic agent; Z85.118 Personal history of other malignant neoplasm of bronchus and lung; Z92.3 Personal history of irradiation; Z92.21 Personal history of antineoplastic chemotherapy; D50.9 Iron deficiency anemia, unspecified; G47.33 Obstructive sleep apnea (adult) (pediatric); G25.81 Restless legs syndrome; Z96.651 Presence of right artificial knee joint; Z98.41 Cataract extraction status, right eye; Z98.42 Cataract extraction status, left eye; K21.9 Gastro-esophageal reflux disease without esophagitis; I48.91 Unspecified atrial fibrillation; Z99.81 Dependence on supplemental oxygen

== ENCOUNTER → 2021-03-30 | Outpatient (RCR) | payer MEDICARE, OTHER ==
[~2021-03-30] MED LIST changes: +GENT0.3S29 OS; +HYDR-643 PO; +POTA1TAB23 PO; +PREDOPD OS; +SYNT50TA PO
== END ==
LOC: M PT 03-09 10:02
PROVIDERS: ATTEND Dermatology
DX: R26.89 Other abnormalities of gait and mobility (principal)

== ENCOUNTER → 2021-04-29 | Outpatient (RCR) | payer MEDICARE, OTHER ==
[~2021-04-29] MED LIST changes: -KLOR10TA76 PO; -KLOR20TA42 PO; +POTA-136 PO; +POTA-141 PO
== END ==
LOC: M PT 04-06 08:06
PROVIDERS: ATTEND Dermatology
DX: R53.1 Weakness (principal); Z72.3 Lack of physical exercise; R21 Rash and other nonspecific skin eruption

== ENCOUNTER 2021-05-28 08:30 | Outpatient (RCR) | payer MEDICARE, OTHER | END 2021-05-30 | disposition still patient (30) | LOC: M PT 08:30 | PROVIDERS: ATTEND Dermatology | DX: R53.1 Weakness (principal); Z72.3 Lack of physical exercise; R21 Rash and other nonspecific skin eruption ==

== ENCOUNTER 2021-06-23 10:00 | Outpatient (RCR) | payer MEDICARE, OTHER ==
[~2021-06-23 10:00] MED LIST changes: -CEFD1CAP8 PO; +CEFD300C41 PO; +LOSA25TA13 PO; -LOSA25TA14 PO
== END 2021-06-29 ==
LOC: M PT 10:00
PROVIDERS: ATTEND Dermatology
DX: C84.A0 Cutaneous T-cell lymphoma, unspecified, unspecified site (principal); R26.89 Other abnormalities of gait and mobility

== ENCOUNTER 2021-07-28 09:59 | Outpatient (RCR) | payer MEDICARE, OTHER ==
[~2021-07-28 09:59] MED LIST changes: +CEFD1CAP8 PO; -CEFD300C41 PO; -LOSA25TA13 PO; +LOSA25TA14 PO
== END 2021-07-30 ==
LOC: M PT 09:59
PROVIDERS: ATTEND Dermatology
DX: R26.89 Other abnormalities of gait and mobility (principal); R53.81 Other malaise

== ENCOUNTER → 2021-08-30 | Outpatient (RCR) | payer MEDICARE, OTHER ==
[~2021-08-30] MED LIST changes: -CEFD1CAP8 PO; +CEFD300C41 PO; +LOSA25TA13 PO; -LOSA25TA14 PO
== END ==
LOC: M PT 08-02 10:04
PROVIDERS: ATTEND Dermatology
DX: R26.89 Other abnormalities of gait and mobility (principal); R53.81 Other malaise

== ENCOUNTER → 2021-09-09 | Outpatient (REF) | payer MEDICARE, OTHER | LOC: M LAB REF 16:16 | PROVIDERS: ATTEND Internal Medicine | DX: I50.9 Heart failure, unspecified (principal); I48.0 Paroxysmal atrial fibrillation; I47.1 Supraventricular tachycardia ==

== ENCOUNTER → 2021-09-15 | Outpatient (CLI) | payer MEDICARE, OTHER | LOC: M RAD 10:57 | PROVIDERS: ATTEND Internal Medicine | DX: R06.02 Shortness of breath (principal) ==

== ENCOUNTER 2021-09-20 10:00 | Outpatient (RCR) | payer MEDICARE, OTHER | END 2021-09-27 | LOC: M PT 10:00 | PROVIDERS: ATTEND Dermatology | DX: R26.89 Other abnormalities of gait and mobility (principal); R53.81 Other malaise ==

== ENCOUNTER → 2021-09-27 | Outpatient (RCR) | payer MEDICARE, OTHER | LOC: M PT 09-22 10:00 | PROVIDERS: ATTEND Internal Medicine | DX: R26.9 Unspecified abnormalities of gait and mobility (principal) ==

== ENCOUNTER 2021-10-27 10:00 | Outpatient (RCR) | payer MEDICARE, OTHER | END 2021-10-28 | LOC: M PT 10:00 | PROVIDERS: ATTEND Internal Medicine | DX: R26.9 Unspecified abnormalities of gait and mobility (principal) ==

== ENCOUNTER 2021-11-24 10:00 | Outpatient (RCR) | payer MEDICARE, OTHER | END 2021-11-27 | LOC: M PT 10:00 | PROVIDERS: ATTEND Internal Medicine | DX: R26.9 Unspecified abnormalities of gait and mobility (principal); C84.A0 Cutaneous T-cell lymphoma, unspecified, unspecified site ==

== ENCOUNTER → 2021-11-29 | Outpatient (CLI) | payer MEDICARE, OTHER ==
[2021-11-29 17:05] LABS: BASOPHILS 4 % (0-1); EOSINOPHILS 9 % (0-3); LYMPHOCYTES 22 % (16-44); MONOCYTES 3 % (0-5); NEUTROPHILS 62 % (28-66); PLATELET ESTIMATE NORMAL (NORMAL)
== END ==
LOC: M WUC 13:40
PROVIDERS: ATTEND Physician Assistant Medical
DX: R91.8 Other nonspecific abnormal finding of lung field (principal); R05.9 Cough, unspecified; R53.1 Weakness; D72.9 Disorder of white blood cells, unspecified

== ENCOUNTER → 2021-12-02 | Outpatient (CLI) | payer MEDICARE, OTHER ==
[~2021-12-02] MED LIST changes: +ISOVUE-370 76% 100ML VIAL As Ordered ONE
== END ==
LOC: M RAD 08:04
PROVIDERS: ATTEND Physician Assistant Medical
DX: R91.8 Other nonspecific abnormal finding of lung field (principal); R05.9 Cough, unspecified; R53.1 Weakness
CPT/HCPCS: 71260; Q9967

== ENCOUNTER 2021-12-08 10:01 | Outpatient (RCR) | payer MEDICARE, OTHER ==
[~2021-12-08 10:01] MED LIST changes: +ALBU2.5V10 INH; -ALBU83IN INH; -ISOVUE-370 76% 100ML VIAL As Ordered ONE
== END 2021-12-28 ==
LOC: M PT 10:01
PROVIDERS: ATTEND Internal Medicine
DX: R26.9 Unspecified abnormalities of gait and mobility (principal)

== ENCOUNTER → 2021-12-17 | Outpatient (CLI) | payer MEDICARE, OTHER ==
[~2021-12-17] MED LIST changes: -ALBU2.5V10 INH; +ALBU83IN INH
[2021-12-17 12:06] LABS: HEMATOCRIT 37.8 % (42.0-52.0); HEMOGLOBIN 12.4 g/dl (13.5-17.5); MEAN CORPUSCULAR HEMOGLOBIN 31.6 pg (27.0-33.0); MEAN CORPUSCULAR HGB CONC 32.8 g/dl (32.0-36.5); MEAN CORPUSCULAR VOLUME 96.2 fl (80.0-96.0); PLATELET COUNT, AUTOMATED 120 10^3/uL (150-450); RED BLOOD COUNT 3.93 10^6/uL (4.30-6.10); WHITE BLOOD COUNT 4.7 10^3/uL (4.0-10.0)
[2021-12-17 12:38] LABS: CALCIUM LEVEL 8.8 MG/DL (8.8-10.2); CREATININE FOR GFR 1.25 MG/DL (0.70-1.30); GLOMERULAR FILTRATION RATE 59.5 (>42); MAGNESIUM LEVEL 2.1 MG/DL (1.8-2.4); POTASSIUM SERUM 3.6 MEQ/L (3.5-5.1)
== END ==
LOC: M LAB 11:28
PROVIDERS: ATTEND Physician Assistant
DX: I50.9 Heart failure, unspecified (principal)

== ENCOUNTER → 2022-01-03 | Outpatient (CLI) | payer MEDICARE, OTHER ==
[~2022-01-03] MED LIST changes: +ALBU2.5V10 INH; -ALBU83IN INH
== END ==
LOC: M PLARAD 13:27
PROVIDERS: ATTEND Physician Assistant Medical
DX: Z85.118 Personal history of other malignant neoplasm of bronchus and lung (principal); R91.8 Other nonspecific abnormal finding of lung field
CPT/HCPCS: 78815; A9552

== ENCOUNTER 2022-01-25 10:45 | Outpatient (RCR) | payer MEDICARE, OTHER | END 2022-01-27 | LOC: M PT 10:45 | PROVIDERS: ATTEND Internal Medicine | DX: R26.9 Unspecified abnormalities of gait and mobility (principal); C84.A0 Cutaneous T-cell lymphoma, unspecified, unspecified site ==

== ENCOUNTER 2022-02-08 08:08 | Emergency (ER) | payer MEDICARE, OTHER ==
[~2022-02-08] VITALS: Ht 175.3 cm; Wt 65.9 kg
[2022-02-08] MEDS ORDERED: ALBU2.5V10 (09:00)
[2022-02-08] MEDS ORDERED: IPRA2IN (09:00)
[2022-02-08 09:18] LABS: BASO % 0.5 % (0.0-1.0); EOS # 0.2 10^3/uL (0.0-0.5); EOS % 4.4 % (0.0-3.0); HEMATOCRIT 40.1 % (42.0-52.0); LYMPH # 0.8 10^3/uL (1.5-5.0); LYMPH % 18.1 % (24.0-44.0); MEAN CORPUSCULAR HEMOGLOBIN 31.3 pg (27.0-33.0); MEAN CORPUSCULAR HGB CONC 32.4 g/dl (32.0-36.5); MEAN CORPUSCULAR VOLUME 96.6 fl (80.0-96.0); MONO # 0.6 10^3/uL (0.0-0.8); MONO % 13.5 % (2.0-8.0); NEUTROPHILS # 2.7 10^3/uL (1.5-8.5); NEUTROPHILS % 63.3 % (36.0-66.0); PLATELET COUNT, AUTOMATED 141 10^3/uL (150-450); RED BLOOD COUNT 4.15 10^6/uL (4.30-6.10); WHITE BLOOD COUNT 4.3 10^3/uL (4.0-10.0)
[2022-02-08 09:49] LABS: CK-MB VALUE MASS 1.9 NG/ML (<3.6); MB/CK RELATIVE INDEX 2.02 (< OR =4)
[2022-02-08 09:55] LABS: ALBUMIN 3.1 GM/DL (3.2-5.2); BILIRUBIN,DIRECT 0.4 MG/DL (0.0-0.2); CALCIUM LEVEL 8.8 MG/DL (8.8-10.2); CREATININE FOR GFR 1.25 MG/DL (0.70-1.30); GLOMERULAR FILTRATION RATE 59.3 (>42); POTASSIUM SERUM 3.5 MEQ/L (3.5-5.1); THYROID STIMULATING HORMONE 4.43 uIU/ML (0.358-3.740); TOTAL PROTEIN 6.1 GM/DL (6.4-8.2)
[2022-02-08 14:00] VITALS: BP 114/61
== END 2022-02-08 14:20 | disposition home or self-care (01) ==
LOC: M ED 08:08
DX: I95.1 Orthostatic hypotension (principal); I48.91 Unspecified atrial fibrillation; I10 Essential (primary) hypertension; E03.9 Hypothyroidism, unspecified; Z85.118 Personal history of other malignant neoplasm of bronchus and lung; Z95.0 Presence of cardiac pacemaker; Z95.828 Presence of other vascular implants and grafts; Z88.6 Allergy status to analgesic agent; Z79.890 Hormone replacement therapy; Z79.899 Other long term (current) drug therapy

== ENCOUNTER 2022-02-23 11:00 | Outpatient (RCR) | payer MEDICARE, OTHER ==
[~2022-02-23 11:00] MED LIST changes: +ALBU2.5V10; +IPRA2IN
== END 2022-02-27 ==
LOC: M PT 11:00
PROVIDERS: ATTEND Internal Medicine
DX: R26.9 Unspecified abnormalities of gait and mobility (principal)

== ENCOUNTER 2022-03-24 10:00 | Outpatient (RCR) | payer MEDICARE, OTHER | END 2022-03-30 | LOC: M PT 10:00 | PROVIDERS: ATTEND Internal Medicine | DX: R26.9 Unspecified abnormalities of gait and mobility (principal); C84.A0 Cutaneous T-cell lymphoma, unspecified, unspecified site ==

== ENCOUNTER 2022-03-28 10:00 | Outpatient (RCR) | payer MEDICARE, OTHER | END 2022-03-30 | LOC: M PT 10:00 | PROVIDERS: ATTEND Internal Medicine | DX: I13.0 Hypertensive heart and chronic kidney disease with heart failure and stage 1 through stage 4 chronic kidney disease, or unspecified chronic kidney disease (principal); N18.9 Chronic kidney disease, unspecified; I50.9 Heart failure, unspecified; Z85.118 Personal history of other malignant neoplasm of bronchus and lung ==

== ENCOUNTER 2022-04-26 13:30 | Outpatient (RCR) | payer MEDICARE, OTHER ==
[~2022-04-26 13:30] MED LIST changes: -ALBU2.5V10; -IPRA2IN
[2022-05-02] MEDS ORDERED: ACET-897 PO (09:48)
[2022-05-02] MEDS ORDERED: PANT40TA29 PO (09:48)
[2022-05-02] MEDS ORDERED: SLOWTAB2 PO (11:23)
== END 2022-04-29 ==
LOC: M PT 13:30
PROVIDERS: ATTEND Internal Medicine
DX: I13.0 Hypertensive heart and chronic kidney disease with heart failure and stage 1 through stage 4 chronic kidney disease, or unspecified chronic kidney disease (principal); Z85.118 Personal history of other malignant neoplasm of bronchus and lung; N18.9 Chronic kidney disease, unspecified

== ENCOUNTER 2022-05-15 22:26 | Inpatient (IN) | payer MEDICARE, OTHER ==
[~2022-05-15] VITALS: Ht 177.8 cm; Wt 68.1 kg
[~2022-05-15 22:26] MED LIST changes: +ACET-897 PO; +SLOWTAB2 PO
[2022-05-15] MEDS ORDERED: NS 2,250 ML in IV 1 EA IV ONE (22:45)
[2022-05-15] MEDS ORDERED: ACETAMINOPHEN TAB 650MG DOSE (2X325MG) PO ONE (22:45)
[2022-05-15 23:05] LABS: BASO % 0.2 % (0.0-1.0); HEMATOCRIT 40.7 % (42.0-52.0); HEMOGLOBIN 13.3 g/dl (13.5-17.5); LYMPH # 0.3 10^3/uL (1.5-5.0); LYMPH % 1.9 % (24.0-44.0); MEAN CORPUSCULAR HEMOGLOBIN 30.9 pg (27.0-33.0); MEAN CORPUSCULAR HGB CONC 32.7 g/dl (32.0-36.5); MEAN CORPUSCULAR VOLUME 94.7 fl (80.0-96.0); MONO # 0.8 10^3/uL (0.0-0.8); MONO % 5.6 % (2.0-8.0); NEUTROPHILS # 12.7 10^3/uL (1.5-8.5); NEUTROPHILS % 91.6 % (36.0-66.0); PLATELET COUNT, AUTOMATED 155 10^3/uL (150-450); WHITE BLOOD COUNT 13.9 10^3/uL (4.0-10.0)
[2022-05-15 23:16] LABS: INR 1.19; PROTHROMBIN TIME 15.4 SECONDS (12.5-14.5)
[2022-05-15 23:20] LABS: ABG BASE EXCESS 1.2 (-2.0-2.0); ABG HCO3 26.6 MEQ/L (22.0-26.0); ABG O2 SATURATION 97.9 % (95.0-99.0); ABG PARTIAL PRESSURE CO2 45.5 mmHg (35.0-45.0); ABG PARTIAL PRESSURE O2 103.9 mmHg (75.0-100.0); ABG STANDARD HCO3 25.5 MEQ/L (22.0-26.0); ABG pH (ARTERIAL) 7.385 UNITS (7.350-7.450)
[2022-05-15 23:34] LABS: CPK CREATINE PHOSPHOKINASE 114 U/L (39-308)
[2022-05-15 23:39] LABS: BILIRUBIN,DIRECT 0.4 MG/DL (0.0-0.2); BILIRUBIN,TOTAL 0.9 MG/DL (0.2-1.0); CALCIUM LEVEL 8.3 MG/DL (8.8-10.2); CREATININE FOR GFR 1.45 MG/DL (0.70-1.30); POTASSIUM SERUM 4.1 MEQ/L (3.5-5.1); THYROID STIMULATING HORMONE 5.65 uIU/ML (0.358-3.740); TOTAL PROTEIN 6.2 GM/DL (6.4-8.2)
[2022-05-16] MEDS ORDERED: cefTRIAXone SOD 1 GM in D5W MINI-BAG PLUS 50 ML IV ONE (01:10)
[2022-05-16 01:25] LABS: CPK CREATINE PHOSPHOKINASE 104 U/L (39-308)
[2022-05-16] MEDS ORDERED: SERT50TA29 PO (02:04)
[2022-05-16] MEDS ORDERED: AZIT-12 PO (02:04)
[2022-05-16] MEDS ORDERED: HOME MED LIST COMPLETE! XX SCH (02:05)
[2022-05-16] MEDS ORDERED: ACETAMINOPHEN TAB 650MG DOSE (2X325MG) PO PRN (02:15)
[2022-05-16] MEDS ORDERED: NS 1,000 ML IV SCH (02:15)
[2022-05-16] MEDS ORDERED: traMADol 50 MG TAB PO PRN (02:15)
[2022-05-16 03:14] VITALS: BP 110/57
[2022-05-16] MEDS ORDERED: guaiFENesin DM *SUGAR FREE* 5ML**DIABETIC TUSSIN DM PO PRN (03:15)
[2022-05-16] MEDS ORDERED: ALBUTEROL SULFATE 2.5 MG/0.5 ML INH NEB SOLN NEB PRN (03:15)
[2022-05-16] MEDS: LEVOTHYROXINE 50MCG TABLET (0.05MG) PO SCH (05:12)
[2022-05-16] MEDS: clonazePAM 0.5 MG TAB PO PRN ×2 (05:38→20:08)
[2022-05-16 06:23] LABS: BASO % 0.3 % (0.0-1.0); HEMATOCRIT 36.8 % (42.0-52.0); HEMOGLOBIN 11.8 g/dl (13.5-17.5); LYMPH # 0.5 10^3/uL (1.5-5.0); LYMPH % 4.2 % (24.0-44.0); MEAN CORPUSCULAR HEMOGLOBIN 30.5 pg (27.0-33.0); MEAN CORPUSCULAR HGB CONC 32.1 g/dl (32.0-36.5); MEAN CORPUSCULAR VOLUME 95.1 fl (80.0-96.0); MONO # 0.6 10^3/uL (0.0-0.8); MONO % 5.6 % (2.0-8.0); NEUTROPHILS % 89.4 % (36.0-66.0); PLATELET COUNT, AUTOMATED 133 10^3/uL (150-450); RED BLOOD COUNT 3.87 10^6/uL (4.30-6.10); WHITE BLOOD COUNT 11.2 10^3/uL (4.0-10.0)
[2022-05-16 06:54] LABS: BLOOD UREA NITROGEN 25 MG/DL (7-18); CALCIUM LEVEL 7.4 MG/DL (8.8-10.2); CARBON DIOXIDE LEVEL 31 MEQ/L (21-32); CHLORIDE LEVEL 104 MEQ/L (98-107); CREATININE FOR GFR 1.18 MG/DL (0.70-1.30); GLOMERULAR FILTRATION RATE > 60.0 (>42); GLUCOSE, FASTING 123 MG/DL (70-100); POTASSIUM SERUM 4.5 MEQ/L (3.5-5.1); SODIUM LEVEL 137 MEQ/L (136-145)
[2022-05-16] MEDS: IPRATROPIUM 0.5MG/ALBUTEROL 2.5MG INH SOL UD 3ML (DUONEB) NEB SCH ×3 (07:38→21:59)
[2022-05-16 08:00] VITALS: BP 122/67
[2022-05-16] MEDS: TAMSULOSIN 0.4 MG CAP PO SCH (09:44)
[2022-05-16] MEDS: SERTRALINE HCL 25 MG TABLET PO SCH (09:44)
[2022-05-16] MEDS: GABAPENTIN 300 MG CAP PO SCH ×2 (09:45→20:08)
[2022-05-16] MEDS: AZITHROMYCIN 250MG TABLET PO SCH (09:45)
[2022-05-16] MEDS: HEPARIN SOD (PORCINE) 5000UNITS/ML 1ML VIAL/SYRINGE SC SCH ×2 (09:45→20:08)
[2022-05-16 12:00] VITALS: BP 121/59
[2022-05-16 15:38] VITALS: BP 111/59
[2022-05-16 20:00] VITALS: BP 112/59
[2022-05-16] MEDS ORDERED: cefTRIAXone SOD 1 GM in D5W MINI-BAG PLUS 50 ML IV SCH (21:00)
[2022-05-17] MEDS: IPRATROPIUM 0.5MG/ALBUTEROL 2.5MG INH SOL UD 3ML (DUONEB) NEB SCH ×3 (02:25→13:39)
[2022-05-17 04:00] VITALS: BP 116/57
[2022-05-17 05:19] LABS: BASO % 0.4 % (0.0-1.0); EOS # 0.1 10^3/uL (0.0-0.5); EOS % 2.2 % (0.0-3.0); HEMATOCRIT 34.1 % (42.0-52.0); HEMOGLOBIN 11.2 g/dl (13.5-17.5); LYMPH # 0.6 10^3/uL (1.5-5.0); LYMPH % 13.6 % (24.0-44.0); MEAN CORPUSCULAR HEMOGLOBIN 30.9 pg (27.0-33.0); MEAN CORPUSCULAR HGB CONC 32.8 g/dl (32.0-36.5); MEAN CORPUSCULAR VOLUME 93.9 fl (80.0-96.0); MONO # 0.6 10^3/uL (0.0-0.8); MONO % 12.3 % (2.0-8.0); NEUTROPHILS # 3.3 10^3/uL (1.5-8.5); NEUTROPHILS % 71.1 % (36.0-66.0); PLATELET COUNT, AUTOMATED 123 10^3/uL (150-450); RED BLOOD COUNT 3.63 10^6/uL (4.30-6.10); WHITE BLOOD COUNT 4.6 10^3/uL (4.0-10.0)
[2022-05-17 05:50] LABS: BLOOD UREA NITROGEN 24 MG/DL (7-18); CALCIUM LEVEL 7.9 MG/DL (8.8-10.2); CARBON DIOXIDE LEVEL 31 MEQ/L (21-32); CHLORIDE LEVEL 105 MEQ/L (98-107); CREATININE FOR GFR 0.97 MG/DL (0.70-1.30); GLOMERULAR FILTRATION RATE > 60.0 (>42); GLUCOSE, FASTING 89 MG/DL (70-100); POTASSIUM SERUM 3.8 MEQ/L (3.5-5.1); SODIUM LEVEL 140 MEQ/L (136-145)
[2022-05-17] MEDS: LEVOTHYROXINE 50MCG TABLET (0.05MG) PO SCH (06:12)
[2022-05-17 08:00] VITALS: BP 139/74
[2022-05-17] MEDS ORDERED: FLUBLOK(EGG FREE)(QUAD)INFLUENZA VACC 0.5ML SYRINGE 18YRS & OLDER IM.IMMUN ONE (09:00)
[2022-05-17] MEDS: HEPARIN SOD (PORCINE) 5000UNITS/ML 1ML VIAL/SYRINGE SC SCH (09:11)
[2022-05-17] MEDS: AZITHROMYCIN 250MG TABLET PO SCH (09:12)
[2022-05-17] MEDS: SERTRALINE HCL 25 MG TABLET PO SCH (09:12)
[2022-05-17] MEDS: GABAPENTIN 300 MG CAP PO SCH (09:12)
[2022-05-17] MEDS: TAMSULOSIN 0.4 MG CAP PO SCH (09:12)
[2022-05-17] MEDS ORDERED: CEFU50TA PO ×2 (11:32→12:37)
[2022-05-17] MEDS ORDERED: ACET1TAB55 PO (11:32)
[2022-05-17] MEDS ORDERED: PRED20TA PO (11:32)
[2022-05-17] MEDS ORDERED: LEVO1TAB38 PO (12:30)
[2022-05-17] MEDS ORDERED: PROB1CAP10 PO (12:37)
[2022-05-17] MEDS ORDERED: DOXY-350 PO (12:37)
[2022-05-17] MEDS ORDERED: SERT50TA29 PO (13:29)
== END 2022-05-17 14:28 | disposition home or self-care (01) | DRG 871 ==
LOC: M ED 22:26 → M ED INP 05-16 02:12 → M PCU 05-16 03:08
PROVIDERS: ADMIT Internal Medicine; ATTEND Internal Medicine
DX: A41.9 Sepsis, unspecified organism (principal); J18.9 Pneumonia, unspecified organism; J44.0 Chronic obstructive pulmonary disease with (acute) lower respiratory infection; J44.1 Chronic obstructive pulmonary disease with (acute) exacerbation; E87.20 Acidosis, unspecified; J96.11 Chronic respiratory failure with hypoxia; E03.9 Hypothyroidism, unspecified; Z66 Do not resuscitate; I10 Essential (primary) hypertension; R29.6 Repeated falls; Z99.81 Dependence on supplemental oxygen; R53.1 Weakness; R65.20 Severe sepsis without septic shock; I25.10 Atherosclerotic heart disease of native coronary artery without angina pectoris; Z85.118 Personal history of other malignant neoplasm of bronchus and lung; Z92.21 Personal history of antineoplastic chemotherapy; Z92.3 Personal history of irradiation; Z88.6 Allergy status to analgesic agent; Z79.899 Other long term (current) drug therapy

== ENCOUNTER → 2022-06-07 | Outpatient (CLI) | payer MEDICARE, OTHER ==
[~2022-06-07] VITALS: Ht 176.5 cm; Wt 67.3 kg
[~2022-06-07] MED LIST changes: +AZIT-12 PO; +CEFU50TA PO; +DOXY-444 PO; +LEVO1TAB38 PO; +MORP1SOL4 PO; +PRED20TA PO; +PROB1CAP10 PO; +SERT50TA29 PO; +TAMS1CAP17 PO
[2022-06-07 12:46] VITALS: BP 118/82
== END ==
LOC: M PAL 12:27
PROVIDERS: ATTEND Nurse Practitioner Adult Health
DX: J44.9 Chronic obstructive pulmonary disease, unspecified (principal); J84.10 Pulmonary fibrosis, unspecified; R06.00 Dyspnea, unspecified; G25.81 Restless legs syndrome; R53.83 Other fatigue; R29.6 Repeated falls; Z51.5 Encounter for palliative care; Z66 Do not resuscitate; Z88.6 Allergy status to analgesic agent; Z79.899 Other long term (current) drug therapy; Z79.890 Hormone replacement therapy

== ENCOUNTER 2022-06-23 06:08 | Inpatient (IN) | payer MEDICARE, OTHER ==
[~2022-06-23] VITALS: Ht 152.4 cm; Wt 66.0 kg
[2022-06-23 07:28] LABS: BASO % 0.2 % (0.0-1.0); EOS % 0.2 % (0.0-3.0); HEMATOCRIT 42.8 % (42.0-52.0); HEMOGLOBIN 13.3 g/dl (13.5-17.5); LYMPH # 0.3 10^3/uL (1.5-5.0); LYMPH % 2.5 % (24.0-44.0); MEAN CORPUSCULAR HEMOGLOBIN 30.4 pg (27.0-33.0); MEAN CORPUSCULAR HGB CONC 31.1 g/dl (32.0-36.5); MEAN CORPUSCULAR VOLUME 97.7 fl (80.0-96.0); MONO # 1.1 10^3/uL (0.0-0.8); MONO % 9.1 % (2.0-8.0); NEUTROPHILS # 10.7 10^3/uL (1.5-8.5); NEUTROPHILS % 87.5 % (36.0-66.0); PLATELET COUNT, AUTOMATED 196 10^3/uL (150-450); RED BLOOD COUNT 4.38 10^6/uL (4.30-6.10); WHITE BLOOD COUNT 12.2 10^3/uL (4.0-10.0)
[2022-06-23 07:47] LABS: VENOUS BASE EXCESS 9.7 (-2.0-2.0); VENOUS HCO3 39.3 MEQ/L (23.0-27.0); VENOUS O2 SATURATION 86.9 % (60.0-80.0); VENOUS PARTIAL PRESSURE CO2 79.7 mmHg (38.0-50.0); VENOUS PH 7.311 UNITS (7.330-7.430); VENOUS STANDARD HCO3 33.2 MEQ/L; VENOUS TOTAL CO2 41.8 MEQ/L (24.0-28.0)
[2022-06-23] MEDS ORDERED: methylPREDNISolone 125MG 2ML VIAL IV ONE (08:05)
[2022-06-23] MEDS ORDERED: DOXYCYCLINE HYCLATE 100MG TABLET PO ONE (08:05)
[2022-06-23] MEDS ORDERED: COMBIVENT RESPIMAT 100-20MCG INHALER 4GM INH PRN (08:05)
[2022-06-23] MEDS ORDERED: cefTRIAXone SOD 1 GM in D5W MINI-BAG PLUS 50 ML IV ONE (08:05)
[2022-06-23 08:24] LABS: ALBUMIN 2.5 G/DL (3.2-5.2); ALKALINE PHOSPHATASE 110 U/L (46-116); ALT/SGPT 20 U/L (7.0-40); AST/SGOT 27 U/L (<34); BILIRUBIN,DIRECT 0.4 MG/DL (<0.4); BILIRUBIN,TOTAL 0.7 MG/DL (0.3-1.2); BLOOD UREA NITROGEN 22 MG/DL (9-23); CALCIUM LEVEL 8.1 MG/DL (8.3-10.6); CARBON DIOXIDE LEVEL > 40.0 MMOL/L (20-31); CHLORIDE LEVEL 98 MMOL/L (98-107); CREATININE FOR GFR 0.98 MG/DL (0.70-1.30); GLOMERULAR FILTRATION RATE > 60.0 (>42); GLUCOSE, FASTING 99 MG/DL (74-106); POTASSIUM SERUM 4.1 MMOL/L (3.5-5.1); SODIUM LEVEL 142 MMOL/L (136-145); THYROID STIMULATING HORMONE 4.143 uIU/ML (0.55-4.78); TOTAL PROTEIN 5.3 G/DL (5.7-8.2)
[2022-06-23] MEDS: ENOXAPARIN 40MG/0.4ML SYRINGE (J1650 PER 10MG) SC SCH (09:00)
[2022-06-23] MEDS: AZITHROMYCIN 250MG TABLET PO SCH (09:00)
[2022-06-23] MEDS ORDERED: SLOWTAB2 PO (09:16)
[2022-06-23] MEDS ORDERED: HOME MED LIST COMPLETE! XX SCH (09:20)
[2022-06-23] MEDS ORDERED: allopurinoL 100 MG TAB PO PRN (10:40)
[2022-06-23] MEDS ORDERED: IPRATROPIUM 0.5MG/ALBUTEROL 2.5MG INH SOL UD 3ML (DUONEB) NEB PRN (10:40)
[2022-06-23] MEDS ORDERED: guaiFENesin 200 MG TAB PO PRN (10:40)
[2022-06-23] MEDS: TAMSULOSIN 0.4 MG CAP PO SCH (11:17)
[2022-06-23] MEDS: GABAPENTIN 300 MG CAP PO SCH ×2 (11:17→20:30)
[2022-06-23] MEDS: POTASSIUM CHLORIDE 10MEQ SR TABLET PO SCH ×2 (11:17→20:30)
[2022-06-23] MEDS: PIPERACILLIN/TAZOBACTAM SOD 3.375 GM in D5W MINI-BAG PLUS 50 ML IV SCH ×3 (11:21→23:31)
[2022-06-23] MEDS: traMADol 50 MG TAB PO PRN ×2 (11:24→23:32)
[2022-06-23 11:51] LABS: LIPASE 57 U/L (12-53)
[2022-06-23 12:50] VITALS: BP 128/62
[2022-06-23] MEDS: IPRATROPIUM 0.5MG/ALBUTEROL 2.5MG INH SOL UD 3ML (DUONEB) NEB SCH ×2 (14:00→19:20)
[2022-06-23] MEDS: METOCLOPRAMIDE 5 MG TAB PO SCH (17:33)
[2022-06-23] MEDS: clonazePAM 0.5 MG TAB PO PRN (20:34)
[2022-06-23 23:34] VITALS: BP 109/57
[2022-06-24] MEDS: IPRATROPIUM 0.5MG/ALBUTEROL 2.5MG INH SOL UD 3ML (DUONEB) NEB SCH ×4 (02:07→19:23)
[2022-06-24 06:00] VITALS: BP 122/55
[2022-06-24] MEDS: PIPERACILLIN/TAZOBACTAM SOD 3.375 GM in D5W MINI-BAG PLUS 50 ML IV SCH ×4 (06:06→23:38)
[2022-06-24] MEDS: LEVOTHYROXINE 50MCG TABLET (0.05MG) PO SCH (06:07)
[2022-06-24 06:36] LABS: HEMOGLOBIN 11.4 g/dl (13.5-17.5); MEAN CORPUSCULAR HEMOGLOBIN 30.8 pg (27.0-33.0); MEAN CORPUSCULAR HGB CONC 32.6 g/dl (32.0-36.5); MEAN CORPUSCULAR VOLUME 94.6 fl (80.0-96.0); PLATELET COUNT, AUTOMATED 167 10^3/uL (150-450); WHITE BLOOD COUNT 12.1 10^3/uL (4.0-10.0)
[2022-06-24 06:46] LABS: ALBUMIN 2.2 G/DL (3.2-5.2); ALKALINE PHOSPHATASE 87 U/L (46-116); ALT/SGPT 16 U/L (7.0-40); AST/SGOT 21 U/L (<34); BILIRUBIN,TOTAL 0.5 MG/DL (0.3-1.2); BLOOD UREA NITROGEN 32 MG/DL (9-23); CALCIUM LEVEL 8.1 MG/DL (8.3-10.6); CARBON DIOXIDE LEVEL 38 MMOL/L (20-31); CHLORIDE LEVEL 97 MMOL/L (98-107); CREATININE FOR GFR 1.06 MG/DL (0.70-1.30); GLOMERULAR FILTRATION RATE > 60.0 (>42); GLUCOSE, FASTING 132 MG/DL (74-106); MAGNESIUM LEVEL 1.6 MG/DL (1.8-2.4); POTASSIUM SERUM 3.9 MMOL/L (3.5-5.1); SODIUM LEVEL 139 MMOL/L (136-145); TOTAL PROTEIN 4.5 G/DL (5.7-8.2)
[2022-06-24 07:45] VITALS: O2SAT 92
[2022-06-24] MEDS: POTASSIUM CHLORIDE 10MEQ SR TABLET PO SCH ×2 (09:29→20:34)
[2022-06-24] MEDS: METOCLOPRAMIDE 5 MG TAB PO SCH ×3 (09:29→18:26)
[2022-06-24] MEDS: SERTRALINE HCL 50 MG TAB PO SCH (09:29)
[2022-06-24] MEDS: MULTIVITAMINS/MINERALS THERAP 1 TAB PO SCH (09:29)
[2022-06-24] MEDS: GABAPENTIN 300 MG CAP PO SCH ×2 (09:29→20:33)
[2022-06-24] MEDS: AZITHROMYCIN 250MG TABLET PO SCH (09:30)
[2022-06-24] MEDS: TAMSULOSIN 0.4 MG CAP PO SCH (09:32)
[2022-06-24] MEDS: methylPREDNISolone 40MG 1ML VIAL IV SCH (09:32)
[2022-06-24] MEDS: ENOXAPARIN 40MG/0.4ML SYRINGE (J1650 PER 10MG) SC SCH (09:32)
[2022-06-24] MEDS: SUCRALFATE 1 GM TAB PO SCH ×2 (11:52→20:33)
[2022-06-24] MEDS: PANTOPRAZOLE 40MG VIAL IV SCH ×2 (11:52→20:45)
[2022-06-24 13:15] LABS: HEMATOCRIT 36.9 % (42.0-52.0)
[2022-06-24] MEDS ORDERED: POLYVINYL ALCOHOL OPHTH SOLN 15 ML(LIQUITEARS) OU PRN (13:35)
[2022-06-24 14:00] VITALS: BP 110/46
[2022-06-24 19:25] VITALS: O2SAT 99
[2022-06-24 22:00] VITALS: BP 111/47
[2022-06-24] MEDS: traMADol 50 MG TAB PO PRN (23:38)
[2022-06-25] MEDS: IPRATROPIUM 0.5MG/ALBUTEROL 2.5MG INH SOL UD 3ML (DUONEB) NEB SCH ×4 (01:39→20:58)
[2022-06-25] MEDS: PIPERACILLIN/TAZOBACTAM SOD 3.375 GM in D5W MINI-BAG PLUS 50 ML IV SCH ×4 (05:26→23:51)
[2022-06-25] MEDS: LEVOTHYROXINE 50MCG TABLET (0.05MG) PO SCH (05:26)
[2022-06-25 06:00] VITALS: BP 114/51
[2022-06-25 07:58] LABS: BASO % 0.1 % (0.0-1.0); HEMATOCRIT 35.3 % (42.0-52.0); HEMOGLOBIN 11.4 g/dl (13.5-17.5); LYMPH # 0.6 10^3/uL (1.5-5.0); LYMPH % 4.3 % (24.0-44.0); MEAN CORPUSCULAR HEMOGLOBIN 30.3 pg (27.0-33.0); MEAN CORPUSCULAR HGB CONC 32.3 g/dl (32.0-36.5); MEAN CORPUSCULAR VOLUME 93.9 fl (80.0-96.0); MONO % 7.2 % (2.0-8.0); NEUTROPHILS # 12.1 10^3/uL (1.5-8.5); PLATELET COUNT, AUTOMATED 162 10^3/uL (150-450); RED BLOOD COUNT 3.76 10^6/uL (4.30-6.10); WHITE BLOOD COUNT 13.7 10^3/uL (4.0-10.0)
[2022-06-25] MEDS: MULTIVITAMINS/MINERALS THERAP 1 TAB PO SCH (08:23)
[2022-06-25] MEDS: SUCRALFATE 1 GM TAB PO SCH ×2 (08:23→20:58)
[2022-06-25] MEDS: METOCLOPRAMIDE 5 MG TAB PO SCH ×3 (08:24→18:16)
[2022-06-25] MEDS: PANTOPRAZOLE 40MG VIAL IV SCH ×2 (08:24→20:58)
[2022-06-25] MEDS: GABAPENTIN 300 MG CAP PO SCH ×2 (08:24→20:58)
[2022-06-25] MEDS: POTASSIUM CHLORIDE 10MEQ SR TABLET PO SCH ×2 (08:24→20:58)
[2022-06-25] MEDS: ENOXAPARIN 40MG/0.4ML SYRINGE (J1650 PER 10MG) SC SCH (08:24)
[2022-06-25] MEDS: SERTRALINE HCL 50 MG TAB PO SCH (08:24)
[2022-06-25] MEDS: TAMSULOSIN 0.4 MG CAP PO SCH (08:24)
[2022-06-25] MEDS: AZITHROMYCIN 250MG TABLET PO SCH (08:24)
[2022-06-25] MEDS: methylPREDNISolone 40MG 1ML VIAL IV SCH (08:24)
[2022-06-25 08:37] LABS: ALBUMIN 2.2 G/DL (3.2-5.2); ALKALINE PHOSPHATASE 80 U/L (46-116); ALT/SGPT 25 U/L (7.0-40); AST/SGOT 32 U/L (<34); BILIRUBIN,TOTAL 0.5 MG/DL (0.3-1.2); BLOOD UREA NITROGEN 31 MG/DL (9-23); CARBON DIOXIDE LEVEL 37 MMOL/L (20-31); CHLORIDE LEVEL 98 MMOL/L (98-107); CREATININE FOR GFR 1.12 MG/DL (0.70-1.30); GLOMERULAR FILTRATION RATE > 60.0 (>42); GLUCOSE, FASTING 97 MG/DL (74-106); MAGNESIUM LEVEL 1.8 MG/DL (1.8-2.4); POTASSIUM SERUM 3.8 MMOL/L (3.5-5.1); SODIUM LEVEL 140 MMOL/L (136-145); TOTAL PROTEIN 4.6 G/DL (5.7-8.2)
[2022-06-25] MEDS: traMADol 50 MG TAB PO PRN ×2 (11:29→23:52)
[2022-06-25] MEDS: clonazePAM 0.5 MG TAB PO PRN ×2 (11:40→20:59)
[2022-06-25 14:00] VITALS: BP 118/70
[2022-06-25 20:00] VITALS: BP 118/60
[2022-06-26] MEDS: IPRATROPIUM 0.5MG/ALBUTEROL 2.5MG INH SOL UD 3ML (DUONEB) NEB SCH ×4 (01:05→19:49)
[2022-06-26] MEDS: ACETAMINOPHEN TAB 650MG DOSE (2X325MG) PO PRN (03:22)
[2022-06-26] MEDS: PIPERACILLIN/TAZOBACTAM SOD 3.375 GM in D5W MINI-BAG PLUS 50 ML IV SCH ×2 (05:33→12:00)
[2022-06-26] MEDS: LEVOTHYROXINE 50MCG TABLET (0.05MG) PO SCH (05:33)
[2022-06-26] MEDS: clonazePAM 0.5 MG TAB PO PRN ×2 (05:34→17:58)
[2022-06-26 06:00] VITALS: BP 119/64
[2022-06-26 06:17] LABS: BASO % 0.1 % (0.0-1.0); EOS % 0.1 % (0.0-3.0); HEMATOCRIT 35.2 % (42.0-52.0); HEMOGLOBIN 11.2 g/dl (13.5-17.5); LYMPH # 0.5 10^3/uL (1.5-5.0); LYMPH % 4.8 % (24.0-44.0); MEAN CORPUSCULAR HEMOGLOBIN 30.4 pg (27.0-33.0); MEAN CORPUSCULAR HGB CONC 31.8 g/dl (32.0-36.5); MEAN CORPUSCULAR VOLUME 95.4 fl (80.0-96.0); MONO # 0.9 10^3/uL (0.0-0.8); MONO % 8.2 % (2.0-8.0); NEUTROPHILS # 8.9 10^3/uL (1.5-8.5); NEUTROPHILS % 86.2 % (36.0-66.0); PLATELET COUNT, AUTOMATED 160 10^3/uL (150-450); RED BLOOD COUNT 3.69 10^6/uL (4.30-6.10); WHITE BLOOD COUNT 10.4 10^3/uL (4.0-10.0)
[2022-06-26 06:46] LABS: ALBUMIN 2.2 G/DL (3.2-5.2); BILIRUBIN,TOTAL 0.6 MG/DL (0.3-1.2); CALCIUM LEVEL 8.3 MG/DL (8.3-10.6); CREATININE FOR GFR 1.25 MG/DL (0.70-1.30); GLOMERULAR FILTRATION RATE 59.3 (>42); MAGNESIUM LEVEL 1.9 MG/DL (1.8-2.4); TOTAL PROTEIN 4.5 G/DL (5.7-8.2)
[2022-06-26] MEDS: TAMSULOSIN 0.4 MG CAP PO SCH (08:14)
[2022-06-26] MEDS: METOCLOPRAMIDE 5 MG TAB PO SCH ×3 (08:15→17:58)
[2022-06-26] MEDS: MULTIVITAMINS/MINERALS THERAP 1 TAB PO SCH (08:15)
[2022-06-26] MEDS: POTASSIUM CHLORIDE 10MEQ SR TABLET PO SCH ×2 (08:15→21:22)
[2022-06-26] MEDS: SUCRALFATE 1 GM TAB PO SCH ×2 (08:15→21:22)
[2022-06-26] MEDS: GABAPENTIN 300 MG CAP PO SCH ×2 (08:15→21:22)
[2022-06-26] MEDS: AZITHROMYCIN 250MG TABLET PO SCH (08:15)
[2022-06-26] MEDS: methylPREDNISolone 40MG 1ML VIAL IV SCH (08:16)
[2022-06-26] MEDS: PANTOPRAZOLE 40MG VIAL IV SCH ×2 (08:16→21:21)
[2022-06-26] MEDS: ENOXAPARIN 40MG/0.4ML SYRINGE (J1650 PER 10MG) SC SCH (08:16)
[2022-06-26] MEDS: SERTRALINE HCL 50 MG TAB PO SCH (08:17)
[2022-06-26 14:00] VITALS: BP 130/66
[2022-06-26 20:43] VITALS: BP 110/45
[2022-06-26] MEDS: AUGMENTIN 875 MG TAB PO SCH (21:22)
[2022-06-27] MEDS: traMADol 50 MG TAB PO PRN ×2 (00:14→21:40)
[2022-06-27] MEDS: IPRATROPIUM 0.5MG/ALBUTEROL 2.5MG INH SOL UD 3ML (DUONEB) NEB SCH ×4 (02:52→20:43)
[2022-06-27] MEDS: LEVOTHYROXINE 50MCG TABLET (0.05MG) PO SCH (04:45)
[2022-06-27] MEDS: clonazePAM 0.5 MG TAB PO PRN ×2 (04:45→16:58)
[2022-06-27] MEDS: ACETAMINOPHEN TAB 650MG DOSE (2X325MG) PO PRN ×2 (04:46→16:57)
[2022-06-27 05:23] VITALS: BP 131/53
[2022-06-27 06:03] LABS: BASO % 0.1 % (0.0-1.0); EOS % 0.1 % (0.0-3.0); HEMATOCRIT 37.4 % (42.0-52.0); HEMOGLOBIN 11.9 g/dl (13.5-17.5); LYMPH # 0.7 10^3/uL (1.5-5.0); LYMPH % 7.9 % (24.0-44.0); MEAN CORPUSCULAR HEMOGLOBIN 30.4 pg (27.0-33.0); MEAN CORPUSCULAR HGB CONC 31.8 g/dl (32.0-36.5); MEAN CORPUSCULAR VOLUME 95.7 fl (80.0-96.0); MONO # 1.1 10^3/uL (0.0-0.8); MONO % 12.2 % (2.0-8.0); NEUTROPHILS # 7.2 10^3/uL (1.5-8.5); NEUTROPHILS % 78.8 % (36.0-66.0); PLATELET COUNT, AUTOMATED 153 10^3/uL (150-450); RED BLOOD COUNT 3.91 10^6/uL (4.30-6.10); WHITE BLOOD COUNT 9.1 10^3/uL (4.0-10.0)
[2022-06-27 06:55] LABS: ALBUMIN 2.3 G/DL (3.2-5.2); ALKALINE PHOSPHATASE 73 U/L (46-116); ALT/SGPT 67 U/L (7.0-40); AST/SGOT 65 U/L (<34); BILIRUBIN,TOTAL 0.6 MG/DL (0.3-1.2); BLOOD UREA NITROGEN 26 MG/DL (9-23); CALCIUM LEVEL 8.2 MG/DL (8.3-10.6); CARBON DIOXIDE LEVEL 38 MMOL/L (20-31); CHLORIDE LEVEL 99 MMOL/L (98-107); CREATININE FOR GFR 1.22 MG/DL (0.70-1.30); GLOMERULAR FILTRATION RATE > 60.0 (>42); GLUCOSE, FASTING 80 MG/DL (74-106); MAGNESIUM LEVEL 1.8 MG/DL (1.8-2.4); POTASSIUM SERUM 4.5 MMOL/L (3.5-5.1); SODIUM LEVEL 139 MMOL/L (136-145); TOTAL PROTEIN 4.5 G/DL (5.7-8.2)
[2022-06-27] MEDS: ENOXAPARIN 40MG/0.4ML SYRINGE (J1650 PER 10MG) SC SCH (09:00)
[2022-06-27] MEDS: methylPREDNISolone 40MG 1ML VIAL IV SCH (09:12)
[2022-06-27] MEDS: PANTOPRAZOLE 40MG VIAL IV SCH ×2 (09:12→21:40)
[2022-06-27] MEDS: POTASSIUM CHLORIDE 10MEQ SR TABLET PO SCH ×2 (09:13→21:40)
[2022-06-27] MEDS: AUGMENTIN 875 MG TAB PO SCH ×2 (09:14→21:39)
[2022-06-27] MEDS: SERTRALINE HCL 50 MG TAB PO SCH (09:14)
[2022-06-27] MEDS: GABAPENTIN 300 MG CAP PO SCH ×2 (09:14→21:40)
[2022-06-27] MEDS: METOCLOPRAMIDE 5 MG TAB PO SCH ×3 (09:14→16:57)
[2022-06-27] MEDS: SUCRALFATE 1 GM TAB PO SCH ×2 (09:14→21:39)
[2022-06-27] MEDS: MULTIVITAMINS/MINERALS THERAP 1 TAB PO SCH (09:15)
[2022-06-27] MEDS: TAMSULOSIN 0.4 MG CAP PO SCH (09:15)
[2022-06-27] MEDS ORDERED: VARIBAR NECTAR 40% w/v 240ML SUSP BTL As Ordered ONE (11:42)
[2022-06-27] MEDS ORDERED: E-Z-PAQUE 96% w/w SUSP 176GM BTL As Ordered ONE (11:42)
[2022-06-27] MEDS ORDERED: VARIBAR PUDDING 40% w/v 230ML TUBE As Ordered ONE (11:42)
[2022-06-27] MEDS ORDERED: BARIUM SULFATE 700 MG TABLET (E-Z-DISK) As Ordered ONE (11:42)
[2022-06-27 15:30] VITALS: BP 130/55
[2022-06-27 15:36] LABS: PH BODY FLUID 7.769 UNITS (NOT ESTABLISHED); SOURCE, BODY FLUID pH PLEURAL
[2022-06-27 18:53] LABS: LDH, BODY FLUID 52 U/L (NOT ESTABLISHED); SOURCE, BODY FLUID GLUCOSE PLEURAL; SOURCE, BODY FLUID LDH PLEURAL; SOURCE, BODY FLUID TOT PROTEIN PLEURAL; TOTAL PROTEIN, BODY FLUID < 2.0 G/DL (NOT ESTABLISHED)
[2022-06-27 20:00] VITALS: BP 124/57
[2022-06-28] MEDS: IPRATROPIUM 0.5MG/ALBUTEROL 2.5MG INH SOL UD 3ML (DUONEB) NEB SCH ×3 (01:27→14:43)
[2022-06-28 05:03] VITALS: BP 123/59
[2022-06-28] MEDS: LEVOTHYROXINE 50MCG TABLET (0.05MG) PO SCH (05:26)
[2022-06-28] MEDS: clonazePAM 0.5 MG TAB PO PRN (05:26)
[2022-06-28 06:19] LABS: BASO % 0.1 % (0.0-1.0); EOS % 0.3 % (0.0-3.0); HEMATOCRIT 35.9 % (42.0-52.0); HEMOGLOBIN 11.5 g/dl (13.5-17.5); LYMPH # 0.7 10^3/uL (1.5-5.0); LYMPH % 9.4 % (24.0-44.0); MEAN CORPUSCULAR HEMOGLOBIN 30.3 pg (27.0-33.0); MEAN CORPUSCULAR VOLUME 94.7 fl (80.0-96.0); MONO # 0.9 10^3/uL (0.0-0.8); MONO % 11.8 % (2.0-8.0); NEUTROPHILS # 5.7 10^3/uL (1.5-8.5); NEUTROPHILS % 77.2 % (36.0-66.0); PLATELET COUNT, AUTOMATED 139 10^3/uL (150-450); RED BLOOD COUNT 3.79 10^6/uL (4.30-6.10); WHITE BLOOD COUNT 7.4 10^3/uL (4.0-10.0)
[2022-06-28 06:36] LABS: CHLORIDE LEVEL 100 MMOL/L (98-107); POTASSIUM SERUM 4.1 MMOL/L (3.5-5.1); SODIUM LEVEL 139 MMOL/L (136-145)
[2022-06-28 06:39] LABS: ALBUMIN 2.2 G/DL (3.2-5.2); CARBON DIOXIDE LEVEL 35 MMOL/L (20-31)
[2022-06-28 06:43] LABS: ALKALINE PHOSPHATASE 70 U/L (46-116)
[2022-06-28 06:45] LABS: BLOOD UREA NITROGEN 24 MG/DL (9-23); GLUCOSE, FASTING 81 MG/DL (74-106); MAGNESIUM LEVEL 1.7 MG/DL (1.8-2.4)
[2022-06-28 06:47] LABS: ALT/SGPT 57 U/L (7.0-40); AST/SGOT 44 U/L (<34); BILIRUBIN,TOTAL 0.6 MG/DL (0.3-1.2); CREATININE FOR GFR 1.04 MG/DL (0.70-1.30); GLOMERULAR FILTRATION RATE > 60.0 (>42); TOTAL PROTEIN 4.3 G/DL (5.7-8.2)
[2022-06-28] MEDS ORDERED: MAG SULF 1GM/100ML (MAG RUN) 1 GM in IV 1 EA IV ONE (08:00)
[2022-06-28] MEDS: ENOXAPARIN 40MG/0.4ML SYRINGE (J1650 PER 10MG) SC SCH (08:35)
[2022-06-28] MEDS: SUCRALFATE 1 GM TAB PO SCH (08:35)
[2022-06-28] MEDS: METOCLOPRAMIDE 5 MG TAB PO SCH ×2 (08:35→12:13)
[2022-06-28] MEDS: AUGMENTIN 875 MG TAB PO SCH (08:35)
[2022-06-28] MEDS: POTASSIUM CHLORIDE 10MEQ SR TABLET PO SCH (08:35)
[2022-06-28] MEDS: MULTIVITAMINS/MINERALS THERAP 1 TAB PO SCH (08:35)
[2022-06-28] MEDS: ACETAMINOPHEN TAB 650MG DOSE (2X325MG) PO PRN (08:36)
[2022-06-28] MEDS: GABAPENTIN 300 MG CAP PO SCH (08:36)
[2022-06-28] MEDS: TAMSULOSIN 0.4 MG CAP PO SCH (08:36)
[2022-06-28] MEDS: SERTRALINE HCL 50 MG TAB PO SCH (08:36)
[2022-06-28] MEDS: PANTOPRAZOLE 40MG VIAL IV SCH (08:37)
[2022-06-28] MEDS: methylPREDNISolone 40MG 1ML VIAL IV SCH (08:38)
[2022-06-28 14:00] VITALS: BP 120/56
[2022-06-28] MEDS ORDERED: PRED10TA2 PO (14:00)
[2022-06-28] MEDS ORDERED: SUCR1TA PO (14:00)
[2022-06-28] MEDS ORDERED: AMOX875T2 PO (14:00)
[2022-06-28] MEDS ORDERED: PROT1TAB2 PO (14:00)
[2022-06-28] MEDS ORDERED: GUAI20TA PO (14:00)
== END 2022-06-28 16:35 | disposition home or self-care (01) | DRG 190 ==
LOC: EDBD 06:08 → M ED 06:08 → M ED INP 10:37 → ENRESERV 11:50 → M MSPAV 12:49
PROVIDERS: ADMIT Family Medicine; ATTEND Internal Medicine
PROC: 0W9B3ZZ Drainage of Left Pleural Cavity, Percutaneous Approach (ICD-10-PCS; principal; 2022-06-27 14:00)
DX: J44.1 Chronic obstructive pulmonary disease with (acute) exacerbation (principal); J18.9 Pneumonia, unspecified organism; J90 Pleural effusion, not elsewhere classified; I48.92 Unspecified atrial flutter; K92.1 Melena; J96.11 Chronic respiratory failure with hypoxia; J44.0 Chronic obstructive pulmonary disease with (acute) lower respiratory infection; I12.9 Hypertensive chronic kidney disease with stage 1 through stage 4 chronic kidney disease, or unspecified chronic kidney disease; Z99.81 Dependence on supplemental oxygen; R13.10 Dysphagia, unspecified; M10.9 Gout, unspecified; E03.9 Hypothyroidism, unspecified; I25.10 Atherosclerotic heart disease of native coronary artery without angina pectoris; N18.9 Chronic kidney disease, unspecified; Z95.1 Presence of aortocoronary bypass graft; Z92.21 Personal history of antineoplastic chemotherapy; Z92.3 Personal history of irradiation; Z95.0 Presence of cardiac pacemaker; Z85.118 Personal history of other malignant neoplasm of bronchus and lung; Z79.899 Other long term (current) drug therapy; Z88.6 Allergy status to analgesic agent; Z87.891 Personal history of nicotine dependence

== ENCOUNTER → 2022-08-16 | Outpatient (REF) | payer MEDICARE, OTHER ==
[~2022-08-16] MED LIST changes: +AMOX875T2 PO; +GUAI20TA PO; +PRED10TA2 PO; +PROT1TAB2 PO; +SUCR1TA PO
== END ==
LOC: M LAB REF 12:04
PROVIDERS: ATTEND Internal Medicine
DX: R26.89 Other abnormalities of gait and mobility (principal); I48.0 Paroxysmal atrial fibrillation; I50.9 Heart failure, unspecified

== ENCOUNTER 2022-08-21 13:50 | Inpatient (IN) | payer MEDICARE, OTHER ==
[~2022-08-21] VITALS: Ht 175.3 cm; Wt 61.4 kg
[2022-08-21 15:13] LABS: BASO % 0.4 % (0.0-1.0); EOS # 0.1 10^3/uL (0.0-0.5); EOS % 1.8 % (0.0-3.0); HEMATOCRIT 39.9 % (42.0-52.0); HEMOGLOBIN 12.6 g/dl (13.5-17.5); LYMPH # 0.4 10^3/uL (1.5-5.0); LYMPH % 4.7 % (24.0-44.0); MEAN CORPUSCULAR HEMOGLOBIN 30.3 pg (27.0-33.0); MEAN CORPUSCULAR HGB CONC 31.6 g/dl (32.0-36.5); MEAN CORPUSCULAR VOLUME 95.9 fl (80.0-96.0); MONO # 0.6 10^3/uL (0.0-0.8); NEUTROPHILS # 6.2 10^3/uL (1.5-8.5); NEUTROPHILS % 84.4 % (36.0-66.0); PLATELET COUNT, AUTOMATED 137 10^3/uL (150-450); RED BLOOD COUNT 4.16 10^6/uL (4.30-6.10); WHITE BLOOD COUNT 7.4 10^3/uL (4.0-10.0)
[2022-08-21 15:22] LABS: INR 1.1; PARTIAL THROMBOPLASTIN TIME 29.3 SECONDS (24.8-34.2); PROTHROMBIN TIME 14.4 SECONDS (12.5-14.5)
[2022-08-21 15:36] LABS: BILIRUBIN,DIRECT 0.4 MG/DL (<0.4)
[2022-08-21 15:44] LABS: RSV AMPLIFICATION NEGATIVE (NEGATIVE)
[2022-08-21 15:45] LABS: ALBUMIN 2.8 G/DL (3.2-5.2); ALKALINE PHOSPHATASE 92 U/L (46-116); ALT/SGPT 21 U/L (7.0-40); AST/SGOT 34 U/L (<34); BLOOD UREA NITROGEN 17 MG/DL (9-23); CALCIUM LEVEL 8.5 MG/DL (8.3-10.6); CARBON DIOXIDE LEVEL > 40.0 MMOL/L (20-31); CHLORIDE LEVEL 94 MMOL/L (98-107); CREATININE FOR GFR 1.04 MG/DL (0.70-1.30); GLOMERULAR FILTRATION RATE > 60.0 (>42); GLUCOSE, FASTING 107 MG/DL (74-106); POTASSIUM SERUM 3.1 MMOL/L (3.5-5.1); SODIUM LEVEL 140 MMOL/L (136-145); TOTAL PROTEIN 5.5 G/DL (5.7-8.2)
[2022-08-21] MEDS ORDERED: fentaNYL 100 MCG/2 ML INJECTION IV ONE ×2 (16:10→17:50)
[2022-08-21] MEDS ORDERED: ERGO500029 PO (17:14)
[2022-08-21] MEDS ORDERED: HOME MED LIST COMPLETE! XX SCH (17:20)
[2022-08-21] MEDS ORDERED: AZITHROMYCIN 250MG TABLET PO ONE (17:50)
[2022-08-21] MEDS ORDERED: cefTRIAXone SOD 1 GM in D5W MINI-BAG PLUS 50 ML IV ONE (17:50)
[2022-08-21] MEDS ORDERED: allopurinoL 100 MG TAB PO PRN (18:25)
[2022-08-21] MEDS ORDERED: clonazePAM 0.5 MG TAB PO PRN (18:25)
[2022-08-21 19:44] LABS: VENOUS BASE EXCESS 13.2 (-2.0-2.0); VENOUS HCO3 41.6 MEQ/L (23.0-27.0); VENOUS O2 SATURATION 96.9 % (60.0-80.0); VENOUS PARTIAL PRESSURE O2 93.3 mmHg (30.0-50.0); VENOUS PH 7.386 UNITS (7.330-7.430); VENOUS TOTAL CO2 43.8 MEQ/L (24.0-28.0)
[2022-08-21] MEDS: IPRATROPIUM 0.5MG/ALBUTEROL 2.5MG INH SOL UD 3ML (DUONEB) NEB SCH (20:00)
[2022-08-21] MEDS ORDERED: POTASSIUM CHLORIDE 10MEQ SR TABLET PO ONE (20:00)
[2022-08-21] MEDS ORDERED: GABAPENTIN 300 MG CAP PO SCH (21:00)
[2022-08-21] MEDS: GABAPENTIN 300 MG CAP PO SCH (21:46)
[2022-08-21] MEDS: oxyCODONE 5MG TAB PO PRN (21:48)
[2022-08-21 22:00] VITALS: BP 159/70
[2022-08-21] MEDS: DICLOFENAC EPOLAMINE 1.3% PATCH TOP SCH (22:55)
[2022-08-21] MEDS: ACETAMINOPHEN 500 MG TAB PO SCH ×2 (23:39→23:41)
[2022-08-22] VITALS (9 sets, daily range): BP systolic 108–129; BP diastolic 52–63; O2SAT 89–92
[2022-08-22] MEDS: ACETAMINOPHEN 500 MG TAB PO SCH ×2 (05:23→12:00)
[2022-08-22] MEDS: LEVOTHYROXINE 50MCG TABLET (0.05MG) PO SCH (05:23)
[2022-08-22 06:44] LABS: HEMATOCRIT 39.1 % (42.0-52.0); HEMOGLOBIN 12.6 g/dl (13.5-17.5); MEAN CORPUSCULAR HGB CONC 32.2 g/dl (32.0-36.5); MEAN CORPUSCULAR VOLUME 96.1 fl (80.0-96.0); PLATELET COUNT, AUTOMATED 141 10^3/uL (150-450); RED BLOOD COUNT 4.07 10^6/uL (4.30-6.10); WHITE BLOOD COUNT 7.2 10^3/uL (4.0-10.0)
[2022-08-22 07:07] LABS: BLOOD UREA NITROGEN 19 MG/DL (9-23); CALCIUM LEVEL 8.1 MG/DL (8.3-10.6); CARBON DIOXIDE LEVEL > 40.0 MMOL/L (20-31); CHLORIDE LEVEL 92 MMOL/L (98-107); CREATININE FOR GFR 1.06 MG/DL (0.70-1.30); GLOMERULAR FILTRATION RATE > 60.0 (>42); GLUCOSE, FASTING 96 MG/DL (74-106); POTASSIUM SERUM 3.7 MMOL/L (3.5-5.1); SODIUM LEVEL 138 MMOL/L (136-145)
[2022-08-22] MEDS: POTASSIUM CHLORIDE 10MEQ SR TABLET PO SCH ×2 (08:26→21:00)
[2022-08-22] MEDS: LIDOCAINE 5% (LIDODERM) PATCH TD SCH (08:26)
[2022-08-22] MEDS: MULTIVITAMINS/MINERALS THERAP 1 TAB PO SCH (08:26)
[2022-08-22] MEDS: TAMSULOSIN 0.4 MG CAP PO SCH (08:26)
[2022-08-22] MEDS: GABAPENTIN 300 MG CAP PO SCH ×3 (08:26→21:31)
[2022-08-22] MEDS: oxyCODONE 5MG TAB PO PRN (08:36)
[2022-08-22] MEDS: DICLOFENAC EPOLAMINE 1.3% PATCH TOP SCH ×2 (08:37→21:10)
[2022-08-22] MEDS: TIOTROPIUM INHALER/CAPSULE (SPIRIVA) INH SCH (08:41)
[2022-08-22] MEDS: IPRATROPIUM 0.5MG/ALBUTEROL 2.5MG INH SOL UD 3ML (DUONEB) NEB SCH ×4 (08:41→19:51)
[2022-08-22] MEDS ORDERED: SERTRALINE HCL 50 MG TAB PO SCH (09:00)
[2022-08-22] MEDS ORDERED: LIDOCAINE 5% (LIDODERM) PATCH TD SCH (09:00)
[2022-08-22] MEDS ORDERED: VANCOMYCIN 1000MG/20ML VIAL As Ordered ONE (16:31)
[2022-08-22] MEDS ORDERED: TRANEXAMIC ACID 100 MG/ML 10ML VIAL As Ordered ONE (16:31)
[2022-08-22] MEDS ORDERED: ceFAZolin 2 GM/D5W 50 ML IV BAG As Ordered ONE (16:49)
[2022-08-22] MEDS ORDERED: KETAMINE HCL 200MG/20ML VIAL As Ordered ONE (17:41)
[2022-08-22] MEDS ORDERED: propofoL 200 MG/20 ML VIAL As Ordered ONE (17:41)
[2022-08-22] MEDS ORDERED: BUPIVACAINE HCL 0.5% 30ML VIAL As Ordered ONE (17:41)
[2022-08-22] MEDS ORDERED: MIDAZOLAM INJ 2MG/2ML VIAL As Ordered ONE (17:41)
[2022-08-22] MEDS ORDERED: PHENYLephrine 500MCG 5ML (100MCG/ML) SYRINGE As Ordered ONE ×3 (17:41→18:06)
[2022-08-22] MEDS ORDERED: ePHEDrine SULFATE 25 MG/5 ML(5MG/ML) SYRINGE As Ordered ONE ×3 (17:41→18:06)
[2022-08-22] MEDS ORDERED: fentaNYL 100 MCG/2 ML INJECTION As Ordered ONE (17:41)
[2022-08-22] MEDS ORDERED: ACETAMINOPHEN 1000MG 100ML IV BAG As Ordered ONE (17:41)
[2022-08-22] MEDS ORDERED: VASOPRESSIN INJ 20UNITS/ML 1ML VIAL As Ordered ONE (18:25)
[2022-08-22] MEDS ORDERED: PHENYLEPHRINE 10MG/ML 1ML VIAL As Ordered ONE (18:38)
[2022-08-22] MEDS ORDERED: fentaNYL 100 MCG/2 ML INJECTION IV PRN (19:05)
[2022-08-22] MEDS ORDERED: oxyCODONE 5MG TAB PO PRN (19:05)
[2022-08-22] MEDS ORDERED: MORPHINE 2 MG/ML 1ML VIAL IV PRN (19:05)
[2022-08-22] MEDS ORDERED: ONDANSETRON 4MG 2ML VIAL IV PRN (19:05)
[2022-08-22] MEDS ORDERED: LR 1,000 ML IV SCH (19:05)
[2022-08-23] VITALS (13 sets, daily range): BP systolic 110–145; BP diastolic 54–67; O2SAT 91–98
[2022-08-23] MEDS: ceFAZolin SOD 1 GM in D5W MINI-BAG PLUS 50 ML IV SCH ×3 (00:42→17:15)
[2022-08-23] MEDS: oxyCODONE 5MG TAB PO PRN ×4 (00:50→20:30)
[2022-08-23] MEDS: ACETAMINOPHEN 500 MG TAB PO SCH ×4 (00:50→17:15)
[2022-08-23] MEDS ORDERED: MORPHINE 2 MG/ML 1ML VIAL IV ONE (03:00)
[2022-08-23] MEDS: LEVOTHYROXINE 50MCG TABLET (0.05MG) PO SCH (05:49)
[2022-08-23] MEDS: IPRATROPIUM 0.5MG/ALBUTEROL 2.5MG INH SOL UD 3ML (DUONEB) NEB SCH (07:29)
[2022-08-23] MEDS: TIOTROPIUM INHALER/CAPSULE (SPIRIVA) INH SCH (07:30)
[2022-08-23] MEDS ORDERED: IPRATROPIUM 0.5MG/ALBUTEROL 2.5MG INH SOL UD 3ML (DUONEB) NEB PRN ×2 (08:15→17:20)
[2022-08-23] MEDS ORDERED: ENOXAPARIN 40MG/0.4ML SYRINGE (J1650 PER 10MG) SC SCH ×2 (09:00→21:00)
[2022-08-23] MEDS: allopurinoL 100 MG TAB PO SCH (09:00)
[2022-08-23] MEDS: POTASSIUM CHLORIDE 10MEQ SR TABLET PO SCH ×2 (09:56→20:30)
[2022-08-23] MEDS: GABAPENTIN 300 MG CAP PO SCH ×3 (09:57→20:30)
[2022-08-23] MEDS: TAMSULOSIN 0.4 MG CAP PO SCH (09:57)
[2022-08-23] MEDS: MULTIVITAMINS/MINERALS THERAP 1 TAB PO SCH (09:58)
[2022-08-23] MEDS: SERTRALINE HCL 50 MG TAB PO SCH (09:58)
[2022-08-23] MEDS: LIDOCAINE 5% (LIDODERM) PATCH TD SCH (10:00)
[2022-08-23] MEDS: DICLOFENAC EPOLAMINE 1.3% PATCH TOP SCH ×2 (10:01→20:29)
[2022-08-23 17:06] LABS: ABG BASE EXCESS 13.2 (-2.0-2.0); ABG HCO3 39.1 MEQ/L (22.0-26.0); ABG O2 SATURATION 93.8 % (95.0-99.0); ABG PARTIAL PRESSURE CO2 54.7 mmHg (35.0-45.0); ABG PARTIAL PRESSURE O2 66.2 mmHg (75.0-100.0); ABG STANDARD HCO3 36.9 MEQ/L (22.0-26.0); ABG TOTAL CO2 40.8 MEQ/L (23.0-31.0); ABG pH (ARTERIAL) 7.472 UNITS (7.350-7.450)
[2022-08-23] MEDS: methylPREDNISolone 40MG 1ML VIAL IV SCH (18:53)
[2022-08-23] MEDS: ALBUTEROL SULFATE 2.5MG/0.5ML INH NEB SOLN NEB SCH ×2 (19:39→23:37)
[2022-08-23] MEDS: SYMBICORT 160/4.5MCG INHALER 6GM INH SCH (19:40)
[2022-08-24] VITALS (9 sets, daily range): BP systolic 122–134; BP diastolic 59–61; O2SAT 90–97
[2022-08-24] MEDS: ACETAMINOPHEN 500 MG TAB PO SCH ×3 (00:39→11:08)
[2022-08-24] MEDS: methylPREDNISolone 40MG 1ML VIAL IV SCH ×2 (02:24→10:55)
[2022-08-24] MEDS: ALBUTEROL SULFATE 2.5MG/0.5ML INH NEB SOLN NEB SCH ×4 (03:09→15:56)
[2022-08-24 03:59] LABS: BASO % 0.1 % (0.0-1.0); HEMATOCRIT 37.7 % (42.0-52.0); HEMOGLOBIN 12.1 g/dl (13.5-17.5); LYMPH # 0.2 10^3/uL (1.5-5.0); LYMPH % 1.1 % (24.0-44.0); MEAN CORPUSCULAR HEMOGLOBIN 30.5 pg (27.0-33.0); MEAN CORPUSCULAR HGB CONC 32.1 g/dl (32.0-36.5); MONO # 0.6 10^3/uL (0.0-0.8); MONO % 3.6 % (2.0-8.0); NEUTROPHILS # 14.9 10^3/uL (1.5-8.5); NEUTROPHILS % 94.7 % (36.0-66.0); PLATELET COUNT, AUTOMATED 127 10^3/uL (150-450); RED BLOOD COUNT 3.97 10^6/uL (4.30-6.10); WHITE BLOOD COUNT 15.8 10^3/uL (4.0-10.0)
[2022-08-24 04:21] LABS: BLOOD UREA NITROGEN 29 MG/DL (9-23); CALCIUM LEVEL 8.3 MG/DL (8.3-10.6); CARBON DIOXIDE LEVEL 39 MMOL/L (20-31); CHLORIDE LEVEL 96 MMOL/L (98-107); CREATININE FOR GFR 1.03 MG/DL (0.70-1.30); GLOMERULAR FILTRATION RATE > 60.0 (>42); GLUCOSE, FASTING 145 MG/DL (74-106); POTASSIUM SERUM 4.1 MMOL/L (3.5-5.1); SODIUM LEVEL 137 MMOL/L (136-145)
[2022-08-24] MEDS: LEVOTHYROXINE 50MCG TABLET (0.05MG) PO SCH (05:16)
[2022-08-24] MEDS: SYMBICORT 160/4.5MCG INHALER 6GM INH SCH (08:16)
[2022-08-24] MEDS: TIOTROPIUM INHALER/CAPSULE (SPIRIVA) INH SCH (08:16)
[2022-08-24] MEDS: LIDOCAINE 5% (LIDODERM) PATCH TD SCH (10:55)
[2022-08-24] MEDS: DICLOFENAC EPOLAMINE 1.3% PATCH TOP SCH (10:55)
[2022-08-24] MEDS: POTASSIUM CHLORIDE 10MEQ SR TABLET PO SCH (10:55)
[2022-08-24] MEDS: TAMSULOSIN 0.4 MG CAP PO SCH (10:56)
[2022-08-24] MEDS: allopurinoL 100 MG TAB PO SCH (10:56)
[2022-08-24] MEDS: SERTRALINE HCL 50 MG TAB PO SCH (10:56)
[2022-08-24] MEDS: MULTIVITAMINS/MINERALS THERAP 1 TAB PO SCH (10:56)
[2022-08-24] MEDS: GABAPENTIN 300 MG CAP PO SCH ×2 (10:56→15:23)
[2022-08-24] MEDS ORDERED: ALB2.5NEB NEB (14:12)
[2022-08-24] MEDS ORDERED: SYMB16INH INH (14:12)
[2022-08-24] MEDS ORDERED: OMEP40CA4 PO (14:12)
[2022-08-24] MEDS ORDERED: TRAM50TA2 PO (14:12)
[2022-08-24] MEDS ORDERED: ASPI81TA26 PO (14:12)
[2022-08-24] MEDS ORDERED: GABA-282 PO (14:12)
[2022-08-24] MEDS ORDERED: DICL1PAT6 TOP (14:12)
[2022-08-24] MEDS ORDERED: TIOT18INH INH (14:12)
[2022-08-24] MEDS ORDERED: IPRA0.00 NEB (14:12)
[2022-08-24] MEDS ORDERED: LIDO5TD TD (14:12)
[2022-08-24] MEDS ORDERED: ACET-683 PO (14:12)
[2022-08-24] MEDS ORDERED: OXYC-517 PO (14:12)
[2022-08-24] MEDS ORDERED: PRED10TA2 PO (14:12)
[2022-08-24] MEDS: oxyCODONE 5MG TAB PO PRN (15:44)
== END 2022-08-24 15:57 | DRG 522 ==
LOC: EDBD 13:50 → M ED 13:50 → M ED INP 18:21 → ENRESERV 08-22 16:39 → M PCU 08-22 20:17
PROVIDERS: ADMIT Student in an Organized Health Care Education/Training Program; ATTEND Internal Medicine Nephrology
PROC: 0SRR0JA Replacement of Right Hip Joint, Femoral Surface with Synthetic Substitute, Uncemented, Open Approach (ICD-10-PCS; principal; 2022-08-22 11:00)
DX: S72.001A Fracture of unspecified part of neck of right femur, initial encounter for closed fracture (principal); J44.1 Chronic obstructive pulmonary disease with (acute) exacerbation; I50.32 Chronic diastolic (congestive) heart failure; J96.11 Chronic respiratory failure with hypoxia; I13.0 Hypertensive heart and chronic kidney disease with heart failure and stage 1 through stage 4 chronic kidney disease, or unspecified chronic kidney disease; F32.A Depression, unspecified; E03.9 Hypothyroidism, unspecified; N18.30 Chronic kidney disease, stage 3 unspecified; K21.9 Gastro-esophageal reflux disease without esophagitis; I25.10 Atherosclerotic heart disease of native coronary artery without angina pectoris; Z99.81 Dependence on supplemental oxygen; N40.0 Benign prostatic hyperplasia without lower urinary tract symptoms; M10.9 Gout, unspecified; E87.6 Hypokalemia; Z95.1 Presence of aortocoronary bypass graft; Z66 Do not resuscitate; J84.10 Pulmonary fibrosis, unspecified; I48.0 Paroxysmal atrial fibrillation; I27.20 Pulmonary hypertension, unspecified; Z95.0 Presence of cardiac pacemaker; Z92.3 Personal history of irradiation; Z92.21 Personal history of antineoplastic chemotherapy; G25.81 Restless legs syndrome; D50.9 Iron deficiency anemia, unspecified; G47.33 Obstructive sleep apnea (adult) (pediatric); Z85.118 Personal history of other malignant neoplasm of bronchus and lung; Z98.41 Cataract extraction status, right eye; Z98.42 Cataract extraction status, left eye; Z79.899 Other long term (current) drug therapy; Z79.82 Long term (current) use of aspirin; Z87.891 Personal history of nicotine dependence; W18.30XA Fall on same level, unspecified, initial encounter; Y92.009 Unspecified place in unspecified non-institutional (private) residence as the place of occurrence of the external cause

== ENCOUNTER 2022-08-24 12:49 | Inpatient (IN) | payer MEDICARE, OTHER ==
[~2022-08-24] VITALS: Ht 175.3 cm; Wt 67.5 kg
[2022-08-24] MEDS ORDERED: TRAM50TA2 PO (14:12)
[2022-08-24] MEDS ORDERED: ASPI81TA26 PO (14:12)
[2022-08-24] MEDS ORDERED: SYMB16INH INH (14:12)
[2022-08-24] MEDS ORDERED: OXYC-517 PO (14:12)
[2022-08-24] MEDS ORDERED: PRED10TA2 PO (14:12)
[2022-08-24] MEDS ORDERED: ALB2.5NEB NEB (14:12)
[2022-08-24] MEDS ORDERED: TIOT18INH INH (14:12)
[2022-08-24] MEDS ORDERED: LIDO5TD TD (14:12)
[2022-08-24] MEDS ORDERED: GABA-282 PO (14:12)
[2022-08-24] MEDS ORDERED: ACET-683 PO (14:12)
[2022-08-24] MEDS ORDERED: OMEP40CA4 PO (14:12)
[2022-08-24] MEDS ORDERED: IPRA0.00 NEB (14:12)
[2022-08-24] MEDS ORDERED: DICL1PAT6 TOP (14:12)
[2022-08-24 16:00] VITALS: BP 122/60
[2022-08-24] MEDS ORDERED: oxyCODONE 5MG TAB PO PRN (17:10)
[2022-08-24] MEDS ORDERED: ALBUTEROL 90 MCG/ACT 8GM HFA INHALER INH PRN (17:10)
[2022-08-24] MEDS ORDERED: BISACODYL 10MG SUPP PR PRN (17:10)
[2022-08-24] MEDS ORDERED: ONDANSETRON 4MG TAB PO PRN (17:10)
[2022-08-24 17:40] VITALS: BP 187/80
[2022-08-24] MEDS ORDERED: OLANZapine 2.5MG TABLET PO ONE (18:00)
[2022-08-24 18:26] VITALS: BP 137/65
[2022-08-24] MEDS ORDERED: ISOVUE-370 76% 100ML VIAL As Ordered ONE (18:46)
[2022-08-24] MEDS ORDERED: ENOXAPARIN 100MG/1ML SYRINGE (J1650 PER 10MG) SC SCH (19:40)
[2022-08-24] MEDS: COMBIVENT RESPIMAT 100-20MCG INHALER 4GM INH SCH (19:41)
[2022-08-24] MEDS: SYMBICORT 160/4.5MCG INHALER 6GM INH SCH (20:00)
[2022-08-24 20:31] LABS: INR 1.62; PARTIAL THROMBOPLASTIN TIME 40.6 SECONDS (24.8-34.2); PROTHROMBIN TIME 19.5 SECONDS (12.5-14.5)
[2022-08-24] MEDS: REMEDY PHYTOPLEX Z-GUARD PASTE 113GM TUBE (FROM STOREROOM PRODUCT) TOP SCH (21:00)
[2022-08-24] MEDS: DOCUSATE SODIUM 100MG CAPSULE PO SCH (21:00)
[2022-08-24] MEDS ORDERED: ASPIRIN 81MG ENTERIC TABLET PO SCH (21:00)
[2022-08-24] MEDS: ACETAMINOPHEN 500 MG TAB PO SCH ×2 (21:00→21:17)
[2022-08-24] MEDS: GABAPENTIN 300 MG CAP PO SCH (21:17)
[2022-08-24] MEDS: SUCRALFATE 1 GM TAB PO SCH (21:17)
[2022-08-24] MEDS: guaiFENesin 200 MG TAB PO SCH (21:17)
[2022-08-24] MEDS: SENNA 8.6 MG TAB (SENOKOT) PO SCH (21:17)
[2022-08-24] MEDS: PANTOPRAZOLE 40MG TAB (PROTONIX) PO SCH (21:18)
[2022-08-24] MEDS: POTASSIUM CHLORIDE 10MEQ SR TABLET PO SCH (21:20)
[2022-08-24] MEDS: DICLOFENAC EPOLAMINE 1.3% PATCH TOP SCH (21:21)
[2022-08-24 22:00] VITALS: BP 127/61
[2022-08-24] MEDS: APIXABAN 5 MG TAB (ELIQUIS) PO SCH (22:42)
[2022-08-24] MEDS: CEFEPIME HCL 2 GM in D5W MINI-BAG PLUS 50 ML IV SCH (23:21)
[2022-08-25 05:00] VITALS: BP 146/71
[2022-08-25] MEDS: LEVOTHYROXINE 50MCG TABLET (0.05MG) PO SCH (05:44)
[2022-08-25] MEDS: CEFEPIME HCL 2 GM in D5W MINI-BAG PLUS 50 ML IV SCH ×3 (05:44→23:04)
[2022-08-25] MEDS ORDERED: OLANZapine 2.5MG TABLET PO PRN (06:00)
[2022-08-25 07:20] LABS: BASO % 0.1 % (0.0-1.0); HEMATOCRIT 36.5 % (42.0-52.0); HEMOGLOBIN 11.9 g/dl (13.5-17.5); LYMPH # 0.5 10^3/uL (1.5-5.0); LYMPH % 3.1 % (24.0-44.0); MEAN CORPUSCULAR HEMOGLOBIN 30.8 pg (27.0-33.0); MEAN CORPUSCULAR HGB CONC 32.6 g/dl (32.0-36.5); MEAN CORPUSCULAR VOLUME 94.6 fl (80.0-96.0); MONO % 9.6 % (2.0-8.0); NEUTROPHILS % 86.3 % (36.0-66.0); PLATELET COUNT, AUTOMATED 167 10^3/uL (150-450); RED BLOOD COUNT 3.86 10^6/uL (4.30-6.10); WHITE BLOOD COUNT 17.4 10^3/uL (4.0-10.0)
[2022-08-25] MEDS: SYMBICORT 160/4.5MCG INHALER 6GM INH SCH ×2 (07:26→21:08)
[2022-08-25] MEDS: TIOTROPIUM INHALER/CAPSULE (SPIRIVA) INH SCH (07:26)
[2022-08-25] MEDS: COMBIVENT RESPIMAT 100-20MCG INHALER 4GM INH SCH ×3 (07:26→21:08)
[2022-08-25] MEDS: SUCRALFATE 1 GM TAB PO SCH ×4 (07:30→20:39)
[2022-08-25 07:41] LABS: ALBUMIN 2.6 G/DL (3.2-5.2); ALKALINE PHOSPHATASE 75 U/L (46-116); ALT/SGPT < 9 U/L (7.0-40); AST/SGOT 43 U/L (<34); BILIRUBIN,TOTAL 0.8 MG/DL (0.3-1.2); BLOOD UREA NITROGEN 36 MG/DL (9-23); CALCIUM LEVEL 8.3 MG/DL (8.3-10.6); CARBON DIOXIDE LEVEL 37 MMOL/L (20-31); CHLORIDE LEVEL 95 MMOL/L (98-107); CREATININE FOR GFR 0.94 MG/DL (0.70-1.30); GLOMERULAR FILTRATION RATE > 60.0 (>42); GLUCOSE, FASTING 86 MG/DL (74-106); POTASSIUM SERUM 4.3 MMOL/L (3.5-5.1); SODIUM LEVEL 134 MMOL/L (136-145); TOTAL PROTEIN 5.7 G/DL (5.7-8.2)
[2022-08-25 07:56] LABS: MONO # 1.7 10^3/uL (0.0-0.8)
[2022-08-25] MEDS: LACTOBACILLUS ACIDOPHILUS CAP (BACID) PO SCH ×2 (08:00→17:20)
[2022-08-25] MEDS: DOCUSATE SODIUM 100MG CAPSULE PO SCH ×2 (08:02→19:58)
[2022-08-25] MEDS: TAMSULOSIN 0.4 MG CAP PO SCH (09:00)
[2022-08-25] MEDS: guaiFENesin 200 MG TAB PO SCH ×3 (09:00→20:39)
[2022-08-25] MEDS: PANTOPRAZOLE 40MG TAB (PROTONIX) PO SCH ×2 (09:00→20:40)
[2022-08-25] MEDS: OLANZapine 2.5MG TABLET PO SCH ×2 (09:00→20:40)
[2022-08-25] MEDS: MULTIVITAMINS/MINERALS THERAP 1 TAB PO SCH (09:00)
[2022-08-25] MEDS: DICLOFENAC EPOLAMINE 1.3% PATCH TOP SCH ×2 (09:00→20:39)
[2022-08-25] MEDS: ACETAMINOPHEN 500 MG TAB PO SCH ×3 (09:00→20:40)
[2022-08-25] MEDS: POTASSIUM CHLORIDE 10MEQ SR TABLET PO SCH (09:00)
[2022-08-25] MEDS: APIXABAN 5 MG TAB (ELIQUIS) PO SCH (09:00)
[2022-08-25] MEDS: predniSONE 20 MG TAB PO SCH (09:00)
[2022-08-25] MEDS: SERTRALINE HCL 50 MG TAB PO SCH (09:00)
[2022-08-25] MEDS: allopurinoL 100 MG TAB PO SCH (09:00)
[2022-08-25] MEDS: GABAPENTIN 300 MG CAP PO SCH ×3 (09:00→20:39)
[2022-08-25] MEDS: REMEDY PHYTOPLEX Z-GUARD PASTE 113GM TUBE (FROM STOREROOM PRODUCT) TOP SCH ×3 (09:00→20:41)
[2022-08-25] MEDS ORDERED: PANTOPRAZOLE 40MG TAB (PROTONIX) PO SCH (09:00)
[2022-08-25] MEDS ORDERED: LIDOCAINE 1% MDV 20ML VIAL As Ordered ONE (12:55)
[2022-08-25 13:39] LABS: APPEARANCE, BODY FLUID HAZY (CLEAR); PLEURAL FL COLOR YELLOW (COLORLESS); SOURCE, BODY FLUID PLEURAL
[2022-08-25 13:44] LABS: PH BODY FLUID 7.777 UNITS (NOT ESTABLISHED); SOURCE, BODY FLUID pH PLEURAL
[2022-08-25 14:20] VITALS: BP 137/84
[2022-08-25 15:13] LABS: SOURCE, BODY FLUID GLUCOSE PLEURAL
[2022-08-25 15:14] LABS: LDH, BODY FLUID 102 U/L (NOT ESTABLISHED); SOURCE, BODY FLUID LDH PLEURAL
[2022-08-25 15:15] LABS: AMYLASE, BODY FLUID 27 U/L (NOT ESTABLISHED); SOURCE, BODY FLUID AMYLASE PLEURAL; SOURCE, BODY FLUID TOT PROTEIN PLEURAL; TOTAL PROTEIN, BODY FLUID < 2.0 G/DL (NOT ESTABLISHED)
[2022-08-25] MEDS ORDERED: carisoprodoL 350 MG TAB PO ONE (19:55)
[2022-08-25 20:15] VITALS: BP 101/57
[2022-08-25] MEDS: LIDOCAINE 5% (LIDODERM) PATCH TD SCH (20:39)
[2022-08-25] MEDS: POTASSIUM CHLORIDE 10% LIQ 20MEQ/15ML UDC PO SCH (20:40)
[2022-08-25] MEDS: SENNA 8.6 MG TAB (SENOKOT) PO SCH (20:40)
[2022-08-25] MEDS ORDERED: ENOXAPARIN 80MG/0.8ML SYRINGE (J1650 PER 10MG) SC ONE (23:59)
[2022-08-26] MEDS ORDERED: diphenhydrAMINE 50MG/ML VIAL IV ONE (04:00)
[2022-08-26 06:00] VITALS: BP 113/61
[2022-08-26] MEDS: CEFEPIME HCL 2 GM in D5W MINI-BAG PLUS 50 ML IV SCH ×3 (06:02→20:48)
[2022-08-26] MEDS: LEVOTHYROXINE 50MCG TABLET (0.05MG) PO SCH (06:02)
[2022-08-26 06:50] LABS: BASO % 0.1 % (0.0-1.0); HEMATOCRIT 32.6 % (42.0-52.0); HEMOGLOBIN 10.5 g/dl (13.5-17.5); LYMPH # 0.5 10^3/uL (1.5-5.0); MEAN CORPUSCULAR HEMOGLOBIN 30.4 pg (27.0-33.0); MEAN CORPUSCULAR HGB CONC 32.2 g/dl (32.0-36.5); MEAN CORPUSCULAR VOLUME 94.5 fl (80.0-96.0); MONO % 8.6 % (2.0-8.0); NEUTROPHILS % 86.7 % (36.0-66.0); PLATELET COUNT, AUTOMATED 161 10^3/uL (150-450); RED BLOOD COUNT 3.45 10^6/uL (4.30-6.10); WHITE BLOOD COUNT 11.6 10^3/uL (4.0-10.0)
[2022-08-26 07:02] LABS: INR 1.62; PROTHROMBIN TIME 19.5 SECONDS (12.5-14.5)
[2022-08-26 07:03] LABS: PARTIAL THROMBOPLASTIN TIME 49.8 SECONDS (24.8-34.2)
[2022-08-26 07:20] LABS: BLOOD UREA NITROGEN 40 MG/DL (9-23); CALCIUM LEVEL 8.1 MG/DL (8.3-10.6); CARBON DIOXIDE LEVEL 36 MMOL/L (20-31); CHLORIDE LEVEL 98 MMOL/L (98-107); CREATININE FOR GFR 0.98 MG/DL (0.70-1.30); GLOMERULAR FILTRATION RATE > 60.0 (>42); GLUCOSE, FASTING 76 MG/DL (74-106); POTASSIUM SERUM 4.5 MMOL/L (3.5-5.1); SODIUM LEVEL 137 MMOL/L (136-145)
[2022-08-26] MEDS: TIOTROPIUM INHALER/CAPSULE (SPIRIVA) INH SCH (07:40)
[2022-08-26] MEDS: SYMBICORT 160/4.5MCG INHALER 6GM INH SCH ×2 (07:40→20:07)
[2022-08-26] MEDS: COMBIVENT RESPIMAT 100-20MCG INHALER 4GM INH SCH ×3 (07:41→20:07)
[2022-08-26] MEDS: DOCUSATE SODIUM 100MG CAPSULE PO SCH ×2 (09:00→20:44)
[2022-08-26] MEDS: REMEDY PHYTOPLEX Z-GUARD PASTE 113GM TUBE (FROM STOREROOM PRODUCT) TOP SCH ×3 (09:00→20:46)
[2022-08-26] MEDS: allopurinoL 100 MG TAB PO SCH (09:09)
[2022-08-26] MEDS: TAMSULOSIN 0.4 MG CAP PO SCH (09:09)
[2022-08-26] MEDS: OLANZapine 2.5MG TABLET PO SCH ×2 (09:09→20:44)
[2022-08-26] MEDS: DICLOFENAC EPOLAMINE 1.3% PATCH TOP SCH ×2 (09:09→20:46)
[2022-08-26] MEDS: predniSONE 20 MG TAB PO SCH (09:09)
[2022-08-26] MEDS: POTASSIUM CHLORIDE 10% LIQ 20MEQ/15ML UDC PO SCH ×2 (09:09→20:43)
[2022-08-26] MEDS: MULTIVITAMINS/MINERALS THERAP 1 TAB PO SCH (09:09)
[2022-08-26] MEDS: guaiFENesin 200 MG TAB PO SCH ×3 (09:09→20:44)
[2022-08-26] MEDS: APIXABAN 5 MG TAB (ELIQUIS) PO SCH ×2 (09:09→20:44)
[2022-08-26] MEDS: ACETAMINOPHEN 500 MG TAB PO SCH ×3 (09:10→20:44)
[2022-08-26] MEDS: LACTOBACILLUS ACIDOPHILUS CAP (BACID) PO SCH ×2 (09:10→17:07)
[2022-08-26] MEDS: GABAPENTIN 300 MG CAP PO SCH ×3 (09:10→20:44)
[2022-08-26] MEDS: SERTRALINE HCL 50 MG TAB PO SCH (09:10)
[2022-08-26] MEDS: PANTOPRAZOLE 40MG TAB (PROTONIX) PO SCH ×2 (09:10→20:44)
[2022-08-26] MEDS: SUCRALFATE 1 GM TAB PO SCH ×4 (09:11→20:44)
[2022-08-26] MEDS ORDERED: VARIBAR PUDDING 40% w/v 230ML TUBE As Ordered ONE (11:39)
[2022-08-26] MEDS ORDERED: E-Z-PAQUE 96% w/w SUSP 176GM BTL As Ordered ONE (11:40)
[2022-08-26] MEDS ORDERED: VARIBAR NECTAR 40% w/v 240ML SUSP BTL As Ordered ONE (11:40)
[2022-08-26 17:57] VITALS: BP 136/63
[2022-08-26 20:00] VITALS: BP 141/63
[2022-08-26] MEDS: SENNA 8.6 MG TAB (SENOKOT) PO SCH (20:44)
[2022-08-26] MEDS: LIDOCAINE 5% (LIDODERM) PATCH TD SCH (20:45)
[2022-08-27] MEDS: LEVOTHYROXINE 50MCG TABLET (0.05MG) PO SCH (05:40)
[2022-08-27] MEDS: CEFEPIME HCL 2 GM in D5W MINI-BAG PLUS 50 ML IV SCH ×3 (05:40→21:02)
[2022-08-27 06:00] VITALS: BP 142/66
[2022-08-27] MEDS: SYMBICORT 160/4.5MCG INHALER 6GM INH SCH ×2 (07:50→19:34)
[2022-08-27] MEDS: TIOTROPIUM INHALER/CAPSULE (SPIRIVA) INH SCH (07:50)
[2022-08-27] MEDS: LACTOBACILLUS ACIDOPHILUS CAP (BACID) PO SCH ×2 (09:22→17:39)
[2022-08-27] MEDS: DICLOFENAC EPOLAMINE 1.3% PATCH TOP SCH ×2 (09:22→21:03)
[2022-08-27] MEDS: SUCRALFATE 1 GM TAB PO SCH ×4 (09:22→21:02)
[2022-08-27] MEDS: GABAPENTIN 300 MG CAP PO SCH ×3 (09:23→21:02)
[2022-08-27] MEDS: DOCUSATE SODIUM 100MG CAPSULE PO SCH ×2 (09:23→21:00)
[2022-08-27] MEDS: PANTOPRAZOLE 40MG TAB (PROTONIX) PO SCH ×2 (09:23→21:03)
[2022-08-27] MEDS: POTASSIUM CHLORIDE 10% LIQ 20MEQ/15ML UDC PO SCH ×2 (09:23→21:03)
[2022-08-27] MEDS: APIXABAN 5 MG TAB (ELIQUIS) PO SCH ×2 (09:23→21:02)
[2022-08-27] MEDS: TAMSULOSIN 0.4 MG CAP PO SCH (09:23)
[2022-08-27] MEDS: MULTIVITAMINS/MINERALS THERAP 1 TAB PO SCH (09:24)
[2022-08-27] MEDS: guaiFENesin 200 MG TAB PO SCH ×3 (09:24→21:02)
[2022-08-27] MEDS: SERTRALINE HCL 50 MG TAB PO SCH (09:24)
[2022-08-27] MEDS: ACETAMINOPHEN 500 MG TAB PO SCH ×4 (09:24→21:00)
[2022-08-27] MEDS: OLANZapine 2.5MG TABLET PO SCH ×2 (09:25→21:03)
[2022-08-27] MEDS: allopurinoL 100 MG TAB PO SCH (09:25)
[2022-08-27] MEDS: REMEDY PHYTOPLEX Z-GUARD PASTE 113GM TUBE (FROM STOREROOM PRODUCT) TOP SCH ×3 (09:25→21:00)
[2022-08-27] MEDS: COMBIVENT RESPIMAT 100-20MCG INHALER 4GM INH SCH ×3 (12:27→19:34)
[2022-08-27 14:02] VITALS: BP 131/61
[2022-08-27 20:00] VITALS: BP 141/66
[2022-08-27] MEDS: LIDOCAINE 5% (LIDODERM) PATCH TD SCH (21:03)
[2022-08-27] MEDS: SENNA 8.6 MG TAB (SENOKOT) PO SCH (21:03)
[2022-08-28] MEDS: ACETAMINOPHEN 500 MG TAB PO SCH ×3 (05:40→20:45)
[2022-08-28] MEDS: LEVOTHYROXINE 50MCG TABLET (0.05MG) PO SCH (05:40)
[2022-08-28] MEDS: CEFEPIME HCL 2 GM in D5W MINI-BAG PLUS 50 ML IV SCH ×3 (05:40→20:44)
[2022-08-28 06:00] VITALS: BP 149/69
[2022-08-28] MEDS: COMBIVENT RESPIMAT 100-20MCG INHALER 4GM INH SCH ×3 (08:00→20:41)
[2022-08-28] MEDS: LACTOBACILLUS ACIDOPHILUS CAP (BACID) PO SCH ×2 (08:11→18:00)
[2022-08-28] MEDS: SUCRALFATE 1 GM TAB PO SCH ×4 (08:11→20:45)
[2022-08-28] MEDS: DOCUSATE SODIUM 100MG CAPSULE PO SCH ×2 (08:14→20:46)
[2022-08-28] MEDS: APIXABAN 5 MG TAB (ELIQUIS) PO SCH ×2 (08:15→20:45)
[2022-08-28] MEDS: SERTRALINE HCL 50 MG TAB PO SCH (08:15)
[2022-08-28] MEDS: TAMSULOSIN 0.4 MG CAP PO SCH (08:15)
[2022-08-28] MEDS: MULTIVITAMINS/MINERALS THERAP 1 TAB PO SCH (08:15)
[2022-08-28] MEDS: guaiFENesin 200 MG TAB PO SCH ×3 (08:15→20:50)
[2022-08-28] MEDS: POTASSIUM CHLORIDE 10% LIQ 20MEQ/15ML UDC PO SCH ×2 (08:15→20:44)
[2022-08-28] MEDS: GABAPENTIN 300 MG CAP PO SCH ×3 (08:15→20:44)
[2022-08-28] MEDS: PANTOPRAZOLE 40MG TAB (PROTONIX) PO SCH ×2 (08:15→20:44)
[2022-08-28] MEDS: allopurinoL 100 MG TAB PO SCH (08:16)
[2022-08-28] MEDS: REMEDY PHYTOPLEX Z-GUARD PASTE 113GM TUBE (FROM STOREROOM PRODUCT) TOP SCH ×3 (08:16→20:50)
[2022-08-28] MEDS: DICLOFENAC EPOLAMINE 1.3% PATCH TOP SCH ×2 (08:16→20:44)
[2022-08-28] MEDS: OLANZapine 2.5MG TABLET PO SCH ×2 (08:16→20:44)
[2022-08-28] MEDS ORDERED: predniSONE 10MG TAB PO SCH (09:00)
[2022-08-28] MEDS: SYMBICORT 160/4.5MCG INHALER 6GM INH SCH ×2 (09:10→20:41)
[2022-08-28] MEDS: TIOTROPIUM INHALER/CAPSULE (SPIRIVA) INH SCH (09:10)
[2022-08-28 14:00] VITALS: BP 146/67
[2022-08-28 19:31] VITALS: BP 121/59
[2022-08-28] MEDS: SENNA 8.6 MG TAB (SENOKOT) PO SCH (20:44)
[2022-08-28] MEDS: LIDOCAINE 5% (LIDODERM) PATCH TD SCH (20:44)
[2022-08-29] MEDS: LEVOTHYROXINE 50MCG TABLET (0.05MG) PO SCH (05:51)
[2022-08-29] MEDS: CEFEPIME HCL 2 GM in D5W MINI-BAG PLUS 50 ML IV SCH ×3 (05:52→22:05)
[2022-08-29 06:00] VITALS: BP 146/75
[2022-08-29] MEDS: SYMBICORT 160/4.5MCG INHALER 6GM INH SCH (07:27)
[2022-08-29] MEDS: COMBIVENT RESPIMAT 100-20MCG INHALER 4GM INH SCH ×2 (07:27→14:50)
[2022-08-29] MEDS: TIOTROPIUM INHALER/CAPSULE (SPIRIVA) INH SCH (07:27)
[2022-08-29] MEDS: DOCUSATE SODIUM 100MG CAPSULE PO SCH ×2 (09:00→20:31)
[2022-08-29] MEDS: GABAPENTIN 300 MG CAP PO SCH ×3 (09:21→20:39)
[2022-08-29] MEDS: guaiFENesin 200 MG TAB PO SCH ×3 (09:21→20:30)
[2022-08-29] MEDS: POTASSIUM CHLORIDE 10% LIQ 20MEQ/15ML UDC PO SCH ×2 (09:21→20:28)
[2022-08-29] MEDS: OLANZapine 2.5MG TABLET PO SCH ×2 (09:21→20:29)
[2022-08-29] MEDS: SERTRALINE HCL 50 MG TAB PO SCH (09:22)
[2022-08-29] MEDS: APIXABAN 5 MG TAB (ELIQUIS) PO SCH ×2 (09:22→20:29)
[2022-08-29] MEDS: MULTIVITAMINS/MINERALS THERAP 1 TAB PO SCH (09:22)
[2022-08-29] MEDS: PANTOPRAZOLE 40MG TAB (PROTONIX) PO SCH ×2 (09:22→20:29)
[2022-08-29] MEDS: allopurinoL 100 MG TAB PO SCH (09:22)
[2022-08-29] MEDS: TAMSULOSIN 0.4 MG CAP PO SCH (09:24)
[2022-08-29] MEDS: SUCRALFATE 1 GM TAB PO SCH ×4 (09:24→20:31)
[2022-08-29] MEDS: ACETAMINOPHEN 500 MG TAB PO SCH ×3 (09:24→20:30)
[2022-08-29] MEDS: LIDOCAINE 5% (LIDODERM) PATCH TD SCH ×2 (09:26→20:43)
[2022-08-29] MEDS: LACTOBACILLUS ACIDOPHILUS CAP (BACID) PO SCH ×2 (09:26→17:12)
[2022-08-29] MEDS: DICLOFENAC EPOLAMINE 1.3% PATCH TOP SCH ×2 (09:26→20:30)
[2022-08-29] MEDS: REMEDY PHYTOPLEX Z-GUARD PASTE 113GM TUBE (FROM STOREROOM PRODUCT) TOP SCH ×3 (09:27→20:31)
[2022-08-29 10:18] LABS: BASO % 0.1 % (0.0-1.0); EOS # 0.3 10^3/uL (0.0-0.5); EOS % 1.8 % (0.0-3.0); HEMATOCRIT 29.6 % (42.0-52.0); HEMOGLOBIN 9.3 g/dl (13.5-17.5); LYMPH # 0.5 10^3/uL (1.5-5.0); LYMPH % 3.3 % (24.0-44.0); MEAN CORPUSCULAR HEMOGLOBIN 30.7 pg (27.0-33.0); MEAN CORPUSCULAR HGB CONC 31.4 g/dl (32.0-36.5); MEAN CORPUSCULAR VOLUME 97.7 fl (80.0-96.0); MONO # 1.3 10^3/uL (0.0-0.8); MONO % 8.3 % (2.0-8.0); NEUTROPHILS # 12.8 10^3/uL (1.5-8.5); NEUTROPHILS % 85.2 % (36.0-66.0); PLATELET COUNT, AUTOMATED 249 10^3/uL (150-450); RED BLOOD COUNT 3.03 10^6/uL (4.30-6.10)
[2022-08-29 10:37] LABS: BLOOD UREA NITROGEN 31 MG/DL (9-23); CALCIUM LEVEL 8.2 MG/DL (8.3-10.6); CARBON DIOXIDE LEVEL 32 MMOL/L (20-31); CHLORIDE LEVEL 106 MMOL/L (98-107); CREATININE FOR GFR 0.96 MG/DL (0.70-1.30); GLOMERULAR FILTRATION RATE > 60.0 (>42); GLUCOSE, FASTING 151 MG/DL (74-106); POTASSIUM SERUM 4.1 MMOL/L (3.5-5.1); SODIUM LEVEL 142 MMOL/L (136-145)
[2022-08-29 14:45] VITALS: BP 125/59
[2022-08-29 20:00] VITALS: BP 126/64
[2022-08-29] MEDS: SENNA 8.6 MG TAB (SENOKOT) PO SCH ×2 (20:31→20:43)
[2022-08-29] MEDS: BUDESONIDE 0.5 MG/2 ML INHALATION SUSPENSION INH SCH (20:51)
[2022-08-30] MEDS: CEFEPIME HCL 2 GM in D5W MINI-BAG PLUS 50 ML IV SCH ×2 (05:41→15:02)
[2022-08-30] MEDS: LEVOTHYROXINE 50MCG TABLET (0.05MG) PO SCH (05:41)
[2022-08-30 05:55] VITALS: BP 144/66
[2022-08-30 06:37] LABS: BASO % 0.2 % (0.0-1.0); EOS # 0.7 10^3/uL (0.0-0.5); EOS % 5.8 % (0.0-3.0); HEMATOCRIT 27.5 % (42.0-52.0); HEMOGLOBIN 8.6 g/dl (13.5-17.5); LYMPH # 0.7 10^3/uL (1.5-5.0); LYMPH % 6.4 % (24.0-44.0); MEAN CORPUSCULAR HEMOGLOBIN 30.3 pg (27.0-33.0); MEAN CORPUSCULAR HGB CONC 31.3 g/dl (32.0-36.5); MEAN CORPUSCULAR VOLUME 96.8 fl (80.0-96.0); MONO # 1.1 10^3/uL (0.0-0.8); MONO % 9.9 % (2.0-8.0); NEUTROPHILS # 8.7 10^3/uL (1.5-8.5); NEUTROPHILS % 75.8 % (36.0-66.0); PLATELET COUNT, AUTOMATED 217 10^3/uL (150-450); RED BLOOD COUNT 2.84 10^6/uL (4.30-6.10); WHITE BLOOD COUNT 11.5 10^3/uL (4.0-10.0)
[2022-08-30] MEDS: BUDESONIDE 0.5 MG/2 ML INHALATION SUSPENSION INH SCH (07:41)
[2022-08-30] MEDS: TIOTROPIUM INHALER/CAPSULE (SPIRIVA) INH SCH (07:41)
[2022-08-30] MEDS: COMBIVENT RESPIMAT 100-20MCG INHALER 4GM INH SCH ×3 (08:00→19:53)
[2022-08-30] MEDS: SERTRALINE HCL 50 MG TAB PO SCH (08:52)
[2022-08-30] MEDS: ACETAMINOPHEN 500 MG TAB PO SCH ×3 (08:53→21:00)
[2022-08-30] MEDS: TAMSULOSIN 0.4 MG CAP PO SCH (08:53)
[2022-08-30] MEDS: LACTOBACILLUS ACIDOPHILUS CAP (BACID) PO SCH ×2 (08:53→16:38)
[2022-08-30] MEDS: DOCUSATE SODIUM 100MG CAPSULE PO SCH ×2 (08:53→20:46)
[2022-08-30] MEDS: GABAPENTIN 300 MG CAP PO SCH ×3 (08:53→20:44)
[2022-08-30] MEDS: MULTIVITAMINS/MINERALS THERAP 1 TAB PO SCH (08:54)
[2022-08-30] MEDS: APIXABAN 5 MG TAB (ELIQUIS) PO SCH (08:54)
[2022-08-30] MEDS: DICLOFENAC EPOLAMINE 1.3% PATCH TOP SCH ×2 (08:54→20:50)
[2022-08-30] MEDS: allopurinoL 100 MG TAB PO SCH (08:54)
[2022-08-30] MEDS: POTASSIUM CHLORIDE 10% LIQ 20MEQ/15ML UDC PO SCH ×2 (08:54→20:46)
[2022-08-30] MEDS: OLANZapine 2.5MG TABLET PO SCH (08:54)
[2022-08-30] MEDS: guaiFENesin 200 MG TAB PO SCH ×3 (08:54→20:43)
[2022-08-30] MEDS: SUCRALFATE 1 GM TAB PO SCH ×4 (08:54→20:44)
[2022-08-30] MEDS: PANTOPRAZOLE 40MG TAB (PROTONIX) PO SCH ×2 (08:54→20:46)
[2022-08-30] MEDS: REMEDY PHYTOPLEX Z-GUARD PASTE 113GM TUBE (FROM STOREROOM PRODUCT) TOP SCH ×3 (08:55→20:56)
[2022-08-30 14:00] VITALS: BP 140/82
[2022-08-30] MEDS: SYMBICORT 160/4.5MCG INHALER 6GM INH SCH (19:51)
[2022-08-30 20:00] VITALS: BP 151/67
[2022-08-30] MEDS: SENNA 8.6 MG TAB (SENOKOT) PO SCH (20:43)
[2022-08-30] MEDS: LIDOCAINE 5% (LIDODERM) PATCH TD SCH (20:51)
[2022-08-30] MEDS ORDERED: OLANZapine 2.5MG TABLET PO PRN (21:00)
[2022-08-30] MEDS ORDERED: APIXABAN 5 MG TAB (ELIQUIS) PO SCH (21:00)
[2022-08-30] MEDS ORDERED: LevoFLOXacin 750 MG TABLET PO SCH (22:00)
[2022-08-31] MEDS: LEVOTHYROXINE 50MCG TABLET (0.05MG) PO SCH (05:19)
[2022-08-31 05:35] VITALS: BP 126/57
[2022-08-31 06:18] LABS: HEMATOCRIT 24.8 % (42.0-52.0); HEMOGLOBIN 7.9 g/dl (13.5-17.5); MEAN CORPUSCULAR HGB CONC 31.9 g/dl (32.0-36.5); MEAN CORPUSCULAR VOLUME 97.3 fl (80.0-96.0); PLATELET COUNT, AUTOMATED 233 10^3/uL (150-450); RED BLOOD COUNT 2.55 10^6/uL (4.30-6.10); WHITE BLOOD COUNT 10.5 10^3/uL (4.0-10.0)
[2022-08-31 06:29] LABS: BLOOD UREA NITROGEN 29 MG/DL (9-23); CALCIUM LEVEL 7.6 MG/DL (8.3-10.6); CARBON DIOXIDE LEVEL 28 MMOL/L (20-31); CHLORIDE LEVEL 108 MMOL/L (98-107); CREATININE FOR GFR 1.04 MG/DL (0.70-1.30); GLOMERULAR FILTRATION RATE > 60.0 (>42); GLUCOSE, FASTING 91 MG/DL (74-106); POTASSIUM SERUM 4.9 MMOL/L (3.5-5.1); SODIUM LEVEL 141 MMOL/L (136-145)
[2022-08-31 06:54] LABS: EOSINOPHILS 1 % (0-3); LYMPHOCYTES 6 % (16-44); METAMYELOCYTES 1 % (0-0); MONOCYTES 7 % (0-5); NEUTROPHILS 84 % (28-66); PLATELET ESTIMATE NORMAL (NORMAL)
[2022-08-31] MEDS: SYMBICORT 160/4.5MCG INHALER 6GM INH SCH (07:49)
[2022-08-31] MEDS: TIOTROPIUM INHALER/CAPSULE (SPIRIVA) INH SCH (07:49)
[2022-08-31] MEDS: COMBIVENT RESPIMAT 100-20MCG INHALER 4GM INH SCH ×2 (07:49→13:52)
[2022-08-31] MEDS ORDERED: predniSONE 20 MG TAB PO SCH (09:00)
[2022-08-31] MEDS: ACETAMINOPHEN 500 MG TAB PO SCH ×2 (09:00→16:00)
[2022-08-31] MEDS: REMEDY PHYTOPLEX Z-GUARD PASTE 113GM TUBE (FROM STOREROOM PRODUCT) TOP SCH ×2 (09:00→16:00)
[2022-08-31] MEDS: SERTRALINE HCL 50 MG TAB PO SCH (09:12)
[2022-08-31] MEDS: PANTOPRAZOLE 40MG TAB (PROTONIX) PO SCH (09:12)
[2022-08-31] MEDS: guaiFENesin 200 MG TAB PO SCH ×2 (09:12→16:00)
[2022-08-31] MEDS: SUCRALFATE 1 GM TAB PO SCH ×3 (09:12→16:50)
[2022-08-31] MEDS: allopurinoL 100 MG TAB PO SCH (09:12)
[2022-08-31] MEDS: MULTIVITAMINS/MINERALS THERAP 1 TAB PO SCH (09:12)
[2022-08-31] MEDS: GABAPENTIN 300 MG CAP PO SCH ×2 (09:12→16:50)
[2022-08-31] MEDS: POTASSIUM CHLORIDE 10% LIQ 20MEQ/15ML UDC PO SCH (09:12)
[2022-08-31] MEDS: DOCUSATE SODIUM 100MG CAPSULE PO SCH (09:12)
[2022-08-31] MEDS: TAMSULOSIN 0.4 MG CAP PO SCH (09:12)
[2022-08-31] MEDS: DICLOFENAC EPOLAMINE 1.3% PATCH TOP SCH (09:13)
[2022-08-31] MEDS: LACTOBACILLUS ACIDOPHILUS CAP (BACID) PO SCH (09:17)
[2022-08-31 11:17] LABS: IRON (FE) 46 UG/DL (65-175); PERCENT SATURATION 27.9 % (19.7-50.0); TOTAL IRON BINDING CAPACITY 165 UG/DL (250-425)
[2022-08-31 11:19] LABS: FERRITIN 292.8 NG/ML (10.5-307.3); FOLATE 8.2 NG/ML (>5.4)
[2022-08-31 11:20] LABS: VITAMIN B12 LEVEL 590 PG/ML (211-911)
[2022-08-31 12:13] LABS: HEMATOCRIT 28.3 % (42.0-52.0); HEMOGLOBIN 8.9 g/dl (13.5-17.5)
[2022-08-31 14:00] VITALS: BP 127/83
[2022-09-03] MEDS ORDERED: predniSONE 10MG TAB PO SCH (09:00)
== END 2022-08-31 18:30 | disposition short-term general hospital (02) | DRG 559 ==
LOC: M PM&R 16:00 → M MSPAV 08-31 18:09 → UNDODISIN 08-31 18:30
PROVIDERS: ADMIT Physical Medicine & Rehabilitation; ATTEND Physical Medicine & Rehabilitation
PROC: 0W9B3ZZ Drainage of Left Pleural Cavity, Percutaneous Approach (ICD-10-PCS; principal; 2022-08-25 15:30)
DX: S72.001D Fracture of unspecified part of neck of right femur, subsequent encounter for closed fracture with routine healing (principal); I26.99 Other pulmonary embolism without acute cor pulmonale; J18.9 Pneumonia, unspecified organism; I48.92 Unspecified atrial flutter; J90 Pleural effusion, not elsewhere classified; K92.2 Gastrointestinal hemorrhage, unspecified; R06.09 Other forms of dyspnea; J44.9 Chronic obstructive pulmonary disease, unspecified; E03.9 Hypothyroidism, unspecified; I25.10 Atherosclerotic heart disease of native coronary artery without angina pectoris; R41.89 Other symptoms and signs involving cognitive functions and awareness; Z66 Do not resuscitate; Z95.1 Presence of aortocoronary bypass graft; Z74.09 Other reduced mobility; Z74.1 Need for assistance with personal care; Z79.82 Long term (current) use of aspirin; Z99.81 Dependence on supplemental oxygen; Z79.890 Hormone replacement therapy; Z95.0 Presence of cardiac pacemaker; Z79.899 Other long term (current) drug therapy; Z85.118 Personal history of other malignant neoplasm of bronchus and lung; G25.81 Restless legs syndrome; R25.1 Tremor, unspecified; R13.10 Dysphagia, unspecified